=== PATIENT | male | born 1935 | race American Indian/Alaskan Native ===

== ENCOUNTER 2017-05-06 18:39 | Inpatient (IN) | payer MEDICARE, MEDICAID ==
[2017-05-06] MEDS ORDERED: Piperacill/Tazo 4.5gm in NS 4.5 GM/100 ML BAG IVPB STA (19:20)
[2017-05-06] MEDS ORDERED: Vancomycin 1gm in NS 250ml 1 GM/250 ML BAG IVPB STA (19:20)
--- NOTE | 2017-05-06 19:28 | ED PDOC ---
Arrival/HPI - General Chief Complaint: Fever Time Seen by Provider: 05/06/17 18:52 Historian: [facility] - History of Present Illness Narrative History of Present Illness (Text): The patient is a 81yo male, sent to the emergency department by his [facility] for evaluation of a fever present for the past 2 weeks. Patient has a hx of CVA and cerebral palsy. Patient is non-verbal so a complete HPI and ROS is unavailable. Time/Duration: > week (2) Past Medical History - Provider Review Nursing Documentation Reviewed: Yes - Cardiac Hx Cardiac Disorders: Yes Hx Hypertension: Yes - Pulmonary Hx Respiratory Disorders: No - Neurological Hx Neurological Disorder: Yes Hx Seizures: Yes Other/Comment: cerebral palsy - HEENT Hx HEENT Disorder: No - Renal Hx Renal Disorder: No - Endocrine/Metabolic Hx Endocrine Disorders: Yes Hx Diabetes Mellitus Type 2: Yes - Hematological/Oncological Hx Blood Disorders: Yes (GI BLEED) - Integumentary Hx Dermatological Disorder: No - Musculoskeletal/Rheumatological Hx Musculoskeletal Disorders: Yes (LEFT SIDED WEAKNESS/CVA) Hx Falls: (UNKNOWN) - Gastrointestinal Hx Gastrointestinal Disorders: Yes (GI BLEED,CONSTIPATION,DIARRHEA) - Genitourinary/Gynecological Hx Genitourinary Disorders: Yes (OVERACTIVE BLADDER) Hx Incontinence: Yes - Psychiatric Hx Psychophysiologic Disorder: No Hx Substance Use: No Family/Social History - Physician Review Nursing Documentation Reviewed: Yes Family/Social History: Unknown Family HX Smoking Status: Never Smoked Hx Alcohol Use: No Hx Substance Use: No Allergies/Home Meds Allergies/Adverse Reactions: Allergies No Known Allergies Allergy (Verified 05/06/17 19:00) Home Medications: Home Meds Medication Instructions Recorded Confirmed Carvedilol [Coreg] 3.125 mg PO .8A, 5P 07/01/15 05/06/17 Solifenacin Succinate [Vesicare] 5 mg PO DAILY 07/01/15 05/06/17 Tamsulosin HCl [Flomax] 0.4 mg PO DAILY 07/01/15 05/06/17 Tolterodine [Detrol] 2 mg PO BID 07/01/15 05/06/17 Apixaban [Eliquis] 5 mg PO BID 05/06/17 05/06/17 Atorvastatin [Lipitor] 20 mg PO .DINNER 05/06/17 05/06/17 Cholecalciferol (Vitamin D3) 2,000 units PO DAILY 05/06/17 05/06/17 [Vitamin D3] Dextran 70/Hypromellose 1 drop BOTHEYES DAILY 05/06/17 05/06/17 [Artificial Tears] Divalproex [Depakote DR] 500 mg PO BID 05/06/17 05/06/17 Melatonin [Melatonin] 0 mg PO HS 05/06/17 05/06/17 Review of Systems - Review of Systems Systems not reviewed;Unavailable: Other (patient non-verbal) Physical Exam - Physical Exam Narrative Physical Exam (Text): - Physical exam - Systems Exam Head: Present: Atraumatic, Normocephalic Pupils: Present: PERRL Extraocular Muscles: Present: EOMI Conjunctiva: Present: Normal Mouth: Present: Moist Mucous Membranes Neck: Present: Normal Range of Motion. No: MIDLINE TENDERNESS, Paraspinal Tenderness Respiratory/Chest: Present: Clear to Auscultation, Good Air Exchange. No: Respiratory Distress, Accessory Muscle Use, Tachypnic Cardiovascular: Present: Regular Rate and Rhythm, Normal S1, S2, Peripheral Pulses Present. No: Murmurs Abdomen: Present: Normal Bowel Sounds, No: Tenderness, Peritoneal Signs, Rebound, Guarding, Distention Back: Present: Normal Inspection. No: Midline Tenderness, Paraspinal Tenderness Upper Extremity: Present: Contracted. No: Cyanosis, Edema Lower Extremity: Present: Contracted. No: Edema, cyanosis Skin: Present: Warm, Dry, Normal Color. No: Rashes Physical Exam Limitations: Altered Mental Status Vital Signs Reviewed: Yes Vital Signs Temp Pulse Resp BP Pulse Ox 05/06/17 21:10 99.2 F 05/06/17 20:40 99.2 F 89 14 119/73 97 05/06/17 20:10 100.6 F H 05/06/17 18:50 100.6 F H 101 H 18 132/79 95 Temperature: Febrile Blood Pressure: Normal Pulse: Tachycardic Respiratory Rate: Normal Pain Distress: None Mental Status: No: Agitated, Lethargic Medical Decision Making ED Course and Treatment: Impression: Fever Differential Diagnosis included but are not limited to: Sepsis, UTI Plan: -- Labs -- IV Fluids -- Vancomycin -- Zosyn -- Tylenol 975 mg PO -- Reassess and disposition Progress Notes: 05/06/17 19:[address] Posadas, states to admit to Dr. De Leon' service 05/06/17 20:07 EKG: Ordered, reviewed, and independently interpreted the EKG. Rate : 95 BPM Rhythm : NSR Interpretation : No ST-segment elevations, normal axis, normal intervals. Interpreted by me. - Lab Interpretations Microbiology Results: Microbiology Results 05/06/17 19:30 Blood Blood Culture - Preliminary NO GROWTH AFTER 48 HOURS Lab Results: 05/06/17 19:25 05/06/17 19:25 Lab Results 05/06/17 19:25: Troponin I < 0.01 05/06/17 19:25: Sodium 142, Chloride 105, Potassium 4.0, Carbon Dioxide 31, Anion Gap 10, BUN 24 H, Creatinine 0.7, Est GFR ( Amer) > 60, Est GFR ( Non-Af Amer) > 60, Random Glucose 129 H, Calcium 8.2 L, Phosphorus 3.1, Magnesium 2.2, Total Bilirubin 0.5, AST 44, ALT 23, Alkaline Phosphatase 64, Total Protein 5.6 L, Albumin 2.2 L, Globulin 3.4, Albumin/Globulin Ratio 0.6 L 05/06/17 19:25: pO2 50, VBG pH 7.44 H, VBG pCO2 48.0, VBG HCO3 32.6 H, VBG Total CO2 34.1 H, VBG O2 Sat (Calc) 88.8 H, VBG Base Excess 7.2 H, VBG Potassium 5.4 H, Sodium 142.0, Chloride 109.0 H, Glucose 132 H, Lactate 1.5, FiO2 21.0, Venous Blood Potassium 5.4 H 05/06/17 19:25: PT 14.6 H, INR 1.35 H, APTT 34.5 H 05/06/17 19:25: WBC 12.6 H D, RBC 3.14 L, Hgb 9.7 L, Hct 30.4 L, MCV 96.8, MCH 30.9, MCHC 31.9, RDW 18.3 H, Plt Count 225, MPV 10.4, Gran % 66.9, Lymph % (Auto ) 22.8, [place] % (Auto) 9.9 H, Eos % (Auto) 0.3 L, Baso % (Auto) 0.1, Gran # 8.42 H, Lymph # 2.9, [place] # 1.3 H, Eos # 0.0, Baso # 0.01 - RAD Interpretation Radiology Orders: 05/06/17 19:20 CHEST PORTABLE [RAD] Stat - Medication Orders Current Medication Orders: Acetaminophen (Tylenol 325 Mg Supp) 975 mg [place] ONCE PRN PRN Reason: Fever >100.4 F Last Admin: 05/06/17 20:10 Dose: 975 mg Re-Assess: MAR Pain/Vitals Document 05/06/17 21:10 JOL (Rec: 05/06/17 21:50 JOL [id number]) Pain Reassessment Is This A Pain ReAssessment? No Sleep Is patient sleeping during reassessment? No Presence of Pain Presence of Pain No Vitals Temperature (97.6 F-99.6 F) 99.2 F Temperature Source Rectal Amlodipine Besylate (Norvasc) 2.5 mg PO DAILY PRN PRN Reason: BP sys>160, lawrence>100 Atorvastatin Calcium (Lipitor) 20 mg PO DIN [facility] Last Admin: 05/08/17 18:45 Dose: Not Given Non-Admin Reason: NPO Carvedilol (Coreg) 3.125 mg PO 0800,1700 [facility] Last Admin: 05/08/17 18:44 Dose: Not Given Non-Admin Reason: NPO Collagenase (Santyl) 1 gm TOP BID [facility] Last Admin: 05/08/17 19:13 Dose: 1 appful Divalproex Sodium (Depakote Dr(*Bid*)) 500 mg PO BID [facility] Last Admin: 05/08/17 18:44 Dose: Not Given Non-Admin Reason: NPO Famotidine (Pepcid) 20 mg IVP DAILY [facility] Last Admin: 05/08/17 10:55 Dose: 20 mg Hydralazine HCl (Apresoline) 10 mg IVP Q6 PRN PRN Reason: Systolic Blood Pressure Last Admin: 05/08/17 06:26 Dose: 10 mg Sodium Chloride (Sodium Chloride 0.9%) 1,000 mls @ 100 mls/hr IV .Q10H [facility] Last Admin: 05/08/17 22:26 Dose: 100 mls/hr Piperacillin Sod/Tazobactam Sod (Zosyn 3.375 In Ns 100ml) 100 mls @ 200 mls/hr IVPB Q6 [facility] PRN Reason: Protocol Stop: 05/17/17 12:01 Last Admin: 05/09/17 05:28 Dose: 200 mls/hr Linezolid (Zyvox 600mg/300ml D5w) 600 mg in 300 mls @ 200 mls/hr IVPB Q12 [facility] PRN Reason: Protocol Stop: 08/14/17 22:01 Last Admin: 05/08/17 22:25 Dose: 200 mls/hr Tamsulosin HCl (Flomax) 0.4 mg PO DAILY [facility] Last Admin: 05/08/17 13:08 Dose: Not Given Non-Admin Reason: NPO Discontinued Medications Sodium Chloride 2,200 ml/ IV (SUPPLIES) 2,200 mls @ 4,354.5 mls/hr IV ONCE ONE PRN Reason: 60 ML/KG/HR Stop: 05/06/17 19:21 Last Admin: 05/06/17 19:30 Dose: 4,354.5 mls/hr Vancomycin HCl (Vancomycin 1gm) 1 gm in 250 mls @ 167 mls/hr IVPB STAT STA PRN Reason: Protocol Stop: 05/06/17 20:49 Last Admin: 05/06/17 20:11 Dose: 167 mls/hr Piperacillin Sod/Tazobactam Sod (Zosyn 4.5 Gm In Ns 100ml) 4.5 gm in 100 mls @ 200 mls/hr IVPB STAT STA PRN Reason: Protocol Stop: 05/06/17 19:49 Last Admin: 05/06/17 19:30 Dose: 200 mls/hr Valproate Sodium 500 mg/ (Sodium Chloride) 105 mls @ 100 mls/hr IVPB ONCE ONE Stop: 05/08/17 22:21 Last Admin: 05/08/17 21:37 Dose: 100 mls/hr - Scribe Statement The provider has reviewed the documentation as recorded by the Cheo Guevara Provider Pandaibe Attestation: All medical record entries made by the Pandaibrandee were at my direction and personally dictated by me. I have reviewed the chart and agree that the record accurately reflects my personal performance of the history, physical exam, medical decision making, and the department course for this patient. I have also personally directed, reviewed, and agree with the discharge instructions and disposition. Disposition/Present on Arrival - Present on Arrival Any Indicators Present on Arrival: No History of DVT/PE: No History of Uncontrolled Diabetes: No Urinary Catheter: No History of Decub. Ulcer: No History Surgical Site Infection Following: None - Disposition Have Diagnosis and Disposition been Completed?: Yes Diagnosis: Sepsis Disposition: HOSPITALIZED Disposition Time: 19:53 Patient Plan: Admission Patient Problems: Current Active Problems Problem Status Onset Sepsis Acute Condition: FAIR
[2017-05-06 19:32] LABS: ADD MANUAL DIFF? NO
[2017-05-06 19:36] LABS: BASO # 0.01 K/mm3 (0.0-2.0); BASO % 0.1 % (0.0-3.0); EOS % 0.3 % (1.5-5.0); GRAN # 8.42 (1.4-6.5); GRAN % 66.9 % (50.0-68.0); HEMATOCRIT 30.4 % (42.0-52.0); LYMPH # 2.9 (1.2-3.4); LYMPH % 22.8 % (22.0-35.0); MEAN CELL VOLUME 96.8 fL (80.0-105.0); MEAN CORPUSCULAR HEMOGLOBIN 30.9 pg (25.0-35.0); MEAN CORPUSCULAR HGB CONC 31.9 g/dl (31.0-37.0); MEAN PLATELET VOLUME 10.4 fl (7.0-11.0); MONO # 1.3 (0.1-0.6); MONO % 9.9 % (1.0-6.0); PLATELET COUNT 225 10^3/uL (120.0-450.0); RED CELL DISTRIBUTION WIDTH 18.3 % (11.5-14.5); VENOUS BLOOD GAS BASE EXCESS 7.2 mmol/L (0.0-2.0); VENOUS BLOOD PH 7.44 (7.32-7.43); WHITE BLOOD COUNT 12.6 10^3/ul (4.5-11.0)
[2017-05-06 19:47] LABS: ALB/GLOB RATIO 0.6 (1.1-1.8); ALKALINE PHOSPHATASE 64 U/L (38-133); ALT/SGPT 23 U/L (7-56); AST/SGOT 44 U/L (15-59); BILIRUBIN,TOTAL 0.5 mg/dL (0.2-1.3); BLOOD UREA NITROGEN 24 mg/dL (7-21); CALCIUM 8.2 mg/dL (8.4-10.5); CARBON DIOXIDE 31 mmol/L (21-33); CHLORIDE 105 mmol/L (98-107); GFR AFRICAN-AMERICAN > 60; GLUCOSE,RANDOM 129 mg/dL (70-110); MAGNESIUM 2.2 mg/dL (1.7-2.2); PHOSPHOROUS 3.1 mg/dL (2.5-4.5); SODIUM 142 mmol/L (132-148); TOTAL PROTEIN 5.6 g/dL (5.8-8.3)
[2017-05-06 19:50] LABS: INR 1.35 (0.93-1.08); PARTIAL THROMBOPLASTIN TIME 34.5 Seconds (23.7-30.8)
--- NOTE | 2017-05-06 20:47 | CP.PCM.HP ---
<EMI RAMSEY - Last Filed: 05/07/17 08:46> History of Present Illness - History of Present Illness History of Present Illness: Patient is a 81 year old male PMH cerebral palsy, DM, BPH, GI bleeds, anemia, and urine retention who presented to the [facility] ED on 05/06/17 from the long-term , As per long-term staff, patient has had a poor appetite and difficulty swallowing without vomiting for the past 3 weeks and fever as well as +3 edema on feet bilaterally which started today. According to nurse at [facility], patient's appetite has steadily decreased in the past few weeks. With his inability to eat solid foods, his diet was converted to full liquids, with ensure being the primary supplement. However despite liquid diet, patient was still losing weight. Presence of a two week old sacral decubitus ulcer was also discussed for which patient was prescribed Bactroband daily qD. Sacral ulcer was initially red, and within one week became open and purulent. According to long-term staff, He normally communicates with yes or no but in the past few days has been unable to communicate. Both Fever and edema started today. No vomiting. Patient is AMS, however is able to repeat his name, country and state in which he is located. Patient unable to communicate current year, month, date. PMD: Dr. Amaya PMH: Cerebral Palsy, HTN, DM II Seizure Allergies: NKDA Social History: Resident at [facility], does not consume tobacco, alcohol, illicit drugs Present on Admission - Present on Admission Any Indicators Present on Admission: No Review of Systems - Review of Systems Systems not reviewed;Unavailable: Altered Mental Status - Constitutional Constitutional: Lethargy, Malaise - Gastrointestinal Gastrointestinal: Abdominal Pain (Review of Systems limited due to patient's altered mental status.) Past Patient History - Past Social History Smoking Status: Never Smoked - CARDIAC Hx Cardiac Disorders: Yes Hx Hypertension: Yes - PULMONARY Hx Respiratory Disorders: No - NEUROLOGICAL Hx Neurological Disorder: Yes Hx Seizures: Yes Other/Comment: cerebral palsy - HEENT Hx HEENT Problems: No - RENAL Hx Chronic Kidney Disease: No - ENDOCRINE/METABOLIC Hx Endocrine Disorders: Yes Hx Diabetes Mellitus Type 2: Yes - HEMATOLOGICAL/ONCOLOGICAL Hx Blood Disorders: Yes (GI BLEED) - INTEGUMENTARY Hx Dermatological Problems: No - MUSCULOSKELETAL/RHEUMATOLOGICAL Hx Musculoskeletal Disorders: Yes (LEFT SIDED WEAKNESS/CVA) Hx Falls: (UNKNOWN) - GASTROINTESTINAL Hx Gastrointestinal Disorders: Yes (GI BLEED,CONSTIPATION,DIARRHEA) - GENITOURINARY/GYNECOLOGICAL Hx Genitourinary Disorders: Yes (OVERACTIVE BLADDER) Hx Incontinence: Yes - PSYCHIATRIC Hx Psychophysiologic Disorder: No Hx Substance Use: No - SURGICAL HISTORY Hx Surgeries: (unable to obtain) Meds Allergies/Adverse Reactions: Allergies Allergy/AdvReac Type Severity Reaction Status Date / Time No Known Allergies Allergy Verified 05/06/17 19:00 Physical Exam - Constitutional Appears: Confused - Head Exam Head Exam: ATRAUMATIC, NORMAL INSPECTION, NORMOCEPHALIC - Eye Exam Eye Exam: Normal appearance - ENT Exam ENT Exam: Mucous Membranes Dry - Neck Exam Neck exam: Positive for: Normal Inspection - Respiratory Exam Respiratory Exam: Clear to Auscultation Bilateral, NORMAL BREATHING PATTERN. absent: Rales, Rhonchi, Wheezes - Cardiovascular Exam Cardiovascular Exam: RRR, +S1, +S2. absent: Clicks, Gallop, JVD - GI/Abdominal Exam GI & Abdominal Exam: absent: Distended, Soft - Neurological Exam Neurological exam: Altered - Skin Skin Exam: Dry, Normal Color Results - Vital Signs Recent Vital Signs: Last Vital Signs Temp 100.6 F H 05/06/17 20:10 Pulse 101 H 05/06/17 18:50 Resp 18 05/06/17 18:50 BP 132/79 05/06/17 18:50 Pulse Ox 95 05/06/17 18:50 - Labs Result Diagrams: 05/07/17 07:25 05/07/17 07:27 Assessment & Plan - Assessment and Plan (Free Text) Assessment: Patient is a 81 year old male PMH cerebral palsy, DM, BPH, GI bleeds, anemia, and urine retention who presented to the [facility] ED on 05/06/17 from the long-term with altered mental status. Plan: 1. Altered mental status - WBC 12.1 - Blood and Urine cultures; results pending - ID consulted, awaiting their recommendations - Sacral decubitus ulcer stage 3; results pending - Gen Surgery consulted, awaiting their recommendations - Vanc 1 gm IV and Zosyn 4.5 gm IV - Abdomen and Pelvic CT w/o contrast; results pending - CT Head w/o contrast; results pending - Aspiration precuations placed - Neuro check q1hx8 - Saleem catheter placement 2. HTN - Coreg 3.125 PO BID 3. HLD - Lipitor 20 mg PO DIN DVT/GI prophylaxis- knee SCD daily and Pepcid 20 mg IVP daily <Gabriel Amaya - Last Filed: 05/26/17 08:58> Results - Vital Signs Recent Vital Signs: Last Vital Signs Temp 97.6 F 05/11/17 12:00 Pulse 84 05/11/17 15:42 Resp 18 05/11/17 12:00 BP 144/83 05/11/17 15:42 Pulse Ox 97 05/11/17 06:00 - Labs Result Diagrams: 05/11/17 06:15 05/11/17 06:15 Attending/Attestation - Attestation I have personally seen and examined this patient.: Yes I have fully participated in the care of the patient.: Yes I have reviewed all pertinent clinical information: Yes Notes (Text): 05/26/17 08:58 Medical record note made by the resident done after discussion with my direction and input after the patient was personally seen by me. I have reviewed the chart and agree that the record accurately reflects my personal history, physical, data review, decision making and course for the patient.
[2017-05-06] MEDS: Sodium Chloride 0.9% 1,000 ML IV SCH (21:56)
[2017-05-07 02:00] VITALS: BMI 24.3
[2017-05-07 06:42] LABS: PH,URINE 6.5 (4.7-8.0); URINE BILIRUBIN NEGATIVE (NEGATIVE); URINE BLOOD NEGATIVE (NEGATIVE); URINE GLUCOSE (UA) NEGATIVE (NEGATIVE); URINE KETONE NEGATIVE (NEGATIVE); URINE LEUKOCYTE ESTERASE NEGATIVE Leu/uL (NEGATIVE); URINE PROTEIN NEGATIVE mg/dL (<30 mg/dL)
[2017-05-07 06:44] LABS: URINE APPEARANCE CLEAR (CLEAR); URINE COLOR DARK YELLOW (YELLOW)
[2017-05-07 07:25] LABS: ADD MANUAL DIFF? NO
[2017-05-07 07:35] LABS: MAGNESIUM 2.1 mg/dL (1.7-2.2)
[2017-05-07 07:57] LABS: ALB/GLOB RATIO 0.7 (1.1-1.8); ALKALINE PHOSPHATASE 77 U/L (38-133); ALT/SGPT 17 U/L (7-56); AST/SGOT 44 U/L (15-59); BILIRUBIN,TOTAL 0.6 mg/dL (0.2-1.3); BLOOD UREA NITROGEN 21 mg/dL (7-21); CALCIUM 8.1 mg/dL (8.4-10.5); CARBON DIOXIDE 29 mmol/L (21-33); CHLORIDE 109 mmol/L (98-107); GFR AFRICAN-AMERICAN > 60; GLUCOSE,RANDOM 94 mg/dL (70-110); POTASSIUM 3.7 mmol/L (3.6-5.0); SODIUM 145 mmol/L (132-148); TOTAL PROTEIN 5.5 g/dL (5.8-8.3)
[2017-05-07 08:03] LABS: BASO # 0.01 K/mm3 (0.0-2.0); BASO % 0.1 % (0.0-3.0); EOS # 0.1 (0.0-0.7); EOS % 1.2 % (1.5-5.0); GRAN % 64.5 % (50.0-68.0); HEMATOCRIT 29.8 % (42.0-52.0); LYMPH # 2.6 (1.2-3.4); LYMPH % 23.2 % (22.0-35.0); MEAN CELL VOLUME 96.4 fL (80.0-105.0); MEAN CORPUSCULAR HEMOGLOBIN 30.4 pg (25.0-35.0); MEAN CORPUSCULAR HGB CONC 31.5 g/dl (31.0-37.0); MEAN PLATELET VOLUME 10.2 fl (7.0-11.0); MONO # 1.2 (0.1-0.6); PLATELET COUNT 209 10^3/uL (120.0-450.0)
--- NOTE | 2017-05-07 09:28 | CT ---
PROCEDURE: CT Abdomen and Pelvis without intravenous contrast HISTORY: abdominal pain COMPARISON: 07/01/2015 TECHNIQUE: Without contrast.. Contrast Dose: 0 Radiation dose: Total exam DLP = 924.16 mGy-cm. This CT exam was performed using one or more of the following dose reduction techniques: Automated exposure control, adjustment of the mA and/or kV according to patient size, and/or use of iterative reconstruction technique. FINDINGS: LOWER THORAX: Small bilateral pleural effusion. LIVER: Unremarkable. No gross lesion or ductal dilatation. GALLBLADDER AND BILE DUCTS: Gallbladder contracted. No calcified gallstones identified. PANCREAS: Unremarkable. No gross lesion or ductal dilatation. SPLEEN: Unremarkable. ADRENALS: Unremarkable. No mass. KIDNEYS AND URETERS: Unremarkable. No hydronephrosis. No solid mass. VASCULATURE: Unremarkable. No aortic aneurysm. BOWEL: Retained feces in the rectum. No bowel obstruction. There is mural thickening of a segment of small bowel at least in length, nonspecific. This is best demonstrated on series 2, image 88 through 105. Nonspecific. Possible infectious or inflammatory enteritis. No other abnormal bowel loops are appreciated. APPENDIX: Unremarkable. Normal appendix. PERITONEUM: Unremarkable. No free fluid. No free air. LYMPH NODES: Unremarkable. No enlarged lymph nodes. BLADDER: Unremarkable. REPRODUCTIVE: Unremarkable prostate BONES: Thoracolumbar dextroscoliosis. No acute fracture. OTHER FINDINGS: None. IMPRESSION: New circumferential mural thickening of a segment of small bowel common nonspecific. Possible infectious or inflammatory enteritis. No bowel obstruction. Small bilateral pleural effusion. No other acute abnormality. Preliminary interpretation of this examination was reported by ALENTY at 9:57 p.m. on 05/06/2017. There is concurrence of this report with the preliminary interpretation.
[2017-05-07 09:45] LABS: FREE T4 1.52 ng/dL (0.78-2.19); T4 6.6 ug/dL (5.5-11.0)
[2017-05-07 09:59] LABS: T3 0.76 ng/mL (0.97-1.69)
[2017-05-07] MEDS ORDERED: Vancomycin 1gm in NS 250ml 1 GM/250 ML BAG IVPB SCH (10:00)
--- NOTE | 2017-05-07 10:51 | CT ---
PROCEDURE: CT HEAD WITHOUT CONTRAST. HISTORY: AMS COMPARISON: None available. TECHNIQUE: Axial computed tomography images were obtained through the head/brain without intravenous contrast. Radiation dose: Total exam DLP = 774.23 mGy-cm. This CT exam was performed using one or more of the following dose reduction techniques: Automated exposure control, adjustment of the mA and/or kV according to patient size, and/or use of iterative reconstruction technique. FINDINGS: HEMORRHAGE: No intracranial hemorrhage. BRAIN: No mass effect or edema. Right frontal cystic encephalomalacia widely communicating with right lateral ventricle. No evidence of acute infarct. Moderate periventricular white matter lucency consistent with microvascular white matter ischemic change. Mild to moderate diffuse cerebral atrophy consistent with age. VENTRICLES: As above, marked dilatation right lateral ventricle due to communicating cystic encephalomalacia. CALVARIUM: Unremarkable. PARANASAL SINUSES: Unremarkable as visualized. No significant inflammatory changes. MASTOID AIR CELLS: Unremarkable as visualized. No inflammatory changes. OTHER FINDINGS: None. IMPRESSION: No intracranial hemorrhage. No intracranial mass or evidence of acute infarct. Right frontal cystic encephalomalacia communicating the right lateral ventricle. Age related involutional changes.
--- NOTE | 2017-05-07 11:34 | RAD ---
HISTORY: Sepsis Patient COMPARISON: No prior. FINDINGS: LUNGS: No active pulmonary disease. PLEURA: No significant pleural effusion identified, no pneumothorax apparent. CARDIOVASCULAR: Normal. 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 Remodeling of the undersurface of the right acromion. VISUALIZED UPPER ABDOMEN: Normal. OTHER FINDINGS: None. IMPRESSION: No active disease.
--- NOTE | 2017-05-07 11:57 | CP.PCM.PN ---
<Cortez Panda - Last Filed: 05/07/17 18:48> Subjective - Date & Time of Evaluation Date of Evaluation: 05/07/17 Time of Evaluation: 11:53 - Subjective Subjective: Medicine progress note for Dr. Amaya/Dr. Juarez service - Cortez Amarilys PGY2 Patient seen and examined this morning. Patient is nonverbal and limited history available. 12 point ROS limited due to patient status. Chart reviewed. Objective - Vital Signs/Intake and Output Vital Signs (last 24 hours): Temp Pulse Resp BP Pulse Ox 98.7 F 92 H 19 167/92 H 96 05/07/17 06:00 05/07/17 10:23 05/07/17 06:00 05/07/17 10:23 05/07/17 06:00 Intake and Output: 05/07/17 05/07/17 06:59 18:59 Intake Total 1000 Output Total 400 Balance 600 - Medications Medications: Current Medications Acetaminophen (Tylenol 325 Mg Supp) 975 mg [place] ONCE PRN PRN Reason: Fever >100.4 F Last Admin: 05/06/17 20:10 Dose: 975 mg Atorvastatin Calcium (Lipitor) 20 mg PO DIN [facility] Carvedilol (Coreg) 3.125 mg PO 0800,1700 [facility] Last Admin: 05/07/17 08:50 Dose: 3.125 mg Divalproex Sodium (Depakote Dr(*Bid*)) 500 mg PO BID JOHANNA Famotidine (Pepcid) 20 mg IVP DAILY [facility] Last Admin: 05/07/17 10:24 Dose: 20 mg Hydralazine HCl (Apresoline) 10 mg IVP Q6 PRN PRN Reason: Systolic Blood Pressure Last Admin: 05/07/17 10:23 Dose: 10 mg Sodium Chloride (Sodium Chloride 0.9%) 1,000 mls @ 100 mls/hr IV .Q10H JOHANNA Last Admin: 05/06/17 21:56 Dose: 100 mls/hr Piperacillin Sod/Tazobactam Sod (Zosyn 3.375 In Ns 100ml) 100 mls @ 200 mls/hr IVPB Q6 JOHANNA PRN Reason: Protocol Stop: 05/17/17 12:01 Linezolid (Zyvox 600mg/300ml D5w) 600 mg in 300 mls @ 200 mls/hr IVPB Q12 JOHANNA PRN Reason: Protocol Stop: 08/14/17 22:01 Tamsulosin HCl (Flomax) 0.4 mg PO DAILY JOHANNA - Labs Labs: 05/07/17 07:25 05/07/17 07:27 PT 14.6 Seconds (9.9-11.8) H 05/06/17 19:25 INR 1.35 (0.93-1.08) H 05/06/17 19:25 APTT 34.5 Seconds (23.7-30.8) H 05/06/17 19:25 - Constitutional Appears: No Acute Distress - Head Exam Head Exam: ATRAUMATIC, NORMAL INSPECTION, NORMOCEPHALIC - Eye Exam Eye Exam: EOMI, PERRL - ENT Exam ENT Exam: Mucous Membranes Moist - Respiratory Exam Respiratory Exam: Decreased Breath Sounds. absent: Rales, Rhonchi, Wheezes - Cardiovascular Exam Cardiovascular Exam: +S1, +S2. absent: Gallop, Murmur - GI/Abdominal Exam GI & Abdominal Exam: Soft. absent: Firm, Guarding, Rigid, Tenderness, Rebound - Neurological Exam Neurological Exam: Alert, Awake - Psychiatric Exam Psychiatric exam: Normal Affect, Normal Mood - Skin Skin Exam: Dry, Intact, Normal Color, Warm Assessment and Plan - Assessment and Plan (Free Text) Plan: Patient is a 81 year old male PMH cerebral palsy, BPH, GI bleeds, anemia, and urinary retention who presented from half-way with altered mental status 1. Altered mental status -AMS likely secondary to infectious etiology from sacral decubitus ulcer and/or enteritis; pending sepsis workup -Leukocytosis of 11 from 12.1 on admission; currently afebrile however temp of 100.6F on admission -Urinalysis negative -CXR revealed no active disease -CT Head revealed no acute findings; age related involutional changes, encephalomalacia; see full report -CT abd/pelvis revealed new circumferential mural thickening of the small bowel which is nonspecific however may represent infectious/inflammatory entiritis -Blood cultures pending -Procalcitonin pending -Continue with Zosyn and Zyvox per ID recommendations -Patient with stage 2/stage 3 sacral decubitus ulcers; surgery consulted; continue with santyl and air mattress as per surgery recs -ID consulted - Dr. Boghossian -Surgery consulted - Dr. Bowling 2. HTN -Continue home Coreg 3.125 PO BID -Hydralazine 10mg IVP PRN 3. HLD - Lipitor 20 mg PO DIN 4. BPH -Continue home flomax 5. GI/DVT Prophylaxis -Pepcid/SCD's Patient seen and case discussed with attending, Dr. Juarez <Humphrey Juarez - Last Filed: 05/09/17 17:22> Objective - Vital Signs/Intake and Output Vital Signs (last 24 hours): Temp Pulse Resp BP Pulse Ox 97.0 F L 89 18 159/87 H 95 05/09/17 12:00 05/09/17 14:00 05/09/17 12:00 05/09/17 12:00 05/09/17 06:00 Intake and Output: 05/09/17 05/09/17 06:59 18:59 Intake Total 1200 360 Output Total 650 Balance 1200 -290 - Medications Medications: Current Medications Acetaminophen (Tylenol 325 Mg Supp) 975 mg [place] ONCE PRN PRN Reason: Fever >100.4 F Last Admin: 05/06/17 20:10 Dose: 975 mg Amlodipine Besylate (Norvasc) 2.5 mg PO DAILY PRN PRN Reason: BP sys>160, lawrence>100 Atorvastatin Calcium (Lipitor) 20 mg PO DIN [facility] Last Admin: 05/08/17 18:45 Dose: Not Given Carvedilol (Coreg) 3.125 mg PO 0800,1700 [facility] Last Admin: 05/09/17 08:00 Dose: Not Given Collagenase (Santyl) 1 gm TOP BID [facility] Last Admin: 05/09/17 07:30 Dose: 1 appful Divalproex Sodium (Manuel Car(*Bid*)) 500 mg PO BID [facility] PRN Reason: Protocol Famotidine (Pepcid) 20 mg IVP DAILY [facility] Last Admin: 05/09/17 09:22 Dose: 20 mg Hydralazine HCl (Apresoline) 10 mg IVP Q6 PRN PRN Reason: Systolic Blood Pressure Last Admin: 05/09/17 09:22 Dose: 10 mg Sodium Chloride (Sodium Chloride 0.9%) 1,000 mls @ 100 mls/hr IV .Q10H [facility] Last Admin: 05/09/17 09:00 Dose: Not Given Piperacillin Sod/Tazobactam Sod (Zosyn 3.375 In Ns 100ml) 100 mls @ 200 mls/hr IVPB Q6 JOHANNA PRN Reason: Protocol Stop: 05/17/17 12:01 Last Admin: 05/09/17 12:30 Dose: 200 mls/hr Linezolid (Zyvox 600mg/300ml D5w) 600 mg in 300 mls @ 200 mls/hr IVPB Q12 JOHANNA PRN Reason: Protocol Stop: 08/14/17 22:01 Last Admin: 05/09/17 09:23 Dose: 200 mls/hr Tamsulosin HCl (Flomax) 0.4 mg PO DAILY [facility] Last Admin: 05/09/17 10:05 Dose: Not Given - Labs Labs: 05/09/17 09:00 05/09/17 09:00 PT 14.6 Seconds (9.9-11.8) H 05/06/17 19:25 INR 1.35 (0.93-1.08) H 05/06/17 19:25 APTT 34.5 Seconds (23.7-30.8) H 05/06/17 19:25 Attending/Attestation - Attestation I have personally seen and examined this patient.: Yes I have fully participated in the care of the patient.: Yes I have reviewed all pertinent clinical information, including history, physical exam and plan: Yes Notes (Text): 05/09/17 17:22 Medical record note made by the resident after discussion with my direction and input after the patient was personally seen and examined by me. I have reviewed the chart and agree that the record accurately reflects by personal performance of the history, physical exam, data review, and medical decision-making, in the course for the patient. I have also personally directed the plan of care.
[2017-05-07] MEDS ORDERED: Piperacillin/Tazobact 3.375 gm 100 ML IVPB SCH (12:00)
[2017-05-07] MEDS: Divalproex 500 mg DR(BID formulation) PO SCH ×2 (12:31→17:02)
[2017-05-07] MEDS: Sodium Chloride 0.9% 1,000 ML IV SCH ×2 (12:32→21:16)
[2017-05-07] MEDS: Piperacillin/Tazobact 3.375 gm 100 ML IVPB SCH ×2 (12:50→17:06)
--- NOTE | 2017-05-07 13:11 | CP.PCM.CON ---
History of Present Illness - History of Present Illness History of Present Illness: SURGERY CONSULT NOTE FOR DR. LAUREN 81M presents to [facility] for poor appetite and altered mental status. Surgery consulted for sacral decubitus. Patient has a history of cerebral palsy with contractures of the extremities. Wound in the sacral region. Two 2by2cm stage 3 ulcers, with necrosis region. PMD: Dr. Amaya PMH: Cerebral Palsy, HTN, DM II Seizure, GI bleed, anemia Allergies: NKDA Social History: Resident at [facility], does not consume tobacco, alcohol, illicit drugs Past Patient History - Past Social History Smoking Status: Never Smoked - CARDIAC Hx Cardiac Disorders: Yes Hx Hypertension: Yes - PULMONARY Hx Respiratory Disorders: No - NEUROLOGICAL Hx Neurological Disorder: Yes Hx Seizures: Yes Other/Comment: cerebral palsy - HEENT Hx HEENT Problems: No - RENAL Hx Chronic Kidney Disease: No - ENDOCRINE/METABOLIC Hx Endocrine Disorders: Yes Hx Diabetes Mellitus Type 2: Yes - HEMATOLOGICAL/ONCOLOGICAL Hx Blood Disorders: Yes (GI BLEED) - INTEGUMENTARY Hx Dermatological Problems: No - MUSCULOSKELETAL/RHEUMATOLOGICAL Hx Musculoskeletal Disorders: Yes (LEFT SIDED WEAKNESS/CVA) Hx Falls: (UNKNOWN) - GASTROINTESTINAL Hx Gastrointestinal Disorders: Yes (GI BLEED,CONSTIPATION,DIARRHEA) - GENITOURINARY/GYNECOLOGICAL Hx Genitourinary Disorders: Yes (OVERACTIVE BLADDER) Hx Incontinence: Yes - PSYCHIATRIC Hx Psychophysiologic Disorder: No Hx Substance Use: No - SURGICAL HISTORY Hx Surgeries: (unable to obtain) Meds Allergies/Adverse Reactions: Allergies Allergy/AdvReac Type Severity Reaction Status Date / Time No Known Allergies Allergy Verified 05/06/17 19:00 - Medications Medications: Current Medications Acetaminophen (Tylenol 325 Mg Supp) 975 mg [place] ONCE PRN PRN Reason: Fever >100.4 F Last Admin: 05/06/17 20:10 Dose: 975 mg Atorvastatin Calcium (Lipitor) 20 mg PO DIN [facility] Carvedilol (Coreg) 3.125 mg PO 0800,1700 [facility] Last Admin: 05/07/17 08:50 Dose: 3.125 mg Divalproex Sodium (Depakote Dr(*Bid*)) 500 mg PO BID [facility] Last Admin: 05/07/17 12:31 Dose: Not Given Famotidine (Pepcid) 20 mg IVP DAILY [facility] Last Admin: 05/07/17 10:24 Dose: 20 mg Hydralazine HCl (Apresoline) 10 mg IVP Q6 PRN PRN Reason: Systolic Blood Pressure Last Admin: 05/07/17 10:23 Dose: 10 mg Sodium Chloride (Sodium Chloride 0.9%) 1,000 mls @ 100 mls/hr IV .Q10H [facility] Last Admin: 05/07/17 12:32 Dose: 100 mls/hr Piperacillin Sod/Tazobactam Sod (Zosyn 3.375 In Ns 100ml) 100 mls @ 200 mls/hr IVPB Q6 JOHANNA PRN Reason: Protocol Stop: 05/17/17 12:01 Last Admin: 05/07/17 12:50 Dose: 200 mls/hr Linezolid (Zyvox 600mg/300ml D5w) 600 mg in 300 mls @ 200 mls/hr IVPB Q12 JOHANNA PRN Reason: Protocol Stop: 08/14/17 22:01 Tamsulosin HCl (Flomax) 0.4 mg PO DAILY [facility] Last Admin: 05/07/17 12:31 Dose: Not Given Physical Exam - Constitutional Appears: Non-toxic, No Acute Distress - Head Exam Head Exam: ATRAUMATIC - ENT Exam ENT Exam: Mucous Membranes Moist - Respiratory Exam Respiratory Exam: Clear to Auscultation Bilateral, NORMAL BREATHING PATTERN - Cardiovascular Exam Cardiovascular Exam: REGULAR RHYTHM, +S1, +S2 - GI/Abdominal Exam GI & Abdominal Exam: Soft. absent: Distended, Firm, Guarding, Rebound, Rigid, Tenderness - Back Exam Additional comments: two 2by2cm sacral ulcers stage3, with necrosis - Neurological Exam Neurological exam: Alert - Psychiatric Exam Psychiatric exam: Normal Affect, Normal Mood - Skin Skin Exam: Dry, Normal Color Results - Vital Signs Recent Vital Signs: Last Vital Signs Temp 98.7 F 05/07/17 06:00 Pulse 92 H 05/07/17 10:23 Resp 19 05/07/17 06:00 BP 167/92 H 05/07/17 10:23 Pulse Ox 96 05/07/17 06:00 - Labs Result Diagrams: 05/07/17 07:25 05/07/17 07:27 Labs: Laboratory Results - last 24 hr 05/07/17 05/07/17 05/07/17 06:00 07:12 07:12 WBC RBC Hgb Hct MCV MCH MCHC RDW Plt Count MPV Gran % Lymph % (Auto) Orange % (Auto) Eos % (Auto) Baso % (Auto) Gran # Lymph # Orange # Eos # Baso # Sodium Potassium Chloride Carbon Dioxide Anion Gap BUN Creatinine Est GFR ( Amer) Est GFR (Non-Af Amer) Random Glucose Calcium Magnesium 2.1 Total Bilirubin AST ALT Alkaline Phosphatase Total Protein Albumin Globulin Albumin/Globulin Ratio Free T4 Thyroxine (T4) Total T3 TSH 3rd Generation 5.48 H Urine Color Dark yellow Urine Appearance Clear Urine pH 6.5 Ur Specific [place] 1.015 Urine Protein Negative Urine Glucose (UA) Negative Urine Ketones Negative Urine Blood Negative Urine Nitrate Negative Urine Bilirubin Negative Urine Urobilinogen 4.0 H Ur Leukocyte Esterase Negative 05/07/17 05/07/17 05/07/17 07:25 07:27 09:17 WBC 11.0 RBC 3.09 L Hgb 9.4 L Hct 29.8 L MCV 96.4 MCH 30.4 MCHC 31.5 RDW 18.0 H Plt Count 209 MPV 10.2 Gran % 64.5 Lymph % (Auto) 23.2 Orange % (Auto) 11.0 H Eos % (Auto) 1.2 L Baso % (Auto) 0.1 Gran # 7.10 H Lymph # 2.6 Orange # 1.2 H Eos # 0.1 Baso # 0.01 Sodium 145 Potassium 3.7 Chloride 109 H Carbon Dioxide 29 Anion Gap 11 BUN 21 Creatinine 0.7 Est GFR ( Amer) > 60 Est GFR (Non-Af Amer) > 60 Random Glucose 94 Calcium 8.1 L Magnesium Total Bilirubin 0.6 AST 44 ALT 17 Alkaline Phosphatase 77 Total Protein 5.5 L Albumin 2.3 L Globulin 3.2 Albumin/Globulin Ratio 0.7 L Free T4 1.52 Thyroxine (T4) 6.6 Total T3 0.76 L TSH 3rd Generation Urine Color Urine Appearance Urine pH Ur Specific [place] Urine Protein Urine Glucose (UA) Urine Ketones Urine Blood Urine Nitrate Urine Bilirubin Urine Urobilinogen Ur Leukocyte Esterase Assessment & Plan - Assessment and Plan (Free Text) Assessment: 81M with two stage 3 sacral ulcers Plan: - Santyl BID - Air Mattress - Keep area clean Discussed with Dr. Dash Bautista, PGY2
[2017-05-07 13:38] LABS: FOLATE 16.3 ng/mL
--- NOTE | 2017-05-07 15:18 | CON ---
DATE: 05/07/2017 The patient was seen early today in 267, bed #1. CHIEF COMPLAINT: Fever x 1 day. HISTORY OF PRESENT ILLNESS: This is a 81-year-old male from the group home, he is bedridden with dementia with cerebral palsy, nonverbal, hypertension, seizures, diabetes mellitus, history of kidney failure with a creatinine of 1.9 in the past. He was admitted from the group home with a fever of 100.6 and infectious disease's consultation requested. REVIEW OF SYSTEMS: The patient did a have a fever. There has been no shortness of breath, no diarrhea reported; however, the patient is unable to give any history and information gathered from the nurse who cared for the patient last night. There has been no chest pain reported. There is fever, but no chills. PAST MEDICAL HISTORY: Significant for dementia, hypertension, seizures, diabetes mellitus, cerebral palsy. The patient did have acute kidney injury with a creatinine of 1.9 in July 01, 2015, which he recovered from and the patient had no surgical history and no known allergy. MEDICATIONS: At the group home include Depakote, Detrol, Flomax, Vesicare, melatonin, Eliquis, and vitamin D3, and Lipitor. PHYSICAL EXAMINATION GENERAL: The patient is in bed, in no acute distress, bedridden with poor quality of life, nonverbal. VITAL SIGNS: Temperature of 98, T-max was 100.6, heart rate of 92, respiratory rate of 20, blood pressure 150/80. HEENT: Unremarkable. NECK: Supple. LUNGS: Decreased breath sounds. HEART: Normal S1 and S2. ABDOMEN: Soft, nontender, no rebound, no guarding. Examination of the decubiti reveal a stage 3 decubitus with erythema and evidence of infection. LABORATORY DATA: Reveals a white count of 12,600, hemoglobin of 9, platelets of 225. Chemistries are noted with a BUN of 24, creatinine of 0.7, and random glucose is 120. Urinalysis is noted. Microbiology is pending. The patient's chest x-ray is also pending. The patient had a CAT scan of the abdomen and pelvis, which revealed lower thorax bilateral pleural effusions, and there is new circumferential mural thickening of the segment of the small bowel, nonspecific, and urinalysis is also noted to be unremarkable. ASSESSMENT AND PLAN: A 81-year-old male from the nursing with hypertension, dementia, seizures, diabetes, cerebral palsy, history of kidney failure in 2015 with creatinine of 1.9, which is resolved, now presenting with a temperature of 98.6, tachycardia, and stage 3 infected decubitus ulcer. Sepsis secondary to stage 3 infected decubitus ulcer. We will have surgery evaluate the patient and debridement, also GI as a source of the sepsis with colitis, and we will treat the patient with Vivox and Zosyn. Pending blood culture, urine culture, wound culture. We will order a procalcitonin and we will make further recommendation and check on chest x-ray result. The patient also had a CAT scan of the head, those results are also pending and we will make further recommendations. Jori Lynch MD
--- NOTE | 2017-05-07 20:50 | CARD ---
APPROVED REPORT EKG Measurement Heart [id number] ID [id number] <Conclusion> Sinus rhythm with short ID Otherwise normal ECG
[2017-05-07] MEDS: Linezolid 600 mg in D5W 300 ml 600 MG/300 ML BAG IVPB SCH (21:16)
[2017-05-08] MEDS: Piperacillin/Tazobact 3.375 gm 100 ML IVPB SCH ×4 (00:43→19:12)
--- NOTE | 2017-05-08 06:17 | CP.PCM.PN ---
Subjective - Date & Time of Evaluation Date of Evaluation: 05/08/17 Time of Evaluation: 05:45 - Subjective Subjective: SURGERY NOTE FOR DR. LAUREN 81M seen and examined at bedside. Patient resting comfortably. NAEON. Objective - Vital Signs/Intake and Output Vital Signs (last 24 hours): Temp Pulse Resp BP Pulse Ox 97.1 F L 88 20 132/58 L 98 05/08/17 00:01 05/08/17 06:00 05/08/17 00:01 05/08/17 00:01 05/08/17 00:01 Intake and Output: 05/07/17 05/08/17 18:59 06:59 Intake Total 1600 Balance 1600 - Medications Medications: Current Medications Acetaminophen (Tylenol 325 Mg Supp) 975 mg [place] ONCE PRN PRN Reason: Fever >100.4 F Last Admin: 05/06/17 20:10 Dose: 975 mg Atorvastatin Calcium (Lipitor) 20 mg PO DIN [facility] Last Admin: 05/07/17 17:03 Dose: Not Given Carvedilol (Coreg) 3.125 mg PO 0800,1700 [facility] Last Admin: 05/07/17 17:02 Dose: Not Given Collagenase (Santyl) 1 gm TOP BID [facility] Divalproex Sodium (Depakote Dr(*Bid*)) 500 mg PO BID [facility] Last Admin: 05/07/17 17:02 Dose: Not Given Famotidine (Pepcid) 20 mg IVP DAILY [facility] Last Admin: 05/07/17 10:24 Dose: 20 mg Hydralazine HCl (Apresoline) 10 mg IVP Q6 PRN PRN Reason: Systolic Blood Pressure Last Admin: 05/07/17 17:05 Dose: 10 mg Sodium Chloride (Sodium Chloride 0.9%) 1,000 mls @ 100 mls/hr IV .Q10H [facility] Last Admin: 05/07/17 21:16 Dose: 100 mls/hr Piperacillin Sod/Tazobactam Sod (Zosyn 3.375 In Ns 100ml) 100 mls @ 200 mls/hr IVPB Q6 [facility] PRN Reason: Protocol Stop: 05/17/17 12:01 Last Admin: 05/08/17 05:37 Dose: 200 mls/hr Linezolid (Zyvox 600mg/300ml D5w) 600 mg in 300 mls @ 200 mls/hr IVPB Q12 JOHANNA PRN Reason: Protocol Stop: 08/14/17 22:01 Last Admin: 05/07/17 21:16 Dose: 200 mls/hr Tamsulosin HCl (Flomax) 0.4 mg PO DAILY [facility] Last Admin: 05/07/17 12:31 Dose: Not Given - Labs Labs: 05/07/17 07:25 05/07/17 07:27 PT 14.6 Seconds (9.9-11.8) H 05/06/17 19:25 INR 1.35 (0.93-1.08) H 05/06/17 19:25 APTT 34.5 Seconds (23.7-30.8) H 05/06/17 19:25 - Constitutional Appears: Other (contractures of UE/LE) - Cardiovascular Exam Cardiovascular Exam: REGULAR RHYTHM, +S1, +S2 - Rectal Exam Additional comments: incontinent, 2 stage 3 sacral ulcers, approx 2by2cm in size with necrotic tissue Assessment and Plan - Assessment and Plan (Free Text) Assessment: 81M with two stage 3 sacral ulcers Plan: - continue Santyl BID - Air Mattress - Keep area clean Further recs discuss with Dr. Dash Bautista, PGY2
[2017-05-08 07:41] LABS: ADD MANUAL DIFF? NO
[2017-05-08 07:48] LABS: BASO # 0.01 K/mm3 (0.0-2.0); BASO % 0.1 % (0.0-3.0); EOS # 0.1 (0.0-0.7); EOS % 1.2 % (1.5-5.0); GRAN # 7.06 (1.4-6.5); GRAN % 62.9 % (50.0-68.0); HEMATOCRIT 29.1 % (42.0-52.0); LYMPH # 2.9 (1.2-3.4); LYMPH % 26.2 % (22.0-35.0); MEAN CELL VOLUME 95.7 fL (80.0-105.0); MEAN CORPUSCULAR HEMOGLOBIN 30.6 pg (25.0-35.0); MEAN PLATELET VOLUME 10.3 fl (7.0-11.0); MONO # 1.1 (0.1-0.6); MONO % 9.6 % (1.0-6.0); PLATELET COUNT 211 10^3/uL (120.0-450.0); RED CELL DISTRIBUTION WIDTH 17.8 % (11.5-14.5); WHITE BLOOD COUNT 11.2 10^3/ul (4.5-11.0)
[2017-05-08 08:06] LABS: ALB/GLOB RATIO 0.7 (1.1-1.8); ALKALINE PHOSPHATASE 58 U/L (38-133); ALT/SGPT 19 U/L (7-56); AST/SGOT 27 U/L (15-59); BILIRUBIN,TOTAL 0.8 mg/dL (0.2-1.3); BLOOD UREA NITROGEN 20 mg/dL (7-21); CALCIUM 8.1 mg/dL (8.4-10.5); CARBON DIOXIDE 26 mmol/L (21-33); CHLORIDE 110 mmol/L (98-107); GFR AFRICAN-AMERICAN > 60; GLUCOSE,RANDOM 76 mg/dL (70-110); POTASSIUM 3.6 mmol/L (3.6-5.0); SODIUM 144 mmol/L (132-148); TOTAL PROTEIN 5.3 g/dL (5.8-8.3)
[2017-05-08] MEDS: Sodium Chloride 0.9% 1,000 ML IV SCH ×3 (10:15→22:26)
--- NOTE | 2017-05-08 10:55 | PN ---
DATE: 05/08/2017 SUBJECTIVE: The patient is in bed,in no acute distress, nontoxic. No fevers. He is doing better. PHYSICAL EXAMINATION VITAL SIGNS: Temperature is 98, blood pressure is 180/90, and respiratory rate of 20. HEENT: Unremarkable. NECK: Supple. LUNGS: Decreased breath sounds. HEART: Normal S1 and S2. ABDOMEN: Soft and nontender. LABORATORY DATA: Reveals a white count of 11,000, hemoglobin of 9, and platelets of 211. Chemistry reveals a BUN of 20, creatinine of 0.7. Urinalysis is noted. Microbiology reveals blood cultures are negative. ASSESSMENT AND PLAN: This is a 81-year-old male prison patient with cerebral palsy and dementia nonverbal hypertension, and seizures diabetes mellitus, history of kidney failure, at one time his creatinine had gone up to 1.9. Admitted now with sepsis with stage 3 infected decubitus ulcer and colitis, on Zyvox and Zosyn. As far the blood cultures are negative. I am waiting for urine cultures and wound cultures. Local wound care for decubitus ulcer and Zyvox and Zosyn day #2. Of note, the patient's procalcitonin is 0.22. Jori Lynch MD
[2017-05-08] MEDS: Collagenase 250 Units/gm Ointment(30 gm) TOP SCH ×2 (10:56→19:13)
[2017-05-08] MEDS: Linezolid 600 mg in D5W 300 ml 600 MG/300 ML BAG IVPB SCH ×2 (10:59→22:25)
[2017-05-08] MEDS: Divalproex 500 mg DR(BID formulation) PO SCH ×2 (13:06→18:44)
--- NOTE | 2017-05-08 14:26 | CP.PCM.PN ---
<Suleman Carrera - Last Filed: 05/08/17 20:08> Subjective - Date & Time of Evaluation Date of Evaluation: 05/08/17 Time of Evaluation: 09:30 - Subjective Subjective: Internal Medicine Progress Note for Dr. Amaya/Dr. Juarez service Patient seen and examined at bedside. Today is hospital day 3. No acute events reported overnight. Remains primarily non-verbal (mumbles words, nonsensical), no indication of acute distress. Objective - Vital Signs/Intake and Output Vital Signs (last 24 hours): Temp Pulse Resp BP Pulse Ox 98.5 F 90 20 144/84 100 05/08/17 12:00 05/08/17 12:00 05/08/17 12:00 05/08/17 12:00 05/08/17 06:00 Intake and Output: 05/08/17 05/08/17 06:59 18:59 Intake Total 1600 0 Output Total 300 Balance 1600 -300 - Medications Medications: Current Medications Acetaminophen (Tylenol 325 Mg Supp) 975 mg ID ONCE PRN PRN Reason: Fever >100.4 F Last Admin: 05/06/17 20:10 Dose: 975 mg Amlodipine Besylate (Norvasc) 2.5 mg PO DAILY PRN PRN Reason: BP sys>160, lawrence>100 Atorvastatin Calcium (Lipitor) 20 mg PO DIN [facility] Last Admin: 05/07/17 17:03 Dose: Not Given Carvedilol (Coreg) 3.125 mg PO 0800,1700 [facility] Last Admin: 05/08/17 13:08 Dose: Not Given Collagenase (Santyl) 1 gm TOP BID [facility] Last Admin: 05/08/17 10:56 Dose: 1 appful Divalproex Sodium (Depakolesvia Dr(*Bid*)) 500 mg PO BID [facility] Last Admin: 05/08/17 13:06 Dose: Not Given Famotidine (Pepcid) 20 mg IVP DAILY [facility] Last Admin: 05/08/17 10:55 Dose: 20 mg Hydralazine HCl (Apresoline) 10 mg IVP Q6 PRN PRN Reason: Systolic Blood Pressure Last Admin: 05/08/17 06:26 Dose: 10 mg Sodium Chloride (Sodium Chloride 0.9%) 1,000 mls @ 100 mls/hr IV .Q10H [facility] Last Admin: 05/08/17 10:15 Dose: 100 mls/hr Piperacillin Sod/Tazobactam Sod (Zosyn 3.375 In Ns 100ml) 100 mls @ 200 mls/hr IVPB Q6 [facility] PRN Reason: Protocol Stop: 05/17/17 12:01 Last Admin: 05/08/17 13:07 Dose: 200 mls/hr Linezolid (Zyvox 600mg/300ml D5w) 600 mg in 300 mls @ 200 mls/hr IVPB Q12 [facility] PRN Reason: Protocol Stop: 08/14/17 22:01 Last Admin: 05/08/17 10:59 Dose: 200 mls/hr Tamsulosin HCl (Flomax) 0.4 mg PO DAILY [facility] Last Admin: 05/08/17 13:08 Dose: Not Given - Labs Labs: 05/08/17 07:00 05/08/17 07:00 PT 14.6 Seconds (9.9-11.8) H 05/06/17 19:25 INR 1.35 (0.93-1.08) H 05/06/17 19:25 APTT 34.5 Seconds (23.7-30.8) H 05/06/17 19:25 - Constitutional Appears: Non-toxic, No Acute Distress, Chronically Ill - Head Exam Head Exam: ATRAUMATIC, NORMAL INSPECTION, NORMOCEPHALIC - Eye Exam Eye Exam: EOMI, Normal appearance. absent: Conjunctival injection, Scleral icterus Pupil Exam: absent: Irregular, Unequal - ENT Exam ENT Exam: Mucous Membranes Moist Additional comments: Crusting around mouth - Neck Exam Neck Exam: absent: Lymphadenopathy, Thyromegaly - Respiratory Exam Respiratory Exam: Decreased Breath Sounds (mild diffuse decreased breath sounds) , Clear to Ausculation Bilateral, NORMAL BREATHING PATTERN. absent: Accessory Muscle Use, Chest Wall Tenderness, Rales, Rhonchi, Wheezes, Respiratory Distress , Stridor - Cardiovascular Exam Cardiovascular Exam: REGULAR RHYTHM, RRR, +S1, +S2. absent: Bradycardia, Tachycardia, Irregular Rhythm, +S4 - GI/Abdominal Exam GI & Abdominal Exam: Soft, Normal Bowel Sounds. absent: Distended, Firm, Diminished Bowel Sounds, Hyperactive Bowel Sounds, Hypoactive Bowel Sounds - Extremities Exam Extremities Exam: Normal Capillary Refill. absent: Pedal Edema - Neurological Exam Additional comments: Awake, intermittently alert, mumbling incoherently so unable to assess mental status or how oriented patient is - Psychiatric Exam Additional comments: unable to assess, mumbling incoherently - Skin Skin Exam: Dry, Intact, Normal Color, Warm Assessment and Plan - Assessment and Plan (Free Text) Assessment: This is a 81 yo AA M with PMH of cerebral palsy, BPH, GI bleeds, anemia, and urinary retention who [facility] with altered mental status, suspected to be 2/2 sepsis from possible enteritis vs Stage III sacral ulcer. Plan: 1) Altered mental status -AMS likely secondary to infectious etiology from sacral decubitus ulcer and/or enteritis; pending sepsis workup -Leukocytosis increased from 11 to 11.2, was 12.1 on admission, no new reported febrile episodes (Tmax for admission 100.6F) -Urinalysis negative -CXR revealed no active disease -CT Head revealed no acute findings; age related involutional changes, encephalomalacia; see full report -CT abd/pelvis revealed new circumferential mural thickening of the small bowel which is nonspecific however may represent infectious/inflammatory entiritis -Blood cultures and urine culture negative at 24 hours -Procalcitonin 0.22 -Continue with Zosyn and Zyvox per ID recommendations (day 2 for each) -Patient with stage 2/stage 3 sacral decubitus ulcers; surgery consulted; continue with santyl and air mattress as per surgery recs, possible bedside debridement if necrotic tissue present, will f/u -ID consulted - Dr. Lynch, appreciate all recs -Surgery consulted - Dr. Bowling, appreciate all recs 2) HTN -Continue home Coreg 3.125 PO BID -Hydralazine 10mg IVP PRN 3) HLD - Lipitor 20 mg PO DIN 4) BPH -Continue home flomax 5) Hx GI bleeds -Hgb stable x3 days, but anemic compared to baseline (9.3-9.7 this admission, 11 -12 during prior admissions in 2014) -continue to monitor daily Hgbs, can tranfuse if Hgb < 7 or actively bleeding with persistent hypotension or signs of end-organ damage Dispo: Tele, pending possible bedside debridement, pending culture results FEN: NPO, NS IVF 100cc/hr Access: Peripheral IV Consults: Surgery, ID Ppx: Pepcid for GI, SCDs for DVT Patient seen, reviewed, and discussed with attending, Dr. Juarez <Humphrey Juraez - Last Filed: 05/09/17 17:25> Objective - Vital Signs/Intake and Output Vital Signs (last 24 hours): Temp Pulse Resp BP Pulse Ox 97.0 F L 89 18 159/87 H 95 05/09/17 12:00 05/09/17 14:00 05/09/17 12:00 05/09/17 12:00 05/09/17 06:00 Intake and Output: 05/09/17 05/09/17 06:59 18:59 Intake Total 1200 360 Output Total 650 Balance 1200 -290 - Medications Medications: Current Medications Acetaminophen (Tylenol 325 Mg Supp) 975 mg ID ONCE PRN PRN Reason: Fever >100.4 F Last Admin: 05/06/17 20:10 Dose: 975 mg Amlodipine Besylate (Norvasc) 2.5 mg PO DAILY PRN PRN Reason: BP sys>160, lawrence>100 Atorvastatin Calcium (Lipitor) 20 mg PO DIN [facility] Last Admin: 05/08/17 18:45 Dose: Not Given Carvedilol (Coreg) 3.125 mg PO 0800,1700 [facility] Last Admin: 05/09/17 08:00 Dose: Not Given Collagenase (Santyl) 1 gm TOP BID [facility] Last Admin: 05/09/17 07:30 Dose: 1 appful Divalproex Sodium (Depakote Dr(*Bid*)) 500 mg PO BID [facility] PRN Reason: Protocol Famotidine (Pepcid) 20 mg IVP DAILY [facility] Last Admin: 05/09/17 09:22 Dose: 20 mg Hydralazine HCl (Apresoline) 10 mg IVP Q6 PRN PRN Reason: Systolic Blood Pressure Last Admin: 05/09/17 09:22 Dose: 10 mg Sodium Chloride (Sodium Chloride 0.9%) 1,000 mls @ 100 mls/hr IV .Q10H [facility] Last Admin: 05/09/17 09:00 Dose: Not Given Piperacillin Sod/Tazobactam Sod (Zosyn 3.375 In Ns 100ml) 100 mls @ 200 mls/hr IVPB Q6 [facility] PRN Reason: Protocol Stop: 05/17/17 12:01 Last Admin: 05/09/17 12:30 Dose: 200 mls/hr Linezolid (Zyvox 600mg/300ml D5w) 600 mg in 300 mls @ 200 mls/hr IVPB Q12 [facility] PRN Reason: Protocol Stop: 08/14/17 22:01 Last Admin: 05/09/17 09:23 Dose: 200 mls/hr Tamsulosin HCl (Flomax) 0.4 mg PO DAILY [facility] Last Admin: 05/09/17 10:05 Dose: Not Given - Labs Labs: 05/09/17 09:00 05/09/17 09:00 PT 14.6 Seconds (9.9-11.8) H 05/06/17 19:25 INR 1.35 (0.93-1.08) H 05/06/17 19:25 APTT 34.5 Seconds (23.7-30.8) H 05/06/17 19:25 Attending/Attestation - Attestation I have personally seen and examined this patient.: Yes I have fully participated in the care of the patient.: Yes I have reviewed all pertinent clinical information, including history, physical exam and plan: Yes Notes (Text): 05/09/17 17:25 Medical record note made by the resident after discussion with my direction and input after the patient was personally seen and examined by me. I have reviewed the chart and agree that the record accurately reflects by personal performance of the history, physical exam, data review, and medical decision-making, in the course for the patient. I have also personally directed the plan of care.
[2017-05-08] MEDS ORDERED: Valproate 500 MG in Sodium Chloride 0.9% 100 ML IVPB ONE (21:19)
[2017-05-09] MEDS: Piperacillin/Tazobact 3.375 gm 100 ML IVPB SCH ×4 (00:08→18:20)
[2017-05-09] MEDS: Collagenase 250 Units/gm Ointment(30 gm) TOP SCH ×2 (07:30→18:18)
--- NOTE | 2017-05-09 08:31 | CP.PCM.PN ---
Subjective - Date & Time of Evaluation Date of Evaluation: 05/09/17 Time of Evaluation: 07:30 - Subjective Subjective: General Surgery Dr. Bowling Pt S&E @bedside. NAEO. no complaints. NPO. Objective - Vital Signs/Intake and Output Vital Signs (last 24 hours): Temp Pulse Resp BP Pulse Ox 98 F 82 20 150/80 95 05/09/17 06:00 05/09/17 06:00 05/09/17 06:00 05/09/17 06:00 05/09/17 06:00 Intake and Output: 05/09/17 05/09/17 06:59 18:59 Intake Total 1200 Balance 1200 - Medications Medications: Current Medications Acetaminophen (Tylenol 325 Mg Supp) 975 mg [place] ONCE PRN PRN Reason: Fever >100.4 F Last Admin: 05/06/17 20:10 Dose: 975 mg Amlodipine Besylate (Norvasc) 2.5 mg PO DAILY PRN PRN Reason: BP sys>160, lawrence>100 Atorvastatin Calcium (Lipitor) 20 mg PO DIN [facility] Last Admin: 05/08/17 18:45 Dose: Not Given Carvedilol (Coreg) 3.125 mg PO 0800,1700 [facility] Last Admin: 05/08/17 18:44 Dose: Not Given Collagenase (Santyl) 1 gm TOP BID [facility] Last Admin: 05/08/17 19:13 Dose: 1 appful Divalproex Sodium (Depakote Dr(*Bid*)) 500 mg PO BID [facility] Last Admin: 05/08/17 18:44 Dose: Not Given Famotidine (Pepcid) 20 mg IVP DAILY [facility] Last Admin: 05/08/17 10:55 Dose: 20 mg Hydralazine HCl (Apresoline) 10 mg IVP Q6 PRN PRN Reason: Systolic Blood Pressure Last Admin: 05/08/17 06:26 Dose: 10 mg Sodium Chloride (Sodium Chloride 0.9%) 1,000 mls @ 100 mls/hr IV .Q10H [facility] Last Admin: 05/08/17 22:26 Dose: 100 mls/hr Piperacillin Sod/Tazobactam Sod (Zosyn 3.375 In Ns 100ml) 100 mls @ 200 mls/hr IVPB Q6 [facility] PRN Reason: Protocol Stop: 05/17/17 12:01 Last Admin: 05/09/17 05:28 Dose: 200 mls/hr Linezolid (Zyvox 600mg/300ml D5w) 600 mg in 300 mls @ 200 mls/hr IVPB Q12 [facility] PRN Reason: Protocol Stop: 08/14/17 22:01 Last Admin: 05/08/17 22:25 Dose: 200 mls/hr Tamsulosin HCl (Flomax) 0.4 mg PO DAILY [facility] Last Admin: 05/08/17 13:08 Dose: Not Given - Labs Labs: 05/08/17 07:00 05/08/17 07:00 PT 14.6 Seconds (9.9-11.8) H 05/06/17 19:25 INR 1.35 (0.93-1.08) H 05/06/17 19:25 APTT 34.5 Seconds (23.7-30.8) H 05/06/17 19:25 - Constitutional Appears: Non-toxic, No Acute Distress - Head Exam Head Exam: NORMAL INSPECTION - Eye Exam Eye Exam: Normal appearance - ENT Exam ENT Exam: Mucous Membranes Moist - Respiratory Exam Respiratory Exam: NORMAL BREATHING PATTERN. absent: Accessory Muscle Use, Respiratory Distress - Cardiovascular Exam Cardiovascular Exam: absent: Bradycardia, Tachycardia - GI/Abdominal Exam GI & Abdominal Exam: Soft. absent: Distended - Extremities Exam Extremities Exam: Normal Inspection - Back Exam Additional comments: indeterminate sacral decubitus ulcer stage 2 ischial ulcer. - Neurological Exam Neurological Exam: Alert, Awake - Psychiatric Exam Psychiatric exam: Normal Affect, Normal Mood - Skin Skin Exam: Dry, Normal Color, Warm Assessment and Plan - Assessment and Plan (Free Text) Assessment: 81 y/o M w/ pressure ulcers - apply santyl to sacral decubitus ulcer - apply medihoney or xeroform to ischial wound - wound care consult - cont medical management - no further surgical intervention at this time Pt discussed w/ Dr. Dash Nazario DO PGY2
[2017-05-09] MEDS: Sodium Chloride 0.9% 1,000 ML IV SCH ×2 (09:00→19:00)
[2017-05-09] MEDS: Linezolid 600 mg in D5W 300 ml 600 MG/300 ML BAG IVPB SCH ×2 (09:23→21:15)
[2017-05-09 09:34] LABS: ADD MANUAL DIFF? NO
[2017-05-09 09:39] LABS: BASO # 0.01 K/mm3 (0.0-2.0); BASO % 0.1 % (0.0-3.0); EOS # 0.2 (0.0-0.7); EOS % 2.4 % (1.5-5.0); GRAN # 4.18 (1.4-6.5); GRAN % 56.6 % (50.0-68.0); HEMATOCRIT 28.3 % (42.0-52.0); LYMPH # 2.2 (1.2-3.4); LYMPH % 29.5 % (22.0-35.0); MEAN CELL VOLUME 95.6 fL (80.0-105.0); MEAN CORPUSCULAR HEMOGLOBIN 30.4 pg (25.0-35.0); MEAN CORPUSCULAR HGB CONC 31.8 g/dl (31.0-37.0); MONO # 0.8 (0.1-0.6); MONO % 11.4 % (1.0-6.0); PLATELET COUNT 201 10^3/uL (120.0-450.0); RED CELL DISTRIBUTION WIDTH 17.6 % (11.5-14.5); WHITE BLOOD COUNT 7.4 10^3/ul (4.5-11.0)
[2017-05-09 09:49] LABS: BLOOD UREA NITROGEN 14 mg/dL (7-21); CARBON DIOXIDE 24 mmol/L (21-33); CHLORIDE 112 mmol/L (98-107); GFR AFRICAN-AMERICAN > 60; GLUCOSE,RANDOM 75 mg/dL (70-110); POTASSIUM 3.5 mmol/L (3.6-5.0); SODIUM 143 mmol/L (132-148)
[2017-05-09 09:50] LABS: ALB/GLOB RATIO 0.7 (1.1-1.8); ALKALINE PHOSPHATASE 47 U/L (38-133); ALT/SGPT 21 U/L (7-56); AST/SGOT 23 U/L (15-59); BILIRUBIN,TOTAL 0.9 mg/dL (0.2-1.3); TOTAL PROTEIN 5.4 g/dL (5.8-8.3)
--- NOTE | 2017-05-09 09:56 | CP.PCM.CON ---
<Suleman Florian - Last Filed: 05/09/17 10:53> History of Present Illness - History of Present Illness History of Present Illness: PGY5 GI Fellow Consult Note Patient is a 81yo male with PMHx significant for cerebral palsy, HTN, seizure disorder, DM who [place] the [place] for altered mentation, fever and poor appetite. The patient is unable to provide any history and is only oriented to name at this time. Per the EMR, patient has had difficulty swallowing and poor intake for the past several weeks. Weight loss is reported though not well documented. On admission he was noted to have a low grade fever and was treated with broad spectrum antibiotics for sepsis with his sacral decubitus ulcer as the most likely source of infection. In the weeks leading up to admission, PO intake was poor and patient was transitioned to a liquid diet with Ensure dietary supplementation but continued to have poor intake. He has had swallow evaluation with [employer] but was found to pocket any food in his mouth and was deemed unsafe for PO at this time. Our service is consulted for PEG tube placement evaluation. PMHx: See HPI PSHx: Unable to obtain information; NH unaware of history and family unaware of history FHx: Unable to obtain given mentation Social: Lives in [place]; no tobacco, EtOH or illicit drug use Endo: No documented history 12 system ROS limited given mentation but negative unless states otherwise Review of Systems - Review of Systems Systems not reviewed;Unavailable: Altered Mental Status Past Patient History - Past Social History Smoking Status: Never Smoked - CARDIAC Hx Cardiac Disorders: Yes Hx Hypertension: Yes - PULMONARY Hx Respiratory Disorders: No - NEUROLOGICAL Hx Neurological Disorder: Yes Hx Seizures: Yes Other/Comment: cerebral palsy - HEENT Hx HEENT Problems: No - RENAL Hx Chronic Kidney Disease: No - ENDOCRINE/METABOLIC Hx Endocrine Disorders: Yes Hx Diabetes Mellitus Type 2: Yes - HEMATOLOGICAL/ONCOLOGICAL Hx Blood Disorders: Yes (GI BLEED) - INTEGUMENTARY Hx Dermatological Problems: No - MUSCULOSKELETAL/RHEUMATOLOGICAL Hx Musculoskeletal Disorders: Yes (LEFT SIDED WEAKNESS/CVA) Hx Falls: (UNKNOWN) - GASTROINTESTINAL Hx Gastrointestinal Disorders: Yes (GI BLEED,CONSTIPATION,DIARRHEA) - GENITOURINARY/GYNECOLOGICAL Hx Genitourinary Disorders: Yes (OVERACTIVE BLADDER) Hx Incontinence: Yes - PSYCHIATRIC Hx Psychophysiologic Disorder: No Hx Substance Use: No - SURGICAL HISTORY Hx Surgeries: (unable to obtain) Meds Allergies/Adverse Reactions: Allergies Allergy/AdvReac Type Severity Reaction Status Date / Time No Known Allergies Allergy Verified 05/06/17 19:00 - Medications Medications: Current Medications Acetaminophen (Tylenol 325 Mg Supp) 975 mg [place] ONCE PRN PRN Reason: Fever >100.4 F Last Admin: 05/06/17 20:10 Dose: 975 mg Amlodipine Besylate (Norvasc) 2.5 mg PO DAILY PRN PRN Reason: BP sys>160, lawrence>100 Atorvastatin Calcium (Lipitor) 20 mg PO DIN [facility] Last Admin: 05/08/17 18:45 Dose: Not Given Carvedilol (Coreg) 3.125 mg PO 0800,1700 [facility] Last Admin: 05/08/17 18:44 Dose: Not Given Collagenase (Santyl) 1 gm TOP BID [facility] Last Admin: 05/08/17 19:13 Dose: 1 appful Divalproex Sodium (Depakote Dr(*Bid*)) 500 mg PO BID [facility] Last Admin: 05/08/17 18:44 Dose: Not Given Famotidine (Pepcid) 20 mg IVP DAILY [facility] Last Admin: 05/09/17 09:22 Dose: 20 mg Hydralazine HCl (Apresoline) 10 mg IVP Q6 PRN PRN Reason: Systolic Blood Pressure Last Admin: 05/09/17 09:22 Dose: 10 mg Sodium Chloride (Sodium Chloride 0.9%) 1,000 mls @ 100 mls/hr IV .Q10H [facility] Last Admin: 05/08/17 22:26 Dose: 100 mls/hr Piperacillin Sod/Tazobactam Sod (Zosyn 3.375 In Ns 100ml) 100 mls @ 200 mls/hr IVPB Q6 [facility] PRN Reason: Protocol Stop: 05/17/17 12:01 Last Admin: 05/09/17 05:28 Dose: 200 mls/hr Linezolid (Zyvox 600mg/300ml D5w) 600 mg in 300 mls @ 200 mls/hr IVPB Q12 [facility] PRN Reason: Protocol Stop: 08/14/17 22:01 Last Admin: 05/09/17 09:23 Dose: 200 mls/hr Tamsulosin HCl (Flomax) 0.4 mg PO DAILY [facility] Last Admin: 05/08/17 13:08 Dose: Not Given Physical Exam - Constitutional Appears: No Acute Distress, Chronically Ill - Eye Exam Eye Exam: EOMI, PERRL - ENT Exam ENT Exam: Mucous Membranes Dry - Respiratory Exam Respiratory Exam: Clear to Auscultation Bilateral. absent: Rales, Rhonchi, Wheezes - Cardiovascular Exam Cardiovascular Exam: Tachycardia, +S1, +S2 - GI/Abdominal Exam GI & Abdominal Exam: Normal Bowel Sounds, Soft. absent: Distended, Firm, Guarding, Organomegaly, Rigid, Tenderness Additional comments: old surgical scar inferior to umbilicus - Extremities Exam Additional comments: 3+ B/L edema - Neurological Exam Neurological exam: Altered - Psychiatric Exam Psychiatric exam: Anxious - Skin Skin Exam: Dry, Warm Results - Vital Signs Recent Vital Signs: Last Vital Signs Temp 98 F 05/09/17 06:00 Pulse 82 05/09/17 09:22 Resp 20 05/09/17 06:00 BP 175/102 H 05/09/17 09:22 Pulse Ox 95 05/09/17 06:00 - Labs Result Diagrams: 05/09/17 09:00 05/09/17 09:00 Labs: Laboratory Results - last 24 hr 05/09/17 05/09/17 09:00 09:00 WBC 7.4 D RBC 2.96 L Hgb 9.0 L Hct 28.3 L MCV 95.6 MCH 30.4 MCHC 31.8 RDW 17.6 H Plt Count 201 MPV 10.0 Gran % 56.6 Lymph % (Auto) 29.5 [place] % (Auto) 11.4 H Eos % (Auto) 2.4 Baso % (Auto) 0.1 Gran # 4.18 Lymph # 2.2 [place] # 0.8 H Eos # 0.2 Baso # 0.01 Sodium 143 Potassium 3.5 L Chloride 112 H Carbon Dioxide 24 Anion Gap 11 BUN 14 Creatinine 0.7 Est GFR ( Amer) > 60 Est GFR (Non-Af Amer) > 60 Random Glucose 75 Calcium 8.0 L Total Bilirubin 0.9 AST 23 ALT 21 Alkaline Phosphatase 47 Total Protein 5.4 L Albumin 2.2 L Globulin 3.2 Albumin/Globulin Ratio 0.7 L Assessment & Plan - Assessment and Plan (Free Text) Assessment: sharon is a 81yo male with PMHx significant for cerebral palsy, HTN, seizure disorder, DM who presented [place] the [place] for altered mentation, fever and poor appetite -Failure to thrive -Sacral decubitus ulcer -Hypertensive urgency -Cerebral palsy -HTN -Seizure d/o -DM Plan: -Patient would benefit from PEG tube placement given inadequate nutrition, hydration and inability to take PO medications at present -Patient is unable to consent for procedure given medical issues, altered mentation -Discussed case with the patient's cousin, Belen Marie (number on chart) -Family unwilling to commit to performing PEG procedure at this time despite discussion of risk/benefits; requesting call back this afternoon after they have family discussion as to whether or not to move forward -Maintain NPO for now; convert medications to IV where possible -Plan per family decision - Date & Time Date: 05/09/17 Time: 09:30 <Vinay Loco - Last Filed: 05/09/17 12:55> Meds - Medications Medications: Current Medications Acetaminophen (Tylenol 325 Mg Supp) 975 mg [place] ONCE PRN PRN Reason: Fever >100.4 F Last Admin: 05/06/17 20:10 Dose: 975 mg Amlodipine Besylate (Norvasc) 2.5 mg PO DAILY PRN PRN Reason: BP sys>160, lawrence>100 Atorvastatin Calcium (Lipitor) 20 mg PO DIN [facility] Last Admin: 05/08/17 18:45 Dose: Not Given Carvedilol (Coreg) 3.125 mg PO 0800,1700 [facility] Last Admin: 05/09/17 08:00 Dose: Not Given Collagenase (Santyl) 1 gm TOP BID [facility] Last Admin: 05/09/17 07:30 Dose: 1 appful Divalproex Sodium (Depakote Dr(*Bid*)) 500 mg PO BID [facility] Last Admin: 05/09/17 10:00 Dose: Not Given Famotidine (Pepcid) 20 mg IVP DAILY [facility] Last Admin: 05/09/17 09:22 Dose: 20 mg Hydralazine HCl (Apresoline) 10 mg IVP Q6 PRN PRN Reason: Systolic Blood Pressure Last Admin: 05/09/17 09:22 Dose: 10 mg Sodium Chloride (Sodium Chloride 0.9%) 1,000 mls @ 100 mls/hr IV .Q10H [facility] Last Admin: 05/09/17 09:00 Dose: Not Given Piperacillin Sod/Tazobactam Sod (Zosyn 3.375 In Ns 100ml) 100 mls @ 200 mls/hr IVPB Q6 [facility] PRN Reason: Protocol Stop: 05/17/17 12:01 Last Admin: 05/09/17 12:30 Dose: 200 mls/hr Linezolid (Zyvox 600mg/300ml D5w) 600 mg in 300 mls @ 200 mls/hr IVPB Q12 [facility] PRN Reason: Protocol Stop: 08/14/17 22:01 Last Admin: 05/09/17 09:23 Dose: 200 mls/hr Tamsulosin HCl (Flomax) 0.4 mg PO DAILY [facility] Last Admin: 05/09/17 10:05 Dose: Not Given Results - Vital Signs Recent Vital Signs: Last Vital Signs Temp 98 F 05/09/17 06:00 Pulse 96 H 05/09/17 10:00 Resp 20 05/09/17 06:00 BP 175/102 H 05/09/17 09:22 Pulse Ox 95 05/09/17 06:00 - Labs Result Diagrams: 05/09/17 09:00 05/09/17 09:00 Labs: Laboratory Results - last 24 hr 05/07/17 05/09/17 05/09/17 07:12 09:00 09:00 WBC 7.4 D RBC 2.96 L Hgb 9.0 L Hct 28.3 L MCV 95.6 MCH 30.4 MCHC 31.8 RDW 17.6 H Plt Count 201 MPV 10.0 Gran % 56.6 Lymph % (Auto) 29.5 [place] % (Auto) 11.4 H Eos % (Auto) 2.4 Baso % (Auto) 0.1 Gran # 4.18 Lymph # 2.2 [place] # 0.8 H Eos # 0.2 Baso # 0.01 Sodium 143 Potassium 3.5 L Chloride 112 H Carbon Dioxide 24 Anion Gap 11 BUN 14 Creatinine 0.7 Est GFR ( Amer) > 60 Est GFR (Non-Af Amer) > 60 Random Glucose 75 Calcium 8.0 L Total Bilirubin 0.9 AST 23 ALT 21 Alkaline Phosphatase 47 Total Protein 5.4 L Albumin 2.2 L Globulin 3.2 Albumin/Globulin Ratio 0.7 L PTH Intact Whole Molec 46 Attending/Attestation - Attestation I have personally seen and examined this patient.: Yes I have fully participated in the care of the patient.: Yes I have reviewed all pertinent clinical information: Yes Notes (Text): 05/09/17 12:43 I have seen and examined patient with GI fellow. Agree with above documentation with the following additions. In brief, this is a 81 year old male with history of HTN, seizure disorder, cerebral palsy, DM who was sent to hospital from nursing facility for fever, altered mental status and failure to thrive. GI called for evaluation of potential gastrostomy tube placement for ongoing nutritional support. Patient himself is not able to communicate effectively and provide additional information. Therefore, additional history obtained via chart review and discussion with nursing staff, and patient family members. The patient has been apparently clinically deteriorating over the past several weeks with decreased appetite and minimal PO intake. He has lost weight, though not able to quantify a specific amount. He denies abdominal pain and there is no reported vomiting, diarrhea, fever/chills. He is currently being treated for sepsis related to infected sacral decubitus ulcer. Unclear regarding prior endoscopic history. HTN Seizure disorder Cerebral palsy DM Sepsis, sacral decubitus ulcer Weight loss, failure to thrive - Continue with antibiotic therapy as per ID - Anti seizure and anti hypertensive medications being converted to IV format given inability of patient to tolerate PO - Patient was evaluated by speech/swallow service and was found to be at high risk of aspiration and recommended against PO diet - Given clinical scenario with ongoing weight loss, patient will require alternate forms of feeding to maintain nutritional support. Risks/benefits of procedure discussed in detail with patient's POA. Family members are still unclear regarding decision to proceed with procedure. Will continue to monitor patient clinical course and await family decision.
[2017-05-09] MEDS: Divalproex 500 mg DR(BID formulation) PO SCH ×2 (10:00→18:17)
--- NOTE | 2017-05-09 10:52 | CP.PCM.PN ---
Subjective - Date & Time of Evaluation Date of Evaluation: 05/09/17 Time of Evaluation: 10:15 - Subjective Subjective: Comfortable, not in distress, afebrile, no fevers overnight, feels tired since he was not able to sleep well last night. Objective - Vital Signs/Intake and Output Vital Signs (last 24 hours): Temp Pulse Resp BP Pulse Ox 98 F 96 H 20 175/102 H 95 05/09/17 06:00 05/09/17 10:00 05/09/17 06:00 05/09/17 09:22 05/09/17 06:00 Intake and Output: 05/09/17 05/09/17 06:59 18:59 Intake Total 1200 Balance 1200 - Medications Medications: Current Medications Acetaminophen (Tylenol 325 Mg Supp) 975 mg KS ONCE PRN PRN Reason: Fever >100.4 F Last Admin: 05/06/17 20:10 Dose: 975 mg Amlodipine Besylate (Norvasc) 2.5 mg PO DAILY PRN PRN Reason: BP sys>160, lawrence>100 Atorvastatin Calcium (Lipitor) 20 mg PO DIN [facility] Last Admin: 05/08/17 18:45 Dose: Not Given Carvedilol (Coreg) 3.125 mg PO 0800,1700 [facility] Last Admin: 05/09/17 08:00 Dose: Not Given Collagenase (Santyl) 1 gm TOP BID [facility] Last Admin: 05/09/17 07:30 Dose: 1 appful Divalproex Sodium (Depakote Dr(*Bid*)) 500 mg PO BID [facility] Last Admin: 05/09/17 10:00 Dose: Not Given Famotidine (Pepcid) 20 mg IVP DAILY [facility] Last Admin: 05/09/17 09:22 Dose: 20 mg Hydralazine HCl (Apresoline) 10 mg IVP Q6 PRN PRN Reason: Systolic Blood Pressure Last Admin: 05/09/17 09:22 Dose: 10 mg Sodium Chloride (Sodium Chloride 0.9%) 1,000 mls @ 100 mls/hr IV .Q10H [facility] Last Admin: 05/08/17 22:26 Dose: 100 mls/hr Piperacillin Sod/Tazobactam Sod (Zosyn 3.375 In Ns 100ml) 100 mls @ 200 mls/hr IVPB Q6 [facility] PRN Reason: Protocol Stop: 05/17/17 12:01 Last Admin: 05/09/17 05:28 Dose: 200 mls/hr Linezolid (Zyvox 600mg/300ml D5w) 600 mg in 300 mls @ 200 mls/hr IVPB Q12 [facility] PRN Reason: Protocol Stop: 08/14/17 22:01 Last Admin: 05/09/17 09:23 Dose: 200 mls/hr Tamsulosin HCl (Flomax) 0.4 mg PO DAILY [facility] Last Admin: 05/09/17 10:05 Dose: Not Given - Labs Labs: 05/09/17 09:00 05/09/17 09:00 PT 14.6 Seconds (9.9-11.8) H 05/06/17 19:25 INR 1.35 (0.93-1.08) H 05/06/17 19:25 APTT 34.5 Seconds (23.7-30.8) H 05/06/17 19:25 - Constitutional Appears: Non-toxic, No Acute Distress - Head Exam Head Exam: NORMAL INSPECTION - Neck Exam Neck Exam: absent: Meningismus - Respiratory Exam Respiratory Exam: Decreased Breath Sounds - Cardiovascular Exam Cardiovascular Exam: +S1, +S2 - GI/Abdominal Exam GI & Abdominal Exam: Soft. absent: Tenderness Assessment and Plan - Assessment and Plan (Free Text) Plan: Assessment Infected stage 3 sacral decubitus ulcer dementia cerebral palsy HTN seizure disorder Plan Continue Zyvox and Zosyn (Day 3) pending final cultures from the sacral ulcer surgery is doing conservative management of the ulcer
--- NOTE | 2017-05-09 11:44 | CP.PCM.CON ---
History of Present Illness - History of Present Illness History of Present Illness: Palliative consult requested by Dr Jojo Juarez Reason: Goals of care 81 year old male sent from [facility]( [place])with decreased appetite,weight loss and difficultly swallowing for the past few weeks. Found to have a [id number], edema of both lower extremities, altered mental status, sacral decubiti with purulent drainage. CT of head showed right frontal cystic encephalomalacia to right ventricle, otherwise no acute findings. CT of abdomen /pelvis showed new circumferential mural thickening of a segment of small bowel, nonspecific, possible infectious or inflammatory enteritis,small bilateral pleural effusions PMHx: Cerebral Palsy,DM, GI bleed, anemia,BPH,urinary retention,seizure disorder. Family History: Unknown. Social History: Non smoker, no alcohol or drug use.Single, resident of [facility]. Cousin, Belen Marie is next of kin. Advance Care Planning: The patient does not have an Advanced Directive Review of Systems: As per HPI, patient is altered mental status and unable to communicate. Past Patient History - Past Social History Smoking Status: Never Smoked - CARDIAC Hx Cardiac Disorders: Yes Hx Hypertension: Yes - PULMONARY Hx Respiratory Disorders: No - NEUROLOGICAL Hx Neurological Disorder: Yes Hx Seizures: Yes Other/Comment: cerebral palsy - HEENT Hx HEENT Problems: No - RENAL Hx Chronic Kidney Disease: No - ENDOCRINE/METABOLIC Hx Endocrine Disorders: Yes Hx Diabetes Mellitus Type 2: Yes - HEMATOLOGICAL/ONCOLOGICAL Hx Blood Disorders: Yes (GI BLEED) - INTEGUMENTARY Hx Dermatological Problems: No - MUSCULOSKELETAL/RHEUMATOLOGICAL Hx Musculoskeletal Disorders: Yes (LEFT SIDED WEAKNESS/CVA) Hx Falls: (UNKNOWN) - GASTROINTESTINAL Hx Gastrointestinal Disorders: Yes (GI BLEED,CONSTIPATION,DIARRHEA) - GENITOURINARY/GYNECOLOGICAL Hx Genitourinary Disorders: Yes (OVERACTIVE BLADDER) Hx Incontinence: Yes - PSYCHIATRIC Hx Psychophysiologic Disorder: No Hx Substance Use: No - SURGICAL HISTORY Hx Surgeries: (unable to obtain) Meds Allergies/Adverse Reactions: Allergies Allergy/AdvReac Type Severity Reaction Status Date / Time No Known Allergies Allergy Verified 05/06/17 19:00 - Medications Medications: Current Medications Acetaminophen (Tylenol 325 Mg Supp) 975 mg [place] ONCE PRN PRN Reason: Fever >100.4 F Last Admin: 05/06/17 20:10 Dose: 975 mg Amlodipine Besylate (Norvasc) 2.5 mg PO DAILY PRN PRN Reason: BP sys>160, lawrence>100 Atorvastatin Calcium (Lipitor) 20 mg PO DIN [facility] Last Admin: 05/08/17 18:45 Dose: Not Given Carvedilol (Coreg) 3.125 mg PO 0800,1700 [facility] Last Admin: 05/09/17 08:00 Dose: Not Given Collagenase (Santyl) 1 gm TOP BID [facility] Last Admin: 05/09/17 07:30 Dose: 1 appful Divalproex Sodium (Depakote Dr(*Bid*)) 500 mg PO BID [facility] Last Admin: 05/09/17 10:00 Dose: Not Given Famotidine (Pepcid) 20 mg IVP DAILY [facility] Last Admin: 05/09/17 09:22 Dose: 20 mg Hydralazine HCl (Apresoline) 10 mg IVP Q6 PRN PRN Reason: Systolic Blood Pressure Last Admin: 05/09/17 09:22 Dose: 10 mg Sodium Chloride (Sodium Chloride 0.9%) 1,000 mls @ 100 mls/hr IV .Q10H [facility] Last Admin: 05/09/17 09:00 Dose: Not Given Piperacillin Sod/Tazobactam Sod (Zosyn 3.375 In Ns 100ml) 100 mls @ 200 mls/hr IVPB Q6 [facility] PRN Reason: Protocol Stop: 05/17/17 12:01 Last Admin: 05/09/17 05:28 Dose: 200 mls/hr Linezolid (Zyvox 600mg/300ml D5w) 600 mg in 300 mls @ 200 mls/hr IVPB Q12 [facility] PRN Reason: Protocol Stop: 08/14/17 22:01 Last Admin: 05/09/17 09:23 Dose: 200 mls/hr Tamsulosin HCl (Flomax) 0.4 mg PO DAILY [facility] Last Admin: 05/09/17 10:05 Dose: Not Given Physical Exam - Constitutional Appears: No Acute Distress, Chronically Ill - Head Exam Head Exam: NORMAL INSPECTION - Eye Exam Eye Exam: Normal appearance, PERRL - ENT Exam ENT Exam: Mucous Membranes Moist, Normal Oropharynx - Neck Exam Neck exam: Positive for: Normal Inspection - Respiratory Exam Respiratory Exam: Decreased Breath Sounds, NORMAL BREATHING PATTERN - Cardiovascular Exam Cardiovascular Exam: REGULAR RHYTHM, +S1, +S2 - GI/Abdominal Exam GI & Abdominal Exam: Normal Bowel Sounds, Soft - Exam Additional comments: incontinent - Extremities Exam Additional comments: tremors right upper extremity, bilateral lower extremity edema - Back Exam Additional comments: no tenderness - Skin Skin Exam: Dry, Pallor Additional comments: stage 3 sacral decubti - Additional Findings Additional findings: Palliative performance rating 30 % Results - Vital Signs Recent Vital Signs: Last Vital Signs Temp 98 F 05/09/17 06:00 Pulse 96 H 05/09/17 10:00 Resp 20 05/09/17 06:00 BP 175/102 H 05/09/17 09:22 Pulse Ox 95 05/09/17 06:00 - Labs Result Diagrams: 05/09/17 09:00 05/09/17 09:00 Labs: Laboratory Results - last 24 hr 05/09/17 05/09/17 09:00 09:00 WBC 7.4 D RBC 2.96 L Hgb 9.0 L Hct 28.3 L MCV 95.6 MCH 30.4 MCHC 31.8 RDW 17.6 H Plt Count 201 MPV 10.0 Gran % 56.6 Lymph % (Auto) 29.5 Burke % (Auto) 11.4 H Eos % (Auto) 2.4 Baso % (Auto) 0.1 Gran # 4.18 Lymph # 2.2 Burke # 0.8 H Eos # 0.2 Baso # 0.01 Sodium 143 Potassium 3.5 L Chloride 112 H Carbon Dioxide 24 Anion Gap 11 BUN 14 Creatinine 0.7 Est GFR ( Amer) > 60 Est GFR (Non-Af Amer) > 60 Random Glucose 75 Calcium 8.0 L Total Bilirubin 0.9 AST 23 ALT 21 Alkaline Phosphatase 47 Total Protein 5.4 L Albumin 2.2 L Globulin 3.2 Albumin/Globulin Ratio 0.7 L Assessment & Plan - Assessment and Plan (Free Text) Assessment: 81 year old male admitted with sepsis, infected stage 3 sacral decubiti, lower extremity edema, dysphagia, weight loss. 11:00 am: I was asked to speak with this patient's family in order to establish future goals of care. Next of kin, cousin Belen Marie [phone]. They are contemplating PEG placement.The patient does not have an advance directive. We discussed benefits and burdens of PEG placement. Also discussed options for care if PEG not placed. Resuscitation status reviewed. Ramifications of aggressive resuscitation explained, questions answered. Belen will speak with the rest of family before making decisions regarding PEG placement and other advance care planning. 12:29 PM. Patient is much more alert. Swallow evaluation in progress. He is able to swallow puree food with out difficulty. Spoke with cousin again to update her of patients progress. Plan: Palliative support. Advance care planning
[2017-05-09] MEDS ORDERED: Potassium Chloride 40 mEq/30 ml LIQ UD PO ONE (13:10)
--- NOTE | 2017-05-09 16:44 | CP.PCM.PN ---
<YANNA BUENROSTRO - Last Filed: 05/09/17 16:41> Subjective - Date & Time of Evaluation Date of Evaluation: 05/09/17 Time of Evaluation: 06:45 - Subjective Subjective: Yanna Buenrostro DO PGY1 - Internal Medicine Progress note Patient seen and examined at bedside. No acute events reported overnight. Awake , and responsive, but remains primarily non-verbal (mumbles words, nonsensical) , appears very confused, no indication of acute distress. Objective - Vital Signs/Intake and Output Vital Signs (last 24 hours): Temp Pulse Resp BP Pulse Ox 97.0 F L 89 18 159/87 H 95 05/09/17 12:00 05/09/17 14:00 05/09/17 12:00 05/09/17 12:00 05/09/17 06:00 Intake and Output: 05/09/17 05/09/17 06:59 18:59 Intake Total 1200 360 Output Total 650 Balance 1200 -290 - Medications Medications: Current Medications Acetaminophen (Tylenol 325 Mg Supp) 975 mg [place] ONCE PRN PRN Reason: Fever >100.4 F Last Admin: 05/06/17 20:10 Dose: 975 mg Amlodipine Besylate (Norvasc) 2.5 mg PO DAILY PRN PRN Reason: BP sys>160, lawrence>100 Atorvastatin Calcium (Lipitor) 20 mg PO DIN [facility] Last Admin: 05/08/17 18:45 Dose: Not Given Carvedilol (Coreg) 3.125 mg PO 0800,1700 [facility] Last Admin: 05/09/17 08:00 Dose: Not Given Collagenase (Santyl) 1 gm TOP BID [facility] Last Admin: 05/09/17 07:30 Dose: 1 appful Divalproex Sodium (Depakote Dr(*Bid*)) 500 mg PO BID [facility] PRN Reason: Protocol Famotidine (Pepcid) 20 mg IVP DAILY [facility] Last Admin: 05/09/17 09:22 Dose: 20 mg Hydralazine HCl (Apresoline) 10 mg IVP Q6 PRN PRN Reason: Systolic Blood Pressure Last Admin: 05/09/17 09:22 Dose: 10 mg Sodium Chloride (Sodium Chloride 0.9%) 1,000 mls @ 100 mls/hr IV .Q10H [facility] Last Admin: 05/09/17 09:00 Dose: Not Given Piperacillin Sod/Tazobactam Sod (Zosyn 3.375 In Ns 100ml) 100 mls @ 200 mls/hr IVPB Q6 [facility] PRN Reason: Protocol Stop: 05/17/17 12:01 Last Admin: 05/09/17 12:30 Dose: 200 mls/hr Linezolid (Zyvox 600mg/300ml D5w) 600 mg in 300 mls @ 200 mls/hr IVPB Q12 [facility] PRN Reason: Protocol Stop: 08/14/17 22:01 Last Admin: 05/09/17 09:23 Dose: 200 mls/hr Tamsulosin HCl (Flomax) 0.4 mg PO DAILY [facility] Last Admin: 05/09/17 10:05 Dose: Not Given - Labs Labs: 05/09/17 09:00 05/09/17 09:00 PT 14.6 Seconds (9.9-11.8) H 05/06/17 19:25 INR 1.35 (0.93-1.08) H 05/06/17 19:25 APTT 34.5 Seconds (23.7-30.8) H 05/06/17 19:25 - Constitutional Appears: Non-toxic, Confused, Chronically Ill - Head Exam Head Exam: ATRAUMATIC, NORMOCEPHALIC - Eye Exam Eye Exam: EOMI, Normal appearance - ENT Exam ENT Exam: Mucous Membranes Moist - Neck Exam Neck Exam: Normal Inspection - Respiratory Exam Respiratory Exam: Decreased Breath Sounds, NORMAL BREATHING PATTERN. absent: Rales, Rhonchi, Wheezes - Cardiovascular Exam Cardiovascular Exam: RRR, +S1, +S2 - GI/Abdominal Exam GI & Abdominal Exam: Soft, Normal Bowel Sounds. absent: Tenderness - Back Exam Additional comments: Stage 3 sacral decubiti, dressing in place. - Neurological Exam Neurological Exam: Awake Additional comments: Oriented x1. Confused. Mumbling incoherently - Psychiatric Exam Additional comments: Unable to assess Assessment and Plan - Assessment and Plan (Free Text) Assessment: 81 yo AA M with PMH of cerebral palsy, BPH, GI bleeds, anemia, and urinary retention [facility] with altered [facility] status, suspected to be 2/2 sepsis from possible enteritis vs Stage III sacral ulcer. Plan: 1. Altered mental status - AMS likely secondary to infectious etiology from sacral decubitus ulcer and/ or enteritis; pending sepsis workup - Afebrile, leukocytosis improved increased from 11.2 now 7.4, was 12.1 on admission - Urinalysis negative, CXR revealed no active disease - CT Head revealed no acute findings; age related involutional changes, encephalomalacia; see full report - CT abd/pelvis revealed new circumferential mural thickening of the small bowel which is nonspecific however may represent infectious/inflammatory entiritis - Blood cultures and urine culture negative at 48 hours, wound culture significant for gram negative rods and gram positive cocci - Procalcitonin 0.22 - Continue with Zosyn and Zyvox per ID recommendations (day 3 for each) - Patient with stage 2/stage 3 sacral decubitus ulcers; surgery consulted; continue with santyl and air mattress as per surgery recs - ID consulted - Dr. Lynch, appreciate all recs - Surgery consulted - Dr. Bowling, appreciate all recs - Palliative care (Earlene Pepper, [place]) consulted for advanced directive and to discuss code status 2. Dysphagia - Patient initially failed swallow screen done by speech pathology, subsequently made NPO. GI was consulted for PEG tube placement due to patient's NPO status, inability to take PO meds. Later in the day, patient's mental status improved and he was able to tolerate PO. Speech pathology saw him again and changed recommendation to start pureed food diet with aspiration precautions. GI was notified, but this was after they had already spoken to family about PEG tube. - Will continue to monitor patient's ability to swallow 3. HTN - Continue home Coreg 3.125 PO BID - Hydralazine 10mg IVP PRN 4. HLD - Lipitor 20 mg PO DIN 5. BPH - Continue home flomax 6. Hx GI bleeds - Hgb stable x3 days, but anemic compared to baseline (9.3-9.7 this admission, 11-12 during prior admissions in 2014) - continue to monitor daily Hgbs, can tranfuse if Hgb < 7 or actively bleeding with persistent hypotension or signs of end-organ damage Ppx: Pepcid for GI, SCDs for DVT Patient seen, reviewed, and discussed with senior resident and attending, Dr. Juarez <Humphrey Juarez - Last Filed: 05/09/17 17:35> Objective - Vital Signs/Intake and Output Vital Signs (last 24 hours): Temp Pulse Resp BP Pulse Ox 97.0 F L 89 18 159/87 H 95 05/09/17 12:00 05/09/17 14:00 05/09/17 12:00 05/09/17 12:00 05/09/17 06:00 Intake and Output: 05/09/17 05/09/17 06:59 18:59 Intake Total 1200 360 Output Total 650 Balance 1200 -290 - Medications Medications: Current Medications Acetaminophen (Tylenol 325 Mg Supp) 975 mg HI ONCE PRN PRN Reason: Fever >100.4 F Last Admin: 05/06/17 20:10 Dose: 975 mg Amlodipine Besylate (Norvasc) 2.5 mg PO DAILY PRN PRN Reason: BP sys>160, lawrence>100 Atorvastatin Calcium (Lipitor) 20 mg PO DIN [facility] Last Admin: 05/08/17 18:45 Dose: Not Given Carvedilol (Coreg) 3.125 mg PO 0800,1700 [facility] Last Admin: 05/09/17 08:00 Dose: Not Given Collagenase (Santyl) 1 gm TOP BID [facility] Last Admin: 05/09/17 07:30 Dose: 1 appful Divalproex Sodium (Depakote Dr(*Bid*)) 500 mg PO BID [facility] PRN Reason: Protocol Famotidine (Pepcid) 20 mg IVP DAILY [facility] Last Admin: 05/09/17 09:22 Dose: 20 mg Hydralazine HCl (Apresoline) 10 mg IVP Q6 PRN PRN Reason: Systolic Blood Pressure Last Admin: 05/09/17 09:22 Dose: 10 mg Sodium Chloride (Sodium Chloride 0.9%) 1,000 mls @ 100 mls/hr IV .Q10H [facility] Last Admin: 05/09/17 09:00 Dose: Not Given Piperacillin Sod/Tazobactam Sod (Zosyn 3.375 In Ns 100ml) 100 mls @ 200 mls/hr IVPB Q6 [facility] PRN Reason: Protocol Stop: 05/17/17 12:01 Last Admin: 05/09/17 12:30 Dose: 200 mls/hr Linezolid (Zyvox 600mg/300ml D5w) 600 mg in 300 mls @ 200 mls/hr IVPB Q12 [facility] PRN Reason: Protocol Stop: 08/14/17 22:01 Last Admin: 05/09/17 09:23 Dose: 200 mls/hr Tamsulosin HCl (Flomax) 0.4 mg PO DAILY [facility] Last Admin: 05/09/17 10:05 Dose: Not Given - Labs Labs: 05/09/17 09:00 05/09/17 09:00 PT 14.6 Seconds (9.9-11.8) H 05/06/17 19:25 INR 1.35 (0.93-1.08) H 05/06/17 19:25 APTT 34.5 Seconds (23.7-30.8) H 05/06/17 19:25 Attending/Attestation - Attestation I have personally seen and examined this patient.: Yes I have fully participated in the care of the patient.: Yes I have reviewed all pertinent clinical information, including history, physical exam and plan: Yes Notes (Text): 05/09/17 17:35 Medical record note made by the resident after discussion with my direction and input after the patient was personally seen and examined by me. I have reviewed the chart and agree that the record accurately reflects by personal performance of the history, physical exam, data review, and medical decision-making, in the course for the patient. I have also personally directed the plan of care.
[2017-05-10] MEDS: Piperacillin/Tazobact 3.375 gm 100 ML IVPB SCH ×2 (00:32→05:38)
[2017-05-10 06:45] LABS: ADD MANUAL DIFF? NO
[2017-05-10 07:05] LABS: ALB/GLOB RATIO 0.7 (1.1-1.8); ALKALINE PHOSPHATASE 47 U/L (38-133); ALT/SGPT 17 U/L (7-56); AST/SGOT 19 U/L (15-59); BILIRUBIN,TOTAL 0.7 mg/dL (0.2-1.3); BLOOD UREA NITROGEN 11 mg/dL (7-21); CALCIUM 7.8 mg/dL (8.4-10.5); CARBON DIOXIDE 22 mmol/L (21-33); CHLORIDE 113 mmol/L (98-107); GFR AFRICAN-AMERICAN > 60; GLUCOSE,RANDOM 84 mg/dL (70-110); POTASSIUM 3.3 mmol/L (3.6-5.0); SODIUM 142 mmol/L (132-148); TOTAL PROTEIN 5.1 g/dL (5.8-8.3)
[2017-05-10 07:11] LABS: BASO # 0.01 K/mm3 (0.0-2.0); BASO % 0.1 % (0.0-3.0); EOS # 0.3 (0.0-0.7); EOS % 3.9 % (1.5-5.0); GRAN # 3.19 (1.4-6.5); GRAN % 46.3 % (50.0-68.0); HEMATOCRIT 27.4 % (42.0-52.0); LYMPH # 2.7 (1.2-3.4); LYMPH % 39.3 % (22.0-35.0); MEAN CELL VOLUME 96.1 fL (80.0-105.0); MEAN CORPUSCULAR HEMOGLOBIN 29.8 pg (25.0-35.0); MEAN PLATELET VOLUME 10.2 fl (7.0-11.0); MONO # 0.7 (0.1-0.6); MONO % 10.4 % (1.0-6.0); PLATELET COUNT 193 10^3/uL (120.0-450.0); RED CELL DISTRIBUTION WIDTH 17.8 % (11.5-14.5); WHITE BLOOD COUNT 6.9 10^3/ul (4.5-11.0)
--- NOTE | 2017-05-10 08:10 | CP.PCM.PN ---
<Suleman Florian - Last Filed: 05/10/17 14:38> Subjective - Date & Time of Evaluation Date of Evaluation: 05/10/17 Time of Evaluation: 07:50 - Subjective Subjective: PGY5 GI Fellow Progress Note Patient seen and examined bedside this morning. Patient is more conversant today and states he is doing well. Cannot tell me if he ate or had BM yesterday. Does admits to some left sided abdominal cramping pain. After meeting with patient yesterday he was evaluated by [employer] and placed on puree diet which he tolerated; patient does not recall. No episodes overnight. 12 system ROS performed and negative except where stated. Objective - Vital Signs/Intake and Output Vital Signs (last 24 hours): Temp Pulse Resp BP Pulse Ox 98.6 F 83 18 150/87 99 05/10/17 06:00 05/10/17 06:00 05/10/17 06:00 05/10/17 06:00 05/10/17 06:00 Intake and Output: 05/10/17 05/10/17 06:59 18:59 Intake Total 1300 Output Total 400 Balance 900 - Medications Medications: Current Medications Acetaminophen (Tylenol 325 Mg Supp) 975 mg LA ONCE PRN PRN Reason: Fever >100.4 F Last Admin: 05/06/17 20:10 Dose: 975 mg Amlodipine Besylate (Norvasc) 2.5 mg PO DAILY PRN PRN Reason: BP sys>160, lawrence>100 Atorvastatin Calcium (Lipitor) 20 mg PO DIN [facility] Last Admin: 05/09/17 18:17 Dose: 20 mg Carvedilol (Coreg) 3.125 mg PO 0800,1700 [facility] Last Admin: 05/09/17 18:17 Dose: 3.125 mg Collagenase (Santyl) 1 gm TOP BID [facility] Last Admin: 05/09/17 18:18 Dose: 1 appful Divalproex Sodium (Depakote Dr(*Bid*)) 500 mg PO BID [facility] PRN Reason: Protocol Last Admin: 05/09/17 18:17 Dose: 500 mg Famotidine (Pepcid) 20 mg IVP DAILY [facility] Last Admin: 05/09/17 09:22 Dose: 20 mg Hydralazine HCl (Apresoline) 10 mg IVP Q6 PRN PRN Reason: Systolic Blood Pressure Last Admin: 05/09/17 09:22 Dose: 10 mg Sodium Chloride (Sodium Chloride 0.9%) 1,000 mls @ 100 mls/hr IV .Q10H [facility] Last Admin: 05/09/17 19:00 Dose: 100 mls/hr Piperacillin Sod/Tazobactam Sod (Zosyn 3.375 In Ns 100ml) 100 mls @ 200 mls/hr IVPB Q6 [facility] PRN Reason: Protocol Stop: 05/17/17 12:01 Last Admin: 05/10/17 05:38 Dose: 200 mls/hr Linezolid (Zyvox 600mg/300ml D5w) 600 mg in 300 mls @ 200 mls/hr IVPB Q12 [facility] PRN Reason: Protocol Stop: 08/14/17 22:01 Last Admin: 05/09/17 21:15 Dose: 200 mls/hr Potassium Chloride (Potassium Chloride Oral Soln) 40 meq PO Q4H [facility] Stop: 05/10/17 11:16 Tamsulosin HCl (Flomax) 0.4 mg PO DAILY [facility] Last Admin: 05/09/17 10:05 Dose: Not Given - Labs Labs: 05/10/17 06:40 05/10/17 06:40 PT 14.6 Seconds (9.9-11.8) H 05/06/17 19:25 INR 1.35 (0.93-1.08) H 05/06/17 19:25 APTT 34.5 Seconds (23.7-30.8) H 05/06/17 19:25 - Constitutional Appears: No Acute Distress, Chronically Ill - Eye Exam Eye Exam: EOMI, PERRL - ENT Exam ENT Exam: Mucous Membranes Dry - Respiratory Exam Respiratory Exam: Clear to Ausculation Bilateral. absent: Rales, Rhonchi, Wheezes - Cardiovascular Exam Cardiovascular Exam: RRR, +S1, +S2 - GI/Abdominal Exam GI & Abdominal Exam: Soft, Tenderness (LUQ), Normal Bowel Sounds. absent: Distended, Firm, Guarding, Rigid, Organomegaly - Extremities Exam Additional comments: 3+ LE edema B/L - Neurological Exam Neurological Exam: Alert, Awake, Oriented x3 - Psychiatric Exam Psychiatric exam: Normal Affect, Normal Mood - Skin Skin Exam: Dry, Warm Assessment and Plan - Assessment and Plan (Free Text) Assessment: Patient is a 81yo male with PMHx significant for cerebral palsy, HTN, seizure disorder, DM who presented to the ED from [place] for altered mentation, fever and poor appetite -Failure to thrive -Constipation -Sacral decubitus ulcer -Hypertensive urgency, resolved -Cerebral palsy -HTN -Seizure d/o -DM Plan: -Patient re-evaluated by [employer] and placed on puree diet -Would consider calorie count if not tolerating diet in future prior to re-eval for PEG -Will avoid PEG placement at this time given he is tolerating PO -Recommend bowel regimen as ordered; Miralax 17g PO BID -Will sign off. Thank you for allowing us to participate in the care of your patient. <Maynor Haywood - Last Filed: 05/10/17 14:42> Objective - Vital Signs/Intake and Output Vital Signs (last 24 hours): Temp Pulse Resp BP Pulse Ox 98.6 F 83 18 150/87 99 05/10/17 08:30 05/10/17 08:48 05/10/17 08:30 05/10/17 08:48 05/10/17 08:30 Intake and Output: 05/10/17 05/10/17 06:59 18:59 Intake Total 1600 Output Total 600 Balance 1000 - Medications Medications: Current Medications Acetaminophen (Tylenol 325 Mg Supp) 975 mg LA ONCE PRN PRN Reason: Fever >100.4 F Last Admin: 05/06/17 20:10 Dose: 975 mg Amlodipine Besylate (Norvasc) 2.5 mg PO DAILY PRN PRN Reason: BP sys>160, lawrence>100 Ascorbic Acid (Vitamin C 500 Mg Tab) 500 mg PO DAILY [facility] Atorvastatin Calcium (Lipitor) 20 mg PO DIN [facility] Last Admin: 05/09/17 18:17 Dose: 20 mg Carvedilol (Coreg) 3.125 mg PO 0800,1700 [facility] Last Admin: 05/10/17 08:48 Dose: 3.125 mg Collagenase (Santyl) 1 gm TOP BID [facility] Last Admin: 05/09/17 18:18 Dose: 1 appful Divalproex Sodium (Depakote Dr(*Bid*)) 500 mg PO BID [facility] PRN Reason: Protocol Last Admin: 05/10/17 10:48 Dose: 500 mg Famotidine (Pepcid) 20 mg IVP DAILY [facility] Last Admin: 05/10/17 11:23 Dose: 20 mg Hydralazine HCl (Apresoline) 10 mg IVP Q6 PRN PRN Reason: Systolic Blood Pressure Last Admin: 05/09/17 09:22 Dose: 10 mg Sodium Chloride (Sodium Chloride 0.9%) 1,000 mls @ 100 mls/hr IV .Q10H [facility] Last Admin: 05/10/17 08:44 Dose: 100 mls/hr Linezolid (Zyvox 600mg/300ml D5w) 600 mg in 300 mls @ 200 mls/hr IVPB Q12 [facility] PRN Reason: Protocol Stop: 08/14/17 22:01 Last Admin: 05/10/17 10:46 Dose: 200 mls/hr Meropenem 1g/NS 100mL IVPB (Meropenem 1g/Ns 100ml Ivpb) 1 gm in 100 mls @ 100 mls/hr IVPB Q8 [facility] PRN Reason: Protocol Stop: 05/18/17 14:01 Multivitamins/Vitamin C (Multi-Delyn Liquid) 15 ml PO 0800 [facility] Polyethylene Glycol (Miralax) 17 gm PO BID [facility] Last Admin: 05/10/17 10:47 Dose: 17 gm Tamsulosin HCl (Flomax) 0.4 mg PO DAILY [facility] Last Admin: 05/10/17 10:48 Dose: 0.4 mg Thiamine HCl (Vitamin B1 Tab) 100 mg PO DAILY [facility] Zinc Sulfate (Zinc Sulfate 220 Mg Cap) 220 mg PO DAILY [facility] - Labs Labs: 05/10/17 06:40 05/10/17 06:40 PT 14.6 Seconds (9.9-11.8) H 05/06/17 19:25 INR 1.35 (0.93-1.08) H 05/06/17 19:25 APTT 34.5 Seconds (23.7-30.8) H 05/06/17 19:25 Attending/Attestation - Attestation I have personally seen and examined this patient.: Yes I have fully participated in the care of the patient.: Yes I have reviewed all pertinent clinical information, including history, physical exam and plan: Yes Notes (Text): 05/10/17 14:41 81 year old male with h/o cerebral palsy, HTN, seizure disorder, DM admitted with altered mental status, improved now, also with constipation and dysphagia, also improved. 1. Dysphagia 2. Constipation Plan: -patient tolerating a pureed diet -no indication for PEG at this time -continue miralax for constipation -improved constipation / soft bm -will sign off at this time
[2017-05-10] MEDS: Sodium Chloride 0.9% 1,000 ML IV SCH (08:44)
[2017-05-10] MEDS: Potassium Chloride 40 mEq/30 ml LIQ UD PO SCH ×2 (08:48→18:06)
--- NOTE | 2017-05-10 09:07 | PQF MALNUT ---
This form is a permanent part of the medical record Clarification of your documentation is requested to better reflect the severity of illness and intensity of treatment of your patient. Indicators present 05/10 Admitted w/ dysphagia, failure to thrive, Stage 3 sacral decubiti. Dietary eval shows pt at Level 3- high risk , decreasing T- protein,& Albumin- now 5.1 & 2.0. PEG being considered. Calorie ct recommended by GI. Please document if you agree malnutrition was POA, indicate type & degree. [] Cachexia (due to severe malnutrition) [x] Albumin < 2.8 [x] Decreased Pre-albumin [x] Dietary Consult [] Provider documentation reflects BMI of: []_ [x] Low serum proteins [] Documented weight loss [x] Inability to consume adequate caloric intake [] Anorexic [] Other: [] Location in the medical record that reflects the above clinical findings: [x] Dietary & GI eval Treatment Provided: [x] Swallow eval, pureed diet PHYSICIAN'S RESPONSE Based on your medical judgment of the clinical indicators outlined above, are you treating this patient for a known or suspected: Type of Malnutrition Severity [] Mild [] Moderate [] Severe [] Protein calorie [] Mild [] Moderate [] severe [] Other, please indicate: []_ [] If Unable to Determine, please check the box, sign and date. Present On Admission (POA) Indicator: [] Present at the time of admission [] Not present at the time of admission [] Clinically Undetermined In responding to this query, please exercise your independent professional judgment. The fact that a question is asked does not imply that any particular answer is desired or expected. Thank you for your clarification on this documentation. If you have any questions please call:[ ][phone] * Thank you, [ ]Tiffanie Tiwari RN CDS [employer] Malnutrition Malnutrition results from an imbalance between the body's intake of nutrients and the body's use of nutrients to fuel energy expenditure. Malnutrition may be described as mild, moderate or severe. There are variations in clinical indicators, lab values and risk factors with each type and degree. When reviewing the nutritional status of the client, the entire clinical picture should be assessed and taken into consideration rather than a focus on a single laboratory value. Mild Malnutrition: patient's weight is noted at 85-95% of normal body weight; BMI 18-18.9; serum albumin 3.0-3.4; total lymphocyte count 2989-9206. Moderate Malnutrition: patient's weight is noted at 75-85% of normal body weight ; BMI 16-17.9; serum albumin 2.4-3.0; total lymphocyte count 800-1500. Severe Malnutrition: patient's weight is noted at <75% of normal body weight, BMI <16, serum albumin <2.4, total lymphocyte count <800, abnormally low VLDL/ LDL levels, creatinine <0.6, BUN <8, cholesterol <160. Other clinical indicators include: loss of subq fat, muscle wasting of the extremities, skin lesions, decubitus ulcers, hair loss, lethargy, constipation, decreased pulse/ respiratory rates, relative hypotension, hepatomegaly d/t fat infiltration, poor wound healing.~~~~~~ Risk: poor intake d/t food avoidance or NPO status for >7 days, protracted nutritional losses from malabsorption states, hypermetabolic state such as sepsis, prolonged fever, extensive trauma or bird, alcohol/drug abuse, advanced age, CKD, trouble chewing or swallowing, some medications, depression/ social isolation, special diets such as low protein Treatment: dietary consultation, protein-calorie dietary supplementation, daily weights, PEG tube, psychiatric consultation, appetite stimulants (Megace). [employer] Principles of Internal Medicine, 17th edition, chapters 9, 72 and 234. The [employer] Nutritional Support Core Curriculum, 2007 MTDD
[2017-05-10] MEDS: Linezolid 600 mg in D5W 300 ml 600 MG/300 ML BAG IVPB SCH ×2 (10:46→22:23)
[2017-05-10] MEDS: POLYETHYLENE GLYCOL 3350 17 GM/Dose PACKET PO SCH ×2 (10:47→18:09)
[2017-05-10] MEDS: Divalproex 500 mg DR(BID formulation) PO SCH ×2 (10:48→18:09)
--- NOTE | 2017-05-10 10:48 | CP.PCM.CON ---
<Fatuma Cochran - Last Filed: 05/10/17 10:49> History of Present Illness - History of Present Illness History of Present Illness: PGY-2 Neurology consult note for Dr Monk. Reason for consult: expert opinion on CT finding. Patient is a 81 y/o M with PMH of cerebral palsy since childhood, seizure disorders, DM, BPH, GI bleeds, anemia, and urine retention sent from residential on 05/06 to failure to thrive, AMS and fever admitted with sepsis with ESBL sacral decubitus wound and enteritits as the possible source. Neurology is being consulted to review Ct head. Patient is poor historian thus history was obtained from medical record. Patient is currently lying on the bed in no distress, patient with baseline contractions. Patient states at baseline, he doesn't ambulate. No complaints. Detailed 12 point ROS was not obtained due to mental status. Review of Systems - Review of Systems Systems not reviewed;Unavailable: Altered Mental Status Past Patient History - Tetanus Immunizations Tetanus Immunization: Unknown - Past Medical History & Family History Past Medical History?: Yes - Past Social History Smoking Status: Never Smoked Alcohol: Other (unknown) Drugs: Other (unknown) Home Situation {Lives}: Fdc - CARDIAC Hx Cardiac Disorders: Yes Hx Hypertension: Yes - PULMONARY Hx Respiratory Disorders: No - NEUROLOGICAL Hx Neurological Disorder: Yes Hx Seizures: Yes Other/Comment: cerebral palsy - HEENT Hx HEENT Problems: No - RENAL Hx Chronic Kidney Disease: No - ENDOCRINE/METABOLIC Hx Endocrine Disorders: Yes Hx Diabetes Mellitus Type 2: Yes - HEMATOLOGICAL/ONCOLOGICAL Hx Blood Disorders: Yes (GI BLEED) - INTEGUMENTARY Hx Dermatological Problems: No - MUSCULOSKELETAL/RHEUMATOLOGICAL Hx Musculoskeletal Disorders: Yes (LEFT SIDED WEAKNESS/CVA) Hx Falls: (UNKNOWN) - GASTROINTESTINAL Hx Gastrointestinal Disorders: Yes (GI BLEED,CONSTIPATION,DIARRHEA) - GENITOURINARY/GYNECOLOGICAL Hx Genitourinary Disorders: Yes (OVERACTIVE BLADDER) Hx Incontinence: Yes - PSYCHIATRIC Hx Psychophysiologic Disorder: No Hx Substance Use: No - SURGICAL HISTORY Hx Surgeries: (unable to obtain) Meds Allergies/Adverse Reactions: Allergies Allergy/AdvReac Type Severity Reaction Status Date / Time No Known Allergies Allergy Verified 05/06/17 19:00 - Medications Medications: Current Medications Acetaminophen (Tylenol 325 Mg Supp) 975 mg AK ONCE PRN PRN Reason: Fever >100.4 F Last Admin: 05/06/17 20:10 Dose: 975 mg Amlodipine Besylate (Norvasc) 2.5 mg PO DAILY PRN PRN Reason: BP sys>160, lawrence>100 Atorvastatin Calcium (Lipitor) 20 mg PO DIN [facility] Last Admin: 05/09/17 18:17 Dose: 20 mg Carvedilol (Coreg) 3.125 mg PO 0800,1700 [facility] Last Admin: 05/10/17 08:48 Dose: 3.125 mg Collagenase (Santyl) 1 gm TOP BID [facility] Last Admin: 05/09/17 18:18 Dose: 1 appful Divalproex Sodium (Depakote Dr(*Bid*)) 500 mg PO BID [facility] PRN Reason: Protocol Last Admin: 05/09/17 18:17 Dose: 500 mg Famotidine (Pepcid) 20 mg IVP DAILY [facility] Last Admin: 05/09/17 09:22 Dose: 20 mg Hydralazine HCl (Apresoline) 10 mg IVP Q6 PRN PRN Reason: Systolic Blood Pressure Last Admin: 05/09/17 09:22 Dose: 10 mg Sodium Chloride (Sodium Chloride 0.9%) 1,000 mls @ 100 mls/hr IV .Q10H [facility] Last Admin: 05/10/17 08:44 Dose: 100 mls/hr Piperacillin Sod/Tazobactam Sod (Zosyn 3.375 In Ns 100ml) 100 mls @ 200 mls/hr IVPB Q6 [facility] PRN Reason: Protocol Stop: 05/17/17 12:01 Last Admin: 05/10/17 05:38 Dose: 200 mls/hr Linezolid (Zyvox 600mg/300ml D5w) 600 mg in 300 mls @ 200 mls/hr IVPB Q12 [facility] PRN Reason: Protocol Stop: 08/14/17 22:01 Last Admin: 05/09/17 21:15 Dose: 200 mls/hr Polyethylene Glycol (Miralax) 17 gm PO BID [facility] Potassium Chloride (Potassium Chloride Oral Soln) 40 meq PO Q4H [facility] Stop: 05/10/17 11:16 Last Admin: 05/10/17 08:48 Dose: 40 meq Tamsulosin HCl (Flomax) 0.4 mg PO DAILY [facility] Last Admin: 05/09/17 10:05 Dose: Not Given Physical Exam - Constitutional Appears: No Acute Distress, Confused, Cachectic, Chronically Ill - Head Exam Head Exam: ATRAUMATIC, NORMAL INSPECTION, NORMOCEPHALIC - Eye Exam Eye Exam: EOMI, Normal appearance, PERRL. absent: Scleral icterus Pupil Exam: PERRL - ENT Exam ENT Exam: Mucous Membranes Moist - Neck Exam Neck exam: Positive for: Normal Inspection - Respiratory Exam Respiratory Exam: NORMAL BREATHING PATTERN. absent: Rales, Rhonchi, Wheezes, Respiratory Distress, Stridor - Cardiovascular Exam Cardiovascular Exam: REGULAR RHYTHM, +S1, +S2 - GI/Abdominal Exam GI & Abdominal Exam: Normal Bowel Sounds, Soft. absent: Tenderness - Extremities Exam Extremities exam: Positive for: pedal edema - Neurological Exam Neurological exam: Alert Additional comments: Patient is wake and alert to person and place, not alert to time. Patient follows simple commands Patient opens his eyes spontaneously, reactive to light Patient with dysphonic speech. Patient is contracted, unable to move his extremities. Gait deferred. Results - Vital Signs Recent Vital Signs: Last Vital Signs Temp 98.6 F 05/10/17 08:30 Pulse 83 05/10/17 08:48 Resp 18 05/10/17 08:30 BP 150/87 05/10/17 08:48 Pulse Ox 99 05/10/17 08:30 - Labs Result Diagrams: 05/10/17 06:40 05/10/17 06:40 Labs: Laboratory Results - last 24 hr 05/07/17 05/10/17 05/10/17 07:12 06:40 06:40 WBC 6.9 RBC 2.85 L Hgb 8.5 L Hct 27.4 L MCV 96.1 MCH 29.8 MCHC 31.0 RDW 17.8 H Plt Count 193 MPV 10.2 Gran % 46.3 L Lymph % (Auto) 39.3 H [place] % (Auto) 10.4 H Eos % (Auto) 3.9 Baso % (Auto) 0.1 Gran # 3.19 Lymph # 2.7 [place] # 0.7 H Eos # 0.3 Baso # 0.01 Sodium 142 Potassium 3.3 L Chloride 113 H Carbon Dioxide 22 Anion Gap 10 BUN 11 Creatinine 0.7 Est GFR ( Amer) > 60 Est GFR (Non-Af Amer) > 60 Random Glucose 84 Calcium 7.8 L Total Bilirubin 0.7 AST 19 ALT 17 Alkaline Phosphatase 47 Total Protein 5.1 L Albumin 2.0 L Globulin 3.0 Albumin/Globulin Ratio 0.7 L PTH Intact Whole Molec 46 Assessment & Plan - Assessment and Plan (Free Text) Assessment: Patient is a 81 y/o M with PMH of cerebral palsy since childhood, seizure disorders, DM, BPH, GI bleeds, anemia, and urine retention sent from residential on 05/06 2nd to failure to thrive, and fever admitted with sepsis with ESBL sacral decubitus wound and enteritis as the possible source, episodes of hypertensive urgency which has resolved. Neuro is consulted to review the CT scan. CT head w/o contrast read by radiologist: No mass effect or edema. Right frontal cystic encephalomalacia widely communicating with right lateral ventricle. No evidence of acute infarct. Moderate periventricular white matter lucency consistent with microvascular white matter ischemic change. Mild to moderate diffuse cerebral atrophy consistent with age. Marked dilatation right lateral ventricle due to communicating cystic encephalomalacia. Reviewed CT head with Dr Monk, agreed with the above, large ventricles, with right frontal encephalomalacia, no evidence of obstruction, no hydrocephalus. EEG with bilateral cerebral dysfunction, significant artifacts ( please see EMR for full dictation by Dr Monk). 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 - Continue to treat underlying infection - delirium precaution - Avoid sedatives and opioid. - Will add thiamine 100 mg daily - Monitor and correct electrolytes. - Thank you for consulting Dr Monk - Re-consult if there are any further changes. Patient seen, examined, and discussed with Dr Monk. - Date & Time Date: 05/10/17 Time: 10:40 <Steven Monk - Last Filed: 05/11/17 09:49> Meds - Medications Medications: Current Medications Acetaminophen (Tylenol 325 Mg Supp) 975 mg AK ONCE PRN PRN Reason: Fever >100.4 F Last Admin: 05/06/17 20:10 Dose: 975 mg Acetaminophen (Tylenol 325mg Tab) 650 mg PO Q6H PRN PRN Reason: Pain, Mild (1-3) Last Admin: 05/10/17 19:26 Dose: 650 mg Amlodipine Besylate (Norvasc) 2.5 mg PO DAILY PRN PRN Reason: BP sys>160, alwrence>100 Last Admin: 05/11/17 08:57 Dose: 2.5 mg Ascorbic Acid (Vitamin C 500 Mg Tab) 500 mg PO DAILY [facility] Last Admin: 05/10/17 15:18 Dose: 500 mg Atorvastatin Calcium (Lipitor) 20 mg PO DIN [facility] Last Admin: 05/10/17 18:09 Dose: 20 mg Carvedilol (Coreg) 3.125 mg PO 0800,1700 [facility] Last Admin: 05/11/17 08:56 Dose: 3.125 mg Collagenase (Santyl) 1 gm TOP BID [facility] Last Admin: 05/10/17 18:04 Dose: 1 appful Divalproex Sodium (Depakote Dr(*Bid*)) 500 mg PO BID [facility] PRN Reason: Protocol Last Admin: 05/10/17 18:09 Dose: 500 mg Famotidine (Pepcid) 20 mg IVP DAILY [facility] Last Admin: 05/11/17 09:33 Dose: 20 mg Hydralazine HCl (Apresoline) 10 mg IVP Q6 PRN PRN Reason: Systolic Blood Pressure Last Admin: 05/11/17 06:18 Dose: 10 mg Sodium Chloride (Sodium Chloride 0.9%) 1,000 mls @ 100 mls/hr IV .Q10H [facility] Last Admin: 05/11/17 00:00 Dose: 100 mls/hr Linezolid (Zyvox 600mg/300ml D5w) 600 mg in 300 mls @ 200 mls/hr IVPB Q12 [facility] PRN Reason: Protocol Stop: 08/14/17 22:01 Last Admin: 05/11/17 08:59 Dose: 200 mls/hr Meropenem 1g/NS 100mL IVPB (Meropenem 1g/Ns 100ml Ivpb) 1 gm in 100 mls @ 100 mls/hr IVPB Q8 [facility] PRN Reason: Protocol Stop: 05/18/17 14:01 Last Admin: 05/11/17 06:25 Dose: 100 mls/hr Multivitamins/Vitamin C (Multi-Delyn Liquid) 15 ml PO 0800 [facility] Last Admin: 05/11/17 08:57 Dose: 15 ml Polyethylene Glycol (Miralax) 17 gm PO BID [facility] Last Admin: 05/10/17 18:09 Dose: Not Given Tamsulosin HCl (Flomax) 0.4 mg PO DAILY [facility] Last Admin: 05/10/17 10:48 Dose: 0.4 mg Thiamine HCl (Vitamin B1 Tab) 100 mg PO DAILY [facility] Last Admin: 05/10/17 15:18 Dose: 100 mg Zinc Sulfate (Zinc Sulfate 220 Mg Cap) 220 mg PO DAILY [facility] Results - Vital Signs Recent Vital Signs: Last Vital Signs Temp 99.7 F H 05/11/17 06:00 Pulse 91 H 05/11/17 08:56 Resp 20 05/11/17 06:00 BP 172/98 H 05/11/17 08:57 Pulse Ox 97 05/11/17 06:00 - Labs Result Diagrams: 05/11/17 06:15 05/11/17 06:15 Labs: Laboratory Results - last 24 hr 05/11/17 05/11/17 06:15 06:15 WBC 5.9 RBC 3.07 L Hgb 9.2 L Hct 29.7 L MCV 96.7 MCH 30.0 MCHC 31.0 RDW 17.7 H Plt Count 211 MPV 9.9 Gran % 44.8 L Lymph % (Auto) 37.6 H [place] % (Auto) 12.5 H Eos % (Auto) 4.9 Baso % (Auto) 0.2 Gran # 2.66 Lymph # 2.2 [place] # 0.7 H Eos # 0.3 Baso # 0.01 Sodium 143 Potassium 3.6 Chloride 113 H Carbon Dioxide 24 Anion Gap 10 BUN 7 Creatinine 0.6 Est GFR ( Amer) > 60 Est GFR (Non-Af Amer) > 60 Random Glucose 74 Calcium 8.0 L Total Bilirubin 0.5 AST 21 ALT 17 Alkaline Phosphatase 49 Total Protein 4.8 L Albumin 1.9 L Globulin 2.9 Albumin/Globulin Ratio 0.7 L Attending/Attestation - Attestation I have personally seen and examined this patient.: Yes I have fully participated in the care of the patient.: Yes I have reviewed all pertinent clinical information: Yes
--- NOTE | 2017-05-10 11:27 | CP.PCM.PN ---
Subjective - Date & Time of Evaluation Date of Evaluation: 05/10/17 Time of Evaluation: 11:00 - Subjective Subjective: Alert, answers simple questions. Requires assistance with meals, swallowing without difficulty Objective - Vital Signs/Intake and Output Vital Signs (last 24 hours): Temp Pulse Resp BP Pulse Ox 98.6 F 83 18 150/87 99 05/10/17 08:30 05/10/17 08:48 05/10/17 08:30 05/10/17 08:48 05/10/17 08:30 Intake and Output: 05/10/17 05/10/17 06:59 18:59 Intake Total 1300 Output Total 400 Balance 900 - Medications Medications: Current Medications Acetaminophen (Tylenol 325 Mg Supp) 975 mg [place] ONCE PRN PRN Reason: Fever >100.4 F Last Admin: 05/06/17 20:10 Dose: 975 mg Amlodipine Besylate (Norvasc) 2.5 mg PO DAILY PRN PRN Reason: BP sys>160, lawrence>100 Ascorbic Acid (Vitamin C 500 Mg Tab) 500 mg PO DAILY [facility] Atorvastatin Calcium (Lipitor) 20 mg PO DIN [facility] Last Admin: 05/09/17 18:17 Dose: 20 mg Carvedilol (Coreg) 3.125 mg PO 0800,1700 [facility] Last Admin: 05/10/17 08:48 Dose: 3.125 mg Collagenase (Santyl) 1 gm TOP BID [facility] Last Admin: 05/09/17 18:18 Dose: 1 appful Divalproex Sodium (Depakote Dr(*Bid*)) 500 mg PO BID [facility] PRN Reason: Protocol Last Admin: 05/10/17 10:48 Dose: 500 mg Famotidine (Pepcid) 20 mg IVP DAILY [facility] Last Admin: 05/09/17 09:22 Dose: 20 mg Hydralazine HCl (Apresoline) 10 mg IVP Q6 PRN PRN Reason: Systolic Blood Pressure Last Admin: 05/09/17 09:22 Dose: 10 mg Sodium Chloride (Sodium Chloride 0.9%) 1,000 mls @ 100 mls/hr IV .Q10H [facility] Last Admin: 05/10/17 08:44 Dose: 100 mls/hr Piperacillin Sod/Tazobactam Sod (Zosyn 3.375 In Ns 100ml) 100 mls @ 200 mls/hr IVPB Q6 [facility] PRN Reason: Protocol Stop: 05/17/17 12:01 Last Admin: 05/10/17 05:38 Dose: 200 mls/hr Linezolid (Zyvox 600mg/300ml D5w) 600 mg in 300 mls @ 200 mls/hr IVPB Q12 [facility] PRN Reason: Protocol Stop: 08/14/17 22:01 Last Admin: 05/10/17 10:46 Dose: 200 mls/hr Multivitamins/Vitamin C (Multi-Delyn Liquid) 15 ml PO 0800 [facility] Polyethylene Glycol (Miralax) 17 gm PO BID [facility] Last Admin: 05/10/17 10:47 Dose: 17 gm Tamsulosin HCl (Flomax) 0.4 mg PO DAILY [facility] Last Admin: 05/10/17 10:48 Dose: 0.4 mg Thiamine HCl (Vitamin B1 Tab) 100 mg PO DAILY [facility] Zinc Sulfate (Zinc Sulfate 220 Mg Cap) 220 mg PO DAILY [facility] - Labs Labs: 05/10/17 06:40 05/10/17 06:40 PT 14.6 Seconds (9.9-11.8) H 05/06/17 19:25 INR 1.35 (0.93-1.08) H 05/06/17 19:25 APTT 34.5 Seconds (23.7-30.8) H 05/06/17 19:25 - Constitutional Appears: No Acute Distress, Chronically Ill - Head Exam Head Exam: NORMAL INSPECTION - Eye Exam Eye Exam: Normal appearance, PERRL - ENT Exam ENT Exam: Mucous Membranes Moist - Neck Exam Neck Exam: Normal Inspection - Respiratory Exam Respiratory Exam: Clear to Ausculation Bilateral, NORMAL BREATHING PATTERN - Cardiovascular Exam Cardiovascular Exam: REGULAR RHYTHM, +S1, +S2 - GI/Abdominal Exam GI & Abdominal Exam: Soft, Normal Bowel Sounds - Skin Skin Exam: Dry, Pallor Additional comments: stage 3 sacral ulcer Assessment and Plan - Assessment and Plan (Free Text) Assessment: 81 year old male with history of Cerebral Palsy who was admitted with AMS, sepsis, dysphagia. AMS and dysphagia has resolved. The patient has a sacral decubiti, wound positive for E Coli and Staph Aureus, will require ongoing IV antibiotic therapy Requires assistance with meals, swallowing without difficulty.Offers no complaints Advance care planning discussed with patient's cousin, Belen yesterday. She is planning on visiting with the patient tomorrow. I will meet with her then and continue advance care planning. Plan: Advance care planning
--- NOTE | 2017-05-10 13:36 | CP.PCM.PN ---
<Juan Posadas - Last Filed: 05/10/17 13:31> Subjective - Date & Time of Evaluation Date of Evaluation: 05/10/17 Time of Evaluation: 07:00 - Subjective Subjective: Juan Posadas D.O. PGY-2, Internal Medicine, Progress Note 81 year old male with a PMH of cerebral palsy, BPH, chronic anemia and urinary retention who presented from long term with altered mental status and was found to be septic. Patient was seen and examined at bedside. Patient is doing somewhat better today, is more conversational and active but still not quite his usual self. No acute overnight events per nursing staff. At this time patient denies any complaints including any N/V/D/C/ fevers/chills or otherwise. Objective - Vital Signs/Intake and Output Vital Signs (last 24 hours): Temp Pulse Resp BP Pulse Ox 98.6 F 83 18 150/87 99 05/10/17 08:30 05/10/17 08:48 05/10/17 08:30 05/10/17 08:48 05/10/17 08:30 Intake and Output: 05/10/17 05/10/17 06:59 18:59 Intake Total 1300 Output Total 400 Balance 900 - Medications Medications: Current Medications Acetaminophen (Tylenol 325 Mg Supp) 975 mg [place] ONCE PRN PRN Reason: Fever >100.4 F Last Admin: 05/06/17 20:10 Dose: 975 mg Amlodipine Besylate (Norvasc) 2.5 mg PO DAILY PRN PRN Reason: BP sys>160, lawrence>100 Ascorbic Acid (Vitamin C 500 Mg Tab) 500 mg PO DAILY [facility] Atorvastatin Calcium (Lipitor) 20 mg PO DIN [facility] Last Admin: 05/09/17 18:17 Dose: 20 mg Carvedilol (Coreg) 3.125 mg PO 0800,1700 [facility] Last Admin: 05/10/17 08:48 Dose: 3.125 mg Collagenase (Santyl) 1 gm TOP BID [facility] Last Admin: 05/09/17 18:18 Dose: 1 appful Divalproex Sodium (Depakote Dr(*Bid*)) 500 mg PO BID [facility] PRN Reason: Protocol Last Admin: 05/10/17 10:48 Dose: 500 mg Famotidine (Pepcid) 20 mg IVP DAILY [facility] Last Admin: 05/10/17 11:23 Dose: 20 mg Hydralazine HCl (Apresoline) 10 mg IVP Q6 PRN PRN Reason: Systolic Blood Pressure Last Admin: 05/09/17 09:22 Dose: 10 mg Sodium Chloride (Sodium Chloride 0.9%) 1,000 mls @ 100 mls/hr IV .Q10H [facility] Last Admin: 05/10/17 08:44 Dose: 100 mls/hr Linezolid (Zyvox 600mg/300ml D5w) 600 mg in 300 mls @ 200 mls/hr IVPB Q12 [facility] PRN Reason: Protocol Stop: 08/14/17 22:01 Last Admin: 05/10/17 10:46 Dose: 200 mls/hr Meropenem 1g/NS 100mL IVPB (Meropenem 1g/Ns 100ml Ivpb) 1 gm in 100 mls @ 100 mls/hr IVPB Q8 [facility] PRN Reason: Protocol Stop: 05/18/17 14:01 Multivitamins/Vitamin C (Multi-Delyn Liquid) 15 ml PO 0800 [facility] Polyethylene Glycol (Miralax) 17 gm PO BID [facility] Last Admin: 05/10/17 10:47 Dose: 17 gm Tamsulosin HCl (Flomax) 0.4 mg PO DAILY [facility] Last Admin: 05/10/17 10:48 Dose: 0.4 mg Thiamine HCl (Vitamin B1 Tab) 100 mg PO DAILY [facility] Zinc Sulfate (Zinc Sulfate 220 Mg Cap) 220 mg PO DAILY [facility] - Labs Labs: 05/10/17 06:40 05/10/17 06:40 PT 14.6 Seconds (9.9-11.8) H 05/06/17 19:25 INR 1.35 (0.93-1.08) H 05/06/17 19:25 APTT 34.5 Seconds (23.7-30.8) H 05/06/17 19:25 - Constitutional Appears: well nourished, elderly CP patient in NAD, more coherent but still mumbling at times and confused - Head Exam Head Exam: ATRAUMATIC, NORMOCEPHALIC - Eye Exam Eye Exam: EOMI, Normal appearance - ENT Exam ENT Exam: Mucous Membranes Moist, oropharynx pink and moist - Neck Exam Neck Exam: soft, supple - Respiratory Exam Respiratory Exam: Decreased Breath Sounds, NORMAL BREATHING PATTERN. absent: Rales, Rhonchi, Wheezes - Cardiovascular Exam Cardiovascular Exam: RRR, +S1, +S2, no murmurs, rubs or gallops - GI/Abdominal Exam GI & Abdominal Exam: Soft, Normal Bowel Sounds. absent: Tenderness - Back Exam Additional comments: Two stage 3 sacral decubiti ulcers, dressings in place with santyl - Neurological Exam Neurological Exam: awake, alert, oriented to self only, speech somewhat more coherent today Assessment and Plan - Assessment and Plan (Free Text) Assessment: 81 year old male with a PMH of cerebral palsy, BPH, chronic anemia and urinary retention who presented from long term with altered mental status and was found to be septic. Plan: 1. Sepsis with altered mental status Multiple sources of infection including sacral decubiti, entiritis, and aspiration Now afebrile and resolved leukocytosis ID following, recs appreciated Chest CT today to evaluate for poss aspiration given his previous swallow failure BCxs negative x2 D3, UCx negative, sacrum cx pending Cont zosyn and zyvox day 4 Surgery consulted for sacral decubiti, only local wound care with santyl at this time Started nutritional supplementation for optimal skin healing Palliative care following 2. Dysphagia Originally failed swallow eval but once mental status improved now able to tolerate, on pureed with thin liquids per [employer] recs GI consulted for possible PEG but now not necessary 3. Hx seizure disorder Cont home divalproex, EEG pending Neuro consulted 4. Cystic encephalomalacia and ventriculomegaly Found on head CT, review of previous scans shows that this is a chronic finding 5. Hx HTN - well controlled Cont home regimen 6. Hx HLD Cont home Lipitor 7. Hx BPH Cont home flomax 6. Hx GI bleeds Hgb stable at patient's baseline levels, GI following, hemodynamically stable with no acute bleeding GI/DVT ppx: pepcid/SCDs Patient seen and examined and case was discussed at length with procurement intern and attending physician. <Gabriel Amaya - Last Filed: 05/26/17 08:58> Objective - Vital Signs/Intake and Output Vital Signs (last 24 hours): Temp Pulse Resp BP Pulse Ox 97.6 F 84 18 144/83 97 05/11/17 12:00 05/11/17 15:42 05/11/17 12:00 05/11/17 15:42 05/11/17 06:00 - Labs Labs: 05/11/17 06:15 05/11/17 06:15 PT 14.6 Seconds (9.9-11.8) H 05/06/17 19:25 INR 1.35 (0.93-1.08) H 05/06/17 19:25 APTT 34.5 Seconds (23.7-30.8) H 05/06/17 19:25 Attending/Attestation - Attestation I have personally seen and examined this patient.: Yes I have fully participated in the care of the patient.: Yes I have reviewed all pertinent clinical information, including history, physical exam and plan: Yes Notes (Text): 05/26/17 08:58 Medical record note made by the resident done after discussion with my direction and input after the patient was personally seen by me. I have reviewed the chart and agree that the record accurately reflects my personal history, physical, data review, decision making and course for the patient.
--- NOTE | 2017-05-10 13:47 | CT ---
PROCEDURE: CT Chest without contrast HISTORY: Possible aspiration COMPARISON: Plain radiographs from 05/06/2017. TECHNIQUE: Contiguous axial images were obtained through the chest without intravenous contrast enhancement. Sagittal and coronal reconstructions were performed. This CT exam was performed using one or more of the following dose reduction techniques: Automated exposure control, adjustment of the mA and/or KV according to patient size, and/or use of iterative reconstruction technique. FINDINGS: LUNGS: The lungs are clear. There are no endobronchial lesions. MEDIASTINUM: The heart is normal in size. There is no pericardial effusion. There atherosclerotic calcifications are descending coronary artery. There is no pathologic mediastinal lymphadenopathy. PLEURA: There are moderate bilateral pleural effusions with compressive atelectasis in the lower lobes. No pneumothorax. BONES: No fracture. No destructive lesion. There is diffuse bone demineralization and multilevel degenerative changes in the spine. UPPER ABDOMEN: Grossly unremarkable. OTHER FINDINGS: There is diffuse anasarca. IMPRESSION: Moderate bilateral pleural effusions and compressive atelectasis in the lower lobes. Superimposed pneumonia cannot be excluded follow-up after medical management is recommended.
[2017-05-10] MEDS: Collagenase 250 Units/gm Ointment(30 gm) TOP SCH ×2 (15:05→18:04)
[2017-05-10] MEDS: Meropenem 1g/NS 100mL IVPB 1 GM/100 ML PIGGYBACK IVPB SCH ×2 (15:17→21:00)
--- NOTE | 2017-05-10 17:37 | PN ---
DATE: 05/10/2017 SUBJECTIVE: The patient is in bed in no acute distress, nontoxic, no fevers, and no chills. The patient was seen earlier this morning in 267, bed 1. PHYSICAL EXAMINATION: VITAL SIGNS: Temperature is 98, blood pressure is 150/80, respiratory rate of 18, heart rate is 83. HEENT: Unremarkable. NECK: Supple. LUNGS: Decreased breath sounds. HEART: Normal S1 and S2. ABDOMEN: Soft, nontender. LABORATORY DATA: Reveals a white count of 6.9, hemoglobin of 8, platelets of 183. Coagulation is noted. Chemistry reveals a BUN of 11, creatinine of 0.7, and procalcitonin is 0.22. Urinalysis is unremarkable. Microbiology reveals urine culture no growth. Blood culture have no growth at 3 days and fecal culture has moderate growth of E. coli and Staphylococcus aureus. ESBL E. coli and Staphylococcus aureus appears to be sensitive to tetracycline, gentamicin, Bactrim, and I am unable to find oxacillin for the sensitivity of the Staphylococcus aureus. Review of orders reveals the patient to be on Zyvox and Zosyn. ASSESSMENT AND PLAN: At this time, a 81-year-old male admitted with fevers, and initially the patient had a temperature of a 100.6 on the with tachycardia, the patient with sepsis with ESBL Escherichia coli and Staphylococcus aureus and infected sacral ulcer. Local wound care: We will treat the patient with Zyvox and meropenem. With sepsis secondary to stage 3 infected ulcer with ESBL, E. coli, and we will closely with you. Overall prognosis is quite poor. Should be placed on ESBL precautions. Case discussed with staff and team taking care of the patient. Jori Lynch MD
[2017-05-11] MEDS: Sodium Chloride 0.9% 1,000 ML IV SCH
[2017-05-11 06:13] VITALS: O2SAT 97
[2017-05-11] MEDS: Meropenem 1g/NS 100mL IVPB 1 GM/100 ML PIGGYBACK IVPB SCH ×2 (06:25→13:37)
[2017-05-11 06:44] LABS: ADD MANUAL DIFF? NO
[2017-05-11 07:07] LABS: BASO # 0.01 K/mm3 (0.0-2.0); BASO % 0.2 % (0.0-3.0); EOS # 0.3 (0.0-0.7); EOS % 4.9 % (1.5-5.0); GRAN # 2.66 (1.4-6.5); GRAN % 44.8 % (50.0-68.0); HEMATOCRIT 29.7 % (42.0-52.0); LYMPH # 2.2 (1.2-3.4); LYMPH % 37.6 % (22.0-35.0); MEAN CELL VOLUME 96.7 fL (80.0-105.0); MEAN PLATELET VOLUME 9.9 fl (7.0-11.0); MONO # 0.7 (0.1-0.6); MONO % 12.5 % (1.0-6.0); PLATELET COUNT 211 10^3/uL (120.0-450.0); RED CELL DISTRIBUTION WIDTH 17.7 % (11.5-14.5); WHITE BLOOD COUNT 5.9 10^3/ul (4.5-11.0)
[2017-05-11 07:52] LABS: ALB/GLOB RATIO 0.7 (1.1-1.8); ALKALINE PHOSPHATASE 49 U/L (38-133); ALT/SGPT 17 U/L (7-56); AST/SGOT 21 U/L (15-59); BILIRUBIN,TOTAL 0.5 mg/dL (0.2-1.3); BLOOD UREA NITROGEN 7 mg/dL (7-21); CARBON DIOXIDE 24 mmol/L (21-33); CHLORIDE 113 mmol/L (98-107); GFR AFRICAN-AMERICAN > 60; GLUCOSE,RANDOM 74 mg/dL (70-110); POTASSIUM 3.6 mmol/L (3.6-5.0); SODIUM 143 mmol/L (132-148); TOTAL PROTEIN 4.8 g/dL (5.8-8.3)
[2017-05-11] MEDS ORDERED: Multi Vitamins 15 mL UD Oral Solution PO SCH (08:00)
--- NOTE | 2017-05-11 08:27 | PN ---
I have seen the patient on the request of Dr. Amaya. The chart is reviewed and the report written by the resident is also reviewed on 05/09, and I agree with her for having seeing the patient and discussed it with her and agreed on the plan. The patient is noted to have a mild sacral decubitus from lying in bed. The patient is to be treated with Xeroform, Santyl and *------*. No surgical intervention is necessary at this time. We will periodically follow, but nothing dramatic. A CAT scan is reviewed from 05/06, read by the doctor. There is some circumferential mural thickening of the small bowel, very nonspecific, there are no symptoms to go with it. We will follow expectantly without surgical intervention. PLAN. The patient will be seen by Tiffanie Pepper, consult from Dr. Florian, the fellow at GI was seen. She is placed on a pureed diet. Noted to have cerebral palsy, diabetes mellitus, *------* constipation, sacral ulcer, hypertension. We will follow peripherally. Jose Maria Bowling MD
[2017-05-11] MEDS: Linezolid 600 mg in D5W 300 ml 600 MG/300 ML BAG IVPB SCH (08:59)
[2017-05-11] MEDS ORDERED: Albumin Human 25% (12.5 gm/50 ml) IV ONE (09:46)
[2017-05-11] MEDS: Collagenase 250 Units/gm Ointment(30 gm) TOP SCH (11:03)
[2017-05-11] MEDS: POLYETHYLENE GLYCOL 3350 17 GM/Dose PACKET PO SCH (11:08)
[2017-05-11] MEDS: Divalproex 500 mg DR(BID formulation) PO SCH (11:09)
[2017-05-11 12:26] VITALS: RESP 18; TEMP 97.6
--- NOTE | 2017-05-11 14:36 | CP.PCM.DIS ---
<PORTERCINTIABAILEYLAMONTE - Last Filed: 05/11/17 14:26> Provider - Provider Date of Admission: 05/06/17 19:53 Attending physician: Gabriel Amaya MD Primary care physician: Gabriel Amaya MD Consults: Surgery: Dash ID: Syed Palliatve: Earlene GI: Yobany Neuro: Lacho Time Spent in preparation of Discharge (in minutes): 55 Diagnosis - Discharge Diagnosis (1) Cerebral palsy Status: Chronic Priority: Medium (2) Sepsis Status: Acute Priority: High Hospital Course - Lab Results Lab Results: Micro Results 05/08/17 14:00 Sacral Gram Stain - Final 05/08/17 14:00 Sacral Wound Culture - Final Escherichia Coli Methicillin Resistant S Aureus 05/06/17 20:00 Blood Blood Culture - Preliminary NO GROWTH AFTER 4 DAYS 05/07/17 06:00 Urine,Catheterized Urine Culture - Final No Growth (<1,000 CFU/ML) Most Recent Lab Values WBC 5.9 10^3/ul (4.5-11.0) 05/11/17 06:15 RBC 3.07 10^6/uL (3.5-6.1) L 05/11/17 06:15 Hgb 9.2 gm/dL (14.0-18.0) L 05/11/17 06:15 Hct 29.7 % (42.0-52.0) L 05/11/17 06:15 MCV 96.7 fL (80.0-105.0) 05/11/17 06:15 MCH 30.0 pg (25.0-35.0) 05/11/17 06:15 MCHC 31.0 g/dl (31.0-37.0) 05/11/17 06:15 RDW 17.7 % (11.5-14.5) H 05/11/17 06:15 Plt Count 211 10^3/uL (120.0-450.0) 05/11/17 06:15 MPV 9.9 fl (7.0-11.0) 05/11/17 06:15 Gran % 44.8 % (50.0-68.0) L 05/11/17 06:15 Lymph % (Auto) 37.6 % (22.0-35.0) H 05/11/17 06:15 [place] % (Auto) 12.5 % (1.0-6.0) H 05/11/17 06:15 Eos % (Auto) 4.9 % (1.5-5.0) 05/11/17 06:15 Baso % (Auto) 0.2 % (0.0-3.0) 05/11/17 06:15 Gran # 2.66 (1.4-6.5) 05/11/17 06:15 Lymph # 2.2 (1.2-3.4) 05/11/17 06:15 [place] # 0.7 (0.1-0.6) H 05/11/17 06:15 Eos # 0.3 (0.0-0.7) 05/11/17 06:15 Baso # 0.01 K/mm3 (0.0-2.0) 05/11/17 06:15 PT 14.6 Seconds (9.9-11.8) H 05/06/17 19:25 INR 1.35 (0.93-1.08) H 05/06/17 19:25 APTT 34.5 Seconds (23.7-30.8) H 05/06/17 19:25 pO2 50 mm/Hg (30-55) 05/06/17 19:25 VBG pH 7.44 (7.32-7.43) H 05/06/17 19:25 VBG pCO2 48.0 (40-60) 05/06/17 19:25 VBG HCO3 32.6 mmol/l (21-28) H 05/06/17 19:25 VBG Total CO2 34.1 mmol.L (22-28) H 05/06/17 19:25 VBG O2 Sat (Calc) 88.8 % (40-65) H 05/06/17 19:25 VBG Base Excess 7.2 mmol/L (0.0-2.0) H 05/06/17 19:25 VBG Potassium 5.4 mmol/L (3.6-5.2) H 05/06/17 19:25 Sodium 142.0 mmol/L (132-148) 05/06/17 19:25 Chloride 109.0 mmol/L (98-107) H 05/06/17 19:25 Glucose 132 mg/dl (75-110) H 05/06/17 19:25 Lactate 1.5 mmol/L (0.7-2.1) 05/06/17 19:25 FiO2 21.0 % 05/06/17 19:25 Sodium 143 mmol/L (132-148) 05/11/17 06:15 Potassium 3.6 mmol/L (3.6-5.0) 05/11/17 06:15 Chloride 113 mmol/L (98-107) H 05/11/17 06:15 Carbon Dioxide 24 mmol/L (21-33) 05/11/17 06:15 Anion Gap 10 (10-20) 05/11/17 06:15 BUN 7 mg/dL (7-21) 05/11/17 06:15 Creatinine 0.6 mg/dL (0.5-1.4) 05/11/17 06:15 Est GFR ( Amer) > 60 05/11/17 06:15 Est GFR (Non-Af Amer) > 60 05/11/17 06:15 Random Glucose 74 mg/dL (70-110) 05/11/17 06:15 Calcium 8.0 mg/dL (8.4-10.5) L 05/11/17 06:15 Phosphorus 3.1 mg/dL (2.5-4.5) 05/06/17 19:25 Magnesium 2.1 mg/dL (1.7-2.2) 05/07/17 07:12 Total Bilirubin 0.5 mg/dL (0.2-1.3) 05/11/17 06:15 AST 21 U/L (15-59) 05/11/17 06:15 ALT 17 U/L (7-56) 05/11/17 06:15 Alkaline Phosphatase 49 U/L (38-133) 05/11/17 06:15 Troponin I < 0.01 ng/mL 05/06/17 19:25 Total Protein 4.8 g/dL (5.8-8.3) L 05/11/17 06:15 Albumin 1.9 g/dL (3.0-4.8) L 05/11/17 06:15 Globulin 2.9 gm/dL 05/11/17 06:15 Albumin/Globulin Ratio 0.7 (1.1-1.8) L 05/11/17 06:15 Vitamin B12 733 pg/mL (239-931) 05/07/17 07:12 Folate 16.3 ng/mL 05/07/17 07:12 Procalcitonin 0.22 NG/ML (0.19-0.49) 05/07/17 07:12 Free T4 1.52 ng/dL (0.78-2.19) 05/07/17 09:17 Thyroxine (T4) 6.6 ug/dL (5.5-11.0) 05/07/17 09:17 Total T3 0.76 ng/mL (0.97-1.69) L 05/07/17 09:17 TSH 3rd Generation 5.48 mIU/mL (0.46-4.68) H 05/07/17 07:12 PTH Intact Whole Molec 46 pg/mL (14-64) 05/07/17 07:12 Venous Blood Potassium 5.4 mmol/L (3.6-5.2) H 05/06/17 19:25 Urine Color Dark yellow (YELLOW) 05/07/17 06:00 Urine Appearance Clear (CLEAR) 05/07/17 06:00 Urine pH 6.5 (4.7-8.0) 05/07/17 06:00 Ur Specific [place] 1.015 (1.005-1.035) 05/07/17 06:00 Urine Protein Negative mg/dL (<30 mg/dL) 05/07/17 06:00 Urine Glucose (UA) Negative mg/dL (NEGATIVE) 05/07/17 06:00 Urine Ketones Negative mg/dL (NEGATIVE) 05/07/17 06:00 Urine Blood Negative (NEGATIVE) 05/07/17 06:00 Urine Nitrate Negative (NEGATIVE) 05/07/17 06:00 Urine Bilirubin Negative (NEGATIVE) 05/07/17 06:00 Urine Urobilinogen 4.0 E.U./dL (<1 E.U./dL) H 05/07/17 06:00 Ur Leukocyte Esterase Negative Erendira/uL (NEGATIVE) 05/07/17 06:00 - Hospital Course Hospital Course: 81 yo M with a PMH of cerebral palsy, DM, BPH, GI bleeds, anemia, and urinary retention who itially presented to the [facility] 05[facility]17 from [facility] for decreased appetite, dysphagia, b/l LE edema, and open purulent sacral decubitus ulcers. On admission, CT abdomen and pelvis was significant for a fecaloma and possible enteritis. He was determined to be septic, likely due to the decubiti or the enteritis, and was started on broad spectrum antibiotics after obtaining blood, urine, and wound cultures. Surgery was also consulted for the ulcers, but did not recommend any debridement, and instead started wound care with Santyl. He was made NPO on admission, and the primary team, GI, and the family were considering placing a PEG tube. On day 3, his functional status improved and he passed a swallow study, and was able to eat and take PO medications. On day 3, he also became more responsive and oriented. On day 4, wound cultures came back positive for ESBL+ E. coli and S. aureus, and ID switched his antibiotics to Zyvox and Merrem. Today, his decubiti continue to improve with BID wound care with santyl and IV antibiotics. No acute events reported overnight. He is afebrile with no leukocytosis. He remains confused, but is more awake and alert and responsive. Family present at bedside, all questions were answered to their satisfaction. After discussion with ID and surgery, he will be discharged back to the [facility] with a prescription for santyl as well as 5 days of IV Merrem. Discharge Exam - Head Exam Head Exam: NORMAL INSPECTION - Eye Exam Eye Exam: EOMI, Normal appearance, PERRL - ENT Exam ENT Exam: Mucous Membranes Moist - Neck Exam Neck exam: Normal Inspection - Respiratory Exam Respiratory Exam: Clear to PA & Lateral. absent: Rales, Rhonchi, Wheezes - Cardiovascular Exam Cardiovascular Exam: RRR, +S1, +S2 - GI/Abdominal Exam GI & Abdominal Exam: Normal Bowel Sounds, Soft. absent: Tenderness - Neurological Exam Additional comments: Awake, oriented to self only, speech somewhat coherent - Skin Additional comments: Two stage 3 sacral decubiti ulcers, dressings in place with santyl Discharge Plan - Discharge Medications Prescriptions: Collagenase [Santyl] 1 gm TOP BID #1 tub Meropenem 1g/NS 100mL IVPB 1 gm IV Q8H 5 Days - Follow Up Plan Condition: FAIR Disposition: TRANSF TO SNF Instructions: Sepsis (GEN), Cerebral Palsy (DC), Cerebral Palsy (GEN) Additional Instructions: 1. Prescription given for wound care with santyl, twice daily for 16 weeks 2. Follow up with PCP within 2 weeks 3. For any new or worsening symptoms or concerns, contact PCP immediately or return to ER Referrals: Gabriel Amaya MD [Primary Care Provider] - <Humphrey Juarez - Last Filed: 05/13/17 19:27> Provider - Provider Date of Admission: 05/06/17 19:53 Attending physician: Gabriel Amyaa MD Primary care physician: Gabriel Amaya MD Hospital Course - Lab Results Lab Results: Micro Results 05/06/17 20:00 Blood Blood Culture - Final NO GROWTH AFTER 5 DAYS 05/06/17 20:00 Blood Gram Stain - Final TEST NOT PERFORMED 05/08/17 14:00 Sacral Gram Stain - Final 05/08/17 14:00 Sacral Wound Culture - Final Escherichia Coli Methicillin Resistant S Aureus 05/07/17 06:00 Urine,Catheterized Urine Culture - Final No Growth (<1,000 CFU/ML) Most Recent Lab Values WBC 5.9 10^3/ul (4.5-11.0) 05/11/17 06:15 RBC 3.07 10^6/uL (3.5-6.1) L 05/11/17 06:15 Hgb 9.2 gm/dL (14.0-18.0) L 05/11/17 06:15 Hct 29.7 % (42.0-52.0) L 05/11/17 06:15 MCV 96.7 fL (80.0-105.0) 05/11/17 06:15 MCH 30.0 pg (25.0-35.0) 05/11/17 06:15 MCHC 31.0 g/dl (31.0-37.0) 05/11/17 06:15 RDW 17.7 % (11.5-14.5) H 05/11/17 06:15 Plt Count 211 10^3/uL (120.0-450.0) 05/11/17 06:15 MPV 9.9 fl (7.0-11.0) 05/11/17 06:15 Gran % 44.8 % (50.0-68.0) L 05/11/17 06:15 Lymph % (Auto) 37.6 % (22.0-35.0) H 05/11/17 06:15 [place] % (Auto) 12.5 % (1.0-6.0) H 05/11/17 06:15 Eos % (Auto) 4.9 % (1.5-5.0) 05/11/17 06:15 Baso % (Auto) 0.2 % (0.0-3.0) 05/11/17 06:15 Gran # 2.66 (1.4-6.5) 05/11/17 06:15 Lymph # 2.2 (1.2-3.4) 05/11/17 06:15 [place] # 0.7 (0.1-0.6) H 05/11/17 06:15 Eos # 0.3 (0.0-0.7) 05/11/17 06:15 Baso # 0.01 K/mm3 (0.0-2.0) 05/11/17 06:15 PT 14.6 Seconds (9.9-11.8) H 05/06/17 19:25 INR 1.35 (0.93-1.08) H 05/06/17 19:25 APTT 34.5 Seconds (23.7-30.8) H 05/06/17 19:25 pO2 50 mm/Hg (30-55) 05/06/17 19:25 VBG pH 7.44 (7.32-7.43) H 05/06/17 19:25 VBG pCO2 48.0 (40-60) 05/06/17 19:25 VBG HCO3 32.6 mmol/l (21-28) H 05/06/17 19:25 VBG Total CO2 34.1 mmol.L (22-28) H 05/06/17 19:25 VBG O2 Sat (Calc) 88.8 % (40-65) H 05/06/17 19:25 VBG Base Excess 7.2 mmol/L (0.0-2.0) H 05/06/17 19:25 VBG Potassium 5.4 mmol/L (3.6-5.2) H 05/06/17 19:25 Sodium 142.0 mmol/L (132-148) 05/06/17 19:25 Chloride 109.0 mmol/L (98-107) H 05/06/17 19:25 Glucose 132 mg/dl (75-110) H 05/06/17 19:25 Lactate 1.5 mmol/L (0.7-2.1) 05/06/17 19:25 FiO2 21.0 % 05/06/17 19:25 Sodium 143 mmol/L (132-148) 05/11/17 06:15 Potassium 3.6 mmol/L (3.6-5.0) 05/11/17 06:15 Chloride 113 mmol/L (98-107) H 05/11/17 06:15 Carbon Dioxide 24 mmol/L (21-33) 05/11/17 06:15 Anion Gap 10 (10-20) 05/11/17 06:15 BUN 7 mg/dL (7-21) 05/11/17 06:15 Creatinine 0.6 mg/dL (0.5-1.4) 05/11/17 06:15 Est GFR ( Amer) > 60 05/11/17 06:15 Est GFR (Non-Af Amer) > 60 05/11/17 06:15 Random Glucose 74 mg/dL (70-110) 05/11/17 06:15 Calcium 8.0 mg/dL (8.4-10.5) L 05/11/17 06:15 Phosphorus 3.1 mg/dL (2.5-4.5) 05/06/17 19:25 Magnesium 2.1 mg/dL (1.7-2.2) 05/07/17 07:12 Total Bilirubin 0.5 mg/dL (0.2-1.3) 05/11/17 06:15 AST 21 U/L (15-59) 05/11/17 06:15 ALT 17 U/L (7-56) 05/11/17 06:15 Alkaline Phosphatase 49 U/L (38-133) 05/11/17 06:15 Troponin I < 0.01 ng/mL 05/06/17 19:25 Total Protein 4.8 g/dL (5.8-8.3) L 05/11/17 06:15 Albumin 1.9 g/dL (3.0-4.8) L 05/11/17 06:15 Globulin 2.9 gm/dL 05/11/17 06:15 Albumin/Globulin Ratio 0.7 (1.1-1.8) L 05/11/17 06:15 Vitamin B1 164 nmol/L (78-185) 05/07/17 07:25 Vitamin B12 733 pg/mL (239-931) 05/07/17 07:12 Folate 16.3 ng/mL 05/07/17 07:12 Procalcitonin 0.22 NG/ML (0.19-0.49) 05/07/17 07:12 Free T4 1.52 ng/dL (0.78-2.19) 05/07/17 09:17 Thyroxine (T4) 6.6 ug/dL (5.5-11.0) 05/07/17 09:17 Total T3 0.76 ng/mL (0.97-1.69) L 05/07/17 09:17 TSH 3rd Generation 5.48 mIU/mL (0.46-4.68) H 05/07/17 07:12 PTH Intact Whole Molec 46 pg/mL (14-64) 05/07/17 07:12 Venous Blood Potassium 5.4 mmol/L (3.6-5.2) H 05/06/17 19:25 Urine Color Dark yellow (YELLOW) 05/07/17 06:00 Urine Appearance Clear (CLEAR) 05/07/17 06:00 Urine pH 6.5 (4.7-8.0) 05/07/17 06:00 Ur Specific [place] 1.015 (1.005-1.035) 05/07/17 06:00 Urine Protein Negative mg/dL (<30 mg/dL) 05/07/17 06:00 Urine Glucose (UA) Negative mg/dL (NEGATIVE) 05/07/17 06:00 Urine Ketones Negative mg/dL (NEGATIVE) 05/07/17 06:00 Urine Blood Negative (NEGATIVE) 05/07/17 06:00 Urine Nitrate Negative (NEGATIVE) 05/07/17 06:00 Urine Bilirubin Negative (NEGATIVE) 05/07/17 06:00 Urine Urobilinogen 4.0 E.U./dL (<1 E.U./dL) H 05/07/17 06:00 Ur Leukocyte Esterase Negative Erendira/uL (NEGATIVE) 05/07/17 06:00 Attending/Attestation - Attestation I have personally seen and examined this patient.: Yes I have fully participated in the care of the patient.: Yes I have reviewed all pertinent clinical information, including history, physical exam and plan: Yes Notes (Text): 05/13/17 19:27 Medical record note made by the resident after discussion with my direction and input after the patient was personally seen and examined by me. I have reviewed the chart and agree that the record accurately reflects by personal performance of the history, physical exam, data review, and medical decision-making, in the course for the patient. I have also personally directed the plan of care.
--- NOTE | 2017-05-11 15:21 | CP.PCM.PN ---
Subjective - Date & Time of Evaluation Date of Evaluation: 05/11/17 Time of Evaluation: 14:00 - Subjective Subjective: Alert, speech garbled. Appetite good, no difficulty swallowing Objective - Vital Signs/Intake and Output Vital Signs (last 24 hours): Temp Pulse Resp BP Pulse Ox 97.6 F 82 18 122/69 97 05/11/17 12:00 05/11/17 12:00 05/11/17 12:00 05/11/17 12:00 05/11/17 06:00 Intake and Output: 05/11/17 05/11/17 06:59 18:59 Intake Total 1300 Balance 1300 - Medications Medications: Current Medications Acetaminophen (Tylenol 325 Mg Supp) 975 mg [place] ONCE PRN PRN Reason: Fever >100.4 F Last Admin: 05/06/17 20:10 Dose: 975 mg Acetaminophen (Tylenol 325mg Tab) 650 mg PO Q6H PRN PRN Reason: Pain, Mild (1-3) Last Admin: 05/10/17 19:26 Dose: 650 mg Amlodipine Besylate (Norvasc) 2.5 mg PO DAILY PRN PRN Reason: BP sys>160, lawrence>100 Last Admin: 05/11/17 08:57 Dose: 2.5 mg Ascorbic Acid (Vitamin C 500 Mg Tab) 500 mg PO DAILY [facility] Last Admin: 05/11/17 11:09 Dose: 500 mg Atorvastatin Calcium (Lipitor) 20 mg PO DIN [facility] Last Admin: 05/10/17 18:09 Dose: 20 mg Carvedilol (Coreg) 3.125 mg PO 0800,1700 [facility] Last Admin: 05/11/17 08:56 Dose: 3.125 mg Collagenase (Santyl) 1 gm TOP BID [facility] Last Admin: 05/11/17 11:03 Dose: 1 appful Divalproex Sodium (Depakote Dr(*Bid*)) 500 mg PO BID [facility] PRN Reason: Protocol Last Admin: 05/11/17 11:09 Dose: 500 mg Famotidine (Pepcid) 20 mg IVP DAILY [facility] Last Admin: 05/11/17 09:33 Dose: 20 mg Hydralazine HCl (Apresoline) 10 mg IVP Q6 PRN PRN Reason: Systolic Blood Pressure Last Admin: 05/11/17 06:18 Dose: 10 mg Sodium Chloride (Sodium Chloride 0.9%) 1,000 mls @ 100 mls/hr IV .Q10H [facility] Last Admin: 05/11/17 00:00 Dose: 100 mls/hr Meropenem 1g/NS 100mL IVPB (Meropenem 1g/Ns 100ml Ivpb) 1 gm in 100 mls @ 100 mls/hr IVPB Q8 [facility] PRN Reason: Protocol Stop: 05/18/17 14:01 Last Admin: 05/11/17 13:37 Dose: 100 mls/hr Multivitamins/Vitamin C (Multi-Delyn Liquid) 15 ml PO 0800 [facility] Last Admin: 05/11/17 08:57 Dose: 15 ml Polyethylene Glycol (Miralax) 17 gm PO BID [facility] Last Admin: 05/11/17 11:08 Dose: 17 gm Tamsulosin HCl (Flomax) 0.4 mg PO DAILY [facility] Last Admin: 05/11/17 11:09 Dose: 0.4 mg Thiamine HCl (Vitamin B1 Tab) 100 mg PO DAILY [facility] Last Admin: 05/11/17 11:09 Dose: 100 mg Zinc Sulfate (Zinc Sulfate 220 Mg Cap) 220 mg PO DAILY [facility] Last Admin: 05/11/17 11:09 Dose: 220 mg - Labs Labs: 05/11/17 06:15 05/11/17 06:15 PT 14.6 Seconds (9.9-11.8) H 05/06/17 19:25 INR 1.35 (0.93-1.08) H 05/06/17 19:25 APTT 34.5 Seconds (23.7-30.8) H 05/06/17 19:25 - Constitutional Appears: No Acute Distress, Chronically Ill - Eye Exam Eye Exam: Normal appearance, PERRL - ENT Exam ENT Exam: Mucous Membranes Moist - Respiratory Exam Respiratory Exam: Decreased Breath Sounds, NORMAL BREATHING PATTERN - Cardiovascular Exam Cardiovascular Exam: REGULAR RHYTHM, +S1, +S2 - GI/Abdominal Exam GI & Abdominal Exam: Soft, Normal Bowel Sounds - Extremities Exam Additional comments: tremors of both upper extremities - Neurological Exam Neurological Exam: Alert - Skin Skin Exam: Dry, Pallor Assessment and Plan - Assessment and Plan (Free Text) Assessment: 81 year old male with history of cerebral palsy admitted with sepsis, AMS, dysphagia and stage 3 sacral ulcer. I met with patients Belen ALVAREZ. Advance care planning/resuscitation status discussed. MS. Marie states that the patient expressed that he wants DNR/DNI . POLST form completed, a copy is on the chart Advance care planning discussion, time spent 30 minutes Plan: POLST: DNR/DNI
[2017-05-11 15:44] VITALS: BP 144/83; PULSE 84
--- NOTE | 2017-05-12 03:59 | PN ---
DATE: 05/11/2017 SUBJECTIVE: The patient is in bed in no acute distress, nontoxic, was seen earlier this morning. PHYSICAL EXAMINATION: VITAL SIGNS: Temperature is 97, blood pressure is 120/60, respiratory rate of 18. HEENT: Unremarkable. NECK: Supple. HEART: Normal S1 and S2. LUNGS: Decreased breath sounds. ABDOMEN: Soft. LABORATORY EXAMINATION: Reveals the patient's white count of 5.9, and hemoglobin of 9. Chemistries are noted. Microbiology is noted. ASSESSMENT AND PLAN: This is a 81-year-old male admitted with fevers and tachycardia, extended spectrum beta-lactamase and methicillin-resistant Staphylococcus aureus with infected sacral ulcer treated with short course therapy in this patient, who has known mental status and should be on comfort care measures only. Jori Lynch MD
--- NOTE | 2017-05-12 17:32 | EEG ---
DATE: 05/12/2017 CONDITION OF THE RECORDING: Drowsy EEG. DIAGNOSIS: Seizure. MEDICATIONS: Reviewed by the nurse per reconciliation sheet. INTERPRETATION: This is a 16-channel that nurse recorded. The background activity was composed of 6 cycles per second. There was small amount of beta activity 16 to 20 cycles per seconds that is seen in this recording. There was increased amount of theta activity of 5-7 cycles per seconds seen throughout the tracing. Drowsiness was characterized by mixed beta and theta activities. The sleep was characterized by vertex transiently slowing. Photic stimulation showed no change in the tracing. No paroxysmal activity noted in this recording. CONCLUSION: This is an abnormal EEG due to the presence of mild diffuse slowing throughout consistent with mild bilateral cerebral dysfunction. No evidence of any epileptiform activity. There was increased amount of EMG artifact throughout the EEG. Steven Monk MD
--- NOTE | 2017-05-13 14:31 | EEG ---
DATE: 05/09/2017 EEG CONDITION OF THE RECORDING: Drowsy. DIAGNOSIS: Altered mental status. MEDICATIONS: Reviewed via nurses reconciliation sheet. INTERPRETATION: This is a 16-channel that nurse recorded. The background activity of this patient was composed of 6-7 cycles per second. There was a small amount of beta activity with 16-20 cycles per second that is seen in this recording. There was increased amount of theta activity of 5-7 cycles per second seen in this tracing. Drowsiness was characterized by mixed beta and theta activities. The sleep was characterized by vertex transiently bursts of slowing. Photic stimulation showed no change in the tracing. No paroxysmal activity noted in this recording. CONCLUSION: This is an abnormal EEG due to the presence of mild diffuse slowing throughout the recording consistent with mild bilateral cerebral dysfunction. No evidence of any epileptiform activity. Steven Monk MD
== END 2017-05-11 17:40 | DRG 871 ==
LOC: ED 18:39 → ERH 19:53 → 2RNO 22:35
PROVIDERS: ADMIT Internal Medicine; ATTEND Internal Medicine
DX: A41.9 Sepsis, unspecified organism (principal); L89.153 Pressure ulcer of sacral region, stage 3; E44.0 Moderate protein-calorie malnutrition; F03.90 Unspecified dementia, unspecified severity, without behavioral disturbance, psychotic disturbance, mood disturbance, and anxiety; G93.89 Other specified disorders of brain; E11.9 Type 2 diabetes mellitus without complications; D64.9 Anemia, unspecified; I10 Essential (primary) hypertension; R13.10 Dysphagia, unspecified; K52.9 Noninfective gastroenteritis and colitis, unspecified; R62.7 Adult failure to thrive; G80.9 Cerebral palsy, unspecified; N40.1 Benign prostatic hyperplasia with lower urinary tract symptoms; R33.8 Other retention of urine; G40.909 Epilepsy, unspecified, not intractable, without status epilepticus; K59.00 Constipation, unspecified; I16.0 Hypertensive urgency; N32.81 Overactive bladder; E78.5 Hyperlipidemia, unspecified; Z16.12 Extended spectrum beta lactamase (ESBL) resistance; Z66 Do not resuscitate; Z79.01 Long term (current) use of anticoagulants; Z86.73 Personal history of transient ischemic attack (TIA), and cerebral infarction without residual deficits; Z74.01 Bed confinement status

== ENCOUNTER 2017-05-31 20:20 | Inpatient (IN) | payer MEDICARE, MEDICAID ==
[2017-05-31 20:21] VITALS: BMI 24.3
--- NOTE | 2017-05-31 21:16 | ED PDOC ---
Arrival/HPI - General Chief Complaint: Abnormal Labs Time Seen by Provider: 05/31/17 20:22 Historian: Patient - History of Present Illness Narrative History of Present Illness (Text): 05/31/17 21:14 81 year old male, whose past medical history includes CVA and cerebral palsy, presents to the emergency department by his alf for low hemoglobin. Patient struggles in speech, but states to have no complaints. Patient denies any fever, chills, chest pain, shortness of breath, nausea, vomiting, diarrhea, urinary symptoms, back pain, neck pain, headache, dizziness, or any other complaints. PMD: Dr. Amaya Time/Duration: Other Symptom Onset: Gradual Activities at Onset: Light Context: Home (Halfway) Past Medical History - Provider Review Nursing Documentation Reviewed: Yes - Tetanus Immunization Tetanus Immunization: Unknown - Cardiac Hx Cardiac Disorders: Yes Hx Hypertension: Yes - Pulmonary Hx Respiratory Disorders: No Other/Comment: insomnia - Neurological Hx Neurological Disorder: Yes Hx Seizures: Yes Other/Comment: cerebral palsy - HEENT Hx HEENT Disorder: No - Renal Hx Renal Disorder: No - Endocrine/Metabolic Hx Endocrine Disorders: Yes Hx Diabetes Mellitus Type 2: Yes - Hematological/Oncological Hx Blood Disorders: Yes (GI BLEED) - Integumentary Hx Dermatological Disorder: No - Musculoskeletal/Rheumatological Hx Musculoskeletal Disorders: Yes (LEFT SIDED WEAKNESS/CVA) Hx Falls: (UNKNOWN) - Gastrointestinal Hx Gastrointestinal Disorders: Yes (GI BLEED,CONSTIPATION,DIARRHEA) - Genitourinary/Gynecological Hx Genitourinary Disorders: Yes (OVERACTIVE BLADDER) Hx Incontinence: Yes - Psychiatric Hx Psychophysiologic Disorder: No Hx Substance Use: No Family/Social History - Physician Review Nursing Documentation Reviewed: Yes Family/Social History: No Known Family HX Smoking Status: Never Smoked Hx Alcohol Use: No Hx Substance Use: No Allergies/Home Meds Allergies/Adverse Reactions: Allergies No Known Allergies Allergy (Verified 05/06/17 19:00) Home Medications: Home Meds Medication Instructions Recorded Confirmed Carvedilol [Coreg] 3.125 mg PO .8A, 5P 07/01/15 05/06/17 Solifenacin Succinate [Vesicare] 5 mg PO DAILY 07/01/15 05/06/17 Tamsulosin HCl [Flomax] 0.4 mg PO DAILY 07/01/15 05/06/17 Tolterodine [Detrol] 2 mg PO BID 07/01/15 05/06/17 Apixaban [Eliquis] 5 mg PO BID 05/06/17 05/06/17 Atorvastatin [Lipitor] 20 mg PO .DINNER 05/06/17 05/06/17 Cholecalciferol (Vitamin D3) 2,000 units PO DAILY 05/06/17 05/06/17 [Vitamin D3] Dextran 70/Hypromellose 1 drop BOTHEYES DAILY 05/06/17 05/06/17 [Artificial Tears] Divalproex [Depakote DR] 500 mg PO BID 05/06/17 05/06/17 Melatonin 0 mg PO HS 05/06/17 05/06/17 Review of Systems - Review of Systems Constitutional: absent: Fevers, Other (Chills) Respiratory: absent: SOB Cardiovascular: absent: Chest Pain Gastrointestinal: absent: Abdominal Pain, Diarrhea, Nausea, Vomiting Genitourinary Male: Normal. absent: Dysuria, Frequency, Hematuria Musculoskeletal: absent: Back Pain, Neck Pain Neurological: absent: Headache, Dizziness Physical Exam Vital Signs Reviewed: Yes Vital Signs Temp Pulse Resp BP Pulse Ox 06/01/17 04:06 142/89 06/01/17 00:30 95 H 16 142/82 98 05/31/17 21:35 93 H 16 139/89 98 05/31/17 20:24 99.6 F 94 H 17 141/68 98 Temperature: Afebrile Blood Pressure: Normal Pulse: Regular Respiratory Rate: Normal Appearance: Positive for: Well-Appearing, Non-Toxic, Comfortable Pain Distress: None Mental Status: Positive for: Confused - Systems Exam Head: Present: Atraumatic, Normocephalic Pupils: Present: PERRL Extroacular Muscles: Present: EOMI Conjunctiva: Present: Normal Mouth: Present: Moist Mucous Membranes Neck: Present: Normal Range of Motion Respiratory/Chest: Present: Clear to Auscultation, Good Air Exchange. No: Respiratory Distress, Accessory Muscle Use Cardiovascular: Present: Regular Rate and Rhythm, Normal S1, S2. No: Murmurs Abdomen: Present: Normal Bowel Sounds. No: Tenderness, Distention, Peritoneal Signs Genitourinary Male: Present: Lesions, Penile Swelling Back: Present: Normal Inspection Upper Extremity: Present: Normal Inspection. No: Cyanosis, Edema Lower Extremity: Present: Normal Inspection. No: Edema Neurological: Present: GCS=15, CN II-XII Intact, Speech Normal Skin: Present: Warm, Dry, Normal Color, Other (decubitius open sores sacrum). No: Rashes Psychiatric: Present: Alert Medical Decision Making ED Course and Treatment: 05/31/17 21:14 Impression: 81 year old patient present for low hemoglobin. Plan: -- EKG -- Labs -- Chest X-ray -- Reassess and disposition Prior Visits: Notes and results from previous visits were reviewed. On 05/06/17 patient came in complaining of fever. Progress Notes: EKG shows NSR at 95 BPM with short MT. Interpreted by me. 05/31/17 22:12 CXR Impression: As read by me, showed no acute processes. 06/01/17 01:[address] farnsworth who is aware and agrees with the plan. Accepts patient into service. Patient will be admitted to [facility] for Urinary Tract Infection. 06/01/17 06:32 - Lab Interpretations Lab Results: 05/31/17 21:22 05/31/17 21:22 Lab Results 06/01/17 00:55: Urine Color Yellow, Urine Appearance Sl cloudy, Urine pH 6.0, Ur Specific Patriot >= 1.030, Urine Protein >=300 H, Urine Glucose (UA) Negative , Urine Ketones Trace H, Urine Blood Large H, Urine Nitrate Negative, Urine Bilirubin Negative, Urine Urobilinogen 4.0 H, Ur Leukocyte Esterase Moderate H, Urine RBC 1 - 3, Urine WBC Tntc, Ur Epithelial Cells 0 - 2, Urine Bacteria Mod 05/31/17 23:23: Blood Type Confirm A NEGATIVE 05/31/17 22:43: Blood Type A NEGATIVE, Antibody Screen Negative, BBK History Checked No verified bt 05/31/17 21:30: pO2 38, VBG pH 7.42, VBG pCO2 55.0, VBG HCO3 35.7 H, VBG Total CO2 37.4 H, VBG O2 Sat (Calc) 71.8 H, VBG Base Excess 9.3 H, VBG Potassium 4.1, Glucose 174 H, Lactate 2.4 H, FiO2 21.0, Sodium 143.0, Chloride 106.0, Venous Blood Potassium 4.1 05/31/17 21:23: Blood Type Cancelled, Antibody Screen Cancelled, BBK History Checked Cancelled 05/31/17 21:22: Sodium 141, Potassium 3.8, Chloride 102, Carbon Dioxide 33, Anion Gap 10, BUN 14, Creatinine 0.7, Est GFR ( Amer) > 60, Est GFR (Non- Af Amer) > 60, Random Glucose 171 H, Calcium 8.1 L, Total Bilirubin 0.4, AST 34 , ALT 19, Alkaline Phosphatase 63, Lactate Dehydrogenase 392, Total Creatine Kinase 29 L, Troponin I < 0.01, Total Protein 5.7 L, Albumin 2.4 L, Globulin 3.3 , Albumin/Globulin Ratio 0.7 L, Amylase 76, Lipase 31 05/31/17 21:22: PT 13.7 H, INR 1.27 H, APTT 32.3 H 05/31/17 21:22: WBC 5.9, RBC 2.93 L, Hgb 8.8 L, Hct 27.9 L, MCV 95.2, MCH 30.0, MCHC 31.5, RDW 18.2 H, Plt Count 373, MPV 9.8, Gran % 41.1 L, Lymph % (Auto) 43.2 H, [place] % (Auto) 11.8 H, Eos % (Auto) 3.9, Baso % (Auto) 0.0, Gran # 2.41, Lymph # 2.5, [place] # 0.7 H, Eos # 0.2, Baso # 0.00 I have reviewed the lab results: Yes - RAD Interpretation Radiology Orders: 05/31/17 20:34 CHEST PORTABLE [RAD] Stat - EKG Interpretation Interpreted by ED Physician: Yes Type: 12 lead EKG - Medication Orders Current Medication Orders: Artificial Tears (Refresh Opth Soln) 0 ml OP DAILY JOHANNA Atorvastatin Calcium (Lipitor) 20 mg PO DIN JOHANNA Carvedilol (Coreg) 3.125 mg PO 0800,1700 JOHANNA Cholecalciferol (Vitamin D) 2,000 iu PO DAILY JOHANNA Collagenase (Santyl) 0 gm TOP BID JOHANNA Divalproex Sodium (Depakote Dr(*Bid*)) 500 mg PO BID JOHANNA Cefepime HCl (Maxipime 1gm) 1 gm in 100 mls @ 100 mls/hr IVPB Q12 JOHANNA PRN Reason: Protocol Last Admin: 06/01/17 01:45 Dose: 100 mls/hr Non-Formulary Medication (Solifenacin Succinate [Vesicare]) 5 mg PO DAILY JOHANNA Tamsulosin HCl (Flomax) 0.4 mg PO DAILY JOHANNA Tolterodine Tartrate (Detrol) 2 mg PO BID JOHANNA - Scribe Statement The provider has reviewed the documentation as recorded by the Cheo Paul All medical record entries made by the Cheo were at my direction and personally dictated by me. I have reviewed the chart and agree that the record accurately reflects my personal performance of the history, physical exam, medical decision making, and the department course for this patient. I have also personally directed, reviewed, and agree with the discharge instructions and disposition. Disposition/Present on Arrival - Present on Arrival Any Indicators Present on Arrival: No History of DVT/PE: No History of Uncontrolled Diabetes: No Urinary Catheter: No History of Decub. Ulcer: Yes History Surgical Site Infection Following: None - Disposition Have Diagnosis and Disposition been Completed?: Yes Diagnosis: Urinary tract infection Disposition: HOSPITALIZED Disposition Time: 01:00 Condition: FAIR
[2017-05-31 21:29] LABS: ADD MANUAL DIFF? NO
[2017-05-31 21:43] LABS: EOS # 0.2 (0.0-0.7); EOS % 3.9 % (1.5-5.0); GRAN # 2.41 (1.4-6.5); GRAN % 41.1 % (50.0-68.0); HEMATOCRIT 27.9 % (42.0-52.0); LYMPH # 2.5 (1.2-3.4); LYMPH % 43.2 % (22.0-35.0); MEAN CELL VOLUME 95.2 fl (80.0-105.0); MEAN CORPUSCULAR HGB CONC 31.5 g/dl (31.0-37.0); MEAN PLATELET VOLUME 9.8 fl (7.0-11.0); MONO # 0.7 (0.1-0.6); MONO % 11.8 % (1.0-6.0); PLATELET COUNT 373 10^3/uL (120.0-450.0); RED CELL DISTRIBUTION WIDTH 18.2 % (11.5-14.5); WHITE BLOOD COUNT 5.9 10^3/ul (4.5-11.0)
[2017-05-31 21:47] LABS: INR 1.27 (0.93-1.08); PARTIAL THROMBOPLASTIN TIME 32.3 Seconds (23.7-30.8)
[2017-05-31 21:47] LABS: VENOUS BLOOD GAS BASE EXCESS 9.3 mmol/L (0.0-2.0); VENOUS BLOOD PH 7.42 (7.32-7.43)
[2017-05-31 21:53] LABS: ALB/GLOB RATIO 0.7 (1.1-1.8); ALKALINE PHOSPHATASE 63 U/L (38-133); ALT/SGPT 19 U/L (7-56); AMYLASE 76 U/L (35-125); AST/SGOT 34 U/L (15-59); BILIRUBIN,TOTAL 0.4 mg/dL (0.2-1.3); BLOOD UREA NITROGEN 14 mg/dL (7-21); CALCIUM 8.1 mg/dL (8.4-10.5); CARBON DIOXIDE 33 mmol/L (21-33); CHLORIDE 102 mmol/L (98-107); GFR AFRICAN-AMERICAN > 60; GLUCOSE,RANDOM 171 mg/dL (70-110); LIPASE 31 U/L (23-300); POTASSIUM 3.8 mmol/L (3.6-5.0); SODIUM 141 mmol/L (132-148); TOTAL PROTEIN 5.7 g/dL (5.8-8.3)
[2017-05-31 22:05] LABS: TROPONIN I < 0.01 ng/mL
[2017-06-01 01:13] LABS: URINE BILIRUBIN NEGATIVE (NEGATIVE); URINE BLOOD LARGE (NEGATIVE); URINE GLUCOSE (UA) NEGATIVE (NEGATIVE); URINE KETONE TRACE mg/dL (NEGATIVE); URINE LEUKOCYTE ESTERASE MODERATE Leu/uL (NEGATIVE); URINE PROTEIN >=300 mg/dL (<30 mg/dL)
[2017-06-01 01:26] LABS: URINE APPEARANCE SL CLOUDY (CLEAR); URINE COLOR YELLOW (YELLOW)
[2017-06-01 01:31] LABS: URINE EPITHELIAL CELLS 0 - 2 /hpf (0-5); URINE WBC TNTC /hpf (0-6)
[2017-06-01 01:32] LABS: URINE BACTERIA MOD (NEG)
[2017-06-01] MEDS: Cefepime 1gm in NS 100ml 1 GM/100 ML BAG IVPB SCH ×3 (01:45→21:48)
[2017-06-01 01:55] LABS: VENOUS BLOOD GAS BASE EXCESS 11.4 mmol/L (0.0-2.0); VENOUS BLOOD PH 7.51 (7.32-7.43)
--- NOTE | 2017-06-01 05:21 | CP.PCM.HP ---
Addendum entered and electronically signed by Naina Vieira DO 06/01/17 07:16 : PE Mental status: Able to follow commands, knows the year of his , speaks tremulously, with much effort. comprehension intact Head: NC/AT Eyes: Pupils constrict to light directly and indirectly Oropharynx: Uvula and tongue midline, without fasciculation. Posterior pharynx without erythema and exudate. Lungs: breath sounds bilaterally Heart: Normal S1 and S2, no clicks, gallops, or murmurs. Back: 3 sacral decubitus ulcer, grade 1, grade 2, grade 3 on right buttock area. : Penis appears dry, excoriated. Neurologic: CN 2-12 grossly intact, flexion posture of UE, legs and hip in flexion Original Note: <Naina Vieira - Last Filed: 06/01/17 05:11> History of Present Illness - History of Present Illness History of Present Illness: Patient is a 81 year old male with cerebral palsy, frequent UTI with chronic in dwelling Saleem catheter, GI bleeds, and anemia who presented to the [facility] ED on from the detention due to a decrease in the patient's hemoglobin and hematocrit. The patient has a history of recurrent GI bleeds, chronic in- dwelling catheter, and a sacral decubitus ulcers. During his evaluation in the ED, he was found to have a UTI. PMD: Dr. Amaya PMH: Cerebral Palsy, HTN, DM II Seizure Allergies: NKDA Social History: Resident at [facility], does not consume tobacco, alcohol, illicit drugs Present on Admission - Present on Admission Any Indicators Present on Admission: Yes Urinary Catheter: Yes (present ) Past Patient History - Tetanus Immunizations Tetanus Immunization: Unknown - Past Medical History & Family History Past Medical History?: Yes - Past Social History Smoking Status: Never Smoked - CARDIAC Hx Cardiac Disorders: Yes Hx Hypertension: Yes - PULMONARY Hx Respiratory Disorders: No Other/Comment: insomnia - NEUROLOGICAL Hx Neurological Disorder: Yes Hx Seizures: Yes Other/Comment: cerebral palsy - HEENT Hx HEENT Problems: No - RENAL Hx Chronic Kidney Disease: No - ENDOCRINE/METABOLIC Hx Endocrine Disorders: Yes Hx Diabetes Mellitus Type 2: Yes - HEMATOLOGICAL/ONCOLOGICAL Hx Blood Disorders: Yes (GI BLEED) - INTEGUMENTARY Hx Dermatological Problems: No - MUSCULOSKELETAL/RHEUMATOLOGICAL Hx Musculoskeletal Disorders: Yes (LEFT SIDED WEAKNESS/CVA) Hx Falls: (UNKNOWN) - GASTROINTESTINAL Hx Gastrointestinal Disorders: Yes (GI BLEED,CONSTIPATION,DIARRHEA) - GENITOURINARY/GYNECOLOGICAL Hx Genitourinary Disorders: Yes (OVERACTIVE BLADDER) Hx Incontinence: Yes - PSYCHIATRIC Hx Psychophysiologic Disorder: No Hx Substance Use: No - SURGICAL HISTORY Hx Surgeries: (unable to obtain) Meds Allergies/Adverse Reactions: Allergies Allergy/AdvReac Type Severity Reaction Status Date / Time No Known Allergies Allergy Verified 05/06/17 19:00 Results - Vital Signs Recent Vital Signs: Last Vital Signs Temp 99.6 F 05/31/17 20:24 Pulse 95 H 06/01/17 00:30 Resp 16 06/01/17 00:30 BP 142/89 06/01/17 04:06 Pulse Ox 98 06/01/17 00:30 - Labs Result Diagrams: 05/31/17 21:22 05/31/17 21:22 Labs: Laboratory Results - last 24 hr 06/01/17 01:45 pO2 201 H VBG pH 7.51 H VBG pCO2 45.0 VBG HCO3 35.9 H VBG Total CO2 37.3 H VBG O2 Sat (Calc) 100.0 H VBG Base Excess 11.4 H VBG Potassium 3.6 Sodium 144.0 Chloride 110.0 H Glucose 106 Lactate 1.2 FiO2 21.0 Venous Blood Potassium 3.6 Assessment & Plan - Assessment and Plan (Free Text) Assessment: 81 year old male with recent failure to thrive, drop in H/H per detention, history of GI bleeds who was also found to have a UTI in the ED. Further evaluation and management necessary. 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 - Date & Time Date: 06/01/17 Time: 02:15 <Gabriel Amaya - Last Filed: 06/23/17 11:48> Results - Vital Signs Recent Vital Signs: Last Vital Signs Temp 98.7 F 06/04/17 15:54 Pulse 86 06/04/17 15:54 Resp 18 06/04/17 15:54 BP 133/75 06/04/17 15:54 Pulse Ox 100 06/04/17 15:54 - Labs Result Diagrams: 06/04/17 09:09 06/03/17 08:00 Attending/Attestation - Attestation I have personally seen and examined this patient.: Yes I have fully participated in the care of the patient.: Yes I have reviewed all pertinent clinical information: Yes Notes (Text): 06/23/17 11:48 Medical record note made by the resident after discussion with my direction and input after the patient was personally seen by me. I have reviewed the chart and agree that the record accurately reflects my personal performance of the history, physical, decision making, and plan for the patient.
--- NOTE | 2017-06-01 07:30 | RAD ---
HISTORY: gi bleed COMPARISON: CT chest 05/10/2017 portable semi-erect chest x-ray 07/01/2015 s FINDINGS: LUNGS: The right hemidiaphragm manic mammilation is an interval change in appearance compared to the prior most similar technique portable semi-erect 2014. Asymmetry is not appreciated on the available CT recent exams. . No it typical appearing consolidation suggested PLEURA: No pneumothorax apparent.A minimal residual right pleural effusion is possible. No interval worsening or similar CT size pleural effusions suggested. CARDIOVASCULAR: Normal heart size OSSEOUS STRUCTURES: Dextroscoliosis and thoracic spondylosis. 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 OTHER FINDINGS: None. IMPRESSION: Interval mammillated appearance - right hemidiaphragm - possibly in part technical. No similar CT sized pleural effusions suggested No consolidative infiltrate suggested Dextroscoliosis, thoracic spondylosis and bilateral shoulder arthrosis
[2017-06-01] MEDS ORDERED: Albumin Human 25% (12.5 gm/50 ml) IV ONE (07:49)
[2017-06-01] MEDS: Collagenase 250 Units/gm Ointment(30 gm) TOP SCH ×2 (09:03→18:39)
[2017-06-01] MEDS: Lubricant Eye Drops UD OP SCH (09:05)
[2017-06-01] MEDS: Divalproex 500 mg DR(BID formulation) PO SCH ×3 (09:05→18:37)
--- NOTE | 2017-06-01 09:56 | CARD ---
APPROVED REPORT EKG Measurement Heart [id number] <Conclusion> Sinus rhythm with short MN Otherwise normal ECG
[2017-06-01] MEDS ORDERED: Vancomycin 1gm in NS 250ml 1 GM/250 ML BAG IVPB SCH (10:45)
[2017-06-01 10:57] LABS: HEMATOCRIT 26.6 % (42.0-52.0); MEAN CELL VOLUME 93.7 fl (80.0-105.0); MEAN CORPUSCULAR HEMOGLOBIN 29.6 pg (25.0-35.0); MEAN CORPUSCULAR HGB CONC 31.6 g/dl (31.0-37.0); MEAN PLATELET VOLUME 9.5 fl (7.0-11.0); RED CELL DISTRIBUTION WIDTH 18.1 % (11.5-14.5)
[2017-06-01 11:30] LABS: IRON 18 ug/dL (45-180)
[2017-06-01 11:40] LABS: VALPROIC ACID 45 ug/mL (50.0-100.0)
[2017-06-01] MEDS: Sodium Chloride 0.9% 1,000 ML IV SCH (12:32)
--- NOTE | 2017-06-01 13:46 | CP.PCM.CON ---
<Indy Verma - Last Filed: 06/01/17 16:53> History of Present Illness - History of Present Illness History of Present Illness: Gastroenterology Fellow/PGY5 Consult Note 81 year old male with history of Hypertension, Diabetes, cerebral palsy, CVA, seizures, chronic indwelling Saleem complicated by recurrent UTIs, constipation, rectal bleeding likely 2/2 hemorrhoids, and anemia presenting with drop in H/H from nursing facility. Patient is oriented to person only. Denies abdominal pain. Nursing staff notes good oral intake of breakfast and lunch. [facility] staff note no signs of melena or hematochezia and endorse daily bowel habits. Patient is noted to have a large, soft light brown bowel movement on physical exam. On record review from [facility], 05/27 H/H- and on 05/31 H/H- . NOK is unsure of prior EGD or colonoscopy history. Family- unable to confirm given mental impairment Social- unable to confirm given mental impairment Surgery-unable to confirm given mental impairment Review of Systems - Review of Systems Review of Systems: Unable to complete a 12-point review of systems due to mental impairment Past Patient History - Tetanus Immunizations Tetanus Immunization: Unknown - Past Medical History & Family History Past Medical History?: Yes - Past Social History Smoking Status: Never Smoked - CARDIAC Hx Cardiac Disorders: Yes Hx Hypertension: Yes - PULMONARY Hx Respiratory Disorders: No Other/Comment: insomnia - NEUROLOGICAL Hx Neurological Disorder: Yes Hx Seizures: Yes Other/Comment: cerebral palsy - HEENT Hx HEENT Problems: No - RENAL Hx Chronic Kidney Disease: No - ENDOCRINE/METABOLIC Hx Endocrine Disorders: Yes Hx Diabetes Mellitus Type 2: Yes - HEMATOLOGICAL/ONCOLOGICAL Hx Blood Disorders: Yes (GI BLEED) - INTEGUMENTARY Hx Dermatological Problems: No - MUSCULOSKELETAL/RHEUMATOLOGICAL Hx Musculoskeletal Disorders: Yes (LEFT SIDED WEAKNESS/CVA) Hx Falls: (UNKNOWN) - GASTROINTESTINAL Hx Gastrointestinal Disorders: Yes (GI BLEED,CONSTIPATION,DIARRHEA) - GENITOURINARY/GYNECOLOGICAL Hx Genitourinary Disorders: Yes (OVERACTIVE BLADDER) Hx Incontinence: Yes - PSYCHIATRIC Hx Psychophysiologic Disorder: No Hx Substance Use: No - SURGICAL HISTORY Hx Surgeries: (unable to obtain) Meds Allergies/Adverse Reactions: Allergies Allergy/AdvReac Type Severity Reaction Status Date / Time No Known Allergies Allergy Verified 05/06/17 19:00 - Medications Medications: Current Medications Artificial Tears (Refresh Opth Soln) 0 ml OP DAILY [facility] Last Admin: 06/01/17 09:05 Dose: 0.3 ml Atorvastatin Calcium (Lipitor) 20 mg PO DIN [facility] Carvedilol (Coreg) 3.125 mg PO 0800,1700 [facility] Last Admin: 06/01/17 10:33 Dose: Not Given Cholecalciferol (Vitamin D) 2,000 iu PO DAILY [facility] Last Admin: 06/01/17 12:32 Dose: Not Given Collagenase (Santyl) 0 gm TOP BID [facility] Last Admin: 06/01/17 09:03 Dose: 1 u Divalproex Sodium (Depakote Dr(*Bid*)) 500 mg PO BID [facility] Last Admin: 06/01/17 10:35 Dose: Not Given Cefepime HCl (Maxipime 1gm) 1 gm in 100 mls @ 100 mls/hr IVPB Q12 [facility] PRN Reason: Protocol Last Admin: 06/01/17 09:03 Dose: 100 mls/hr Sodium Chloride (Sodium Chloride 0.9%) 1,000 mls @ 100 mls/hr IV .Q10H [facility] Last Admin: 06/01/17 12:32 Dose: 100 mls/hr Vancomycin HCl (Vancomycin 1gm) 1 gm in 250 mls @ 167 mls/hr IVPB Q12H [facility] PRN Reason: Protocol Non-Formulary Medication (Solifenacin Succinate [Vesicare]) 5 mg PO DAILY [facility] Last Admin: 06/01/17 10:34 Dose: Not Given Tamsulosin HCl (Flomax) 0.4 mg PO DAILY [facility] Last Admin: 06/01/17 12:31 Dose: Not Given Tolterodine Tartrate (Detrol) 2 mg PO BID [facility] Last Admin: 06/01/17 10:34 Dose: Not Given Physical Exam - Constitutional Appears: Non-toxic, No Acute Distress, Chronically Ill - Head Exam Head Exam: ATRAUMATIC, NORMOCEPHALIC - Eye Exam Eye Exam: EOMI, PERRL Pupil Exam: PERRL. absent: Miosis, Mydriatic - ENT Exam ENT Exam: Mucous Membranes Moist, Normal Oropharynx - Neck Exam Neck exam: Positive for: Full Rom, Normal Inspection - Respiratory Exam Respiratory Exam: Clear to Auscultation Bilateral. absent: Rales, Rhonchi, Wheezes - Cardiovascular Exam Cardiovascular Exam: RRR, +S1, +S2. absent: Gallop, Rubs - GI/Abdominal Exam GI & Abdominal Exam: Normal Bowel Sounds, Soft. absent: Distended, Firm, Guarding, Organomegaly, Rebound, Rigid, Tenderness - Rectal Exam Rectal Exam: absent: Black Stool, Bloody Stool, Fecal Impaction Additional comments: large amount of soft, light brown stool at rectal vault - Extremities Exam Extremities exam: Positive for: normal inspection, pedal edema - Neurological Exam Neurological exam: Alert Additional comments: oriented to person only - Psychiatric Exam Psychiatric exam: Normal Affect, Normal Mood - Skin Skin Exam: Dry, Intact, Normal Color, Warm Results - Vital Signs Recent Vital Signs: Last Vital Signs Temp 98 F 06/01/17 08:00 Pulse 99 H 06/01/17 08:00 Resp 20 06/01/17 08:00 BP 161/101 H 06/01/17 08:00 Pulse Ox 98 06/01/17 08:00 - Labs Result Diagrams: 06/01/17 15:32 05/31/17 21:22 Labs: Laboratory Results - last 24 hr 06/01/17 06/01/17 06/01/17 01:45 10:40 10:40 WBC 7.0 RBC 2.84 L Hgb 8.4 L Hct 26.6 L MCV 93.7 MCH 29.6 MCHC 31.6 RDW 18.1 H Plt Count 320 MPV 9.5 pO2 201 H VBG pH 7.51 H VBG pCO2 45.0 VBG HCO3 35.9 H VBG Total CO2 37.3 H VBG O2 Sat (Calc) 100.0 H VBG Base Excess 11.4 H VBG Potassium 3.6 Sodium 144.0 Chloride 110.0 H Glucose 106 Lactate 1.2 FiO2 21.0 Iron 18 L TIBC 172 L % Saturation 11 L Venous Blood Potassium 3.6 Valproic Acid 45 L Assessment & Plan - Assessment and Plan (Free Text) Assessment: 81 year old male with history of Hypertension, Diabetes, cerebral palsy, CVA, seizures, chronic indwelling Saleem complicated by recurrent UTIs, constipation, rectal bleeding likely 2/2 hemorrhoids, and anemia presenting with drop in H/H from nursing facility. Outpatient labs: 05/27 H/H- 9.01/12 and on 05/31 H/H- 7.6/ . NOK is unsure of prior EGD or colonoscopy history. Plan: >no overt GI blood loss >H/H at baseline, continue to monitor >low iron levels >follow up ferritin, folate, B12 levels >no indication for urgent endoscopic evaluation >NOK is unsure of prior EGD/colonoscopy history >NOK confirms patient wishes would be to not undergo EGD/colonoscopy without signs of bleeding and stable blood count >Further discussion would have to be held if active GI blood loss was to occur >will follow clinical course <Jenny Sharp MD - Last Filed: 06/02/17 09:46> Meds - Medications Medications: Current Medications Artificial Tears (Refresh Opth Soln) 0 ml OP DAILY [facility] Last Admin: 06/01/17 09:05 Dose: 0.3 ml Ascorbic Acid (Vitamin C 500 Mg Tab) 500 mg PO DAILY [facility] Last Admin: 06/01/17 18:40 Dose: 500 mg Atorvastatin Calcium (Lipitor) 20 mg PO DIN [facility] Last Admin: 06/01/17 18:38 Dose: 20 mg Carvedilol (Coreg) 3.125 mg PO 0800,1700 [facility] Last Admin: 06/02/17 08:46 Dose: 3.125 mg Cholecalciferol (Vitamin D) 2,000 iu PO DAILY [facility] Last Admin: 06/01/17 12:32 Dose: Not Given Collagenase (Santyl) 0 gm TOP BID [facility] Last Admin: 06/01/17 18:39 Dose: 1 u Divalproex Sodium (Depakote Dr(*Bid*)) 500 mg PO BID [facility] Last Admin: 06/01/17 18:37 Dose: 500 mg Cefepime HCl (Maxipime 1gm) 1 gm in 100 mls @ 100 mls/hr IVPB Q12 [facility] PRN Reason: Protocol Last Admin: 06/01/17 21:48 Dose: 100 mls/hr Sodium Chloride (Sodium Chloride 0.9%) 1,000 mls @ 100 mls/hr IV .Q10H [facility] Last Admin: 06/02/17 03:20 Dose: 100 mls/hr Vancomycin HCl (Vancomycin 1gm) 1 gm in 250 mls @ 167 mls/hr IVPB Q12H [facility] PRN Reason: Protocol Last Admin: 06/01/17 23:34 Dose: 167 mls/hr Nystatin (Nystop Topical Powder) 0 gm TOP TID [facility] Last Admin: 06/01/17 18:38 Dose: 1 u Tamsulosin HCl (Flomax) 0.4 mg PO DAILY [facility] Last Admin: 06/01/17 12:31 Dose: Not Given Thiamine HCl (Vitamin B1 Tab) 100 mg PO DAILY [facility] Last Admin: 06/01/17 18:40 Dose: 100 mg Tolterodine Tartrate (Detrol) 2 mg PO BID [facility] Last Admin: 06/01/17 18:37 Dose: 2 mg Results - Vital Signs Recent Vital Signs: Last Vital Signs Temp 98.1 F 06/01/17 16:30 Pulse 81 06/02/17 08:46 Resp 18 06/01/17 16:30 BP 130/75 06/02/17 08:46 Pulse Ox 98 06/01/17 16:30 - Labs Result Diagrams: 06/01/17 15:32 05/31/17 21:22 Labs: Laboratory Results - last 24 hr 06/01/17 06/01/17 06/01/17 10:40 10:40 10:40 WBC 7.0 RBC 2.84 L Hgb 8.4 L Hct 26.6 L MCV 93.7 MCH 29.6 MCHC 31.6 RDW 18.1 H Plt Count 320 MPV 9.5 POC Glucose (mg/dL) Iron 18 L TIBC 172 L % Saturation 11 L Ferritin 355.0 Vitamin B12 795 Folate 17.6 Valproic Acid 45 L 06/01/17 06/01/17 06/01/17 11:33 15:32 19:24 WBC RBC Hgb 9.2 L Hct 29.5 L MCV MCH MCHC RDW Plt Count MPV POC Glucose (mg/dL) 124 H 153 H Iron TIBC % Saturation Ferritin Vitamin B12 Folate Valproic Acid 06/01/17 06/02/17 21:27 07:24 WBC RBC Hgb Hct MCV MCH MCHC RDW Plt Count MPV POC Glucose (mg/dL) 131 H 98 Iron TIBC % Saturation Ferritin Vitamin B12 Folate Valproic Acid Attending/Attestation - Attestation I have personally seen and examined this patient.: Yes I have fully participated in the care of the patient.: Yes I have reviewed all pertinent clinical information: Yes Notes (Text): 06/02/17 09:42 Late entry. the HPI and A and P reflect patients findings on 06/01/17 afternoon. Patient seen and examined with GI fellwo at bedside yesterday. In a nutshell this is a 81 year old male with history of Hypertension, Diabetes, cerebral palsy, CVA, seizures, chronic indwelling Saleem complicated by recurrent UTIs, constipation, rectal bleeding in the past now none and anemia presenting with drop in H/H from nursing facility. H/H- 9.3 -> 7.6 -> 8.6. No s/s of overt Gi bleeding with baseline Hb. No urgent indication for endoscopic evaluation. Will benefit from bidirectional luminal exam but currently NOK would hold off in absence of active bleeding. Will discuss with family member if active bleeding occurs. Start diet as tolerated. Anemia work up with hematology.
[2017-06-01] MEDS: Nystatin 100,000 Units/gm Topical Pow(15 gm) TOP SCH ×2 (14:08→18:38)
[2017-06-01] MEDS: Vancomycin 1gm in NS 250ml 1 GM/250 ML BAG IVPB SCH ×2 (14:08→23:34)
[2017-06-01] MEDS ORDERED: Iron Sucrose 100 mg/5 ml Inj IVP SCH (14:45)
[2017-06-01 15:36] LABS: HEMATOCRIT 29.5 % (42.0-52.0)
[2017-06-01 18:28] LABS: FOLATE 17.6 ng/mL
[2017-06-02] MEDS: Sodium Chloride 0.9% 1,000 ML IV SCH ×2 (03:20→11:10)
--- NOTE | 2017-06-02 07:40 | CP.PCM.PN ---
<Indy Verma - Last Filed: 06/02/17 09:00> Subjective - Date & Time of Evaluation Date of Evaluation: 06/02/17 Time of Evaluation: 07:34 - Subjective Subjective: Gastroenterology Fellow/PGY5 Progress Note Patient resting comfortably, easily arousable. Denies abdominal pain. Tolerating puree diet with thin liquids. One soft bowel movement yesterday. Nursing notes no acute events overnight. 12-point review of systems limited given mental impairment. Objective - Vital Signs/Intake and Output Vital Signs (last 24 hours): Temp Pulse Resp BP Pulse Ox 98.1 F 101 H 18 150/90 98 06/01/17 16:30 06/01/17 18:37 06/01/17 16:30 06/01/17 18:37 06/01/17 16:30 Intake and Output: 06/02/17 06/02/17 06:59 18:59 Intake Total 360 Output Total 375 Balance -15 - Medications Medications: Current Medications Artificial Tears (Refresh Opth Soln) 0 ml OP DAILY [facility] Last Admin: 06/01/17 09:05 Dose: 0.3 ml Ascorbic Acid (Vitamin C 500 Mg Tab) 500 mg PO DAILY [facility] Last Admin: 06/01/17 18:40 Dose: 500 mg Atorvastatin Calcium (Lipitor) 20 mg PO DIN [facility] Last Admin: 06/01/17 18:38 Dose: 20 mg Carvedilol (Coreg) 3.125 mg PO 0800,1700 [facility] Last Admin: 06/01/17 18:37 Dose: 3.125 mg Cholecalciferol (Vitamin D) 2,000 iu PO DAILY [facility] Last Admin: 06/01/17 12:32 Dose: Not Given Collagenase (Santyl) 0 gm TOP BID [facility] Last Admin: 06/01/17 18:39 Dose: 1 u Divalproex Sodium (Depakote Dr(*Bid*)) 500 mg PO BID [facility] Last Admin: 06/01/17 18:37 Dose: 500 mg Cefepime HCl (Maxipime 1gm) 1 gm in 100 mls @ 100 mls/hr IVPB Q12 [facility] PRN Reason: Protocol Last Admin: 06/01/17 21:48 Dose: 100 mls/hr Sodium Chloride (Sodium Chloride 0.9%) 1,000 mls @ 100 mls/hr IV .Q10H [facility] Last Admin: 08/17/17 03:20 Dose: 100 mls/hr Vancomycin HCl (Vancomycin 1gm) 1 gm in 250 mls @ 167 mls/hr IVPB Q12H [facility] PRN Reason: Protocol Last Admin: 06/01/17 23:34 Dose: 167 mls/hr Nystatin (Nystop Topical Powder) 0 gm TOP TID [facility] Last Admin: 06/01/17 18:38 Dose: 1 u Tamsulosin HCl (Flomax) 0.4 mg PO DAILY [facility] Last Admin: 06/01/17 12:31 Dose: Not Given Thiamine HCl (Vitamin B1 Tab) 100 mg PO DAILY [facility] Last Admin: 06/01/17 18:40 Dose: 100 mg Tolterodine Tartrate (Detrol) 2 mg PO BID [facility] Last Admin: 06/01/17 18:37 Dose: 2 mg - Labs Labs: 06/01/17 15:32 PT 13.7 Seconds (9.9-11.8) H 05/31/17 21:22 INR 1.27 (0.93-1.08) H 05/31/17 21:22 APTT 32.3 Seconds (23.7-30.8) H 05/31/17 21:22 - Constitutional Appears: Non-toxic, No Acute Distress - Eye Exam Eye Exam: EOMI, PERRL Pupil Exam: PERRL. absent: Miosis, Mydriatic - ENT Exam ENT Exam: Mucous Membranes Moist, Normal Oropharynx - Respiratory Exam Respiratory Exam: Clear to Ausculation Bilateral. absent: Rales, Rhonchi, Wheezes - Cardiovascular Exam Cardiovascular Exam: RRR, +S1, +S2. absent: Gallop, Rubs - GI/Abdominal Exam GI & Abdominal Exam: Soft, Normal Bowel Sounds. 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 Unknown prior EGD or colonoscopy history. Plan: >H/H stable >no overt GI blood loss >anemia of chronic disease, possible source- sacral decubitus >tolerating diet >family discussion held-no elective EGD/colonoscopy given age, comorbidities, and patient wishes >thank you for opportunity to participate in the care of this patient. Please contact with any questions/concerns. <Maynor Haywood - Last Filed: 06/02/17 09:30> Objective - Vital Signs/Intake and Output Vital Signs (last 24 hours): Temp Pulse Resp BP Pulse Ox 98.1 F 81 18 130/75 98 06/01/17 16:30 06/02/17 08:46 06/01/17 16:30 06/02/17 08:46 06/01/17 16:30 Intake and Output: 06/02/17 06/02/17 06:59 18:59 Intake Total 2760 Output Total 375 Balance 2385 - Medications Medications: Current Medications Artificial Tears (Refresh Opth Soln) 0 ml OP DAILY [facility] Last Admin: 06/01/17 09:05 Dose: 0.3 ml Ascorbic Acid (Vitamin C 500 Mg Tab) 500 mg PO DAILY [facility] Last Admin: 06/01/17 18:40 Dose: 500 mg Atorvastatin Calcium (Lipitor) 20 mg PO DIN [facility] Last Admin: 06/01/17 18:38 Dose: 20 mg Carvedilol (Coreg) 3.125 mg PO 0800,1700 [facility] Last Admin: 06/02/17 08:46 Dose: 3.125 mg Cholecalciferol (Vitamin D) 2,000 iu PO DAILY [facility] Last Admin: 06/01/17 12:32 Dose: Not Given Collagenase (Santyl) 0 gm TOP BID [facility] Last Admin: 06/01/17 18:39 Dose: 1 u Divalproex Sodium (Depakote Dr(*Bid*)) 500 mg PO BID [facility] Last Admin: 06/01/17 18:37 Dose: 500 mg Cefepime HCl (Maxipime 1gm) 1 gm in 100 mls @ 100 mls/hr IVPB Q12 [facility] PRN Reason: Protocol Last Admin: 06/01/17 21:48 Dose: 100 mls/hr Sodium Chloride (Sodium Chloride 0.9%) 1,000 mls @ 100 mls/hr IV .Q10H [facility] Last Admin: 06/02/17 03:20 Dose: 100 mls/hr Vancomycin HCl (Vancomycin 1gm) 1 gm in 250 mls @ 167 mls/hr IVPB Q12H [facility] PRN Reason: Protocol Last Admin: 06/01/17 23:34 Dose: 167 mls/hr Nystatin (Nystop Topical Powder) 0 gm TOP TID [facility] Last Admin: 06/01/17 18:38 Dose: 1 u Tamsulosin HCl (Flomax) 0.4 mg PO DAILY [facility] Last Admin: 06/01/17 12:31 Dose: Not Given Thiamine HCl (Vitamin B1 Tab) 100 mg PO DAILY [facility] Last Admin: 06/01/17 18:40 Dose: 100 mg Tolterodine Tartrate (Detrol) 2 mg PO BID [facility] Last Admin: 06/01/17 18:37 Dose: 2 mg - Labs Labs: 06/01/17 15:32 PT 13.7 Seconds (9.9-11.8) H 05/31/17 21:22 INR 1.27 (0.93-1.08) H 05/31/17 21:22 APTT 32.3 Seconds (23.7-30.8) H 05/31/17 21:22 Attending/Attestation - Attestation I have personally seen and examined this patient.: Yes I have fully participated in the care of the patient.: Yes I have reviewed all pertinent clinical information, including history, physical exam and plan: Yes Notes (Text): 06/02/17 09:28 81 year old male with history of HTN, DM, CP, CVA, Seizure d/o, Sacral decub admitted with anemia. 1. Anemia of chronic disease Plan: -no overt signs of GI bleeding; hemoglobin stable without need for transfusion, hemodynamically stable -patient likely has anemia of chronic disease related to multiple comorbidities including sacral decub -patient declines endoscopic evaluation -diet as tolerated -ok to discharge from GI standpoint
[2017-06-02] MEDS: Cefepime 1gm in NS 100ml 1 GM/100 ML BAG IVPB SCH ×2 (11:09→22:51)
[2017-06-02] MEDS: Lubricant Eye Drops UD OP SCH (11:09)
[2017-06-02] MEDS: Nystatin 100,000 Units/gm Topical Pow(15 gm) TOP SCH ×3 (11:09→17:46)
[2017-06-02] MEDS: Divalproex 500 mg DR(BID formulation) PO SCH ×2 (11:09→11:12)
[2017-06-02] MEDS: Collagenase 250 Units/gm Ointment(30 gm) TOP SCH ×2 (11:10→17:46)
[2017-06-02 11:42] LABS: BASO # 0.01 K/mm3 (0.0-2.0); BASO % 0.1 % (0.0-3.0); EOS # 0.3 (0.0-0.7); EOS % 3.4 % (1.5-5.0); GRAN # 3.15 (1.4-6.5); GRAN % 39.9 % (50.0-68.0); HEMATOCRIT 27.4 % (42.0-52.0); LYMPH % 38.4 % (22.0-35.0); MEAN CELL VOLUME 95.8 fl (80.0-105.0); MEAN CORPUSCULAR HEMOGLOBIN 29.4 pg (25.0-35.0); MEAN CORPUSCULAR HGB CONC 30.7 g/dl (31.0-37.0); MEAN PLATELET VOLUME 9.3 fl (7.0-11.0); MONO # 1.4 (0.1-0.6); MONO % 18.2 % (1.0-6.0); PLATELET COUNT 328 10^3/uL (120.0-450.0); RED CELL DISTRIBUTION WIDTH 18.6 % (11.5-14.5); WHITE BLOOD COUNT 7.9 10^3/ul (4.5-11.0)
[2017-06-02 11:46] LABS: ADD MANUAL DIFF? NO
[2017-06-02 12:02] LABS: ALB/GLOB RATIO 0.8 (1.1-1.8); ALKALINE PHOSPHATASE 55 U/L (38-133); ALT/SGPT 19 U/L (7-56); AST/SGOT 18 U/L (15-59); BILIRUBIN,TOTAL 0.4 mg/dL (0.2-1.3); BLOOD UREA NITROGEN 10 mg/dL (7-21); CARBON DIOXIDE 26 mmol/L (21-33); CHLORIDE 106 mmol/L (95-110); GFR AFRICAN-AMERICAN > 60; GLUCOSE,RANDOM 78 mg/dL (70-110); PHOSPHOROUS 2.8 mg/dL (2.5-4.5); POTASSIUM 3.8 mmol/L (3.6-5.0); SODIUM 141 mmol/L (132-148); TOTAL PROTEIN 5.3 g/dL (5.8-8.3)
--- NOTE | 2017-06-02 13:40 | CP.PCM.CON ---
<Thomas Butler - Last Filed: 06/02/17 13:41> History of Present Illness - History of Present Illness History of Present Illness: Neurology Consult Note for Dr. Monk Reason for Consult: AMS 81 y/o M with cerebral palsy, seizure disorder, DM, frequent UTI with chronic in dwelling Saleem catheter, GI bleeds, and anemia who presented initially presented to the hospital for anemia on labs from senior living. Much of patient history from prior medical records due to patient's mental status. Once admitted , patient was found to be in sepsis. Of note, patient was recently admitted with fever and AMS, then found to have ESBL sacral decubitus wound. Patient was treated and worked up with EEG's which showed diffuse b/l cerebral dysfunction with no seizure activity. Today, patient was examined at bedside. Pt responds to commands and appears to be oriented. No acute events overnight as per nursing. Currently denying CP, SOB, N/V/D, fever, chills, headache. PMH: Cerebral Palsy, HTN, DM, Seizure disorder, anemia, UTI Allergies: NKDA Social History: Resident at [facility], does not consume tobacco, alcohol, illicit drugs Medications: Reviewed, as per MAR Review of Systems - Review of Systems Review of Systems: 13 point review of systems as per HPI, otherwise negative Past Patient History - Tetanus Immunizations Tetanus Immunization: Unknown - Past Medical History & Family History Past Medical History?: Yes - Past Social History Smoking Status: Never Smoked - CARDIAC Hx Cardiac Disorders: Yes Hx Hypertension: Yes - PULMONARY Hx Respiratory Disorders: No Other/Comment: insomnia - NEUROLOGICAL Hx Neurological Disorder: Yes Hx Seizures: Yes Other/Comment: cerebral palsy - HEENT Hx HEENT Problems: No - RENAL Hx Chronic Kidney Disease: No - ENDOCRINE/METABOLIC Hx Endocrine Disorders: Yes Hx Diabetes Mellitus Type 2: Yes - HEMATOLOGICAL/ONCOLOGICAL Hx Blood Disorders: Yes (GI BLEED) - INTEGUMENTARY Hx Dermatological Problems: No - MUSCULOSKELETAL/RHEUMATOLOGICAL Hx Musculoskeletal Disorders: Yes (LEFT SIDED WEAKNESS/CVA) Hx Falls: (UNKNOWN) - GASTROINTESTINAL Hx Gastrointestinal Disorders: Yes (GI BLEED,CONSTIPATION,DIARRHEA) - GENITOURINARY/GYNECOLOGICAL Hx Genitourinary Disorders: Yes (OVERACTIVE BLADDER) Hx Incontinence: Yes - PSYCHIATRIC Hx Psychophysiologic Disorder: No Hx Substance Use: No - SURGICAL HISTORY Hx Surgeries: (unable to obtain) Meds Allergies/Adverse Reactions: Allergies Allergy/AdvReac Type Severity Reaction Status Date / Time No Known Allergies Allergy Verified 05/06/17 19:00 - Medications Medications: Current Medications Artificial Tears (Refresh Opth Soln) 0 ml OP DAILY [facility] Last Admin: 06/02/17 11:09 Dose: 0.3 ml Ascorbic Acid (Vitamin C 500 Mg Tab) 500 mg PO DAILY [facility] Last Admin: 06/02/17 11:06 Dose: 500 mg Atorvastatin Calcium (Lipitor) 20 mg PO DIN [facility] Last Admin: 06/01/17 18:38 Dose: 20 mg Carvedilol (Coreg) 3.125 mg PO 0800,1700 [facility] Last Admin: 06/02/17 08:46 Dose: 3.125 mg Cholecalciferol (Vitamin D) 2,000 iu PO DAILY [facility] Last Admin: 06/02/17 11:07 Dose: 2,000 iu Collagenase (Santyl) 0 gm TOP BID [facility] Last Admin: 06/02/17 11:10 Dose: 1 u Divalproex Sodium (Depakote Dr(*Bid*)) 500 mg PO BID [facility] Last Admin: 06/02/17 11:12 Dose: Not Given Cefepime HCl (Maxipime 1gm) 1 gm in 100 mls @ 100 mls/hr IVPB Q12 [facility] PRN Reason: Protocol Last Admin: 06/02/17 11:09 Dose: 100 mls/hr Sodium Chloride (Sodium Chloride 0.9%) 1,000 mls @ 100 mls/hr IV .Q10H [facility] Last Admin: 06/02/17 11:10 Dose: 100 mls/hr Vancomycin HCl (Vancomycin 1gm) 1 gm in 250 mls @ 167 mls/hr IVPB Q12H [facility] PRN Reason: Protocol Last Admin: 06/01/17 23:34 Dose: 167 mls/hr Multivitamins/Vitamin C 10 ml/Amino Acids/Electrolytes/Dextrose 2,010 mls @ 83 mls/hr IV .Q24H [facility] Stop: 06/05/17 17:59 Fat Emulsion Intravenous (Intralipid 20%) 250 mls @ 21 mls/hr IV DAILY@1800 [facility] Stop: 06/05/17 17:59 Nystatin (Nystop Topical Powder) 0 gm TOP TID [facility] Last Admin: 06/02/17 11:09 Dose: 1 u Tamsulosin HCl (Flomax) 0.4 mg PO DAILY [facility] Last Admin: 06/02/17 11:06 Dose: 0.4 mg Thiamine HCl (Vitamin B1 Tab) 100 mg PO DAILY [facility] Last Admin: 06/02/17 11:08 Dose: 100 mg Tolterodine Tartrate (Detrol) 2 mg PO BID [facility] Last Admin: 06/02/17 11:06 Dose: 2 mg Physical Exam - Constitutional Appears: Non-toxic, No Acute Distress - Head Exam Head Exam: ATRAUMATIC, NORMAL INSPECTION, NORMOCEPHALIC - ENT Exam ENT Exam: Mucous Membranes Moist - Respiratory Exam Respiratory Exam: Clear to Auscultation Bilateral, NORMAL BREATHING PATTERN. absent: Rales, Rhonchi, Wheezes - Cardiovascular Exam Cardiovascular Exam: RRR, +S1, +S2 - GI/Abdominal Exam GI & Abdominal Exam: Normal Bowel Sounds, Soft. absent: Tenderness - Extremities Exam Extremities exam: Positive for: pedal edema (+2 b/l) - Neurological Exam Neurological exam: Alert Additional comments: Oriented to person and place Unable to move lower extremities secondary muscle contractures Minimal movement in upper extremities due to contractures Responds to commands Sensation intact - Psychiatric Exam Psychiatric exam: Normal Mood - Skin Skin Exam: Intact, Normal Color, Warm Results - Vital Signs Recent Vital Signs: Last Vital Signs Temp 98.3 F 06/02/17 08:00 Pulse 81 06/02/17 08:46 Resp 20 06/02/17 08:00 BP 130/75 06/02/17 08:46 Pulse Ox 96 06/02/17 08:00 - Labs Result Diagrams: 06/02/17 11:20 06/02/17 11:20 Labs: Laboratory Results - last 24 hr 06/01/17 06/01/17 06/01/17 10:40 11:33 15:32 WBC RBC Hgb 9.2 L Hct 29.5 L MCV MCH MCHC RDW Plt Count MPV Gran % Lymph % (Auto) [place] % (Auto) Eos % (Auto) Baso % (Auto) Gran # Lymph # [place] # Eos # Baso # Sodium Potassium Chloride Carbon Dioxide Anion Gap BUN Creatinine Est GFR ( Amer) Est GFR (Non-Af Amer) POC Glucose (mg/dL) 124 H Random Glucose Calcium Phosphorus Magnesium Ferritin 355.0 Total Bilirubin AST ALT Alkaline Phosphatase Total Protein Albumin Globulin Albumin/Globulin Ratio Prostate Specific Ag Vitamin B12 795 Folate 17.6 06/01/17 06/01/17 06/02/17 19:24 21:27 07:24 WBC RBC Hgb Hct MCV MCH MCHC RDW Plt Count MPV Gran % Lymph % (Auto) [place] % (Auto) Eos % (Auto) Baso % (Auto) Gran # Lymph # [place] # Eos # Baso # Sodium Potassium Chloride Carbon Dioxide Anion Gap BUN Creatinine Est GFR ( Amer) Est GFR (Non-Af Amer) POC Glucose (mg/dL) 153 H 131 H 98 Random Glucose Calcium Phosphorus Magnesium Ferritin Total Bilirubin AST ALT Alkaline Phosphatase Total Protein Albumin Globulin Albumin/Globulin Ratio Prostate Specific Ag Vitamin B12 Folate 06/02/17 06/02/17 06/02/17 11:20 11:20 11:20 WBC 7.9 RBC 2.86 L Hgb 8.4 L Hct 27.4 L MCV 95.8 MCH 29.4 MCHC 30.7 L RDW 18.6 H Plt Count 328 MPV 9.3 Gran % 39.9 L Lymph % (Auto) 38.4 H [place] % (Auto) 18.2 H Eos % (Auto) 3.4 Baso % (Auto) 0.1 Gran # 3.15 Lymph # 3.0 [place] # 1.4 H Eos # 0.3 Baso # 0.01 Sodium 141 Potassium 3.8 Chloride 106 Carbon Dioxide 26 Anion Gap 13 BUN 10 Creatinine 0.5 Est GFR ( Amer) > 60 Est GFR (Non-Af Amer) > 60 POC Glucose (mg/dL) Random Glucose 78 Calcium 8.0 L Phosphorus 2.8 Magnesium 2.0 Ferritin Total Bilirubin 0.4 AST 18 ALT 19 Alkaline Phosphatase 55 Total Protein 5.3 L Albumin 2.3 L Globulin 3.0 Albumin/Globulin Ratio 0.8 L Prostate Specific Ag 0.407 Vitamin B12 Folate 06/02/17 11:32 WBC RBC Hgb Hct MCV MCH MCHC RDW Plt Count MPV Gran % Lymph % (Auto) [place] % (Auto) Eos % (Auto) Baso % (Auto) Gran # Lymph # [place] # Eos # Baso # Sodium Potassium Chloride Carbon Dioxide Anion Gap BUN Creatinine Est GFR ( Amer) Est GFR (Non-Af Amer) POC Glucose (mg/dL) 80 Random Glucose Calcium Phosphorus Magnesium Ferritin Total Bilirubin AST ALT Alkaline Phosphatase Total Protein Albumin Globulin Albumin/Globulin Ratio Prostate Specific Ag Vitamin B12 Folate Assessment & Plan - Assessment and Plan (Free Text) Plan: 81 y/o M with cerebral palsy, seizure disorder, DM, frequent UTI with chronic in dwelling Saleem catheter, GI bleeds, and anemia presents with AMS in the setting of sepsis. Pt is cognitively slow, but does appear to worse than baseline. Patient should be treated for sepsis and this will likely improve AMS as metabolic derangements may contribute to cognitive dysfunction at this time. Patient is otherwise neurologically stable and we will sign off. Please reconsult as needed. Plan: Continue current medical mangement for sepsis Continue Depakote Adequate hydration Maintain SBP 130-140 Carrie, PGY-2 <Steven Monk - Last Filed: 06/02/17 16:52> Meds - Medications Medications: Current Medications Artificial Tears (Refresh Opth Soln) 0 ml OP DAILY [facility] Last Admin: 06/02/17 11:09 Dose: 0.3 ml Ascorbic Acid (Vitamin C 500 Mg Tab) 500 mg PO DAILY [facility] Last Admin: 06/02/17 11:06 Dose: 500 mg Atorvastatin Calcium (Lipitor) 20 mg PO DIN [facility] Last Admin: 06/01/17 18:38 Dose: 20 mg Carvedilol (Coreg) 3.125 mg PO 0800,1700 [facility] Last Admin: 06/02/17 08:46 Dose: 3.125 mg Cholecalciferol (Vitamin D) 2,000 iu PO DAILY [facility] Last Admin: 06/02/17 11:07 Dose: 2,000 iu Collagenase (Santyl) 0 gm TOP BID [facility] Last Admin: 06/02/17 11:10 Dose: 1 u Divalproex Sodium (Depakote Sprinkles) 500 mg PO BID [facility] Cefepime HCl (Maxipime 1gm) 1 gm in 100 mls @ 100 mls/hr IVPB Q12 [facility] PRN Reason: Protocol Last Admin: 06/02/17 11:09 Dose: 100 mls/hr Sodium Chloride (Sodium Chloride 0.9%) 1,000 mls @ 100 mls/hr IV .Q10H [facility] Last Admin: 06/02/17 11:10 Dose: 100 mls/hr Vancomycin HCl (Vancomycin 1gm) 1 gm in 250 mls @ 167 mls/hr IVPB Q12H [facility] PRN Reason: Protocol Last Admin: 06/02/17 15:28 Dose: 167 mls/hr Multivitamins/Vitamin C 10 ml/Amino Acids/Electrolytes/Dextrose 2,010 mls @ 83 mls/hr IV .Q24H [facility] Stop: 06/05/17 17:59 Fat Emulsion Intravenous (Intralipid 20%) 250 mls @ 21 mls/hr IV DAILY@1800 [facility] Stop: 06/05/17 17:59 Nystatin (Nystop Topical Powder) 0 gm TOP TID [facility] Last Admin: 06/02/17 15:29 Dose: 1 u Tamsulosin HCl (Flomax) 0.4 mg PO DAILY [facility] Last Admin: 06/02/17 11:06 Dose: 0.4 mg Thiamine HCl (Vitamin B1 Tab) 100 mg PO DAILY [facility] Last Admin: 06/02/17 11:08 Dose: 100 mg Tolterodine Tartrate (Detrol) 2 mg PO BID [facility] Last Admin: 06/02/17 11:06 Dose: 2 mg Results - Vital Signs Recent Vital Signs: Last Vital Signs Temp 97.7 F 06/02/17 16:30 Pulse 92 H 06/02/17 16:30 Resp 20 06/02/17 16:30 BP 151/80 H 06/02/17 16:30 Pulse Ox 98 06/02/17 16:30 - Labs Result Diagrams: 06/02/17 11:20 06/02/17 11:20 Labs: Laboratory Results - last 24 hr 06/01/17 06/01/17 06/01/17 10:40 11:33 19:24 WBC RBC Hgb Hct MCV MCH MCHC RDW Plt Count MPV Gran % Lymph % (Auto) [place] % (Auto) Eos % (Auto) Baso % (Auto) Gran # Lymph # [place] # Eos # Baso # Sodium Potassium Chloride Carbon Dioxide Anion Gap BUN Creatinine Est GFR ( Amer) Est GFR (Non-Af Amer) POC Glucose (mg/dL) 124 H 153 H Random Glucose Calcium Phosphorus Magnesium Ferritin 355.0 Total Bilirubin AST ALT Alkaline Phosphatase Total Protein Albumin Globulin Albumin/Globulin Ratio Prostate Specific Ag Vitamin B12 795 Folate 17.6 06/01/17 06/02/17 06/02/17 21:27 07:24 11:20 WBC 7.9 RBC 2.86 L Hgb 8.4 L Hct 27.4 L MCV 95.8 MCH 29.4 MCHC 30.7 L RDW 18.6 H Plt Count 328 MPV 9.3 Gran % 39.9 L Lymph % (Auto) 38.4 H [place] % (Auto) 18.2 H Eos % (Auto) 3.4 Baso % (Auto) 0.1 Gran # 3.15 Lymph # 3.0 [place] # 1.4 H Eos # 0.3 Baso # 0.01 Sodium Potassium Chloride Carbon Dioxide Anion Gap BUN Creatinine Est GFR ( Amer) Est GFR (Non-Af Amer) POC Glucose (mg/dL) 131 H 98 Random Glucose Calcium Phosphorus Magnesium Ferritin Total Bilirubin AST ALT Alkaline Phosphatase Total Protein Albumin Globulin Albumin/Globulin Ratio Prostate Specific Ag Vitamin B12 Folate 06/02/17 06/02/17 06/02/17 11:20 11:20 11:32 WBC RBC Hgb Hct MCV MCH MCHC RDW Plt Count MPV Gran % Lymph % (Auto) [place] % (Auto) Eos % (Auto) Baso % (Auto) Gran # Lymph # [place] # Eos # Baso # Sodium 141 Potassium 3.8 Chloride 106 Carbon Dioxide 26 Anion Gap 13 BUN 10 Creatinine 0.5 Est GFR ( Amer) > 60 Est GFR (Non-Af Amer) > 60 POC Glucose (mg/dL) 80 Random Glucose 78 Calcium 8.0 L Phosphorus 2.8 Magnesium 2.0 Ferritin Total Bilirubin 0.4 AST 18 ALT 19 Alkaline Phosphatase 55 Total Protein 5.3 L Albumin 2.3 L Globulin 3.0 Albumin/Globulin Ratio 0.8 L Prostate Specific Ag 0.407 Vitamin B12 Folate 06/02/17 16:09 WBC RBC Hgb Hct MCV MCH MCHC RDW Plt Count MPV Gran % Lymph % (Auto) [place] % (Auto) Eos % (Auto) Baso % (Auto) Gran # Lymph # [place] # Eos # Baso # Sodium Potassium Chloride Carbon Dioxide Anion Gap BUN Creatinine Est GFR ( Amer) Est GFR (Non-Af Amer) POC Glucose (mg/dL) 99 Random Glucose Calcium Phosphorus Magnesium Ferritin Total Bilirubin AST ALT Alkaline Phosphatase Total Protein Albumin Globulin Albumin/Globulin Ratio Prostate Specific Ag Vitamin B12 Folate Attending/Attestation - Attestation I have personally seen and examined this patient.: Yes I have fully participated in the care of the patient.: Yes I have reviewed all pertinent clinical information: Yes
--- NOTE | 2017-06-02 14:21 | CP.PCM.CON ---
History of Present Illness - History of Present Illness History of Present Illness: Consult note for Surgery Patient is a 81 year old male PMH cerebral palsy, diabetes, CVA, seizures admitted to [facility] 05/[facility]/17 from [facility] due to anemia. Patient was found to have sacral decubitus ulcers. History difficult to obtain due to patient's baseline inability to speak. Patient examined and seen at bedside in no acute distress. Two stage 3 sacral decubitus noted, left wound measures at 3x2cm and right wound measures at 5x2 cm and 1x2cm wound on right buttock PMD: Dr. Amaya PMH: Cerebral Palsy, HTN, DM II Seizure, GI bleed, anemia Allergies: NKDA Social History: Resident at [facility], does not consume tobacco, alcohol, illicit drugs Past Patient History - Tetanus Immunizations Tetanus Immunization: Unknown - Past Medical History & Family History Past Medical History?: Yes - Past Social History Smoking Status: Never Smoked - CARDIAC Hx Cardiac Disorders: Yes Hx Hypertension: Yes - PULMONARY Hx Respiratory Disorders: No Other/Comment: insomnia - NEUROLOGICAL Hx Neurological Disorder: Yes Hx Seizures: Yes Other/Comment: cerebral palsy - HEENT Hx HEENT Problems: No - RENAL Hx Chronic Kidney Disease: No - ENDOCRINE/METABOLIC Hx Endocrine Disorders: Yes Hx Diabetes Mellitus Type 2: Yes - HEMATOLOGICAL/ONCOLOGICAL Hx Blood Disorders: Yes (GI BLEED) - INTEGUMENTARY Hx Dermatological Problems: No - MUSCULOSKELETAL/RHEUMATOLOGICAL Hx Musculoskeletal Disorders: Yes (LEFT SIDED WEAKNESS/CVA) Hx Falls: (UNKNOWN) - GASTROINTESTINAL Hx Gastrointestinal Disorders: Yes (GI BLEED,CONSTIPATION,DIARRHEA) - GENITOURINARY/GYNECOLOGICAL Hx Genitourinary Disorders: Yes (OVERACTIVE BLADDER) Hx Incontinence: Yes - PSYCHIATRIC Hx Psychophysiologic Disorder: No Hx Substance Use: No - SURGICAL HISTORY Hx Surgeries: (unable to obtain) Meds Allergies/Adverse Reactions: Allergies Allergy/AdvReac Type Severity Reaction Status Date / Time No Known Allergies Allergy Verified 05/06/17 19:00 - Medications Medications: Current Medications Artificial Tears (Refresh Opth Soln) 0 ml OP DAILY [facility] Last Admin: 06/02/17 11:09 Dose: 0.3 ml Ascorbic Acid (Vitamin C 500 Mg Tab) 500 mg PO DAILY [facility] Last Admin: 06/02/17 11:06 Dose: 500 mg Atorvastatin Calcium (Lipitor) 20 mg PO DIN [facility] Last Admin: 06/01/17 18:38 Dose: 20 mg Carvedilol (Coreg) 3.125 mg PO 0800,1700 [facility] Last Admin: 06/02/17 08:46 Dose: 3.125 mg Cholecalciferol (Vitamin D) 2,000 iu PO DAILY [facility] Last Admin: 06/02/17 11:07 Dose: 2,000 iu Collagenase (Santyl) 0 gm TOP BID [facility] Last Admin: 06/02/17 11:10 Dose: 1 u Divalproex Sodium (Depakote Dr(*Bid*)) 500 mg PO BID [facility] Last Admin: 06/02/17 11:12 Dose: Not Given Cefepime HCl (Maxipime 1gm) 1 gm in 100 mls @ 100 mls/hr IVPB Q12 [facility] PRN Reason: Protocol Last Admin: 06/02/17 11:09 Dose: 100 mls/hr Sodium Chloride (Sodium Chloride 0.9%) 1,000 mls @ 100 mls/hr IV .Q10H [facility] Last Admin: 06/02/17 11:10 Dose: 100 mls/hr Vancomycin HCl (Vancomycin 1gm) 1 gm in 250 mls @ 167 mls/hr IVPB Q12H [facility] PRN Reason: Protocol Last Admin: 06/01/17 23:34 Dose: 167 mls/hr Multivitamins/Vitamin C 10 ml/Amino Acids/Electrolytes/Dextrose 2,010 mls @ 83 mls/hr IV .Q24H [facility] Stop: 06/05/17 17:59 Fat Emulsion Intravenous (Intralipid 20%) 250 mls @ 21 mls/hr IV DAILY@1800 [facility] Stop: 06/05/17 17:59 Nystatin (Nystop Topical Powder) 0 gm TOP TID [facility] Last Admin: 06/02/17 11:09 Dose: 1 u Tamsulosin HCl (Flomax) 0.4 mg PO DAILY [facility] Last Admin: 06/02/17 11:06 Dose: 0.4 mg Thiamine HCl (Vitamin B1 Tab) 100 mg PO DAILY [facility] Last Admin: 06/02/17 11:08 Dose: 100 mg Tolterodine Tartrate (Detrol) 2 mg PO BID [facility] Last Admin: 06/02/17 11:06 Dose: 2 mg Physical Exam - Head Exam Head Exam: ATRAUMATIC, NORMAL INSPECTION, NORMOCEPHALIC - ENT Exam ENT Exam: Mucous Membranes Moist, Normal Exam - Respiratory Exam Respiratory Exam: Clear to Auscultation Bilateral, NORMAL BREATHING PATTERN - Extremities Exam Additional comments: bilateral pedal edema Contraction of digits bilaterally - Skin Additional comments: 3 sacral decubitus ulcers , stage 3. Left wound measures 3x2 cm, Right wound measures 5x2 cm and 1x2 cm ulcer on right buttock Results - Vital Signs Recent Vital Signs: Last Vital Signs Temp 98.3 F 06/02/17 08:00 Pulse 81 06/02/17 08:46 Resp 20 06/02/17 08:00 BP 130/75 06/02/17 08:46 Pulse Ox 96 06/02/17 08:00 - Labs Result Diagrams: 06/02/17 11:20 06/02/17 11:20 Labs: Laboratory Results - last 24 hr 06/01/17 06/01/17 06/01/17 10:40 11:33 15:32 WBC RBC Hgb 9.2 L Hct 29.5 L MCV MCH MCHC RDW Plt Count MPV Gran % Lymph % (Auto) [place] % (Auto) Eos % (Auto) Baso % (Auto) Gran # Lymph # [place] # Eos # Baso # Sodium Potassium Chloride Carbon Dioxide Anion Gap BUN Creatinine Est GFR ( Amer) Est GFR (Non-Af Amer) POC Glucose (mg/dL) 124 H Random Glucose Calcium Phosphorus Magnesium Ferritin 355.0 Total Bilirubin AST ALT Alkaline Phosphatase Total Protein Albumin Globulin Albumin/Globulin Ratio Prostate Specific Ag Vitamin B12 795 Folate 17.6 06/01/17 06/01/17 06/02/17 19:24 21:27 07:24 WBC RBC Hgb Hct MCV MCH MCHC RDW Plt Count MPV Gran % Lymph % (Auto) [place] % (Auto) Eos % (Auto) Baso % (Auto) Gran # Lymph # [place] # Eos # Baso # Sodium Potassium Chloride Carbon Dioxide Anion Gap BUN Creatinine Est GFR ( Amer) Est GFR (Non-Af Amer) POC Glucose (mg/dL) 153 H 131 H 98 Random Glucose Calcium Phosphorus Magnesium Ferritin Total Bilirubin AST ALT Alkaline Phosphatase Total Protein Albumin Globulin Albumin/Globulin Ratio Prostate Specific Ag Vitamin B12 Folate 06/02/17 06/02/17 06/02/17 11:20 11:20 11:20 WBC 7.9 RBC 2.86 L Hgb 8.4 L Hct 27.4 L MCV 95.8 MCH 29.4 MCHC 30.7 L RDW 18.6 H Plt Count 328 MPV 9.3 Gran % 39.9 L Lymph % (Auto) 38.4 H [place] % (Auto) 18.2 H Eos % (Auto) 3.4 Baso % (Auto) 0.1 Gran # 3.15 Lymph # 3.0 [place] # 1.4 H Eos # 0.3 Baso # 0.01 Sodium 141 Potassium 3.8 Chloride 106 Carbon Dioxide 26 Anion Gap 13 BUN 10 Creatinine 0.5 Est GFR ( Amer) > 60 Est GFR (Non-Af Amer) > 60 POC Glucose (mg/dL) Random Glucose 78 Calcium 8.0 L Phosphorus 2.8 Magnesium 2.0 Ferritin Total Bilirubin 0.4 AST 18 ALT 19 Alkaline Phosphatase 55 Total Protein 5.3 L Albumin 2.3 L Globulin 3.0 Albumin/Globulin Ratio 0.8 L Prostate Specific Ag 0.407 Vitamin B12 Folate 06/02/17 11:32 WBC RBC Hgb Hct MCV MCH MCHC RDW Plt Count MPV Gran % Lymph % (Auto) [place] % (Auto) Eos % (Auto) Baso % (Auto) Gran # Lymph # [place] # Eos # Baso # Sodium Potassium Chloride Carbon Dioxide Anion Gap BUN Creatinine Est GFR ( Amer) Est GFR (Non-Af Amer) POC Glucose (mg/dL) 80 Random Glucose Calcium Phosphorus Magnesium Ferritin Total Bilirubin AST ALT Alkaline Phosphatase Total Protein Albumin Globulin Albumin/Globulin Ratio Prostate Specific Ag Vitamin B12 Folate Assessment & Plan - Assessment and Plan (Free Text) Assessment: 1. Two stage 3 sacral decubitus ulcers - Air mattress - turn q2 - Optifoam and santyl - keep wound clean
[2017-06-02] MEDS: Vancomycin 1gm in NS 250ml 1 GM/250 ML BAG IVPB SCH (15:28)
--- NOTE | 2017-06-02 16:02 | CP.PCM.CON ---
History of Present Illness - History of Present Illness History of Present Illness: 81 year old female with PMH of cerebral palsy, history of UTI with chronic Saleem catheter, chronic anemia, history of Infected stage 3 sacral decubitus ulcer, dementia, HTN, seizure disorder was brought in to [facility] because of lethargy as well as worsening anemia. He was no noted to have loss of consciousness, no convulsions, no diarrhea, no vomiting, no SOB at rest. In the ED, urinalysis showed pyuria and Infectious Diseases consult is requested to further evaluate and manage. Review of Systems - Review of Systems Systems not reviewed;Unavailable: Dementia Past Patient History - Tetanus Immunizations Tetanus Immunization: Unknown - Past Medical History & Family History Past Medical History?: Yes - Past Social History Smoking Status: Never Smoked - CARDIAC Hx Cardiac Disorders: Yes Hx Hypertension: Yes - PULMONARY Hx Respiratory Disorders: No Other/Comment: insomnia - NEUROLOGICAL Hx Neurological Disorder: Yes Hx Seizures: Yes Other/Comment: cerebral palsy - HEENT Hx HEENT Problems: No - RENAL Hx Chronic Kidney Disease: No - ENDOCRINE/METABOLIC Hx Endocrine Disorders: Yes Hx Diabetes Mellitus Type 2: Yes - HEMATOLOGICAL/ONCOLOGICAL Hx Blood Disorders: Yes (GI BLEED) - INTEGUMENTARY Hx Dermatological Problems: No - MUSCULOSKELETAL/RHEUMATOLOGICAL Hx Musculoskeletal Disorders: Yes (LEFT SIDED WEAKNESS/CVA) Hx Falls: (UNKNOWN) - GASTROINTESTINAL Hx Gastrointestinal Disorders: Yes (GI BLEED,CONSTIPATION,DIARRHEA) - GENITOURINARY/GYNECOLOGICAL Hx Genitourinary Disorders: Yes (OVERACTIVE BLADDER) Hx Incontinence: Yes - PSYCHIATRIC Hx Psychophysiologic Disorder: No Hx Substance Use: No - SURGICAL HISTORY Hx Surgeries: (unable to obtain) Meds Allergies/Adverse Reactions: Allergies Allergy/AdvReac Type Severity Reaction Status Date / Time No Known Allergies Allergy Verified 05/06/17 19:00 - Medications Medications: Current Medications Artificial Tears (Refresh Opth Soln) 0 ml OP DAILY [facility] Last Admin: 06/01/17 09:05 Dose: 0.3 ml Ascorbic Acid (Vitamin C 500 Mg Tab) 500 mg PO DAILY [facility] Atorvastatin Calcium (Lipitor) 20 mg PO DIN [facility] Carvedilol (Coreg) 3.125 mg PO 0800,1700 [facility] Last Admin: 06/01/17 10:33 Dose: Not Given Cholecalciferol (Vitamin D) 2,000 iu PO DAILY [facility] Last Admin: 06/01/17 12:32 Dose: Not Given Collagenase (Santyl) 0 gm TOP BID [facility] Last Admin: 06/01/17 09:03 Dose: 1 u Divalproex Sodium (Depakote Dr(*Bid*)) 500 mg PO BID [facility] Last Admin: 06/01/17 10:35 Dose: Not Given Cefepime HCl (Maxipime 1gm) 1 gm in 100 mls @ 100 mls/hr IVPB Q12 [facility] PRN Reason: Protocol Last Admin: 06/01/17 09:03 Dose: 100 mls/hr Sodium Chloride (Sodium Chloride 0.9%) 1,000 mls @ 100 mls/hr IV .Q10H [facility] Last Admin: 06/01/17 12:32 Dose: 100 mls/hr Vancomycin HCl (Vancomycin 1gm) 1 gm in 250 mls @ 167 mls/hr IVPB Q12H [facility] PRN Reason: Protocol Last Admin: 06/01/17 14:08 Dose: 167 mls/hr Iron Sucrose 100 mg/ Sodium (Chloride) 105 mls @ 210 mls/hr IVPB ONCE ONE Stop: 06/01/17 15:29 Iron Sucrose (Venofer) 100 mg IVP DAILY [facility] Non-Formulary Medication (Solifenacin Succinate [Vesicare]) 5 mg PO DAILY [facility] Last Admin: 06/01/17 10:34 Dose: Not Given Nystatin (Nystop Topical Powder) 0 gm TOP TID [facility] Last Admin: 06/01/17 14:08 Dose: 1 u Tamsulosin HCl (Flomax) 0.4 mg PO DAILY [facility] Last Admin: 06/01/17 12:31 Dose: Not Given Thiamine HCl (Vitamin B1 Tab) 100 mg PO DAILY [facility] Tolterodine Tartrate (Detrol) 2 mg PO BID [facility] Last Admin: 06/01/17 10:34 Dose: Not Given Physical Exam - Constitutional Appears: Non-toxic, No Acute Distress - Head Exam Head Exam: NORMAL INSPECTION - ENT Exam ENT Exam: Mucous Membranes Moist - Neck Exam Neck exam: Negative for: Lymphadenopathy, Meningismus - Respiratory Exam Respiratory Exam: Decreased Breath Sounds - Cardiovascular Exam Cardiovascular Exam: +S1, +S2 - GI/Abdominal Exam GI & Abdominal Exam: Soft. absent: Tenderness Results - Vital Signs Recent Vital Signs: Last Vital Signs Temp 98 F 06/01/17 08:00 Pulse 99 H 06/01/17 08:00 Resp 20 06/01/17 08:00 BP 161/101 H 06/01/17 08:00 Pulse Ox 98 06/01/17 08:00 - Labs Result Diagrams: 06/02/17 11:20 06/02/17 11:20 Labs: Laboratory Results - last 24 hr 06/01/17 06/01/17 06/01/17 01:45 10:40 10:40 WBC 7.0 RBC 2.84 L Hgb 8.4 L Hct 26.6 L MCV 93.7 MCH 29.6 MCHC 31.6 RDW 18.1 H Plt Count 320 MPV 9.5 pO2 201 H VBG pH 7.51 H VBG pCO2 45.0 VBG HCO3 35.9 H VBG Total CO2 37.3 H VBG O2 Sat (Calc) 100.0 H VBG Base Excess 11.4 H VBG Potassium 3.6 Sodium 144.0 Chloride 110.0 H Glucose 106 Lactate 1.2 FiO2 21.0 Iron 18 L TIBC 172 L % Saturation 11 L Venous Blood Potassium 3.6 Valproic Acid 45 L Assessment & Plan - Assessment and Plan (Free Text) Plan: Assessment R/O complicated UTI in this patient with chronic indwelling Saleem catheter history of Infected stage 3 sacral decubitus ulcer dementia cerebral palsy HTN seizure disorder Plan started patient on Vancomycin and Cefepime pending blood and urine cx will monitor clinically
[2017-06-02] MEDS: Divalproex 125 mg EC Sprinkle Cap PO SCH (17:44)
[2017-06-02] MEDS ORDERED: Fat Emulsion 20% IV 250 ML IV SCH (18:00)
--- NOTE | 2017-06-02 20:32 | CP.PCM.PN ---
<AbigailBull - Last Filed: 06/02/17 20:28> Subjective - Date & Time of Evaluation Date of Evaluation: 06/02/17 Time of Evaluation: 07:35 - Subjective Subjective: Pt s/e bedside. Patient still altered, laying in bed. Patient denies any complaints, but history hard to obtain 2/2 mental status. D/w patient's NOK, Ms. Glover, about getting an endoscopy to try to find a source for his anemia. Patient's family was amenable and Patient will have an EGD in the morning. No acute complaints. Objective - Vital Signs/Intake and Output Vital Signs (last 24 hours): Temp Pulse Resp BP Pulse Ox 97.7 F 92 H 20 151/80 H 98 06/02/17 16:30 06/02/17 17:39 06/02/17 16:30 06/02/17 17:39 06/02/17 16:30 Intake and Output: 06/02/17 06/03/17 18:59 06:59 Intake Total 120 Output Total 500 Balance -380 - Medications Medications: Current Medications Artificial Tears (Refresh Opth Soln) 0 ml OP DAILY [facility] Last Admin: 06/02/17 11:09 Dose: 0.3 ml Ascorbic Acid (Vitamin C 500 Mg Tab) 500 mg PO DAILY [facility] Last Admin: 06/02/17 11:06 Dose: 500 mg Atorvastatin Calcium (Lipitor) 20 mg PO DIN [facility] Last Admin: 06/02/17 17:45 Dose: 20 mg Carvedilol (Coreg) 3.125 mg PO 0800,1700 [facility] Last Admin: 06/02/17 17:39 Dose: 3.125 mg Cholecalciferol (Vitamin D) 2,000 iu PO DAILY [facility] Last Admin: 06/02/17 11:07 Dose: 2,000 iu Collagenase (Santyl) 0 gm TOP BID [facility] Last Admin: 06/02/17 17:46 Dose: 1 u Divalproex Sodium (Depakote Sprinkles) 500 mg PO BID [facility] Last Admin: 06/02/17 17:44 Dose: 500 mg Cefepime HCl (Maxipime 1gm) 1 gm in 100 mls @ 100 mls/hr IVPB Q12 [facility] PRN Reason: Protocol Last Admin: 06/02/17 11:09 Dose: 100 mls/hr Sodium Chloride (Sodium Chloride 0.9%) 1,000 mls @ 100 mls/hr IV .Q10H [facility] Last Admin: 06/02/17 11:10 Dose: 100 mls/hr Vancomycin HCl (Vancomycin 1gm) 1 gm in 250 mls @ 167 mls/hr IVPB Q12H [facility] PRN Reason: Protocol Last Admin: 06/02/17 15:28 Dose: 167 mls/hr Multivitamins/Vitamin C 10 ml/Amino Acids/Electrolytes/Dextrose 2,010 mls @ 83 mls/hr IV .Q24H [facility] Stop: 06/05/17 17:59 Last Admin: 06/02/17 17:46 Dose: 83 mls/hr Fat Emulsion Intravenous (Intralipid 20%) 250 mls @ 21 mls/hr IV DAILY@1800 [facility] Stop: 06/05/17 17:59 Last Admin: 06/02/17 17:45 Dose: 21 mls/hr Nystatin (Nystop Topical Powder) 0 gm TOP TID [facility] Last Admin: 06/02/17 17:46 Dose: 1 u Tamsulosin HCl (Flomax) 0.4 mg PO DAILY [facility] Last Admin: 06/02/17 11:06 Dose: 0.4 mg Thiamine HCl (Vitamin B1 Tab) 100 mg PO DAILY [facility] Last Admin: 06/02/17 11:08 Dose: 100 mg Tolterodine Tartrate (Detrol) 2 mg PO BID [facility] Last Admin: 06/02/17 17:44 Dose: 2 mg - Labs Labs: 06/02/17 11:20 06/02/17 11:20 PT 13.7 Seconds (9.9-11.8) H 05/31/17 21:22 INR 1.27 (0.93-1.08) H 05/31/17 21:22 APTT 32.3 Seconds (23.7-30.8) H 05/31/17 21:22 - Additional Findings Additional findings: Phys Exam: VS as below Constitutional: a&o x 2 (person and place), nad Head and Neck: neck supple, no jvd, trachea midline, carotid midline, no cervical/head mass Eyes: jaydon, nonicteric sclera, eom intact ENT: auditory acuity grossly intact, throat not congested, no nasal deformity Cardio: rrr, no m/r/g, no carotid bruit, nml s1, s2 Pulm: no accessory muscle use, equal nml breath sounds bilaterally, ctab Abd: s/nt/nd, nbs x 4 q, no palpable masses Derm: no rashes, no ulcers, no lesions Extr: no edema, no cyanosis, no calf tenderness, no lesions, no varicosities : Penis appears dry, excoriated. Neurologic: CN 2-12 grossly intact, flexion posture of UE, legs and hip in flexion Assessment and Plan - Assessment and Plan (Free Text) Plan: 1) Sepsis 2/2 to UTI in a patient with a Chronic In-dwelling catheter Vancomycin IVF Urine culture pending ID C/s 2) Iron Deficiency N/N Anemia Possibly 2/2 GIB Drop in H&H in correction: hg 8.4-9.2 in hospital GI consulted: Will perform EGD tomorrow Holding [place] Fe, TIBC, % Sat all low 3) Sacral ulcers Wound care consult Contact precaution ordered given presence of MRSA in previous wound cultures Surgery C/s 4) Seizure disorder C/W prescribed correction medication May want to check a valproic acid level, though no reports of recent seizure activity, or evidence of this on exam 5) Metabolic Alkalosis Urine chloride ordered: pending 6) DVT/GI PPHXS Protonix/SCDs <Gabriel Amaya - Last Filed: 06/23/17 11:49> Objective - Vital Signs/Intake and Output Vital Signs (last 24 hours): Temp Pulse Resp BP Pulse Ox 98.7 F 86 18 133/75 100 06/04/17 15:54 06/04/17 15:54 06/04/17 15:54 06/04/17 15:54 06/04/17 15:54 - Labs Labs: 06/04/17 09:09 06/03/17 08:00 PT 14.1 Seconds (9.9-11.8) H 06/03/17 08:00 INR 1.31 (0.93-1.08) H 06/03/17 08:00 APTT 32.3 Seconds (23.7-30.8) H 05/31/17 21:22 Attending/Attestation - Attestation I have personally seen and examined this patient.: Yes I have fully participated in the care of the patient.: Yes I have reviewed all pertinent clinical information, including history, physical exam and plan: Yes Notes (Text): 06/23/17 11:49 Medical record note made by the resident after discussion with my direction and input after the patient was personally seen by me. I have reviewed the chart and agree that the record accurately reflects my personal performance of the history, physical, decision making, and plan for the patient.
[2017-06-03 04:30] LABS: CHLORIDE URINE 52 mmol/L (32-290)
--- NOTE | 2017-06-03 07:55 | CP.PCM.PN ---
Subjective - Date & Time of Evaluation Date of Evaluation: 06/03/17 Time of Evaluation: 07:49 - Subjective Subjective: Surgery Progress Note for Dr. Bowling Patient seen and examined at bedside. Improvement in mental status, now more verbal; asnwering yes/no questions and giving occasional few-word answers. No acute events overnight reported. No overt distress noted at time of exam. Objective - Vital Signs/Intake and Output Vital Signs (last 24 hours): Temp Pulse Resp BP Pulse Ox 97.7 F 92 H 20 151/80 H 98 06/02/17 16:30 06/02/17 17:39 06/02/17 16:30 06/02/17 17:39 06/02/17 16:30 Intake and Output: 06/03/17 06/03/17 06:59 18:59 Intake Total 1714 Output Total 350 Balance 1364 - Medications Medications: Current Medications Artificial Tears (Refresh Opth Soln) 0 ml OP DAILY [facility] Last Admin: 06/02/17 11:09 Dose: 0.3 ml Ascorbic Acid (Vitamin C 500 Mg Tab) 500 mg PO DAILY [facility] Last Admin: 06/02/17 11:06 Dose: 500 mg Atorvastatin Calcium (Lipitor) 20 mg PO DIN [facility] Last Admin: 06/02/17 17:45 Dose: 20 mg Carvedilol (Coreg) 3.125 mg PO 0800,1700 [facility] Last Admin: 06/02/17 17:39 Dose: 3.125 mg Cholecalciferol (Vitamin D) 2,000 iu PO DAILY [facility] Last Admin: 06/02/17 11:07 Dose: 2,000 iu Collagenase (Santyl) 0 gm TOP BID [facility] Last Admin: 06/02/17 17:46 Dose: 1 u Divalproex Sodium (Depakote Sprinkles) 500 mg PO BID [facility] Last Admin: 06/02/17 17:44 Dose: 500 mg Cefepime HCl (Maxipime 1gm) 1 gm in 100 mls @ 100 mls/hr IVPB Q12 [facility] PRN Reason: Protocol Last Admin: 06/02/17 22:51 Dose: 100 mls/hr Sodium Chloride (Sodium Chloride 0.9%) 1,000 mls @ 100 mls/hr IV .Q10H [facility] Last Admin: 06/02/17 11:10 Dose: 100 mls/hr Vancomycin HCl (Vancomycin 1gm) 1 gm in 250 mls @ 167 mls/hr IVPB Q12H [facility] PRN Reason: Protocol Last Admin: 06/03/17 00:00 Dose: 167 mls/hr Multivitamins/Vitamin C 10 ml/Amino Acids/Electrolytes/Dextrose 2,010 mls @ 83 mls/hr IV .Q24H [facility] Stop: 06/05/17 17:59 Last Admin: 06/02/17 17:46 Dose: 83 mls/hr Fat Emulsion Intravenous (Intralipid 20%) 250 mls @ 21 mls/hr IV DAILY@1800 [facility] Stop: 06/05/17 17:59 Last Admin: 06/02/17 17:45 Dose: 21 mls/hr Nystatin (Nystop Topical Powder) 0 gm TOP TID [facility] Last Admin: 06/02/17 17:46 Dose: 1 u Tamsulosin HCl (Flomax) 0.4 mg PO DAILY [facility] Last Admin: 06/02/17 11:06 Dose: 0.4 mg Thiamine HCl (Vitamin B1 Tab) 100 mg PO DAILY [facility] Last Admin: 06/02/17 11:08 Dose: 100 mg Tolterodine Tartrate (Detrol) 2 mg PO BID [facility] Last Admin: 06/02/17 17:44 Dose: 2 mg - Labs Labs: 06/02/17 11:20 06/02/17 11:20 PT 13.7 Seconds (9.9-11.8) H 05/31/17 21:22 INR 1.27 (0.93-1.08) H 05/31/17 21:22 APTT 32.3 Seconds (23.7-30.8) H 05/31/17 21:22 - Constitutional Appears: Non-toxic, No Acute Distress - Head Exam Head Exam: ATRAUMATIC, NORMAL INSPECTION, NORMOCEPHALIC - Eye Exam Eye Exam: EOMI, Normal appearance. absent: Conjunctival injection, Scleral icterus Pupil Exam: absent: Irregular, Unequal - ENT Exam ENT Exam: Mucous Membranes Moist Additional comments: Mouth tremulous - Respiratory Exam Respiratory Exam: Clear to Ausculation Bilateral, NORMAL BREATHING PATTERN. absent: Accessory Muscle Use, Chest Wall Tenderness, Decreased Breath Sounds, Rales, Rhonchi, Wheezes - Cardiovascular Exam Cardiovascular Exam: REGULAR RHYTHM, RRR, +S1, +S2. absent: Bradycardia, Tachycardia, Irregular Rhythm, +S4 - GI/Abdominal Exam GI & Abdominal Exam: Soft, Normal Bowel Sounds. absent: Distended, Firm, Rigid , Tenderness, Diminished Bowel Sounds, Hyperactive Bowel Sounds, Hypoactive Bowel Sounds - Extremities Exam Extremities Exam: Pedal Edema (+2 pitting edema from feet to mid shins, +1 from mid-shins to knees, bilaterally). absent: Calf Tenderness, Tenderness - Back Exam Back Exam: absent: rash noted - Neurological Exam Additional comments: awake and alert, moving extremities spontaneously, tremulous RUE, LUE contractured, able to answer yes/no questions appropriately, following some commands appropriately - Psychiatric Exam Psychiatric exam: absent: Agitated, Anxious, Normal Affect, Normal Mood Additional comments: able to answer yes/no questions appropriately, not overtly anxious/agitated - Skin Additional comments: 2x Stage III sacral decub ulcers along perianal folds: -Left wound measures 3x2 cm -Right wound measures 5x2 cm -both show extension into subcutaneous fat layer, no active bleeding or oozing , no grossly necrotic tissue noted, no eschars 1x Stage I-II sacral decub ulcer: -1x2 cm ulcer on right buttock All sites remained bandaged Assessment and Plan - Assessment and Plan (Free Text) Assessment: This is a 81 yo AA M with PMH of cerebral palsy, seizures, prior CVA, HTN, DM, chronic indwelling Saleem with recurring UTIs, constipation, rectal bleeding likely 2/2 hemorrhoids, and anemia who presented to [facility] [place] with acute drop in H&H concerning for possible new GI bleed. We were consulted for multiple sacral ulcers. Plan: -Air mattress -turn q2 -Optifoam and santyl -keep wounds clean -No acute surgical intervention at this time -Further recs as per Dr. Bowling Will discuss with Dr. Bowling
[2017-06-03 08:21] LABS: BASO # 0.01 K/mm3 (0.0-2.0); BASO % 0.1 % (0.0-3.0); EOS # 0.3 (0.0-0.7); EOS % 3.5 % (1.5-5.0); GRAN % 46.1 % (50.0-68.0); LYMPH # 2.2 (1.2-3.4); LYMPH % 30.8 % (22.0-35.0); MEAN CELL VOLUME 95.2 fl (80.0-105.0); MEAN CORPUSCULAR HEMOGLOBIN 30.1 pg (25.0-35.0); MEAN CORPUSCULAR HGB CONC 31.6 g/dl (31.0-37.0); MEAN PLATELET VOLUME 9.2 fl (7.0-11.0); MONO # 1.4 (0.1-0.6); MONO % 19.5 % (1.0-6.0); PLATELET COUNT 319 10^3/uL (120.0-450.0); RED CELL DISTRIBUTION WIDTH 18.1 % (11.5-14.5); WHITE BLOOD COUNT 7.2 10^3/ul (4.5-11.0)
[2017-06-03 08:26] LABS: INR 1.31 (0.93-1.08)
[2017-06-03 08:27] LABS: ALB/GLOB RATIO 0.7 (1.1-1.8); ALKALINE PHOSPHATASE 46 U/L (38-133); ALT/SGPT 22 U/L (7-56); AST/SGOT 29 U/L (15-59); BILIRUBIN,TOTAL 0.3 mg/dL (0.2-1.3); BLOOD UREA NITROGEN 10 mg/dL (7-21); CARBON DIOXIDE 29 mmol/L (21-33); CHLORIDE 107 mmol/L (98-107); GFR AFRICAN-AMERICAN > 60; GLUCOSE,RANDOM 107 mg/dL (70-110); POTASSIUM 3.4 mmol/L (3.6-5.0); SODIUM 140 mmol/L (132-148); TOTAL PROTEIN 4.9 g/dL (5.8-8.3)
[2017-06-03 08:46] LABS: HEMATOCRIT 23.7 % (42.0-52.0)
[2017-06-03 08:47] LABS: ADD MANUAL DIFF? NO
--- NOTE | 2017-06-03 09:59 | CP.PCM.PN ---
Subjective - Date & Time of Evaluation Date of Evaluation: 06/03/17 Time of Evaluation: 09:48 - Subjective Subjective: Patient has very poor veins,needs iv access. Objective - Vital Signs/Intake and Output Vital Signs (last 24 hours): Temp Pulse Resp BP Pulse Ox 98.3 F 92 H 20 141/96 H 96 06/03/17 07:51 06/03/17 07:51 06/03/17 07:51 06/03/17 07:51 06/03/17 07:51 Intake and Output: 06/03/17 06/03/17 06:59 18:59 Intake Total 1714 Output Total 350 Balance 1364 - Medications Medications: Current Medications Artificial Tears (Refresh Opth Soln) 0 ml OP DAILY [facility] Last Admin: 06/02/17 11:09 Dose: 0.3 ml Ascorbic Acid (Vitamin C 500 Mg Tab) 500 mg PO DAILY [facility] Last Admin: 06/02/17 11:06 Dose: 500 mg Atorvastatin Calcium (Lipitor) 20 mg PO DIN [facility] Last Admin: 06/02/17 17:45 Dose: 20 mg Carvedilol (Coreg) 3.125 mg PO 0800,1700 [facility] Last Admin: 06/02/17 17:39 Dose: 3.125 mg Cholecalciferol (Vitamin D) 2,000 iu PO DAILY [facility] Last Admin: 06/02/17 11:07 Dose: 2,000 iu Collagenase (Santyl) 0 gm TOP BID [facility] Last Admin: 06/02/17 17:46 Dose: 1 u Divalproex Sodium (Depakote Sprinkles) 500 mg PO BID [facility] Last Admin: 06/02/17 17:44 Dose: 500 mg Cefepime HCl (Maxipime 1gm) 1 gm in 100 mls @ 100 mls/hr IVPB Q12 [facility] PRN Reason: Protocol Last Admin: 06/02/17 22:51 Dose: 100 mls/hr Sodium Chloride (Sodium Chloride 0.9%) 1,000 mls @ 100 mls/hr IV .Q10H [facility] Last Admin: 06/02/17 11:10 Dose: 100 mls/hr Vancomycin HCl (Vancomycin 1gm) 1 gm in 250 mls @ 167 mls/hr IVPB Q12H [facility] PRN Reason: Protocol Last Admin: 06/03/17 00:00 Dose: 167 mls/hr Multivitamins/Vitamin C 10 ml/Amino Acids/Electrolytes/Dextrose 2,010 mls @ 83 mls/hr IV .Q24H [facility] Stop: 06/05/17 17:59 Last Admin: 06/02/17 17:46 Dose: 83 mls/hr Fat Emulsion Intravenous (Intralipid 20%) 250 mls @ 21 mls/hr IV DAILY@1800 [facility] Stop: 06/05/17 17:59 Last Admin: 06/02/17 17:45 Dose: 21 mls/hr Potassium Chloride (Potassium Chloride 20 Meq/100 Ml) 20 meq in 100 mls @ 50 mls/hr IVPB Q2H [facility] Stop: 06/03/17 12:59 Nystatin (Nystop Topical Powder) 0 gm TOP TID [facility] Last Admin: 06/02/17 17:46 Dose: 1 u Tamsulosin HCl (Flomax) 0.4 mg PO DAILY [facility] Last Admin: 06/02/17 11:06 Dose: 0.4 mg Thiamine HCl (Vitamin B1 Tab) 100 mg PO DAILY [facility] Last Admin: 06/02/17 11:08 Dose: 100 mg Tolterodine Tartrate (Detrol) 2 mg PO BID [facility] Last Admin: 06/02/17 17:44 Dose: 2 mg - Labs Labs: 06/03/17 08:00 06/03/17 08:00 PT 14.1 Seconds (9.9-11.8) H 06/03/17 08:00 INR 1.31 (0.93-1.08) H 06/03/17 08:00 APTT 32.3 Seconds (23.7-30.8) H 05/31/17 21:22 - Constitutional Appears: No Acute Distress Assessment and Plan - Assessment and Plan (Free Text) Assessment: Poor venous access Plan: Hep lock inserted in the R wrist region. #24 angiocath used.
[2017-06-03] MEDS ORDERED: Propofol 10 mg/ml Inj (20 ML) ONE (10:24)
[2017-06-03] MEDS ORDERED: Sodium Chloride 0.9% 1,000 ML IV SCH (10:30)
[2017-06-03] MEDS ORDERED: Lidocaine 1% Inj (20ml) ONE (10:41)
--- NOTE | 2017-06-03 11:56 | CP.PCM.PN ---
Subjective - Date & Time of Evaluation Date of Evaluation: 06/03/17 Time of Evaluation: 11:52 - Subjective Subjective: Patient seen and examined, no acute events overnight. s/p EGD this morning without any significant findings. Objective - Vital Signs/Intake and Output Vital Signs (last 24 hours): Temp Pulse Resp BP Pulse Ox 98.3 F 91 H 18 167/92 H 99 06/03/17 11:13 06/03/17 11:13 06/03/17 11:13 06/03/17 11:13 06/03/17 11:13 Intake and Output: 06/03/17 06/03/17 06:59 18:59 Intake Total 1714 Output Total 350 Balance 1364 - Medications Medications: Current Medications Artificial Tears (Refresh Opth Soln) 0 ml OP DAILY [facility] Last Admin: 06/02/17 11:09 Dose: 0.3 ml Ascorbic Acid (Vitamin C 500 Mg Tab) 500 mg PO DAILY [facility] Last Admin: 06/02/17 11:06 Dose: 500 mg Atorvastatin Calcium (Lipitor) 20 mg PO DIN [facility] Last Admin: 06/02/17 17:45 Dose: 20 mg Carvedilol (Coreg) 3.125 mg PO 0800,1700 [facility] Last Admin: 06/02/17 17:39 Dose: 3.125 mg Cholecalciferol (Vitamin D) 2,000 iu PO DAILY [facility] Last Admin: 06/02/17 11:07 Dose: 2,000 iu Collagenase (Santyl) 0 gm TOP BID [facility] Last Admin: 06/02/17 17:46 Dose: 1 u Divalproex Sodium (Depakote Sprinkles) 500 mg PO BID [facility] Last Admin: 06/02/17 17:44 Dose: 500 mg Cefepime HCl (Maxipime 1gm) 1 gm in 100 mls @ 100 mls/hr IVPB Q12 [facility] PRN Reason: Protocol Last Admin: 06/02/17 22:51 Dose: 100 mls/hr Sodium Chloride (Sodium Chloride 0.9%) 1,000 mls @ 100 mls/hr IV .Q10H [facility] Last Admin: 06/02/17 11:10 Dose: 100 mls/hr Vancomycin HCl (Vancomycin 1gm) 1 gm in 250 mls @ 167 mls/hr IVPB Q12H [facility] PRN Reason: Protocol Last Admin: 06/03/17 00:00 Dose: 167 mls/hr Potassium Chloride (Potassium Chloride 20 Meq/100 Ml) 20 meq in 100 mls @ 50 mls/hr IVPB Q2H [facility] Stop: 06/03/17 12:59 Sodium Chloride (Sodium Chloride 0.9%) 1,000 mls @ 100 mls/hr IV .Q10H [facility] Nystatin (Nystop Topical Powder) 0 gm TOP TID [facility] Last Admin: 06/02/17 17:46 Dose: 1 u Tamsulosin HCl (Flomax) 0.4 mg PO DAILY [facility] Last Admin: 06/02/17 11:06 Dose: 0.4 mg Thiamine HCl (Vitamin B1 Tab) 100 mg PO DAILY [facility] Last Admin: 06/02/17 11:08 Dose: 100 mg Tolterodine Tartrate (Detrol) 2 mg PO BID [facility] Last Admin: 06/02/17 17:44 Dose: 2 mg - Labs Labs: 06/03/17 08:00 06/03/17 08:00 PT 14.1 Seconds (9.9-11.8) H 06/03/17 08:00 INR 1.31 (0.93-1.08) H 06/03/17 08:00 APTT 32.3 Seconds (23.7-30.8) H 05/31/17 21:22 Assessment and Plan - Assessment and Plan (Free Text) Assessment: HTN / DM Cerebral palsy CVA Seizure disorder UTI Anemia, normocytic - s/p EGD this morning without evidence of recent or active bleeding Plan: - Advance diet as tolerated - Continue to monitor H/H, no overt bleeding noted - Continue with antibiotic therapy as per ID - Patient would likely benefit from elective colonoscopy to complete anemia workup, however would defer procedure for now given treatment of active sacral decubitus ulcer. Would reconsider outpatient procedure if patient's family agreeable for additional workup and following medical optimization. Will sign off case, please reconsult as necessary. Case discussed with Dr. Amaya.
[2017-06-03] MEDS: Divalproex 125 mg EC Sprinkle Cap PO SCH ×2 (11:59→18:59)
[2017-06-03] MEDS: Cefepime 1gm in NS 100ml 1 GM/100 ML BAG IVPB SCH (12:00)
[2017-06-03] MEDS: Nystatin 100,000 Units/gm Topical Pow(15 gm) TOP SCH (12:00)
[2017-06-03] MEDS: Collagenase 250 Units/gm Ointment(30 gm) TOP SCH (12:01)
[2017-06-03] MEDS: Lubricant Eye Drops UD OP SCH (12:01)
[2017-06-03] MEDS: Vancomycin 1gm in NS 250ml 1 GM/250 ML BAG IVPB SCH ×3 (12:14→13:41)
[2017-06-03] MEDS ORDERED: Lidocaine 2% Inj (20ml) ONE (12:27)
--- NOTE | 2017-06-03 13:17 | VASCULAR ---
PROCEDURE: Ultrasound and fluoroscopically placed right upper extremity PICC line. HISTORY: Sepsis. Limited IV access. Needs blood transfusion and bionics. PHYSICIAN(S): Zion Ca MD. TECHNIQUE: The relative risks and indications of the procedure were explained to the patient and consent obtained. The patient was placed supine on the arteriogram table and the right arm prepped and draped in the usual sterile fashion. A tourniquet was applied to the right axilla. 1% Xylocaine was used to anesthetize the skin and soft tissues at the puncture site above the elbow. The right brachial vein was punctured under direct ultrasound guidance with a micropuncture set. A 0.018 guidewire was advanced centrally and used to measure the length to the SVC/RA junction. A 5 [place] dual lumen PICC line 38 cm long was advanced to the SVC/RA junction. The catheter was flushed and secured. The patient tolerated the procedure well. IMPRESSION: 1. Ultrasound and fluoroscopically placed right upper extremity PICC line. A 5 [place] dual lumen PICC line 38 cm long was advanced to the SVC/RA junction.
[2017-06-03] MEDS: Sodium Chloride 0.9% 1,000 ML IV SCH (13:39)
--- NOTE | 2017-06-03 15:24 | CP.PCM.PN ---
Subjective - Date & Time of Evaluation Date of Evaluation: 06/03/17 Time of Evaluation: 07:00 - Subjective Subjective: Pt s/e bedside. Patient's mental status is greatly improved today, asked for ice cream. Is responsive to commands and is verbalizing. A&O X 4. Patient went for EGD today. PICC line was placed today due to poor access. No new complaints. Objective - Vital Signs/Intake and Output Vital Signs (last 24 hours): Temp Pulse Resp BP Pulse Ox 97.8 F 82 16 134/92 H 97 06/03/17 11:45 06/03/17 11:45 06/03/17 11:45 06/03/17 11:45 06/03/17 11:45 Intake and Output: 06/03/17 06/03/17 06:59 18:59 Intake Total 1714 Output Total 350 800 Balance 1364 -800 - Medications Medications: Current Medications Artificial Tears (Refresh Opth Soln) 0 ml OP DAILY [facility] Last Admin: 06/03/17 12:01 Dose: Not Given Ascorbic Acid (Vitamin C 500 Mg Tab) 500 mg PO DAILY [facility] Last Admin: 06/03/17 12:02 Dose: Not Given Atorvastatin Calcium (Lipitor) 20 mg PO DIN [facility] Last Admin: 06/02/17 17:45 Dose: 20 mg Carvedilol (Coreg) 3.125 mg PO 0800,1700 [facility] Last Admin: 06/03/17 11:59 Dose: Not Given Cholecalciferol (Vitamin D) 2,000 iu PO DAILY [facility] Last Admin: 06/03/17 12:02 Dose: Not Given Collagenase (Santyl) 0 gm TOP BID [facility] Last Admin: 06/03/17 12:01 Dose: Not Given Divalproex Sodium (Depakote Sprinkles) 500 mg PO BID [facility] Last Admin: 06/03/17 11:59 Dose: Not Given Furosemide (Lasix) 20 mg IVP ONCE ONE Stop: 06/03/17 16:15 Cefepime HCl (Maxipime 1gm) 1 gm in 100 mls @ 100 mls/hr IVPB Q12 [facility] PRN Reason: Protocol Last Admin: 06/03/17 12:00 Dose: Not Given Sodium Chloride (Sodium Chloride 0.9%) 1,000 mls @ 100 mls/hr IV .Q10H [facility] Last Admin: 06/03/17 13:39 Dose: 100 mls/hr Vancomycin HCl (Vancomycin 1gm) 1 gm in 250 mls @ 167 mls/hr IVPB Q12H [facility] PRN Reason: Protocol Last Admin: 06/03/17 13:41 Dose: 167 mls/hr Sodium Chloride (Sodium Chloride 0.9%) 1,000 mls @ 100 mls/hr IV .Q10H [facility] Nystatin (Nystop Topical Powder) 0 gm TOP TID [facility] Last Admin: 06/03/17 12:00 Dose: Not Given Tamsulosin HCl (Flomax) 0.4 mg PO DAILY [facility] Last Admin: 06/03/17 11:59 Dose: Not Given Thiamine HCl (Vitamin B1 Tab) 100 mg PO DAILY [facility] Last Admin: 06/03/17 12:02 Dose: Not Given Tolterodine Tartrate (Detrol) 2 mg PO BID [facility] Last Admin: 06/03/17 11:59 Dose: Not Given - Labs Labs: 06/03/17 08:00 06/03/17 08:00 PT 14.1 Seconds (9.9-11.8) H 06/03/17 08:00 INR 1.31 (0.93-1.08) H 06/03/17 08:00 APTT 32.3 Seconds (23.7-30.8) H 05/31/17 21:22 - Additional Findings Additional findings: Phys Exam: VS as below Constitutional: a&o x 2 (person and place), nad Head and Neck: neck supple, no jvd, trachea midline, carotid midline, no cervical/head mass Eyes: jaydon, nonicteric sclera, eom intact ENT: auditory acuity grossly intact, throat not congested, no nasal deformity Cardio: rrr, no m/r/g, no carotid bruit, nml s1, s2 Pulm: no accessory muscle use, equal nml breath sounds bilaterally, ctab Abd: s/nt/nd, nbs x 4 q, no palpable masses Derm: no rashes, no ulcers, no lesions Extr: no edema, no cyanosis, no calf tenderness, no lesions, no varicosities : Penis appears dry, excoriated. Neurologic: CN 2-12 grossly intact, flexion posture of UE, legs and hip in flexion Assessment and Plan - Assessment and Plan (Free Text) Plan: 1) Sepsis 2/2 to UTI in a patient with a Chronic In-dwelling catheter Vancomycin IVF Urine culture pending ID C/s: continue ABx 2) Iron Deficiency N/N Anemia Possibly 2/2 GIB Drop in H&H in long term: hg 8.4-9.2 in hospital GI consulted: EGD was normal, patient tolerated well. Recommend o/p colonoscopy to complete anemia workup. Holding Eliquis Fe, TIBC, % Sat all low 3) Sacral ulcers Wound care consult Contact precaution ordered given presence of MRSA in previous wound cultures Surgery C/s: 2x Stage III sacral decub ulcers along perianal folds & 1x Stage I-II sacral decub ulcer -Air mattress -Turn q2 -Optifoam and santyl -Keep wounds clean -No acute surgical intervention at this time 4) Seizure disorder C/W prescribed long term medication May want to check a valproic acid level, though no reports of recent seizure activity, or evidence of this on exam 5) Metabolic Alkalosis Urine chloride ordered: pending 6) DVT/GI PPHXS Protonix/SCDs
--- NOTE | 2017-06-03 18:24 | CP.PCM.PN ---
Subjective - Date & Time of Evaluation Date of Evaluation: 06/03/17 Time of Evaluation: 11:15 - Subjective Subjective: Comfortable, not in distress, afebrile. Objective - Vital Signs/Intake and Output Vital Signs (last 24 hours): Temp Pulse Resp BP Pulse Ox 97.7 F 92 H 20 151/80 H 98 06/02/17 16:30 06/02/17 17:39 06/02/17 16:30 06/02/17 17:39 06/02/17 16:30 Intake and Output: 06/02/17 06/03/17 18:59 06:59 Intake Total 120 240 Output Total 500 350 Balance -380 -110 - Medications Medications: Current Medications Artificial Tears (Refresh Opth Soln) 0 ml OP DAILY [facility] Last Admin: 06/02/17 11:09 Dose: 0.3 ml Ascorbic Acid (Vitamin C 500 Mg Tab) 500 mg PO DAILY [facility] Last Admin: 06/02/17 11:06 Dose: 500 mg Atorvastatin Calcium (Lipitor) 20 mg PO DIN [facility] Last Admin: 06/02/17 17:45 Dose: 20 mg Carvedilol (Coreg) 3.125 mg PO 0800,1700 [facility] Last Admin: 06/02/17 17:39 Dose: 3.125 mg Cholecalciferol (Vitamin D) 2,000 iu PO DAILY [facility] Last Admin: 06/02/17 11:07 Dose: 2,000 iu Collagenase (Santyl) 0 gm TOP BID [facility] Last Admin: 06/02/17 17:46 Dose: 1 u Divalproex Sodium (Depakote Sprinkles) 500 mg PO BID [facility] Last Admin: 06/02/17 17:44 Dose: 500 mg Cefepime HCl (Maxipime 1gm) 1 gm in 100 mls @ 100 mls/hr IVPB Q12 [facility] PRN Reason: Protocol Last Admin: 06/02/17 22:51 Dose: 100 mls/hr Sodium Chloride (Sodium Chloride 0.9%) 1,000 mls @ 100 mls/hr IV .Q10H [facility] Last Admin: 06/02/17 11:10 Dose: 100 mls/hr Vancomycin HCl (Vancomycin 1gm) 1 gm in 250 mls @ 167 mls/hr IVPB Q12H [facility] PRN Reason: Protocol Last Admin: 06/03/17 00:00 Dose: 167 mls/hr Multivitamins/Vitamin C 10 ml/Amino Acids/Electrolytes/Dextrose 2,010 mls @ 83 mls/hr IV .Q24H [facility] Stop: 06/05/17 17:59 Last Admin: 06/02/17 17:46 Dose: 83 mls/hr Fat Emulsion Intravenous (Intralipid 20%) 250 mls @ 21 mls/hr IV DAILY@1800 [facility] Stop: 06/05/17 17:59 Last Admin: 06/02/17 17:45 Dose: 21 mls/hr Nystatin (Nystop Topical Powder) 0 gm TOP TID [facility] Last Admin: 06/02/17 17:46 Dose: 1 u Tamsulosin HCl (Flomax) 0.4 mg PO DAILY [facility] Last Admin: 06/02/17 11:06 Dose: 0.4 mg Thiamine HCl (Vitamin B1 Tab) 100 mg PO DAILY [facility] Last Admin: 06/02/17 11:08 Dose: 100 mg Tolterodine Tartrate (Detrol) 2 mg PO BID [facility] Last Admin: 06/02/17 17:44 Dose: 2 mg - Labs Labs: 06/02/17 11:20 06/02/17 11:20 PT 13.7 Seconds (9.9-11.8) H 05/31/17 21:22 INR 1.27 (0.93-1.08) H 05/31/17 21:22 APTT 32.3 Seconds (23.7-30.8) H 05/31/17 21:22 - Constitutional Appears: Non-toxic, No Acute Distress - Head Exam Head Exam: NORMAL INSPECTION - ENT Exam ENT Exam: Mucous Membranes Moist - Neck Exam Neck Exam: absent: Lymphadenopathy, Meningismus - Respiratory Exam Respiratory Exam: Decreased Breath Sounds - Cardiovascular Exam Cardiovascular Exam: +S1, +S2 - GI/Abdominal Exam GI & Abdominal Exam: Soft. absent: Tenderness Assessment and Plan - Assessment and Plan (Free Text) Plan: Assessment consider complicated UTI with E. coli in this patient with chronic indwelling Saleem catheter Infected stage 3 sacral decubitus ulcer with Staph. aureus dementia cerebral palsy HTN seizure disorder Plan continue Vancomycin and change Cefepime to Cefazolin (day 2); recommend change Saleem catheter follow up sensitivities of the Staph aureus in the decubitus ulcer will monitor clinically
[2017-06-04] MEDS: Vancomycin 1gm in NS 250ml 1 GM/250 ML BAG IVPB SCH ×2 (00:40→11:46)
[2017-06-04] MEDS: ceFAZolin 1 gm in NS 1 GM/100 ML BAG IVPB SCH ×3 (03:18→13:53)
[2017-06-04 08:24] VITALS: RESP 18
[2017-06-04 09:19] LABS: HEMATOCRIT 25.5 % (42.0-52.0); MEAN CELL VOLUME 94.4 fl (80.0-105.0); MEAN CORPUSCULAR HEMOGLOBIN 29.6 pg (25.0-35.0); MEAN CORPUSCULAR HGB CONC 31.4 g/dl (31.0-37.0); MEAN PLATELET VOLUME 9.4 fl (7.0-11.0); RED CELL DISTRIBUTION WIDTH 18.5 % (11.5-14.5); WHITE BLOOD COUNT 7.2 10^3/ul (4.5-11.0)
[2017-06-04] MEDS: Nystatin 100,000 Units/gm Topical Pow(15 gm) TOP SCH (10:00)
[2017-06-04] MEDS: Divalproex 125 mg EC Sprinkle Cap PO SCH (11:45)
[2017-06-04] MEDS: Lubricant Eye Drops UD OP SCH (11:49)
--- NOTE | 2017-06-04 15:36 | PN ---
DATE: 06/04/2017 SUBJECTIVE: The patient is in bed, no acute distress and was seen earlier this morning. PHYSICAL EXAMINATION: VITAL SIGNS: Temperature is 97, blood pressure is 140/70, respiratory rate of 16. HEENT: Unremarkable. NECK: Supple. LUNGS: Decreased breath sounds. HEART: Normal S1 and S2 ABDOMEN: Soft, nontender. LABORATORY DATA: Reveals a white count of 7.2, hemoglobin of 8, platelets of 335. Chemistries reveal a BUN with creatinine of 0.5 and microbiology reveals MRSA from the sacrum and beckwith sensitive E. coli. ASSESSMENT AND PLAN: A 81-year-old with Escherichia coli urinary tract infection, complicated male with urinary tract infection, has a chronic Saleem catheter, which was replaced, and a decubitus ulcer with methicillin-resistant staphylococcus aureus, dementia and cerebral palsy, hypertension, seizures. We will discontinue the vancomycin, may use cefazolin for short course therapy would be completed. Jori Lynch MD
[2017-06-04 15:54] VITALS: BP 133/75; PULSE 86; TEMP 98.7; O2SAT 100
--- NOTE | 2017-06-04 22:20 | CP.PCM.DIS ---
Provider - Provider Date of Admission: 06/01/17 01:44 Attending physician: Gabriel Amaya MD Primary care physician: Gabriel Amaya MD Consults: GI - Dr. Aron CENTENO - Dr. Lynch surgery - Dr. Bowling neurology - Dr. Monk Time Spent in preparation of Discharge (in minutes): 35 Hospital Course - Lab Results Lab Results: Micro Results 06/01/17 22:46 Sacral Gram Stain - Final 06/01/17 22:46 Sacral Wound Culture - Final Staphylococcus Aureus Most Recent Lab Values WBC 7.2 10^3/ul (4.5-11.0) 06/04/17 09:09 RBC 2.70 10^6/uL (3.5-6.1) L 06/04/17 09:09 Hgb 8.0 g/dL (14.0-18.0) L 06/04/17 09:09 Hct 25.5 % (42.0-52.0) L 06/04/17 09:09 MCV 94.4 fl (80.0-105.0) 06/04/17 09:09 MCH 29.6 pg (25.0-35.0) 06/04/17 09:09 MCHC 31.4 g/dl (31.0-37.0) 06/04/17 09:09 RDW 18.5 % (11.5-14.5) H 06/04/17 09:09 Plt Count 335 10^3/uL (120.0-450.0) 06/04/17 09:09 MPV 9.4 fl (7.0-11.0) 06/04/17 09:09 Gran % 46.1 % (50.0-68.0) L 06/03/17 08:00 Lymph % (Auto) 30.8 % (22.0-35.0) 06/03/17 08:00 [place] % (Auto) 19.5 % (1.0-6.0) H 06/03/17 08:00 Eos % (Auto) 3.5 % (1.5-5.0) 06/03/17 08:00 Baso % (Auto) 0.1 % (0.0-3.0) 06/03/17 08:00 Gran # 3.30 (1.4-6.5) 06/03/17 08:00 Lymph # 2.2 (1.2-3.4) 06/03/17 08:00 [place] # 1.4 (0.1-0.6) H 06/03/17 08:00 Eos # 0.3 (0.0-0.7) 06/03/17 08:00 Baso # 0.01 K/mm3 (0.0-2.0) 06/03/17 08:00 PT 14.1 Seconds (9.9-11.8) H 06/03/17 08:00 INR 1.31 (0.93-1.08) H 06/03/17 08:00 APTT 32.3 Seconds (23.7-30.8) H 05/31/17 21:22 pO2 201 mm/Hg (30-55) H 06/01/17 01:45 VBG pH 7.51 (7.32-7.43) H 06/01/17 01:45 VBG pCO2 45.0 (40-60) 06/01/17 01:45 VBG HCO3 35.9 mmol/l (21-28) H 06/01/17 01:45 VBG Total CO2 37.3 mmol.L (22-28) H 06/01/17 01:45 VBG O2 Sat (Calc) 100.0 % (40-65) H 06/01/17 01:45 VBG Base Excess 11.4 mmol/L (0.0-2.0) H 06/01/17 01:45 VBG Potassium 3.6 mmol/L (3.6-5.2) 06/01/17 01:45 Sodium 144.0 mmol/L (132-148) 06/01/17 01:45 Chloride 110.0 mmol/L (98-107) H 06/01/17 01:45 Glucose 106 mg/dl (75-110) 06/01/17 01:45 Lactate 1.2 mmol/L (0.7-2.1) 06/01/17 01:45 FiO2 21.0 % 06/01/17 01:45 Sodium 140 mmol/L (132-148) 06/03/17 08:00 Potassium 3.4 mmol/L (3.6-5.0) L 06/03/17 08:00 Chloride 107 mmol/L (98-107) 06/03/17 08:00 Carbon Dioxide 29 mmol/L (21-33) 06/03/17 08:00 Anion Gap 7 (10-20) L 06/03/17 08:00 BUN 10 mg/dL (7-21) 06/03/17 08:00 Creatinine 0.5 mg/dL (0.5-1.4) 06/03/17 08:00 Est GFR ( Amer) > 60 06/03/17 08:00 Est GFR (Non-Af Amer) > 60 06/03/17 08:00 POC Glucose (mg/dL) 127 mg/dL (65-110) H 06/04/17 16:00 Random Glucose 107 mg/dL (70-110) 06/03/17 08:00 Calcium 8.0 mg/dL (8.4-10.5) L 06/03/17 08:00 Phosphorus 2.8 mg/dL (2.5-4.5) 06/02/17 11:20 Magnesium 2.0 mg/dL (1.7-2.2) 06/03/17 10:14 Iron 18 ug/dL (45-180) L 06/01/17 10:40 TIBC 172 ug/dL (261-462) L 06/01/17 10:40 % Saturation 11 % (20-55) L 06/01/17 10:40 Ferritin 355.0 ng/mL 06/01/17 10:40 Total Bilirubin 0.3 mg/dL (0.2-1.3) 06/03/17 08:00 AST 29 U/L (15-59) 06/03/17 08:00 ALT 22 U/L (7-56) 06/03/17 08:00 Alkaline Phosphatase 46 U/L (38-133) 06/03/17 08:00 Lactate Dehydrogenase 392 U/L (333-699) 05/31/17 21:22 Total Creatine Kinase 29 U/L (35-230) L 05/31/17 21:22 Troponin I < 0.01 ng/mL 05/31/17 21:22 Total Protein 4.9 g/dL (5.8-8.3) L 06/03/17 08:00 Albumin 2.1 g/dL (3.0-4.8) L 06/03/17 08:00 Globulin 2.9 gm/dL 06/03/17 08:00 Albumin/Globulin Ratio 0.7 (1.1-1.8) L 06/03/17 08:00 Amylase 76 U/L (35-125) 05/31/17 21:22 Lipase 31 U/L (23-300) 05/31/17 21:22 Prostate Specific Ag 0.407 ng/ml (0.00-2.5) 06/02/17 11:20 Vitamin B12 795 pg/mL (239-931) 06/01/17 10:40 Folate 17.6 ng/mL 06/01/17 10:40 Venous Blood Potassium 3.6 mmol/L (3.6-5.2) 06/01/17 01:45 Urine Color Yellow (YELLOW) 06/01/17 00:55 Urine Appearance Sl cloudy (CLEAR) 06/01/17 00:55 Urine pH 6.0 (4.7-8.0) 06/01/17 00:55 Ur Specific [place] >= 1.030 (1.005-1.035) 06/01/17 00:55 Urine Protein >=300 mg/dL (<30 mg/dL) H 06/01/17 00:55 Urine Glucose (UA) Negative mg/dL (NEGATIVE) 06/01/17 00:55 Urine Ketones Trace mg/dL (NEGATIVE) H 06/01/17 00:55 Urine Blood Large (NEGATIVE) H 06/01/17 00:55 Urine Nitrate Negative (NEGATIVE) 06/01/17 00:55 Urine Bilirubin Negative (NEGATIVE) 06/01/17 00:55 Urine Urobilinogen 4.0 E.U./dL (<1 E.U./dL) H 06/01/17 00:55 Ur Leukocyte Esterase Moderate [place]/uL (NEGATIVE) H 06/01/17 00:55 Urine RBC 1 - 3 /hpf (0-2) 06/01/17 00:55 Urine WBC Tntc /hpf (0-6) 06/01/17 00:55 Ur Epithelial Cells 0 - 2 /hpf (0-5) 06/01/17 00:55 Urine Bacteria Mod (NEG) 06/01/17 00:55 Urine Chloride 52 mmol/L (32-290) 06/01/17 14:00 Valproic Acid 45 ug/mL (50.0-100.0) L 06/01/17 10:40 Blood Type A NEGATIVE 06/03/17 12:21 Blood Type Confirm A NEGATIVE 05/31/17 23:23 Antibody Screen Negative 06/03/17 12:21 Crossmatch See Detail 06/03/17 12:21 BBK History Checked Patient has bt 06/03/17 12:21 - Hospital Course Hospital Course: Patient is a 81yo male with history of hypertension, diabetes, cerebral palsy, CVA, seizures, chronic indwelling vale complicated by recurrent UTIs, constipation and anemia that presented from [facility] with reports of acute drop in hemoglobin/hematocrit. Per reports from nursing facility, the patient had no signs of overt GI bleed (melena/hematochezia) and had normal color and form bowel movements. They reported good oral intake and the patient denied abdominal pain, nausea, vomiting however reliability of ROS was questionable due to cognitive impairment. He was evaluated by gastroenterology and underwent an endoscopy which revealed normal esophagus and stomach with no acute abnormalities. He was also noted to have a UTI secondary to his chronic indwelling vale catheter as well as a stage 3 decubitus ulcer. Surgery and ID were consulted for his infections. He was started on vancomycin and cefazolin pending cultures. Urine culture grew ESBL negative Ecoli and his sacral wound grew MRSA. His vale catheter was changed and ID recommended discontinuation of his vancomycin and to continue cefazolin for 5 days. His hemoglobin improved and he was given IV venofer. He was subsequently cleared for discharge back to [facility] with instructions to continue cefazolin for 5 days, have his vale catheter changed as indicated and remove his PICC line immediately upon completion of his antibiotics. Discharge Exam - Head Exam Head Exam: NORMAL INSPECTION - Eye Exam Eye Exam: EOMI, PERRL - Respiratory Exam Respiratory Exam: NORMAL BREATHING PATTERN. absent: Rales, Rhonchi, Wheezes - Cardiovascular Exam Cardiovascular Exam: RRR, +S1, +S2. absent: Gallop, Rubs - GI/Abdominal Exam GI & Abdominal Exam: Normal Bowel Sounds, Soft. absent: Distended, Firm, Guarding, Rigid, Tenderness - Neurological Exam Neurological exam: Alert - Skin Skin Exam: Dry, Intact, Normal Color, Warm Additional comments: stage 3 decubitus ulcer Discharge Plan - Discharge Medications Prescriptions: ceFAZolin 1 gm in NS [Ancef 1GM in NS] 1 gm IV Q8H #15 bag - Follow Up Plan Condition: FAIR Disposition: TRANSF TO SNF Instructions: MRSA (Methicillin Resistant Staphylococcus Aureus) (DC), Pneumococcal Vaccine for Adults (DC), Urinary Tract Infection in Men (DC), Chronic Dysphagia (DC) Additional Instructions: 1. Continue Cefazolin 1g q8h for 5 days 2. REMOVE PICC LINE UPON COMPLETION OF CEFAZOLIN 3. Change chronic indwelling vale catheter as indicated 4. Continue home medications as directed. 5. Return to the emergency room should his condition worsen or change in severity. 6. Patient being discharged to [facility]. Referrals: Gabriel Amaya MD [Primary Care Provider] -
--- NOTE | 2017-06-05 09:09 | DS ---
SUBJECTIVE: I saw him resting comfortably in bed. He has got IVs running. He is asking for food, he is status post cardiac cath. He is being seen by GI and infectious disease. He has few issues going on. He had UTI, stage III ulcer, he got dementia, hypertension, seizure and cerebral palsy. MEDICATIONS: He is currently on Ancef, Coreg, Depakote, Detrol, Flomax, Lipitor, Nystatin powder, Refresh, Santyl, IV fluids, vancomycin IV, vitamin B1, vitamin C and vitamin D. PHYSICAL EXAMINATION: GENERAL: He is comfortable. No acute distress. He is asking for food. He is alert, talking to me. VITAL SIGNS: He has 97.9 temperature, 90 pulse, 147/74 blood pressure, 18 respiratory rate and 96% O2 sat on room air. HEENT: Head is atraumatic and normocephalic. Throat moist. NECK: Supple. HEART: Regular rate. LUNG: Decreased breath sounds. ABDOMEN: Soft. EXTREMITIES: No edema. Mildly contracted. Mildly palsied. No apparent edema. LABORATORY DATA: He has 7.2 white count, his hemoglobin is 7.5, hematocrit is 23.7 and platelets of 319. He is supposed to go to [facility] today. Chemistry is not back yet. He did have a low potassium level yesterday at 3.4. Last blood sugar was 102. He is going to need to have a transfusion before he goes there today. I will call the floor and let them know I am going to transfuse in the unit before he goes to get his hemoglobin above 9 at least before he goes over to [facility], but he should be able to be discharge later today. Narayan De La Garza DO
== END 2017-06-04 17:31 | DRG 871 ==
LOC: ED 20:20 → ERH 06-01 01:44 → 5RSO 06-01 04:25
PROVIDERS: ADMIT Internal Medicine; ATTEND Internal Medicine
PROC: 02HV33Z Insertion of Infusion Device into Superior Vena Cava, Percutaneous Approach (ICD-10-PCS; 2017-06-03)
PROC: B54MZZA Ultrasonography of Right Upper Extremity Veins, Guidance (ICD-10-PCS; 2017-06-03)
PROC: 0T2BX0Z Change Drainage Device in Bladder, External Approach (ICD-10-PCS; 2017-06-03)
PROC: 0DJ08ZZ Inspection of Upper Intestinal Tract, Via Natural or Artificial Opening Endoscopic (ICD-10-PCS; principal; 2017-06-03 10:15)
DX: A41.9 Sepsis, unspecified organism (principal); L89.153 Pressure ulcer of sacral region, stage 3; E87.3 Alkalosis; L89.323 Pressure ulcer of left buttock, stage 3; L89.313 Pressure ulcer of right buttock, stage 3; T83.511A Infection and inflammatory reaction due to indwelling urethral catheter, initial encounter; N39.0 Urinary tract infection, site not specified; I69.354 Hemiplegia and hemiparesis following cerebral infarction affecting left non-dominant side; F03.90 Unspecified dementia, unspecified severity, without behavioral disturbance, psychotic disturbance, mood disturbance, and anxiety; E11.9 Type 2 diabetes mellitus without complications; I10 Essential (primary) hypertension; B96.20 Unspecified Escherichia coli [E. coli] as the cause of diseases classified elsewhere; D63.8 Anemia in other chronic diseases classified elsewhere; R62.7 Adult failure to thrive; G80.9 Cerebral palsy, unspecified; G40.909 Epilepsy, unspecified, not intractable, without status epilepticus; K44.9 Diaphragmatic hernia without obstruction or gangrene; K59.00 Constipation, unspecified; B95.62 Methicillin resistant Staphylococcus aureus infection as the cause of diseases classified elsewhere; K64.9 Unspecified hemorrhoids; Y84.6 Urinary catheterization as the cause of abnormal reaction of the patient, or of later complication, without mention of misadventure at the time of the procedure; Z79.01 Long term (current) use of anticoagulants

== ENCOUNTER 2017-08-01 20:58 | Inpatient (IN) | payer MEDICARE, MEDICAID ==
[2017-08-01 20:59] VITALS: BMI 24.3
--- NOTE | 2017-08-01 21:31 | ED PDOC ---
Arrival/HPI - General Chief Complaint: Male Genitourinary Time Seen by Provider: 08/01/17 21:01 Historian: Fdc - History of Present Illness Narrative History of Present Illness (Text): 08/01/17 21:31 Fortino Loja is a 81 year old male, whose past medical history includes BPH, chronic indwelling Pollock catheter, recurrent UTIs, GI bleed, hypertension, diabetes, cerebral palsy, CVA, seizures, and anemia, who presents to the Emergency department sent from intermediate for decreased urine output today. As per intermediate documentation, patient has only put out 100 cc of urine from 7am-3pm and 30cc from 3pm-8pm. Limited HPI and ROS due to patient's acuity of condition. Symptom Onset: Gradual Symptom Course: Unchanged Activities at Onset: Light Context: Home ([facility]) Past Medical History - Provider Review Nursing Documentation Reviewed: Yes - Tetanus Immunization Tetanus Immunization: Unknown - Cardiac Hx Cardiac Disorders: Yes Hx Hypertension: Yes - Pulmonary Hx Respiratory Disorders: No Other/Comment: insomnia - Neurological Hx Neurological Disorder: Yes Hx Seizures: Yes Other/Comment: cerebral palsy - HEENT Hx HEENT Disorder: No - Renal Hx Renal Disorder: No - Endocrine/Metabolic Hx Endocrine Disorders: Yes Hx Diabetes Mellitus Type 2: Yes - Hematological/Oncological Hx Blood Disorders: Yes (GI BLEED) - Integumentary Hx Dermatological Disorder: No - Musculoskeletal/Rheumatological Hx Musculoskeletal Disorders: Yes (LEFT SIDED WEAKNESS/CVA) Hx Falls: (UNKNOWN) - Gastrointestinal Hx Gastrointestinal Disorders: Yes (GI BLEED,CONSTIPATION,DIARRHEA) - Genitourinary/Gynecological Hx Genitourinary Disorders: Yes (OVERACTIVE BLADDER) Hx Incontinence: Yes - Psychiatric Hx Psychophysiologic Disorder: No Hx Substance Use: No Family/Social History - Physician Review Nursing Documentation Reviewed: Yes Family/Social History: Unknown Family HX Smoking Status: Never Smoked Hx Alcohol Use: No Hx Substance Use: No Allergies/Home Meds Allergies/Adverse Reactions: Allergies No Known Allergies Allergy (Verified 05/06/17 19:00) Home Medications: Home Meds Medication Instructions Recorded Confirmed Unobtainable 08/02/17 08/02/17 Review of Systems - Review of Systems Systems not reviewed;Unavailable: Acuity of Condition Genitourinary Male: Urinary Output Changes (+decreased urine output) Physical Exam Vital Signs Reviewed: Yes Vital Signs Temp Pulse Resp BP Pulse Ox 08/02/17 02:09 107 H 18 137/82 99 08/01/17 23:15 101 H 18 140/86 99 08/01/17 21:04 99.4 F 111 H 39 H 138/84 99 Temperature: Afebrile Blood Pressure: Normal Pulse: Regular Respiratory Rate: Normal Appearance: Positive for: Well-Appearing, Non-Toxic, Comfortable Pain Distress: None Mental Status: Positive for: Confused - Systems Exam Head: Present: Atraumatic, Normocephalic Pupils: Present: PERRL Extroacular Muscles: Present: EOMI Conjunctiva: Present: Normal Mouth: Present: Moist Mucous Membranes Neck: Present: Normal Range of Motion Respiratory/Chest: Present: Clear to Auscultation, Good Air Exchange. No: Respiratory Distress, Accessory Muscle Use Cardiovascular: Present: Regular Rate and Rhythm, Normal S1, S2. No: Murmurs Abdomen: Present: Distention (Bladder fullness), Normal Bowel Sounds. No: Tenderness, Peritoneal Signs Back: Present: Normal Inspection Upper Extremity: Present: Normal Inspection. No: Cyanosis, Edema Lower Extremity: Present: Normal Inspection. No: Edema Neurological: Present: GCS=15, CN II-XII Intact, Speech Normal Skin: Present: Warm, Dry, Normal Color. No: Rashes Psychiatric: Present: Alert Medical Decision Making ED Course and Treatment: 08/01/17 21:31 Impression: 81 year old male sent from intermediate for decreased urine output throughout today. Differential Diagnosis included but are not limited to: UTI vs. urinary retention Plan: -- CXR -- Labs, blood cultures -- UA, urine cultures -- Bladder scan -- Reassess and disposition Prior Visits: Notes and results from previous visits were reviewed. On 05/31/2017, pt was seen in the Emergency department for anemia. Pt was admitted to the hospital for further evaluation. Progress Notes: 08/02/17 00:05 Bladder scan performed by RN, 716cc of urine noted. 08/02/17 00:28 PROCEDURE: POLLOCK CATHETER REPLACEMENT Performed by the emergency provider Consent: Informed consent, after discussion of the risks, benefits, and alternatives to the procedure was obtained. Timeout: A timeout to verify the correct patient, procedure, and site was performed immediately prior to the procedure. Indication: Urinary Retention Pollock Catheter Size: 18 [place] Post-procedure: Patient tolerated the procedure well. Purulent/malodorous urine/ discharge draining from catheter 08/02/17 00:36 Reviewed radiology, Chest X-ray shows no acute processes. Case discussed with Dr. Juarez, who is aware and agrees and plan. Accepts pt in to his service. Pt will be admitted to [facility] for dehydration and UTI. vice president network paged. 08/02/17 00:42 Case discussed with medical staff coordinator masonry installer, who is aware and agrees with plan. - Lab Interpretations Microbiology Results: Microbiology Results 08/01/17 22:00 Blood-Venous Blood Culture - Preliminary Gram Negative Jose 08/01/17 22:00 Blood-Venous Gram Stain - Final 08/01/17 22:30 Blood-Venous Blood Culture - Preliminary Gram Negative Jose 08/01/17 22:30 Blood-Venous Gram Stain - Final Lab Results: 08/01/17 22:30 08/01/17 22:30 Lab Results 08/01/17 22:30: Phosphorus 1.9 L, Magnesium 2.4 H 08/01/17 22:30: Sodium 144, Potassium 5.2 H, Chloride 108 H, Carbon Dioxide 25, Anion Gap 16, BUN 109 H, Creatinine 5.3 H, Est GFR ( Amer) 13, Est GFR ( Non-Af Amer) 11, Random Glucose 173 H, Calcium 9.0, Total Bilirubin 2.1 H, AST 51, ALT 48, Alkaline Phosphatase 144 H, Total Protein 5.8, Albumin 2.6 L, Globulin 3.1, Albumin/Globulin Ratio 0.8 L 08/01/17 22:30: WBC 12.4 H D, RBC 3.48 L, Hgb 10.6 L D, Hct 31.4 L, MCV 90.2 D , MCH 30.5, MCHC 33.8, RDW 15.7 H, Plt Count 47 L*, Manual Plt Count 53 L*, MPV 10.5, Gran % 86.5 H, Lymph % (Auto) 7.3 L, [place] % (Auto) 5.9, Eos % (Auto) 0.2 L , Baso % (Auto) 0.1, Gran # 10.74 H, Lymph # 0.9 L, [place] # 0.7 H, Eos # 0.0, Baso # 0.01, Neutrophils % (Manual) 77 H, Band Neutrophils % 10 H, Lymphocytes % (Manual) 8 L, Monocytes % (Manual) 5, Platelet Evaluation Low, Acanthocytes ( Spur) Slight - RAD Interpretation Radiology Orders: 08/01/17 21:42 CHEST ONE VIEW [RAD] Stat - Medication Orders Current Medication Orders: Apixaban (Eliquis) 5 mg PO BID JOHANNA PRN Reason: Protocol Last Admin: 08/03/17 17:02 Dose: Not Given Non-Admin Reason: Patient Lethargic Atorvastatin Calcium (Lipitor) 20 mg PO DIN [facility] Last Admin: 08/03/17 17:02 Dose: Not Given Non-Admin Reason: Patient Lethargic Baclofen (Lioresal) 5 mg PO TID [facility] Last Admin: 08/03/17 17:02 Dose: Not Given Non-Admin Reason: Patient Lethargic Carvedilol (Coreg) 3.125 mg PO 0800,1700 [facility] Last Admin: 08/03/17 17:01 Dose: Not Given Non-Admin Reason: Patient Lethargic Meropenem 500 mg/ Sodium (Chloride) 100 mls @ 100 mls/hr IVPB Q12 JOHANNA PRN Reason: Protocol Stop: 08/10/17 07:16 Last Admin: 08/03/17 22:06 Dose: 100 mls/hr eMAR Start Stop Document 08/03/17 22:06 SWE (Rec: 08/03/17 22:07 SWE [id number]) Intravenous Solution Start Date 08/03/17 Start Time 22:07 End Date 08/03/17 End time 23:10 Total Infusion Time 63 Levetiracetam (Keppra 500mg Ivpb) 500 mg in 100 mls @ 400 mls/hr IV Q12 JOHANNA Last Admin: 08/03/17 21:15 Dose: 400 mls/hr eMAR Start Stop Document 08/03/17 21:15 SWE (Rec: 08/03/17 21:16 SWE [id number]) Intravenous Solution Start Date 08/03/17 Start Time 21:15 End Date 08/03/17 End time 21:30 Total Infusion Time 15 Dextrose/Sodium Chloride (Dextrose 5%/0.9% Ns 1000 Ml) 1,000 mls @ 75 mls/hr IV .[id number] JOHANNA Last Admin: 08/03/17 16:22 Dose: 75 mls/hr eMAR Start Stop Document 08/03/17 16:22 SML (Rec: 08/03/17 16:22 [id number]) Intravenous Solution Start Date 08/03/17 Start Time 16:22 Insulin Human Lispro (Humalog Med) 0 units SC ACHS JOHANNA PRN Reason: Protocol Last Admin: 08/03/17 21:14 Dose: Not Given Non-Admin Reason: Blood Sugar Parameter Comments: 169 MAR Blood Glucose Document 08/03/17 21:14 SWE (Rec: 08/03/17 21:14 [place] [id number]) Blood Glucose Finger Stick Blood Glucose (70-120) 169 Pantoprazole Sodium (Protonix Inj) 40 mg IVP Q12 JOHANNA Last Admin: 08/03/17 21:14 Dose: 40 mg IVP Administration Document 08/03/17 21:14 SWE (Rec: 08/03/17 21:14 [place] [id number]) Charges for Administration # of IVP Administrations 1 Tamsulosin HCl (Flomax) 0.4 mg PO DAILY JOHANNA Last Admin: 08/03/17 11:20 Dose: Not Given Non-Admin Reason: Patient Lethargic Tolterodine Tartrate (Detrol) 2 mg PO BID [facility] Last Admin: 08/03/17 17:03 Dose: Not Given Non-Admin Reason: Patient Lethargic Discontinued Medications Albumin Human (Albumin Human 25% (25 Gm/100 Ml)) 25 gm IV DAILY JOHANNA Stop: 08/03/17 10:01 Last Admin: 08/03/17 13:31 Dose: 25 gm eMAR Start Stop Document 08/03/17 13:31 SML (Rec: 08/03/17 13:32 [place] [id number]) Intravenous Solution Start Date 08/03/17 Start Time 13:31 End Date 08/03/17 End time 15:21 Total Infusion Time 110 Dextrose (Dextrose 50% Inj) 50 ml IVP STAT STA Stop: 08/03/17 08:20 Last Admin: 08/03/17 08:32 Dose: 50 ml IVP Administration Document 08/03/17 08:32 SML (Rec: 08/03/17 08:32 L [place] [id number]) Charges for Administration # of IVP Administrations 1 Dextrose (Dextrose 50% Inj) 50 ml IVP STAT STA Stop: 08/03/17 16:11 Last Admin: 08/03/17 16:49 Dose: 50 ml IVP Administration Document 08/03/17 16:49 SML (Rec: 08/03/17 16:49 SML [id number]) Charges for Administration # of IVP Administrations 1 Divalproex Sodium (Depakote Dr(*Bid*)) 500 mg PO BID JOHANNA Last Admin: 08/03/17 11:20 Dose: Not Given Non-Admin Reason: Patient Lethargic Sodium Chloride (Sodium Chloride 0.9%) 1,000 mls @ 80 mls/hr IV .[id number] JOHANNA Last Admin: 08/02/17 02:15 Dose: 80 mls/hr eMAR Start Stop Document 08/02/17 02:15 SS (Rec: 08/02/17 02:15 SS [id number]) Intravenous Solution Start Date 08/02/17 Start Time 02:15 Cefepime HCl (Maxipime 2gm) 2 gm in 100 mls @ 100 mls/hr IVPB STAT STA PRN Reason: Protocol Stop: 08/02/17 01:42 Last Admin: 08/02/17 04:44 Dose: 100 mls/hr eMAR Start Stop Document 08/02/17 04:44 BK (Rec: 08/02/17 04:44 BK [id number]) Intravenous Solution Start Date 08/02/17 Start Time 04:44 End Date 08/02/17 End time 05:44 Total Infusion Time 60 Cefepime HCl (Maxipime 2gm) 2 gm in 100 mls @ 100 mls/hr IVPB 2200 JOHANNA PRN Reason: Protocol Stop: 08/07/17 22:01 Last Admin: 08/02/17 23:03 Dose: 100 mls/hr eMAR Start Stop Document 08/02/17 23:03 OLIVD (Rec: 08/02/17 23:03 OLIVD [id number]) Intravenous Solution Start Date 08/02/17 Start Time 23:03 End Date 08/03/17 End time 00:03 Total Infusion Time 60 Sodium Phosphate 15 mmole/ (Sodium Chloride) 255 mls @ 42.5 mls/hr IVPB ONCE ONE Stop: 08/02/17 13:57 Last Admin: 08/02/17 09:47 Dose: 42.5 mls/hr eMAR Start Stop Document 08/02/17 09:47 MMC (Rec: 08/02/17 09:48 [facility] [id number]) Intravenous Solution Start Date 08/02/17 Start Time 09:47 End Date 08/02/17 End time 15:47 Total Infusion Time 360 Vancomycin HCl (Vancomycin 1gm) 1 gm in 250 mls @ 167 mls/hr IVPB STAT STA PRN Reason: Protocol Stop: 08/02/17 10:58 Last Admin: 08/02/17 13:46 Dose: 167 mls/hr eMAR Start Stop Document 08/02/17 13:46 [facility] (Rec: 08/02/17 13:46 [facility] [id number]) Intravenous Solution Start Date 08/02/17 Start Time 13:46 End Date 08/02/17 Sodium Chloride (Sodium Chloride 0.9%) 1,000 mls @ 150 mls/hr IV .[id number] JOHANNA Last Admin: 08/03/17 20:35 Dose: Sodium Polystyrene Sulfonate (Kayexalate Susp) 30 gm PO STAT STA Stop: 08/02/17 08:03 Last Admin: 08/02/17 08:52 Dose: 30 gm - Scribe Statement The provider has reviewed the documentation as recorded by the Pandaibrandee Sultana All medical record entries made by the Cheo were at my direction and personally dictated by me. I have reviewed the chart and agree that the record accurately reflects my personal performance of the history, physical exam, medical decision making, and the department course for this patient. I have also personally directed, reviewed, and agree with the discharge instructions and disposition. Disposition/Present on Arrival - Present on Arrival Any Indicators Present on Arrival: No History of DVT/PE: No History of Uncontrolled Diabetes: No Urinary Catheter: Yes History of Decub. Ulcer: Yes History Surgical Site Infection Following: None - Disposition Have Diagnosis and Disposition been Completed?: Yes Diagnosis: Sepsis secondary to UTI Disposition: HOSPITALIZED Disposition Time: 00:20 Condition: FAIR
[2017-08-01 22:44] LABS: BASO # 0.01 K/mm3 (0.0-2.0); BASO % 0.1 % (0.0-3.0); EOS % 0.2 % (1.5-5.0); GRAN # 10.74 (1.4-6.5); GRAN % 86.5 % (50.0-68.0); HEMATOCRIT 31.4 % (42.0-52.0); LYMPH # 0.9 (1.2-3.4); LYMPH % 7.3 % (22.0-35.0); MEAN CELL VOLUME 90.2 fl (80.0-105.0); MEAN CORPUSCULAR HEMOGLOBIN 30.5 pg (25.0-35.0); MEAN CORPUSCULAR HGB CONC 33.8 g/dl (31.0-37.0); MEAN PLATELET VOLUME 10.5 fl (7.0-11.0); MONO # 0.7 (0.1-0.6); MONO % 5.9 % (1.0-6.0); RED CELL DISTRIBUTION WIDTH 15.7 % (11.5-14.5)
[2017-08-01 22:52] LABS: ALB/GLOB RATIO 0.8 (1.1-1.8); BILIRUBIN,TOTAL 2.1 mg/dL (0.2-1.3); POTASSIUM 5.2 mmol/L (3.6-5.0); TOTAL PROTEIN 5.8 g/dL (5.8-8.3)
[2017-08-01 22:53] LABS: WHITE BLOOD COUNT 12.4 10^3/ul (4.5-11.0)
[2017-08-02 00:14] LABS: NEUTROPHIL 77 % (50.0-70.0)
[2017-08-02 00:15] LABS: BAND 10 % (0-2)
[2017-08-02 00:16] LABS: PLATELET COUNT 47 10^3/uL (120.0-450.0)
[2017-08-02 00:18] LABS: PLATELET ESTIMATE LOW (NORMAL)
[2017-08-02] MEDS ORDERED: Cefepime IV 2 gm in NS 2 GM/100 ML BAG IVPB STA (00:43)
[2017-08-02] MEDS ORDERED: Sodium Chloride 0.9% 1,000 ML IV SCH (00:45)
--- NOTE | 2017-08-02 01:50 | CP.PCM.HP ---
History of Present Illness - History of Present Illness History of Present Illness: CC: Urinary Retention Pt is a 81 yo male with PMH of BPH, chronic indwelling Vale catheter, recurrent UTIs, GI bleed, hypertension, diabetes, cerebral palsy, CVA, seizures , and anemia who presents to [facility] due to urinary retention. HPI is limited due to patient's current altered mental status. According to detention documentation, pt urine output from 7am to 3pm was 100 cc and from 3pm to 8pm was 30cc per indwelling vale catheter. At time of examination, indwelling vale catheter had been removed and replaced. Sanju pus was noted per vale. PMD: Dr. Amaya PMH: BPH, chronic indwelling Vale catheter, recurrent UTIs, GI bleed, hypertension, diabetes, cerebral palsy, CVA, seizures, and anemia FHx: Non-contributory Allergies: NKDA Social History: Resident at [facility], does not consume tobacco, alcohol, illicit drugs Meds: Reviewed as per MAR Present on Admission - Present on Admission Any Indicators Present on Admission: No Review of Systems - Review of Systems Review of Systems: 12 point ROS limited due to patient's altered mental status. Past Patient History - Tetanus Immunizations Tetanus Immunization: Unknown - Past Medical History & Family History Past Medical History?: Yes - Past Social History Smoking Status: Never Smoked - CARDIAC Hx Cardiac Disorders: Yes Hx Hypertension: Yes - PULMONARY Hx Respiratory Disorders: No Other/Comment: insomnia - NEUROLOGICAL Hx Neurological Disorder: Yes Hx Seizures: Yes Other/Comment: cerebral palsy - HEENT Hx HEENT Problems: No - RENAL Hx Chronic Kidney Disease: No - ENDOCRINE/METABOLIC Hx Endocrine Disorders: Yes Hx Diabetes Mellitus Type 2: Yes - HEMATOLOGICAL/ONCOLOGICAL Hx Blood Disorders: Yes (GI BLEED) - INTEGUMENTARY Hx Dermatological Problems: No - MUSCULOSKELETAL/RHEUMATOLOGICAL Hx Musculoskeletal Disorders: Yes (LEFT SIDED WEAKNESS/CVA) Hx Falls: (UNKNOWN) - GASTROINTESTINAL Hx Gastrointestinal Disorders: Yes (GI BLEED,CONSTIPATION,DIARRHEA) - GENITOURINARY/GYNECOLOGICAL Hx Genitourinary Disorders: Yes (OVERACTIVE BLADDER) Hx Incontinence: Yes - PSYCHIATRIC Hx Psychophysiologic Disorder: No Hx Substance Use: No - SURGICAL HISTORY Hx Surgeries: (unable to obtain) Meds Allergies/Adverse Reactions: Allergies Allergy/AdvReac Type Severity Reaction Status Date / Time No Known Allergies Allergy Verified 05/06/17 19:00 Physical Exam - Constitutional Appears: Toxic - Head Exam Head Exam: ATRAUMATIC, NORMOCEPHALIC - Eye Exam Eye Exam: PERRL - ENT Exam ENT Exam: Mucous Membranes Moist - Neck Exam Neck exam: Positive for: Full Rom. Negative for: Lymphadenopathy, Thyromegaly - Respiratory Exam Respiratory Exam: Clear to Auscultation Bilateral. absent: Rales, Rhonchi, Wheezes - Cardiovascular Exam Cardiovascular Exam: Tachycardia, REGULAR RHYTHM, +S1, +S2. absent: Diastolic murmur, Gallop, Rubs, Systolic Murmur - GI/Abdominal Exam GI & Abdominal Exam: Soft. absent: Distended, Guarding, Rebound, Rigid, Tenderness - Exam Additional comments: Sanju pus draining per vale catheter - Extremities Exam Extremities exam: Positive for: normal inspection - Neurological Exam Additional comments: Pt not alert or oriented, does not responding to questioning appropriately. - Skin Skin Exam: Dry, Intact, Normal Color, Warm Additional comments: No petechiae or rash noted Results - Vital Signs Recent Vital Signs: Last Vital Signs Temp 99.4 F 08/01/17 21:04 Pulse 111 H 08/01/17 21:04 Resp 39 H 08/01/17 21:04 BP 138/84 08/01/17 21:04 Pulse Ox 99 08/01/17 21:04 - Labs Result Diagrams: 08/01/17 22:30 08/01/17 22:30 Labs: Laboratory Results - last 24 hr 08/01/17 08/01/17 22:30 22:30 WBC 12.4 H D RBC 3.48 L Hgb 10.6 L D Hct 31.4 L MCV 90.2 D MCH 30.5 MCHC 33.8 RDW 15.7 H Plt Count 47 L* Manual Plt Count 53 L* MPV 10.5 Gran % 86.5 H Lymph % (Auto) 7.3 L [place] % (Auto) 5.9 Eos % (Auto) 0.2 L Baso % (Auto) 0.1 Gran # 10.74 H Lymph # 0.9 L [place] # 0.7 H Eos # 0.0 Baso # 0.01 Neutrophils % (Manual) 77 H Band Neutrophils % 10 H Lymphocytes % (Manual) 8 L Monocytes % (Manual) 5 Platelet Evaluation Low Acanthocytes (Spur) Slight Sodium 144 Potassium 5.2 H Chloride 108 H Carbon Dioxide 25 Anion Gap 16 BUN 109 H Creatinine 5.3 H Est GFR ( Amer) 13 Est GFR (Non-Af Amer) 11 Random Glucose 173 H Calcium 9.0 Total Bilirubin 2.1 H AST 51 ALT 48 Alkaline Phosphatase 144 H Total Protein 5.8 Albumin 2.6 L Globulin 3.1 Albumin/Globulin Ratio 0.8 L Assessment & Plan - Assessment and Plan (Free Text) Assessment: 81 yo male with PMH of BPH, chronic indwelling Vale catheter, recurrent UTIs, GI bleed, hypertension, diabetes, cerebral palsy, CVA, seizures, and anemia presents from detention due to urinary retention will be admitted for evaluation and treatment for UTI 2/2 indwelling vale catheter, BEN, and thrombocytopenia. Plan: 1. UTI 2/2 Indwelling vale catheter - Bladder scan in ED showed 716 cc of urine - Indwelling vale catheter removed and replaced in ED Sanju pus draining per vale catheter Maintain and change vale catheter as needed - Cefepime 2 gm IVPB daily - IVF - F/u blood and urine cultures 2. Altered Mental Status 2/2 UTI - Treatment plan as above for UTI 3. Acute Kidney Injury - BUN 109, Cr 5.3 - Likely 2/2 indwelling vale catheter as pt renal function is generally WNL - Nephrology consulted 4. Thrombocytopenia - Platelets 47 - Thrombocytopenia could be 2/2 to obstructive process due to UTI/indwelling vale catheter - Heme/Onc Consulted 5. HTN - Cont home meds: Coreg 6. H/O Seizures - Cont home meds: Depakote 7. H/O CVA - Cont home meds: Lipitor, Eliquis 8. H/O BPH - Cont home meds: Flomax, Detrol GI/DVT PPx - Pepcid - DVT PPx covered by [facility] Pt discussed in detail with Dr. Juarez. [place], PGY1
[2017-08-02 02:18] LABS: MAGNESIUM 2.4 mg/dL (1.7-2.2); PHOSPHOROUS 1.9 mg/dL (2.5-4.5)
[2017-08-02 02:43] LABS: PH,URINE 7.5 (4.7-8.0); URINE BILIRUBIN NEGATIVE (NEGATIVE); URINE BLOOD LARGE (NEGATIVE); URINE GLUCOSE (UA) NEGATIVE (NEGATIVE); URINE KETONE NEGATIVE (NEGATIVE); URINE LEUKOCYTE ESTERASE LARGE Leu/uL (NEGATIVE); URINE PROTEIN >=300 mg/dL (<30 mg/dL); URINE UROBILINOGEN 0.2 E.U./dL (<1 E.U./dL)
[2017-08-02 02:44] LABS: URINE APPEARANCE CLOUDY (CLEAR); URINE COLOR YELLOW (YELLOW)
[2017-08-02 02:50] LABS: URINE BACTERIA MANY (NEG); URINE EPITHELIAL CELLS 0 - 2 /hpf (0-5); URINE WBC TNTC /hpf (0-6)
[2017-08-02 06:46] LABS: HEMATOCRIT 28.1 % (42.0-52.0); MEAN CELL VOLUME 89.8 fl (80.0-105.0); MEAN CORPUSCULAR HEMOGLOBIN 29.7 pg (25.0-35.0); MEAN CORPUSCULAR HGB CONC 33.1 g/dl (31.0-37.0); RED CELL DISTRIBUTION WIDTH 15.4 % (11.5-14.5); WHITE BLOOD COUNT 12.7 10^3/ul (4.5-11.0)
[2017-08-02 06:57] LABS: PLATELET COUNT 41 10^3/uL (120.0-450.0)
[2017-08-02 07:14] LABS: ALB/GLOB RATIO 0.8 (1.1-1.8); BILIRUBIN,TOTAL 2.2 mg/dL (0.2-1.3); CALCIUM 8.7 mg/dL (8.4-10.5); POTASSIUM 5.3 mmol/L (3.6-5.0)
[2017-08-02] MEDS ORDERED: Sodium Phosphate 15 MMOLE in Sodium Chloride 0.9% 250 ML IVPB ONE (07:58)
[2017-08-02] MEDS ORDERED: Sod Polystyrene Sulf 15 gm/60 ml Susp PO STA (08:02)
--- NOTE | 2017-08-02 08:44 | RAD ---
PROCEDURE: CHEST RADIOGRAPH, 1 VIEW HISTORY: fever COMPARISON: 05/31/2017 FINDINGS: LUNGS: Clear. PLEURA: No pneumothorax or pleural fluid seen. CARDIOVASCULAR: Right PICC catheter terminating in the region of the right atrium. OSSEOUS STRUCTURES: No significant abnormalities. VISUALIZED UPPER ABDOMEN: Normal. OTHER FINDINGS: None. IMPRESSION: No active disease.
[2017-08-02 09:14] LABS: IRON 16 ug/dL (45-180)
[2017-08-02] MEDS ORDERED: Vancomycin 1gm in NS 250ml 1 GM/250 ML BAG IVPB STA (09:29)
[2017-08-02] MEDS: Divalproex 500 mg DR(BID formulation) PO SCH ×2 (09:53→20:21)
--- NOTE | 2017-08-02 10:44 | CP.PCM.CON ---
History of Present Illness - History of Present Illness History of Present Illness: 81 yo male with PMH of chronic indwelling vale, GIB, UTI, HTN, DM that presented to hospital yesterday w/ urinary retention. History is taken from chart as pt unable to provide any. He apparently had + urine on bladder scan ~ 700 cc or so, vale was replaced and pus was present with replacement. He was admitted with sepsis, ben, and urosepsis. He otherwise is unable to give any further history ROS: a full detailed ROS is limited given his metnal status pmh: indwelling vale, bph, utis, GIB, htn, DM, CP, CVA famhx: unable to tobtain sochx: [place], otherwise unable to obtain meds: mar all: NKDA Past Patient History - Tetanus Immunizations Tetanus Immunization: Unknown - Past Medical History & Family History Past Medical History?: Yes - Past Social History Smoking Status: Unknown If Ever Smoked - CARDIAC Hx Cardiac Disorders: Yes Hx Hypercholesterolemia: Yes Hx Hypertension: Yes - PULMONARY Hx Respiratory Disorders: No - NEUROLOGICAL Hx Neurological Disorder: Yes HX Cerebrovascular Accident: Yes Hx Seizures: Yes Other/Comment: cerebral palsy - HEENT Hx HEENT Problems: No - RENAL Hx Chronic Kidney Disease: No - ENDOCRINE/METABOLIC Hx Endocrine Disorders: Yes Hx Diabetes Mellitus Type 2: Yes - HEMATOLOGICAL/ONCOLOGICAL Hx Blood Disorders: No - INTEGUMENTARY Hx Dermatological Problems: No - MUSCULOSKELETAL/RHEUMATOLOGICAL Hx Musculoskeletal Disorders: No Hx Falls: No - GASTROINTESTINAL Hx Gastrointestinal Disorders: Yes - GENITOURINARY/GYNECOLOGICAL Hx Genitourinary Disorders: Yes Hx Urinary Tract Infection: Yes - PSYCHIATRIC Hx Psychophysiologic Disorder: No - SURGICAL HISTORY Hx Surgeries: (unable to obtain) Meds Allergies/Adverse Reactions: Allergies Allergy/AdvReac Type Severity Reaction Status Date / Time No Known Allergies Allergy Verified 05/06/17 19:00 - Medications Medications: Current Medications Albumin Human (Albumin Human 25% (25 Gm/100 Ml)) 25 gm IV DAILY [facility] Stop: 08/03/17 10:01 Apixaban (Eliquis) 5 mg PO BID [facility] PRN Reason: Protocol Last Admin: 08/02/17 09:52 Dose: 5 mg Atorvastatin Calcium (Lipitor) 20 mg PO DIN [facility] Baclofen (Lioresal) 5 mg PO TID [facility] Carvedilol (Coreg) 3.125 mg PO 0800,1700 [facility] Last Admin: 08/02/17 09:26 Dose: Not Given Divalproex Sodium (Depakote Dr(*Bid*)) 500 mg PO BID [facility] Last Admin: 08/02/17 09:53 Dose: 500 mg Cefepime HCl (Maxipime 2gm) 2 gm in 100 mls @ 100 mls/hr IVPB 2200 [facility] PRN Reason: Protocol Stop: 08/07/17 22:01 Sodium Phosphate 15 mmole/ (Sodium Chloride) 255 mls @ 42.5 mls/hr IVPB ONCE ONE Stop: 08/02/17 13:57 Last Admin: 08/02/17 09:47 Dose: 42.5 mls/hr Vancomycin HCl (Vancomycin 1gm) 1 gm in 250 mls @ 167 mls/hr IVPB STAT ST[facility] PRN Reason: Protocol Stop: 08/02/17 10:58 Sodium Chloride (Sodium Chloride 0.9%) 1,000 mls @ 150 mls/hr IV .Q6H40M [facility] Insulin Human Lispro (Humalog Med) 0 units SC ACHS [facility] PRN Reason: Protocol Pantoprazole Sodium (Protonix Inj) 40 mg IVP Q12 [facility] Last Admin: 08/02/17 09:48 Dose: 40 mg Tamsulosin HCl (Flomax) 0.4 mg PO DAILY [facility] Last Admin: 08/02/17 09:52 Dose: 0.4 mg Tolterodine Tartrate (Detrol) 2 mg PO BID [facility] Physical Exam - Constitutional Appears: No Acute Distress - Head Exam Head Exam: ATRAUMATIC - Eye Exam Additional comments: non icteric - ENT Exam Additional comments: dry OP - Neck Exam Neck exam: Positive for: Normal Inspection - Respiratory Exam Respiratory Exam: NORMAL BREATHING PATTERN - Cardiovascular Exam Cardiovascular Exam: +S1, +S2 - GI/Abdominal Exam Additional comments: soft - Exam Additional comments: + Vale - Extremities Exam Additional comments: no edema - Neurological Exam Additional comments: alert, and oriented x 0 - Psychiatric Exam Psychiatric exam: Flat Affect - Skin Skin Exam: Normal Color Results - Vital Signs Recent Vital Signs: Last Vital Signs Temp 97.6 F 08/02/17 08:16 Pulse 93 H 08/02/17 09:26 Resp 20 08/02/17 08:16 BP 105/65 08/02/17 09:26 Pulse Ox 98 08/02/17 08:16 - Labs Result Diagrams: 08/02/17 06:41 08/02/17 06:41 Labs: Laboratory Results - last 24 hr 08/02/17 08/02/17 08/02/17 02:02 06:41 06:41 WBC 12.7 H RBC 3.13 L Hgb 9.3 L Hct 28.1 L MCV 89.8 MCH 29.7 MCHC 33.1 RDW 15.4 H Plt Count 41 L* Sodium 142 Potassium 5.3 H Chloride 110 H Carbon Dioxide 22 Anion Gap 15 BUN 118 H Creatinine 5.7 H Est GFR ( Amer) 12 Est GFR (Non-Af Amer) 10 Random Glucose 108 Lactic Acid Calcium 8.7 Iron TIBC % Saturation Total Bilirubin 2.2 H AST 38 ALT 46 Alkaline Phosphatase 124 Total Protein 5.0 L Albumin 2.2 L Globulin 2.8 Albumin/Globulin Ratio 0.8 L Urine Color Yellow Urine Appearance Cloudy Urine pH 7.5 Ur Specific [place] 1.025 Urine Protein >=300 H Urine Glucose (UA) Negative Urine Ketones Negative Urine Blood Large H Urine Nitrate Negative Urine Bilirubin Negative Urine Urobilinogen 0.2 Ur Leukocyte Esterase Large H Urine RBC 2 - 5 Urine WBC Tntc Ur Epithelial Cells 0 - 2 Urine Bacteria Many 08/02/17 08/02/17 08:04 09:20 WBC RBC Hgb Hct MCV MCH MCHC RDW Plt Count Sodium Potassium Chloride Carbon Dioxide Anion Gap BUN Creatinine Est GFR ( Amer) Est GFR (Non-Af Amer) Random Glucose Lactic Acid 2.6 H Calcium Iron 16 L TIBC 172 L % Saturation 9 L Total Bilirubin AST ALT Alkaline Phosphatase Total Protein Albumin Globulin Albumin/Globulin Ratio Urine Color Urine Appearance Urine pH Ur Specific [place] Urine Protein Urine Glucose (UA) Urine Ketones Urine Blood Urine Nitrate Urine Bilirubin Urine Urobilinogen Ur Leukocyte Esterase Urine RBC Urine WBC Ur Epithelial Cells Urine Bacteria Assessment & Plan - Assessment and Plan (Free Text) Assessment: ARF/ Hyperkalemia/ Sepsis/ UTI / Anemia/ Thrombocytopenia/ hypophosphatemia/ proteinuria plan: BEN most likely secondary to obstruction + sepsis. Agree w/ IVF (was not running on evaluation - discussed w/ nursing to start) and abx. F/u imaging studies already ordered. F/u cultures Hopefully K improves as BEN improves F/u heme evaluation proteinuria present on dipstick but also very concentrated specimen, upcr ordered. dose vanc by levels given his age & ben wound consider change eliquis to 2.5 mg po bid - can discuss w/ heme thank you for this interesting consult
--- NOTE | 2017-08-02 11:23 | CT ---
PROCEDURE: CT Abdomen and Pelvis without intravenous contrast HISTORY: Distended loops of bowel COMPARISON: None. TECHNIQUE: Without contrast.. Contrast Dose: Radiation dose: Total exam DLP = 1002 mGy-cm. This CT exam was performed using one or more of the following dose reduction techniques: Automated exposure control, adjustment of the mA and/or kV according to patient size, and/or use of iterative reconstruction technique. FINDINGS: LOWER THORAX: There is bibasilar atelectasis or consolidation of both lung bases. LIVER: Unremarkable. No gross lesion or ductal dilatation. GALLBLADDER AND BILE DUCTS: Unremarkable. PANCREAS: Unremarkable. No gross lesion or ductal dilatation. SPLEEN: Unremarkable. ADRENALS: Unremarkable. No mass. KIDNEYS AND URETERS: Unremarkable. No hydronephrosis. No solid mass. VASCULATURE: Unremarkable. No aortic aneurysm. BOWEL: There is a moderate amount of stool in the rectum. There are some minimal perirectal inflammatory changes. These findings are chronic. There is no evidence of small bowel obstruction. APPENDIX: Unremarkable. Normal appendix. PERITONEUM: Unremarkable. No free fluid. No free air. LYMPH NODES: Unremarkable. No enlarged lymph nodes. BLADDER: There is a Saleem catheter in the bladder REPRODUCTIVE: Unremarkable. BONES: No acute fracture. OTHER FINDINGS: None. IMPRESSION: No acute intra-abdominal findings
[2017-08-02 11:26] LABS: THYROID STIMULATING HORMONE 1.69 mIU/mL (0.46-4.68)
[2017-08-02] MEDS: Sodium Chloride 0.9% 1,000 ML IV SCH ×2 (11:30→18:00)
[2017-08-02] MEDS: Insulin Lispro (humaLOG) MEDIUM Coverage SC SCH ×3 (12:50→23:02)
--- NOTE | 2017-08-02 12:58 | CP.PCM.CON ---
History of Present Illness - History of Present Illness History of Present Illness: 81 year old female with PMH of cerebral palsy, history of UTI with chronic Saleem catheter, chronic anemia, history of Infected stage 3 sacral decubitus ulcer, dementia, HTN, seizure disorder was brought in to [facility] because of increased urinary retention. There was no note of fever, no vomiting, no loss of consciousness, no convulsions, no diarrhea. There was also note of felix pus from the indwelling Saleem catheter. Urinalysis shows pyuria and Infectious diseases consult is requested to further evaluate and manage. Review of Systems - Review of Systems Systems not reviewed;Unavailable: Dementia Past Patient History - Tetanus Immunizations Tetanus Immunization: Unknown - Past Medical History & Family History Past Medical History?: Yes - Past Social History Smoking Status: Unknown If Ever Smoked - CARDIAC Hx Cardiac Disorders: Yes Hx Hypercholesterolemia: Yes Hx Hypertension: Yes - PULMONARY Hx Respiratory Disorders: No - NEUROLOGICAL Hx Neurological Disorder: Yes HX Cerebrovascular Accident: Yes Hx Seizures: Yes Other/Comment: cerebral palsy - HEENT Hx HEENT Problems: No - RENAL Hx Chronic Kidney Disease: No - ENDOCRINE/METABOLIC Hx Endocrine Disorders: Yes Hx Diabetes Mellitus Type 2: Yes - HEMATOLOGICAL/ONCOLOGICAL Hx Blood Disorders: No - INTEGUMENTARY Hx Dermatological Problems: No - MUSCULOSKELETAL/RHEUMATOLOGICAL Hx Musculoskeletal Disorders: No Hx Falls: No - GASTROINTESTINAL Hx Gastrointestinal Disorders: Yes - GENITOURINARY/GYNECOLOGICAL Hx Genitourinary Disorders: Yes Hx Urinary Tract Infection: Yes - PSYCHIATRIC Hx Psychophysiologic Disorder: No - SURGICAL HISTORY Hx Surgeries: (unable to obtain) Meds Allergies/Adverse Reactions: Allergies Allergy/AdvReac Type Severity Reaction Status Date / Time No Known Allergies Allergy Verified 05/06/17 19:00 - Medications Medications: Current Medications Apixaban (Eliquis) 5 mg PO BID [facility] Reason: Protocol Atorvastatin Calcium (Lipitor) 20 mg PO DIN [facility] Carvedilol (Coreg) 3.125 mg PO 0800,1700 [facility] Divalproex Sodium (Depakote Dr(*Bid*)) 500 mg PO BID [facility] Sodium Chloride (Sodium Chloride 0.9%) 1,000 mls @ 80 mls/hr IV .[id number] [facility] Last Admin: 08/02/17 02:15 Dose: 80 mls/hr Cefepime HCl (Maxipime 2gm) 2 gm in 100 mls @ 100 mls/hr IVPB 2200 [facility] PRN Reason: Protocol Stop: 08/07/17 22:01 Sodium Phosphate 15 mmole/ (Sodium Chloride) 255 mls @ 42.5 mls/hr IVPB ONCE ONE Stop: 08/02/17 13:57 Vancomycin HCl (Vancomycin 1gm) 1 gm in 250 mls @ 167 mls/hr IVPB STAT STA PRN Reason: Protocol Stop: 08/02/17 10:58 Pantoprazole Sodium (Protonix Inj) 40 mg IVP Q12 [facility] Tamsulosin HCl (Flomax) 0.4 mg PO DAILY [facility] Tolterodine Tartrate (Detrol) 2 mg PO BID [facility] Physical Exam - Constitutional Appears: Non-toxic, Chronically Ill - Head Exam Head Exam: NORMAL INSPECTION - ENT Exam ENT Exam: Mucous Membranes Moist - Neck Exam Neck exam: Negative for: Meningismus - Respiratory Exam Respiratory Exam: Decreased Breath Sounds - Cardiovascular Exam Cardiovascular Exam: +S1, +S2 - GI/Abdominal Exam GI & Abdominal Exam: Soft. absent: Tenderness Additional comments: Saleem catheter in place - Extremities Exam Additional comments: right upper arm PICC line in place Results - Vital Signs Recent Vital Signs: Last Vital Signs Temp 97.6 F 08/02/17 08:16 Pulse 101 H 08/02/17 08:16 Resp 20 08/02/17 08:16 BP 105/65 08/02/17 08:16 Pulse Ox 98 08/02/17 08:16 - Labs Result Diagrams: 08/02/17 06:41 08/02/17 06:41 Labs: Laboratory Results - last 24 hr 08/02/17 08/02/17 08/02/17 02:02 06:41 06:41 WBC 12.7 H RBC 3.13 L Hgb 9.3 L Hct 28.1 L MCV 89.8 MCH 29.7 MCHC 33.1 RDW 15.4 H Plt Count 41 L* Sodium 142 Potassium 5.3 H Chloride 110 H Carbon Dioxide 22 Anion Gap 15 BUN 118 H Creatinine 5.7 H Est GFR ( Amer) 12 Est GFR (Non-Af Amer) 10 Random Glucose 108 Calcium 8.7 Iron TIBC % Saturation Total Bilirubin 2.2 H AST 38 ALT 46 Alkaline Phosphatase 124 Total Protein 5.0 L Albumin 2.2 L Globulin 2.8 Albumin/Globulin Ratio 0.8 L Urine Color Yellow Urine Appearance Cloudy Urine pH 7.5 Ur Specific [place] 1.025 Urine Protein >=300 H Urine Glucose (UA) Negative Urine Ketones Negative Urine Blood Large H Urine Nitrate Negative Urine Bilirubin Negative Urine Urobilinogen 0.2 Ur Leukocyte Esterase Large H Urine RBC 2 - 5 Urine WBC Tntc Ur Epithelial Cells 0 - 2 Urine Bacteria Many 08/02/17 08:04 WBC RBC Hgb Hct MCV MCH MCHC RDW Plt Count Sodium Potassium Chloride Carbon Dioxide Anion Gap BUN Creatinine Est GFR ( Amer) Est GFR (Non-Af Amer) Random Glucose Calcium Iron 16 L TIBC 172 L % Saturation 9 L Total Bilirubin AST ALT Alkaline Phosphatase Total Protein Albumin Globulin Albumin/Globulin Ratio Urine Color Urine Appearance Urine pH Ur Specific [place] Urine Protein Urine Glucose (UA) Urine Ketones Urine Blood Urine Nitrate Urine Bilirubin Urine Urobilinogen Ur Leukocyte Esterase Urine RBC Urine WBC Ur Epithelial Cells Urine Bacteria Assessment & Plan - Assessment and Plan (Free Text) Plan: Assessment R/O UTI in a patient with an indwelling Saleem catheter history of complicated UTI with E. coli in this patient with chronic indwelling Saleem catheter Infected stage 3 sacral decubitus ulcer with Staph. aureus dementia cerebral palsy HTN seizure disorder Plan started patient on Cefepime pending blood and urine cx; recommend change Saleem catheter recommend removal of PICC line if it is not needed will monitor clinically
[2017-08-02 13:15] LABS: FOLATE > 20.0 ng/mL
[2017-08-02 13:17] LABS: FIBRINOGEN 524.8 mg/dL (187-400); INR 1.26 (0.93-1.08); PARTIAL THROMBOPLASTIN TIME 33.5 Seconds (23.7-30.8)
[2017-08-02] MEDS: Albumin Human 25% (25 gm/100 ml) IV SCH ×2 (16:22→20:56)
[2017-08-02] MEDS ORDERED: Cefepime IV 2 gm in NS 2 GM/100 ML BAG IVPB SCH (22:00)
--- NOTE | 2017-08-03 01:25 | CON ---
DATE: 08/02/2017 REASON FOR CONSULT: Thrombocytopenia. HISTORY OF PRESENT ILLNESS: The patient is a 81-year-old male with multiple medical problems including chronic indwelling Saleem catheter, GI bleed, UTI, hypertension, diabetes, that was admitted to the hospital with urinary retention. His history has been obtained from the chart. The patient is unable to answer any questions at this point. His presumed diagnosis on admission is sepsis from his urine. He is noted to have a low platelet count on this admission. He also has some hematuria associated with his Saleem catheter. He is unable to answer any questions and unable to tell me if he has any prior history of thrombocytopenia. No history of bleeding in the past as well. Unable to tell if the patient has had any recent weight changes or night sweats. PAST MEDICAL HISTORY: His chart is reviewed and past medical history as above is noted. History of CVA, hypertension, diabetes, GI bleed, BPH, and indwelling Saleem catheter. FAMILY HISTORY/SOCIAL HISTORY: Unable to obtain family history or social history. The [facility] is a [facility] resident. MEDICATIONS: As per the MAR. ALLERGIES: THERE IS NO KNOWN DRUG ALLERGY. REVIEW OF SYSTEMS: Unobtainable. PHYSICAL EXAMINATION: VITAL SIGNS: Reveal a temperature of 97.6, pulse of 93, respiratory rate of 20, and a blood pressure 105/65. GENERAL: The patient is an elderly male lying in bed in no acute distress. He is arousable with verbal stimuli, but does not follow command or answer any questions with any pertinent answers. HEAD: Normocephalic, atraumatic. Eyes: Pupils equal, round, and reactive to light and accommodation. Extraocular muscles are intact. There is some pallor. No icterus is noted. NECK: Supple with no adenopathy. No JVD. No thyromegaly. LUNGS: Decreased breath sounds bilaterally at the bases secondary to poor effort. CARDIOVASCULAR: S1, S2 is heard. ABDOMEN: Positive bowel sounds. He does complain of diffuse tenderness, but there is no rebound or guarding. EXTREMITIES: Contracted. LABORATORY DATA: Reveal a white count of 12.7, hemoglobin 9.3, hematocrit of 28.1, MCV of 89.8, and a platelet count of 41,000. Chemistries reveal a BUN and creatinine of 118 and 5.7. Otherwise, electrolytes are within normal limits. ASSESSMENT AND PLAN: Elderly male admitted with urosepsis, now noted to have thrombocytopenia. Thrombocytopenia is likely secondary to sepsis, should resolve once sepsis is resolved. Continue antibiotics as per ID. He also has a new-onset renal insufficiency which is also contributing to his anemia at this point. He does not have any evidence of iron deficiency from prior iron studies as his iron stores are within normal limits. B12 levels are also within normal limits. We will repeat iron studies, await serum protein electrophoresis as well as flow cytometry, though doubt this is a primary hematological issue. One his urosepsis resolves, most of his hematological issues will also resolve. If there is persistent thrombocytopenia once sepsis has resolved, may need a bone marrow biopsy. Thank you for the consult. We will follow. Sameera Shelton MD
[2017-08-03 07:11] LABS: HEMATOCRIT 26.9 % (42.0-52.0); MEAN CELL VOLUME 88.8 fl (80.0-105.0); MEAN CORPUSCULAR HGB CONC 33.8 g/dl (31.0-37.0); RED CELL DISTRIBUTION WIDTH 15.5 % (11.5-14.5); WHITE BLOOD COUNT 13.1 10^3/ul (4.5-11.0)
[2017-08-03 07:26] LABS: PLATELET COUNT 29 10^3/uL (120.0-450.0)
[2017-08-03 07:52] LABS: ALB/GLOB RATIO 0.9 (1.1-1.8); BILIRUBIN,TOTAL 2.5 mg/dL (0.2-1.3); CALCIUM 8.6 mg/dL (8.4-10.5); POTASSIUM 4.7 mmol/L (3.6-5.0)
[2017-08-03] MEDS: Meropenem 500 MG in Sodium Chloride 0.9% 100 ML IVPB SCH ×2 (08:06→22:06)
[2017-08-03 08:16] LABS: TOTAL PROTEIN, SERUM 4.4 g/dL (6.1-8.1)
[2017-08-03] MEDS ORDERED: Dextrose 50% SYRINGE Inj (50 ml) IVP STA ×2 (08:19→16:10)
[2017-08-03] MEDS: Insulin Lispro (humaLOG) MEDIUM Coverage SC SCH ×4 (08:24→21:14)
[2017-08-03] MEDS: Sodium Chloride 0.9% 1,000 ML IV SCH ×2 (08:33→20:35)
--- NOTE | 2017-08-03 10:45 | CP.PCM.PN ---
Subjective - Date & Time of Evaluation Date of Evaluation: 08/03/17 Time of Evaluation: 10:43 - Subjective Subjective: renal follow up note UOP low but slightly improved, no sob however hx is limited by non verbal state of the patient PE: lying in bed heent normal op moist no icterus [id number] bilateal air entry equal on lung exam abd soft BS + no edema vale + skin grossly normal psy flat affect Objective - Vital Signs/Intake and Output Vital Signs (last 24 hours): Temp Pulse Resp BP Pulse Ox 99 F 60 20 124/78 98 08/03/17 08:07 08/03/17 08:07 08/03/17 08:07 08/03/17 08:07 08/03/17 08:07 Intake and Output: 08/03/17 08/03/17 06:59 18:59 Intake Total 0 Output Total 150 Balance -150 - Medications Medications: Current Medications Apixaban (Eliquis) 5 mg PO BID [facility] PRN Reason: Protocol Last Admin: 08/02/17 20:20 Dose: 5 mg Atorvastatin Calcium (Lipitor) 20 mg PO DIN [facility] Last Admin: 08/02/17 20:19 Dose: 20 mg Baclofen (Lioresal) 5 mg PO TID [facility] Last Admin: 08/02/17 20:22 Dose: 5 mg Carvedilol (Coreg) 3.125 mg PO 0800,1700 [facility] Last Admin: 08/03/17 08:32 Dose: Not Given Divalproex Sodium (Depakote Dr(*Bid*)) 500 mg PO BID [facility] Last Admin: 08/02/17 20:21 Dose: 500 mg Sodium Chloride (Sodium Chloride 0.9%) 1,000 mls @ 150 mls/hr IV .Q6H40M [facility] Last Admin: 08/03/17 08:33 Dose: 150 mls/hr Meropenem 500 mg/ Sodium (Chloride) 100 mls @ 100 mls/hr IVPB Q12 [facility] PRN Reason: Protocol Stop: 08/10/17 07:16 Last Admin: 08/03/17 08:06 Dose: 100 mls/hr Insulin Human Lispro (Humalog Med) 0 units SC ACHS [facility] PRN Reason: Protocol Last Admin: 08/03/17 08:24 Dose: Not Given Pantoprazole Sodium (Protonix Inj) 40 mg IVP Q12 [facility] Last Admin: 08/02/17 23:04 Dose: 40 mg Tamsulosin HCl (Flomax) 0.4 mg PO DAILY [facility] Last Admin: 08/02/17 09:52 Dose: 0.4 mg Tolterodine Tartrate (Detrol) 2 mg PO BID [facility] Last Admin: 08/02/17 20:30 Dose: 2 mg - Labs Labs: 08/03/17 06:30 08/03/17 06:30 PT 13.6 Seconds (9.9-11.8) H 08/02/17 12:10 INR 1.26 (0.93-1.08) H 08/02/17 12:10 APTT 33.5 Seconds (23.7-30.8) H 08/02/17 12:10 - Constitutional Appears: Non-toxic, No Acute Distress, Older Than Stated Age - Head Exam Head Exam: NORMAL INSPECTION - Eye Exam Eye Exam: Normal appearance - ENT Exam ENT Exam: Mucous Membranes Moist - Neck Exam Neck Exam: Normal Inspection - Respiratory Exam Respiratory Exam: NORMAL BREATHING PATTERN - Cardiovascular Exam Cardiovascular Exam: +S1, +S2 - GI/Abdominal Exam GI & Abdominal Exam: Soft - Extremities Exam Extremities Exam: Normal Inspection - Neurological Exam Additional comments: AO times 0, baseline vale + Assessment and Plan - Assessment and Plan (Free Text) Plan: ARF/ Hyperkalemia/ Sepsis/ UTI / Anemia/ Thrombocytopenia/ hypophosphatemia/ proteinuria plan: BEN DDX: sepsis induced atn/obstructive causes as he has chronic vale cr is worse today urology on board: vale + hyperkalemia is improved hematology consulted as patient has thrombocytopenia (acute): can check ldh and haptoglobin as platelets and cr were normal in may 2017 to rule out hemolysis. urine protein cr is pending d?w nurse bedside, please call if any qs @ office [phone]
[2017-08-03] MEDS: Divalproex 500 mg DR(BID formulation) PO SCH (11:20)
--- NOTE | 2017-08-03 12:35 | CP.PCM.PN ---
Subjective - Date & Time of Evaluation Date of Evaluation: 08/03/17 Time of Evaluation: 10:45 - Subjective Subjective: No fevers, not in distress. Objective - Vital Signs/Intake and Output Vital Signs (last 24 hours): Temp Pulse Resp BP Pulse Ox 97 F L 104 H 20 100/60 99 08/02/17 16:00 08/02/17 20:21 08/02/17 16:00 08/02/17 20:21 08/02/17 16:00 Intake and Output: 08/03/17 08/03/17 06:59 18:59 Intake Total 0 Output Total 150 Balance -150 - Medications Medications: Current Medications Albumin Human (Albumin Human 25% (25 Gm/100 Ml)) 25 gm IV DAILY [facility] Stop: 08/03/17 10:01 Last Admin: 08/02/17 20:56 Dose: Not Given Apixaban (Eliquis) 5 mg PO BID [facility] PRN Reason: Protocol Last Admin: 08/02/17 20:20 Dose: 5 mg Atorvastatin Calcium (Lipitor) 20 mg PO DIN [facility] Last Admin: 08/02/17 20:19 Dose: 20 mg Baclofen (Lioresal) 5 mg PO TID [facility] Last Admin: 08/02/17 20:22 Dose: 5 mg Carvedilol (Coreg) 3.125 mg PO 0800,1700 [facility] Last Admin: 08/02/17 20:21 Dose: Not Given Divalproex Sodium (Depakote Dr(*Bid*)) 500 mg PO BID [facility] Last Admin: 08/02/17 20:21 Dose: 500 mg Sodium Chloride (Sodium Chloride 0.9%) 1,000 mls @ 150 mls/hr IV .Q6H40M [facility] Last Admin: 08/02/17 18:00 Dose: 150 mls/hr Meropenem 500 mg/ Sodium (Chloride) 100 mls @ 100 mls/hr IVPB Q12 [facility] PRN Reason: Protocol Stop: 08/10/17 07:16 Insulin Human Lispro (Humalog Med) 0 units SC ACHS [facility] PRN Reason: Protocol Last Admin: 08/02/17 23:02 Dose: Not Given Pantoprazole Sodium (Protonix Inj) 40 mg IVP Q12 [facility] Last Admin: 08/02/17 23:04 Dose: 40 mg Tamsulosin HCl (Flomax) 0.4 mg PO DAILY [facility] Last Admin: 08/02/17 09:52 Dose: 0.4 mg Tolterodine Tartrate (Detrol) 2 mg PO BID [facility] Last Admin: 08/02/17 20:30 Dose: 2 mg - Labs Labs: 08/02/17 06:41 08/02/17 06:41 PT 13.6 Seconds (9.9-11.8) H 08/02/17 12:10 INR 1.26 (0.93-1.08) H 08/02/17 12:10 APTT 33.5 Seconds (23.7-30.8) H 08/02/17 12:10 - Constitutional Appears: Non-toxic, No Acute Distress - Head Exam Head Exam: NORMAL INSPECTION - ENT Exam ENT Exam: Mucous Membranes Moist - Neck Exam Neck Exam: absent: Meningismus - Respiratory Exam Respiratory Exam: Decreased Breath Sounds - Cardiovascular Exam Cardiovascular Exam: +S1, +S2 - GI/Abdominal Exam GI & Abdominal Exam: Soft. absent: Tenderness Assessment and Plan - Assessment and Plan (Free Text) Plan: Assessment sepsis due to gram negative bacilli bacteremia with UTI in a patient with an indwelling Saleem catheter history of complicated UTI with E. coli in this patient with chronic indwelling Saleem catheter Infected stage 3 sacral decubitus ulcer with Staph. aureus dementia cerebral palsy HTN seizure disorder Plan changed Cefepime to Merrem pending identification and sensitivities of the gram negative bacilli in the blood and urine cx; recommend change Saleem catheter - follow up Urology recommendations removal of PICC line has been done will continue to monitor clinically
[2017-08-03] MEDS: Albumin Human 25% (25 gm/100 ml) IV SCH (13:31)
--- NOTE | 2017-08-03 13:36 | CP.PCM.PN ---
Subjective - Date & Time of Evaluation Date of Evaluation: 08/03/17 Time of Evaluation: 06:32 - Subjective Subjective: Patient was seen and examined bedside. Patient is AMS, unable to obtain ROS. Objective - Vital Signs/Intake and Output Vital Signs (last 24 hours): Temp Pulse Resp BP Pulse Ox 99 F 60 20 124/78 98 08/03/17 08:07 08/03/17 08:07 08/03/17 08:07 08/03/17 08:07 08/03/17 08:07 Intake and Output: 08/03/17 08/03/17 06:59 18:59 Intake Total 0 Output Total 150 Balance -150 - Medications Medications: Current Medications Apixaban (Eliquis) 5 mg PO BID [facility] PRN Reason: Protocol Last Admin: 08/03/17 11:20 Dose: Not Given Atorvastatin Calcium (Lipitor) 20 mg PO DIN [facility] Last Admin: 08/02/17 20:19 Dose: 20 mg Baclofen (Lioresal) 5 mg PO TID [facility] Last Admin: 08/03/17 11:21 Dose: Not Given Carvedilol (Coreg) 3.125 mg PO 0800,1700 [facility] Last Admin: 08/03/17 08:32 Dose: Not Given Divalproex Sodium (Depakote Dr(*Bid*)) 500 mg PO BID [facility] Last Admin: 08/03/17 11:20 Dose: Not Given Sodium Chloride (Sodium Chloride 0.9%) 1,000 mls @ 150 mls/hr IV .[id number] [facility] Last Admin: 08/03/17 08:33 Dose: 150 mls/hr Meropenem 500 mg/ Sodium (Chloride) 100 mls @ 100 mls/hr IVPB Q12 [facility] PRN Reason: Protocol Stop: 08/10/17 07:16 Last Admin: 08/03/17 08:06 Dose: 100 mls/hr Insulin Human Lispro (Humalog Med) 0 units SC ACHS [facility] PRN Reason: Protocol Last Admin: 08/03/17 11:49 Dose: Not Given Pantoprazole Sodium (Protonix Inj) 40 mg IVP Q12 [facility] Last Admin: 08/03/17 11:06 Dose: 40 mg Tamsulosin HCl (Flomax) 0.4 mg PO DAILY [facility] Last Admin: 08/03/17 11:20 Dose: Not Given Tolterodine Tartrate (Detrol) 2 mg PO BID [facility] Last Admin: 08/03/17 11:20 Dose: Not Given - Labs Labs: 08/03/17 06:30 08/03/17 06:30 PT 13.6 Seconds (9.9-11.8) H 08/02/17 12:10 INR 1.26 (0.93-1.08) H 08/02/17 12:10 APTT 33.5 Seconds (23.7-30.8) H 08/02/17 12:10 - Constitutional Appears: Toxic, No Acute Distress - Head Exam Head Exam: ATRAUMATIC, NORMAL INSPECTION, NORMOCEPHALIC - Eye Exam Eye Exam: Normal appearance - Neck Exam Neck Exam: Normal Inspection - Respiratory Exam Respiratory Exam: Clear to Ausculation Bilateral, NORMAL BREATHING PATTERN - Cardiovascular Exam Cardiovascular Exam: REGULAR RHYTHM, +S1, +S2 - GI/Abdominal Exam GI & Abdominal Exam: absent: Tenderness - Extremities Exam Additional comments: Spasticity noted in upper and lower extremities B/L - Neurological Exam Neurological Exam: Alert, Awake. absent: Oriented x3 Assessment and Plan - Assessment and Plan (Free Text) Assessment: 81 yo male with PMH of BPH, chronic indwelling Vale catheter, recurrent UTIs, GI bleed, hypertension, diabetes, cerebral palsy, CVA, seizures, and anemia presents from snf due to urinary retention admitted for evaluation and treatment for Sepsis 2/2 UTI 2/2 indwelling vale catheter, BEN, and thrombocytopenia. Plan: Sepsis- secondary to possible UTI/ possible urinary obstruction -IV NS150 -treatment for UTI as below - lactic acid: 2.6 - BP currently 124/78 - Patient afebrile - Blood cultures = GN rods - Urine cultures = GN rods UTI 2/2 Indwelling vale catheter - Bladder scan in ED showed 716 cc of urine - Indwelling vale catheter removed and replaced in ED - Maintain and change vale catheter as needed - Bloody urine currently, output today 600ml - Urology consult- Dr. Osman - ID Consult, Dr. Lipscomb recs: Cefepime 2 gm IVPB discontinued, started Meropenem 500 mg IVPB q12 - IVF 150NS - Urine cultures = GN rods Altered Mental Status 2/2 UTI - Treatment plan as above for UTI - BUN 125 Acute Kidney Injury - BUN 125, Cr 6.1 - IV NS150 - Nephrology recs, Dr. Hurtado: BEN most likely 2/2 to obstruction+sepsis, cont. fluids and abx, f/u urine cultures, upcr ordered, consider change to eliquis 2.5 mg po bid (discuss with heme) Hypoalbuminemia - IV albumin 25 mg Thrombocytopenia r/o DIC - Platelets 29 today - Thrombocytopenia could be 2/2 to obstructive process due to UTI/indwelling vale catheter - PT 13.6, aPTT 33.5, fibrinogen 524.8, fibrinogen split >10 <40, INR 1.26 - Peripheral smear pending - hemeoccult pending, ROSA ELENA was negative for blood - Heme/Onc recs, Dr. Shelton: issues likely 2/2 urosepsis, expected to resolve when underlying issues are treated; no iron or B12 def. HTN chronic - Cont home meds: Coreg 3.125 mg PO H/O Seizures, Cerebral palsy - Depakote 500mg PO BID discontinued, started on Keppra IV - Continue Baclofen 5mg PO BID H/O CVA - Cont home meds: Lipitor 20mg PO DIN, Eliquis 5mg PO BID H/O DM -Continue on ISS H/O BPH - Cont home meds: Flomax, Detrol GI/DVT PPx - Pantoprozole - DVT PPx covered by eliquis
[2017-08-03] MEDS: levETIRAcetam 500mg IVPB 500 MG/100 ML BAG IV SCH ×2 (14:48→21:15)
[2017-08-03] MEDS ORDERED: Sodium Chloride 0.9% 1,000 ML IV SCH (16:14)
[2017-08-03] MEDS: Dextrose 5%/0.9% NS 1,000 ML IV SCH (16:22)
[2017-08-04 08:14] LABS: HEMATOCRIT 25.7 % (42.0-52.0); MEAN CELL VOLUME 87.1 fl (80.0-105.0); MEAN CORPUSCULAR HEMOGLOBIN 30.5 pg (25.0-35.0); RED CELL DISTRIBUTION WIDTH 15.3 % (11.5-14.5); WHITE BLOOD COUNT 18.2 10^3/ul (4.5-11.0)
[2017-08-04 08:24] LABS: PLATELET COUNT 29 10^3/uL (120.0-450.0)
[2017-08-04] MEDS: Insulin Lispro (humaLOG) MEDIUM Coverage SC SCH ×4 (08:25→23:00)
[2017-08-04 08:27] LABS: ALB/GLOB RATIO 0.9 (1.1-1.8); CALCIUM 8.5 mg/dL (8.4-10.5); POTASSIUM 4.2 mmol/L (3.6-5.0); TOTAL PROTEIN 5.1 g/dL (5.8-8.3)
--- NOTE | 2017-08-04 08:28 | CP.PCM.PN ---
Subjective - Date & Time of Evaluation Date of Evaluation: 08/04/17 Time of Evaluation: 08:19 - Subjective Subjective: RENAL PROGRESS NOTE pt seen and examined UOP very low PE: VSS gen: nad sclera anicteric op: clear neck: supple cv: [id number] lungs: dec bs no edema vale + skin no rash psy flat affect neuro: minimally response Objective - Vital Signs/Intake and Output Vital Signs (last 24 hours): Temp Pulse Resp BP Pulse Ox 98.8 F 72 18 136/82 98 08/03/17 16:44 08/03/17 16:44 08/03/17 16:44 08/03/17 16:44 08/03/17 16:44 Intake and Output: 08/04/17 08/04/17 06:59 18:59 Intake Total 500 Output Total 75 Balance 425 - Medications Medications: Current Medications Apixaban (Eliquis) 5 mg PO BID [facility] PRN Reason: Protocol Last Admin: 08/03/17 17:02 Dose: Not Given Atorvastatin Calcium (Lipitor) 20 mg PO DIN [facility] Last Admin: 08/03/17 17:02 Dose: Not Given Baclofen (Lioresal) 5 mg PO TID [facility] Last Admin: 08/03/17 17:02 Dose: Not Given Carvedilol (Coreg) 3.125 mg PO 0800,1700 [facility] Last Admin: 08/03/17 17:01 Dose: Not Given Meropenem 500 mg/ Sodium (Chloride) 100 mls @ 100 mls/hr IVPB Q12 [facility] PRN Reason: Protocol Stop: 08/10/17 07:16 Last Admin: 08/03/17 22:06 Dose: 100 mls/hr Levetiracetam (Keppra 500mg Ivpb) 500 mg in 100 mls @ 400 mls/hr IV Q12 [facility] Last Admin: 08/03/17 21:15 Dose: 400 mls/hr Dextrose/Sodium Chloride (Dextrose 5%/0.9% Ns 1000 Ml) 1,000 mls @ 75 mls/hr IV .[id number] [facility] Last Admin: 08/03/17 16:22 Dose: 75 mls/hr Insulin Human Lispro (Humalog Med) 0 units SC ACHS [facility] PRN Reason: Protocol Last Admin: 08/03/17 21:14 Dose: Not Given Pantoprazole Sodium (Protonix Inj) 40 mg IVP Q12 [facility] Last Admin: 08/03/17 21:14 Dose: 40 mg Tamsulosin HCl (Flomax) 0.4 mg PO DAILY [facility] Last Admin: 08/03/17 11:20 Dose: Not Given Tolterodine Tartrate (Detrol) 2 mg PO BID [facility] Last Admin: 08/03/17 17:03 Dose: Not Given - Labs Labs: 08/03/17 06:30 08/03/17 06:30 PT 13.6 Seconds (9.9-11.8) H 08/02/17 12:10 INR 1.26 (0.93-1.08) H 08/02/17 12:10 APTT 33.5 Seconds (23.7-30.8) H 08/02/17 12:10 Assessment and Plan - Assessment and Plan (Free Text) Assessment: ARF/ Hyperkalemia/ Sepsis/ UTI / Anemia/ Thrombocytopenia/ hypophosphatemia/ proteinuria plan: BEN DDX: sepsis induced atn/obstructive given severe thrombocytopenia & anemia TTP needs to be ruled out as well. recc check LDH, Haptoglobin - Tbili slowly trending up ? from hemolysis check direct/indirect and review smear Continue abx per ID. would recc reduction in elquis dose or stopping after discussion w/ hematology check repeat phos awaiting this mornings labs had discussion w/ Niece Renate ALVAREZ regarding dialysis at this point she is indicating that she wants to see him comfortable she is leaning towards not doing HD at this point but wants to discuss w/ her family members. please call if any qs @ office [phone]
[2017-08-04] MEDS: levETIRAcetam 500mg IVPB 500 MG/100 ML BAG IV SCH ×2 (09:25→21:30)
[2017-08-04] MEDS: Meropenem 500 MG in Sodium Chloride 0.9% 100 ML IVPB SCH (10:57)
--- NOTE | 2017-08-04 14:24 | CP.PCM.CON ---
History of Present Illness - History of Present Illness History of Present Illness: Palliative consult requested by Dr Jennifer Amaya Reason: Goals of care 81 year old male with history of CP,CVA, DM, BPH,UTI, sacral decubiti, anemia and HTN who was sent form [facility] with urinary retention. There was no fever, nausea, vomiting or diarrhea on presentation. There was also pus seen in the indwelling vale. Admitted with urosepsis, BEN, sepsis. PMHx:PMHX:CVA, CP, UTI, sacral decubiti, HTN, indwelling Vale, anemia,dysphagia , weight loss,BPH. Social History: Non smoker, no alcohol or drug use. Single,resident of [facility] Family History: Non contributory. Advance Care Planning:The patient has a valid POLST which I executed with his POA, Belen Marie( [phone]) He is DNR/DNI. Review of Systems: As per HPI, patient is demented/non verbal Past Patient History - Tetanus Immunizations Tetanus Immunization: Unknown - Past Medical History & Family History Past Medical History?: Yes - Past Social History Smoking Status: Never Smoked - CARDIAC Hx Cardiac Disorders: Yes Hx Hypertension: Yes - PULMONARY Hx Respiratory Disorders: No Other/Comment: insomnia - NEUROLOGICAL Hx Neurological Disorder: Yes Hx Seizures: Yes Other/Comment: cerebral palsy - HEENT Hx HEENT Problems: No - RENAL Hx Chronic Kidney Disease: No - ENDOCRINE/METABOLIC Hx Endocrine Disorders: Yes Hx Diabetes Mellitus Type 2: Yes - HEMATOLOGICAL/ONCOLOGICAL Hx Blood Disorders: Yes (GI BLEED) - INTEGUMENTARY Hx Dermatological Problems: No - MUSCULOSKELETAL/RHEUMATOLOGICAL Hx Musculoskeletal Disorders: Yes (LEFT SIDED WEAKNESS/CVA) Hx Falls: (UNKNOWN) - GASTROINTESTINAL Hx Gastrointestinal Disorders: Yes (GI BLEED,CONSTIPATION,DIARRHEA) - GENITOURINARY/GYNECOLOGICAL Hx Genitourinary Disorders: Yes (OVERACTIVE BLADDER) Hx Incontinence: Yes - PSYCHIATRIC Hx Psychophysiologic Disorder: No Hx Substance Use: No - SURGICAL HISTORY Hx Surgeries: (unable to obtain) Meds Allergies/Adverse Reactions: Allergies Allergy/AdvReac Type Severity Reaction Status Date / Time No Known Allergies Allergy Verified 05/06/17 19:00 - Medications Medications: Current Medications Apixaban (Eliquis) 5 mg PO BID [facility] PRN Reason: Protocol Last Admin: 08/04/17 10:01 Dose: Not Given Atorvastatin Calcium (Lipitor) 20 mg PO DIN [facility] Last Admin: 08/03/17 17:02 Dose: Not Given Baclofen (Lioresal) 5 mg PO TID [facility] Last Admin: 08/04/17 10:02 Dose: Not Given Carvedilol (Coreg) 3.125 mg PO 0800,1700 [facility] Last Admin: 08/04/17 08:24 Dose: Not Given Meropenem 500 mg/ Sodium (Chloride) 100 mls @ 100 mls/hr IVPB Q12 [facility] PRN Reason: Protocol Stop: 08/10/17 07:16 Last Admin: 08/04/17 10:57 Dose: 100 mls/hr Levetiracetam (Keppra 500mg Ivpb) 500 mg in 100 mls @ 400 mls/hr IV Q12 [facility] Last Admin: 08/04/17 09:25 Dose: 400 mls/hr Dextrose/Sodium Chloride (Dextrose 5%/0.9% Ns 1000 Ml) 1,000 mls @ 75 mls/hr IV .[id number] [facility] Last Admin: 08/03/17 16:22 Dose: 75 mls/hr Insulin Human Lispro (Humalog Med) 0 units SC ACHS [facility] PRN Reason: Protocol Last Admin: 08/04/17 12:41 Dose: Not Given Pantoprazole Sodium (Protonix Inj) 40 mg IVP Q12 [facility] Last Admin: 08/04/17 09:25 Dose: 40 mg Tamsulosin HCl (Flomax) 0.4 mg PO DAILY [facility] Last Admin: 08/04/17 10:01 Dose: Not Given Tolterodine Tartrate (Detrol) 2 mg PO BID [facility] Last Admin: 08/04/17 10:01 Dose: Not Given Physical Exam - Constitutional Appears: No Acute Distress, Chronically Ill - Head Exam Head Exam: NORMOCEPHALIC - Eye Exam Eye Exam: Normal appearance, PERRL - ENT Exam ENT Exam: Mucous Membranes Moist - Neck Exam Neck exam: Positive for: Normal Inspection - Respiratory Exam Respiratory Exam: Decreased Breath Sounds, NORMAL BREATHING PATTERN - Cardiovascular Exam Cardiovascular Exam: REGULAR RHYTHM, +S1, +S2 - GI/Abdominal Exam GI & Abdominal Exam: Diminished Bowel Sounds, Soft - Exam Additional comments: indwelling vale - Back Exam Additional comments: large sacral decubiti - Neurological Exam Neurological exam: Altered - Skin Skin Exam: Dry, Warm - Additional Findings Additional findings: Palliative performance scale rating 30% Results - Vital Signs Recent Vital Signs: Last Vital Signs Temp 98.8 F 08/03/17 16:44 Pulse 72 08/03/17 16:44 Resp 18 08/03/17 16:44 BP 136/82 08/03/17 16:44 Pulse Ox 98 08/03/17 16:44 - Labs Result Diagrams: 08/04/17 05:00 08/04/17 05:00 Labs: Laboratory Results - last 24 hr 08/03/17 08/03/17 08/03/17 16:07 17:28 20:53 WBC RBC Hgb Hct MCV MCH MCHC RDW Plt Count Sodium Potassium Chloride Carbon Dioxide Anion Gap BUN Creatinine Est GFR ( Amer) Est GFR (Non-Af Amer) POC Glucose (mg/dL) 65 166 H 169 H Random Glucose Calcium Phosphorus Total Bilirubin AST ALT Alkaline Phosphatase Lactate Dehydrogenase Total Protein Albumin Globulin Albumin/Globulin Ratio WB Flow Cytometry 08/04/17 08/04/17 08/04/17 05:00 05:00 05:00 WBC 18.2 H D RBC 2.95 L Hgb 9.0 L Hct 25.7 L MCV 87.1 MCH 30.5 MCHC 35.0 RDW 15.3 H Plt Count 29 L* Sodium 147 Potassium 4.2 Chloride 116 H Carbon Dioxide 16 L Anion Gap 19 BUN 136 H* Creatinine 6.8 H Est GFR ( Amer) 10 Est GFR (Non-Af Amer) 8 POC Glucose (mg/dL) Random Glucose 133 H Calcium 8.5 Phosphorus Total Bilirubin 2.0 H AST 23 ALT 33 Alkaline Phosphatase 115 Lactate Dehydrogenase 429 Total Protein 5.1 L Albumin 2.4 L Globulin 2.7 Albumin/Globulin Ratio 0.9 L WB Flow Cytometry 08/04/17 08/04/17 08/04/17 06:00 07:30 08:14 WBC RBC Hgb Hct MCV MCH MCHC RDW Plt Count Sodium Potassium Chloride Carbon Dioxide Anion Gap BUN Creatinine Est GFR ( Amer) Est GFR (Non-Af Amer) POC Glucose (mg/dL) 160 H Random Glucose Calcium Phosphorus 3.1 Total Bilirubin AST ALT Alkaline Phosphatase Lactate Dehydrogenase Total Protein Albumin Globulin Albumin/Globulin Ratio WB Flow Cytometry Reference test 08/04/17 12:09 WBC RBC Hgb Hct MCV MCH MCHC RDW Plt Count Sodium Potassium Chloride Carbon Dioxide Anion Gap BUN Creatinine Est GFR ( Amer) Est GFR (Non-Af Amer) POC Glucose (mg/dL) 144 H Random Glucose Calcium Phosphorus Total Bilirubin AST ALT Alkaline Phosphatase Lactate Dehydrogenase Total Protein Albumin Globulin Albumin/Globulin Ratio WB Flow Cytometry Assessment & Plan - Assessment and Plan (Free Text) Assessment: 81 year old male with history of CVA,CP, BPH, sepsis, sacral decubiti and dysphagia who was admitted with sepsis, BEN, urosepsis, anemia, dysphagia and altered mental status. The patient is known to me from previous admission(05/02) . At that time he was also admitted with urosepsis, infected sacral decubiti, dysphagia and weight loss. I had lengthy discussion with patients kenton/ANTONIO Belen. We discussed goals of care including benefits and burdens of PEG placement. POLST directive was completed for DNR/DNI status. After receiving antibiotics/IVF/wound care the patients mental status improved as well as his ability to swallow. A PEG was not placed and patient was discharged back to [place]. I left a VM for patient kenton today. Intent to have another discursion regarding gaols of care, specifically with regard to HD and PEG placement. Plan: Will assist family in establishing future goals of care and advance care planning
--- NOTE | 2017-08-04 15:03 | CP.PCM.PN ---
<Dewey De La Paz - Last Filed: 08/04/17 14:59> Subjective - Date & Time of Evaluation Date of Evaluation: 08/04/17 Time of Evaluation: 06:00 - Subjective Subjective: Patient was seen and examined bedside. Patient is still has AMS, unable to obtain ROS. Objective - Vital Signs/Intake and Output Vital Signs (last 24 hours): Temp Pulse Resp BP Pulse Ox 98.8 F 72 18 136/82 98 08/03/17 16:44 08/03/17 16:44 08/03/17 16:44 08/03/17 16:44 08/03/17 16:44 Intake and Output: 08/04/17 08/04/17 06:59 18:59 Intake Total 500 Output Total 75 Balance 425 - Medications Medications: Current Medications Apixaban (Eliquis) 5 mg PO BID [facility] PRN Reason: Protocol Last Admin: 08/04/17 10:01 Dose: Not Given Atorvastatin Calcium (Lipitor) 20 mg PO DIN [facility] Last Admin: 08/03/17 17:02 Dose: Not Given Baclofen (Lioresal) 5 mg PO TID [facility] Last Admin: 08/04/17 14:21 Dose: Not Given Carvedilol (Coreg) 3.125 mg PO 0800,1700 [facility] Last Admin: 08/04/17 08:24 Dose: Not Given Meropenem 500 mg/ Sodium (Chloride) 100 mls @ 100 mls/hr IVPB Q12 [facility] PRN Reason: Protocol Stop: 08/10/17 07:16 Last Admin: 08/04/17 10:57 Dose: 100 mls/hr Levetiracetam (Keppra 500mg Ivpb) 500 mg in 100 mls @ 400 mls/hr IV Q12 [facility] Last Admin: 08/04/17 09:25 Dose: 400 mls/hr Dextrose/Sodium Chloride (Dextrose 5%/0.9% Ns 1000 Ml) 1,000 mls @ 75 mls/hr IV .[id number] [facility] Last Admin: 08/03/17 16:22 Dose: 75 mls/hr Insulin Human Lispro (Humalog Med) 0 units SC ACHS [facility] PRN Reason: Protocol Last Admin: 08/04/17 12:41 Dose: Not Given Pantoprazole Sodium (Protonix Inj) 40 mg IVP Q12 [facility] Last Admin: 08/04/17 09:25 Dose: 40 mg Tamsulosin HCl (Flomax) 0.4 mg PO DAILY [facility] Last Admin: 08/04/17 10:01 Dose: Not Given Tolterodine Tartrate (Detrol) 2 mg PO BID [facility] Last Admin: 08/04/17 10:01 Dose: Not Given - Labs Labs: 08/04/17 05:00 08/04/17 05:00 PT 13.6 Seconds (9.9-11.8) H 08/02/17 12:10 INR 1.26 (0.93-1.08) H 08/02/17 12:10 APTT 33.5 Seconds (23.7-30.8) H 08/02/17 12:10 - Constitutional Appears: Toxic, No Acute Distress - Head Exam Head Exam: ATRAUMATIC, NORMAL INSPECTION, NORMOCEPHALIC - Eye Exam Eye Exam: Normal appearance, PERRL Pupil Exam: NORMAL ACCOMODATION, PERRL - ENT Exam ENT Exam: Mucous Membranes Moist - Neck Exam Neck Exam: Normal Inspection - Respiratory Exam Respiratory Exam: Clear to Ausculation Bilateral, NORMAL BREATHING PATTERN - Cardiovascular Exam Cardiovascular Exam: REGULAR RHYTHM, +S1, +S2 - GI/Abdominal Exam GI & Abdominal Exam: Soft - Exam Exam: absent: Scrotal Swelling - Extremities Exam Additional comments: Spasticity upper and lower extremeties bilaterally - Neurological Exam Neurological Exam: Alert, Awake Assessment and Plan - Assessment and Plan (Free Text) Assessment: 81 yo male with PMH of BPH, chronic indwelling Vale catheter, recurrent UTIs, GI bleed, hypertension, diabetes, cerebral palsy, CVA, seizures, and anemia [facility] admitted for evaluation and treatment for Sepsis 2/2 UTI 2/2 indwelling vale catheter, BEN, and thrombocytopenia. Plan: Sepsis- secondary to possible UTI/ possible urinary obstruction -IV NS150 -treatment for UTI as below - lactic acid 2.6 yesterday, reordered trend - BP currently 136/82 - Patient afebrile - Blood cultures = GN rods - Urine cultures = GN rods UTI 2/2 Indwelling vale catheter - Bladder scan in ED showed 716 cc of urine - Indwelling vale catheter removed and replaced in ED - Maintain and change vale catheter as needed - Bloody urine currently, output today 600ml - Urology consult- Dr. Osman - ID Consult, Dr. Lipscomb recs: continue Meropenem 500 mg IVPB q12 - IVF 150NS - Urine cultures = GN rods Altered Mental Status 2/2 UTI - Treatment plan as above for UTI - BUN 136 Acute Kidney Injury - BUN 136, Cr 6.8 - IV NS150 - Nephrology recs, Dr. Hurtado: Thrombocytopenia r/o DIC - Platelets 29 today - Thrombocytopenia could be 2/2 to obstructive process due to UTI/indwelling vale catheter - PT 13.6, aPTT 33.5, fibrinogen 524.8, fibrinogen split >10 <40, INR 1.26 - Peripheral smear pending - hemeoccult pending, ROSA ELENA was negative for blood - Heme/Onc recs, Dr. Shelton: issues likely 2/2 urosepsis, expected to resolve when underlying issues are treated; no iron or B12 def. HTN chronic - Cont home meds: Coreg 3.125 mg PO H/O Seizures, Cerebral palsy - Continue Keppra IV - Continue Baclofen 5mg PO BID H/O CVA - Cont home meds: Lipitor 20mg PO DIN, Eliquis 5mg PO BID H/O DM -Continue on ISS H/O BPH - Cont home meds: Flomax, Detrol GI/DVT PPx - Pantoprozole - DVT PPx covered by eliquis <Ashvin Huang B - Last Filed: 08/04/17 23:46> Objective - Vital Signs/Intake and Output Vital Signs (last 24 hours): Temp Pulse Resp BP Pulse Ox 98.6 F 96 H 20 114/63 99 08/04/17 16:00 08/04/17 16:00 08/04/17 16:00 08/04/17 16:00 08/04/17 16:00 Intake and Output: 08/04/17 08/05/17 18:59 06:59 Intake Total 0 Output Total 50 Balance -50 - Medications Medications: Current Medications Apixaban (Eliquis) 5 mg PO BID [facility] PRN Reason: Protocol Last Admin: 08/04/17 17:25 Dose: Not Given Atorvastatin Calcium (Lipitor) 20 mg PO DIN [facility] Last Admin: 08/04/17 17:25 Dose: Not Given Baclofen (Lioresal) 5 mg PO TID [facility] Last Admin: 08/04/17 17:25 Dose: Not Given Carvedilol (Coreg) 3.125 mg PO 0800,1700 [facility] Last Admin: 08/04/17 17:26 Dose: Not Given Levetiracetam (Keppra 500mg Ivpb) 500 mg in 100 mls @ 400 mls/hr IV Q12 [facility] Last Admin: 08/04/17 21:30 Dose: 400 mls/hr Dextrose/Sodium Chloride (Dextrose 5%/0.9% Ns 1000 Ml) 1,000 mls @ 75 mls/hr IV .[id number] [facility] Last Admin: 08/03/17 16:22 Dose: 75 mls/hr Ceftriaxone Sodium (Rocephin 2 Gm Ivpb) 2 gm in 100 mls @ 100 mls/hr IVPB DAILY [facility] PRN Reason: Protocol Last Admin: 08/04/17 21:30 Dose: 100 mls/hr Insulin Human Lispro (Humalog Med) 0 units SC ACHS [facility] PRN Reason: Protocol Last Admin: 08/04/17 23:00 Dose: Not Given Pantoprazole Sodium (Protonix Inj) 40 mg IVP Q12 [facility] Last Admin: 08/04/17 21:30 Dose: 40 mg Tamsulosin HCl (Flomax) 0.4 mg PO DAILY [facility] Last Admin: 08/04/17 10:01 Dose: Not Given Tolterodine Tartrate (Detrol) 2 mg PO BID [facility] Last Admin: 08/04/17 17:25 Dose: Not Given - Labs Labs: 08/04/17 05:00 08/04/17 05:00 PT 13.6 Seconds (9.9-11.8) H 08/02/17 12:10 INR 1.26 (0.93-1.08) H 08/02/17 12:10 APTT 33.5 Seconds (23.7-30.8) H 08/02/17 12:10 Assessment and Plan - Assessment and Plan (Free Text) Plan: Seen and examined at the bed side with the resident. Agrees with the assessment and plan as stated above.
--- NOTE | 2017-08-04 20:05 | CP.PCM.PN ---
Subjective - Date & Time of Evaluation Date of Evaluation: 08/04/17 Time of Evaluation: 09:15 - Subjective Subjective: Lethargic, arousable but does not respond appropriately, no fevers overnight. Objective - Vital Signs/Intake and Output Vital Signs (last 24 hours): Temp Pulse Resp BP Pulse Ox 98.8 F 72 18 136/82 98 08/03/17 16:44 08/03/17 16:44 08/03/17 16:44 08/03/17 16:44 08/03/17 16:44 Intake and Output: 08/04/17 08/04/17 06:59 18:59 Intake Total 500 Output Total 75 Balance 425 - Medications Medications: Current Medications Apixaban (Eliquis) 5 mg PO BID [facility] PRN Reason: Protocol Last Admin: 08/03/17 17:02 Dose: Not Given Atorvastatin Calcium (Lipitor) 20 mg PO DIN [facility] Last Admin: 08/03/17 17:02 Dose: Not Given Baclofen (Lioresal) 5 mg PO TID [facility] Last Admin: 08/03/17 17:02 Dose: Not Given Carvedilol (Coreg) 3.125 mg PO 0800,1700 [facility] Last Admin: 08/04/17 08:24 Dose: Not Given Meropenem 500 mg/ Sodium (Chloride) 100 mls @ 100 mls/hr IVPB Q12 [facility] PRN Reason: Protocol Stop: 08/10/17 07:16 Last Admin: 08/03/17 22:06 Dose: 100 mls/hr Levetiracetam (Keppra 500mg Ivpb) 500 mg in 100 mls @ 400 mls/hr IV Q12 [facility] Last Admin: 08/03/17 21:15 Dose: 400 mls/hr Dextrose/Sodium Chloride (Dextrose 5%/0.9% Ns 1000 Ml) 1,000 mls @ 75 mls/hr IV .[id number] [facility] Last Admin: 08/03/17 16:22 Dose: 75 mls/hr Insulin Human Lispro (Humalog Med) 0 units SC ACHS [facility] PRN Reason: Protocol Last Admin: 08/04/17 08:25 Dose: Not Given Pantoprazole Sodium (Protonix Inj) 40 mg IVP Q12 [facility] Last Admin: 08/03/17 21:14 Dose: 40 mg Tamsulosin HCl (Flomax) 0.4 mg PO DAILY [facility] Last Admin: 08/03/17 11:20 Dose: Not Given Tolterodine Tartrate (Detrol) 2 mg PO BID [facility] Last Admin: 08/03/17 17:03 Dose: Not Given - Labs Labs: 08/04/17 05:00 08/04/17 05:00 PT 13.6 Seconds (9.9-11.8) H 08/02/17 12:10 INR 1.26 (0.93-1.08) H 08/02/17 12:10 APTT 33.5 Seconds (23.7-30.8) H 08/02/17 12:10 - Constitutional Appears: Other (lethargic) - Head Exam Head Exam: NORMAL INSPECTION - Neck Exam Neck Exam: absent: Meningismus - Respiratory Exam Respiratory Exam: Decreased Breath Sounds - Cardiovascular Exam Cardiovascular Exam: +S1, +S2 - GI/Abdominal Exam GI & Abdominal Exam: Soft. absent: Tenderness Assessment and Plan - Assessment and Plan (Free Text) Plan: Assessment severe sepsis with acute on chronic renal failure, thrombocytopenia due to E. coli and Proteus bacteremia with UTI in a patient with an indwelling Saleem catheter history of complicated UTI with E. coli in this patient with chronic indwelling Saleem catheter Infected stage 3 sacral decubitus ulcer with Staph. aureus dementia cerebral palsy HTN seizure disorder Plan changed Merrem to Rocephin based on sensitivities; recommend to change Saleem catheter - follow up Urology recommendations removal of PICC line has been done overall prognosis is poor dialysis is being considered but Renal is still discussing with family for consent will continue to monitor clinically
[2017-08-04] MEDS: cefTRIAXone 2 GM IN NS 2 GM/100 ML BAG IVPB SCH (21:30)
[2017-08-05] MEDS: Dextrose 5%/0.9% NS 1,000 ML IV SCH ×2 (04:02→05:11)
[2017-08-05 05:40] LABS: BETA 1 GLOBULIN 0.2 g/dL (0.4-0.6); BETA 2 GLOBULIN 0.3 g/dL (0.2-0.5); GAMMA GLOBULIN 0.8 g/dL (0.8-1.7)
[2017-08-05 07:15] LABS: MEAN CELL VOLUME 87.2 fl (80.0-105.0); MEAN CORPUSCULAR HEMOGLOBIN 29.9 pg (25.0-35.0); MEAN CORPUSCULAR HGB CONC 34.2 g/dl (31.0-37.0); RED CELL DISTRIBUTION WIDTH 15.5 % (11.5-14.5); WHITE BLOOD COUNT 19.8 10^3/ul (4.5-11.0)
[2017-08-05 07:34] LABS: ALB/GLOB RATIO 0.8 (1.1-1.8); BILIRUBIN,TOTAL 1.4 mg/dL (0.2-1.3); CALCIUM 8.7 mg/dL (8.4-10.5); POTASSIUM 4.4 mmol/L (3.6-5.0)
[2017-08-05 07:41] LABS: PLATELET COUNT 27 10^3/uL (120.0-450.0)
[2017-08-05 09:14] LABS: PLATELET ESTIMATE LOW (NORMAL)
--- NOTE | 2017-08-05 10:06 | PN ---
DATE: 08/05/2017 SUBJECTIVE: The patient is seen earlier in room #360, bed 2. States that the patient had an uneventful night. No fevers and overall weak. OBJECTIVE: VITALS SIGNS: On exam; temperature is 98, blood pressure is 114/60, respiratory rate 22, and heart rate of 96. HEENT: Unremarkable. NECK: Supple. LUNGS: Decreased breath sounds. HEART: Normal S1 and S2. ABDOMEN: Soft and nontender. LABORATORY EXAMINATION: Reveals a white count of 18,000, hemoglobin of 9, platelets of 29. Coagulation is noted. The patient's creatinine is 6.8 and urinalysis is noted. Microbiology reveals a blood cultures are positive for E. coli and Proteus mirabilis, sensitive to E. coli and sensitive to Proteus mirabilis and urine culture is positive for E. coli and proteus mirabilis, same sensitivity. Review of orders reveals the patient to be on ceftriaxone. ASSESSMENT AND PLAN: A 81-year-old male with severe sepsis, acute and chronic renal failure, thrombocytopenia in the Escherichia coli and Proteus bacteremia with urinary tract infection and the patient with indwelling Saleem catheter and history of complicated urinary tract infection in the Escherichia coli and the patient with stage III sacral decubitus with Staphylococcus aureus, dementia, cerebral palsy, hypertension, and seizures. Currently, on ceftriaxone. We will follow closely with you. We will check on repeat cultures. His repeat cultures are negative. May be able to switch to p.o. ampicillin since both Escherichia coli and Proteus are sensitive to ampicillin. We will send the blood and the urine. To complete a total of 10 to 14 days. Jori Lynch MD
[2017-08-05] MEDS: Insulin Lispro (humaLOG) MEDIUM Coverage SC SCH ×4 (10:17→21:12)
[2017-08-05] MEDS: levETIRAcetam 500mg IVPB 500 MG/100 ML BAG IV SCH ×2 (10:19→21:12)
[2017-08-05] MEDS: cefTRIAXone 2 GM IN NS 2 GM/100 ML BAG IVPB SCH (10:20)
--- NOTE | 2017-08-05 10:44 | CP.PCM.PN ---
Subjective - Date & Time of Evaluation Date of Evaluation: 08/05/17 Time of Evaluation: 06:00 - Subjective Subjective: Patient was seen and examined bedside. Sternal rub was performed to awake patient. IT took a while for patient to open eyes. Patient is still has AMS, unable to obtain ROS and did not speak when spoken to. Objective - Vital Signs/Intake and Output Vital Signs (last 24 hours): Temp Pulse Resp BP Pulse Ox 97.7 F 89 22 150/85 100 08/05/17 06:00 08/05/17 10:16 08/05/17 06:00 08/05/17 10:16 08/05/17 06:00 Intake and Output: 08/05/17 08/05/17 06:59 18:59 Intake Total 0 0 Output Total 50 25 Balance -50 -25 - Medications Medications: Current Medications Apixaban (Eliquis) 5 mg PO BID [facility] PRN Reason: Protocol Last Admin: 08/05/17 10:16 Dose: Not Given Atorvastatin Calcium (Lipitor) 20 mg PO DIN [facility] Last Admin: 08/04/17 17:25 Dose: Not Given Baclofen (Lioresal) 5 mg PO TID [facility] Last Admin: 08/05/17 10:17 Dose: Not Given Carvedilol (Coreg) 3.125 mg PO 0800,1700 [facility] Last Admin: 08/05/17 10:16 Dose: Not Given Levetiracetam (Keppra 500mg Ivpb) 500 mg in 100 mls @ 400 mls/hr IV Q12 [facility] Last Admin: 08/05/17 10:19 Dose: 400 mls/hr Dextrose/Sodium Chloride (Dextrose 5%/0.9% Ns 1000 Ml) 1,000 mls @ 75 mls/hr IV .[id number] [facility] Last Admin: 08/05/17 05:11 Dose: 75 mls/hr Ceftriaxone Sodium (Rocephin 2 Gm Ivpb) 2 gm in 100 mls @ 100 mls/hr IVPB DAILY [facility] PRN Reason: Protocol Last Admin: 08/05/17 10:20 Dose: 100 mls/hr Insulin Human Lispro (Humalog Med) 0 units SC ACHS [facility] PRN Reason: Protocol Last Admin: 08/05/17 10:17 Dose: Not Given Pantoprazole Sodium (Protonix Inj) 40 mg IVP Q12 [facility] Last Admin: 08/05/17 10:19 Dose: 40 mg Tamsulosin HCl (Flomax) 0.4 mg PO DAILY [facility] Last Admin: 08/05/17 10:16 Dose: Not Given Tolterodine Tartrate (Detrol) 2 mg PO BID [facility] Last Admin: 08/05/17 10:16 Dose: Not Given - Labs Labs: 08/05/17 07:07 08/05/17 07:07 PT 13.6 Seconds (9.9-11.8) H 08/02/17 12:10 INR 1.26 (0.93-1.08) H 08/02/17 12:10 APTT 33.5 Seconds (23.7-30.8) H 08/02/17 12:10 - Constitutional Appears: Toxic - Head Exam Head Exam: ATRAUMATIC, NORMAL INSPECTION, NORMOCEPHALIC - Eye Exam Eye Exam: EOMI, Normal appearance, PERRL Pupil Exam: NORMAL ACCOMODATION, PERRL - ENT Exam ENT Exam: Normal Exam - Respiratory Exam Respiratory Exam: Accessory Muscle Use, Clear to Ausculation Bilateral - Cardiovascular Exam Cardiovascular Exam: REGULAR RHYTHM, +S1, +S2 - GI/Abdominal Exam GI & Abdominal Exam: Soft - Exam Exam: NORMAL INSPECTION. absent: Scrotal Swelling - Extremities Exam Additional comments: Spascticity upper and lower extremeties bilaterally - Neurological Exam Neurological Exam: Awake Assessment and Plan - Assessment and Plan (Free Text) Assessment: 81 yo male with PMH of BPH, chronic indwelling Vale catheter, recurrent UTIs, GI bleed, hypertension, diabetes, cerebral palsy, CVA, seizures, and anemia presents from senior living due to urinary retention admitted for evaluation and treatment for Sepsis 2/2 UTI 2/2 indwelling vale catheter, BEN, and thrombocytopenia. Plan: Sepsis- secondary to possible UTI/ possible urinary obstruction -IV NS150 -treatment for UTI as below - lactic acid 2.6 yesterday, reordered trend - BP currently 147/81 - Patient afebrile - Blood cultures = GN rods, REPEAT CULTURES NO GROWTH - Urine cultures = GN rods UTI 2/2 Indwelling vale catheter - Bladder scan in ED showed 716 cc of urine - Indwelling vale catheter removed and replaced in ED - Maintain and change vale catheter as needed - Bloody urine currently, output today 75 cc - Urology consult- Dr. Osman - ID Consult, Dr. Lipscomb recs: Started on Rocephin yesterday, continue, possible switch to ampicillin - IVF 150NS - Urine cultures = GN rods Altered Mental Status 2/2 UTI - Treatment plan as above for UTI - BUN 141 Acute Kidney Injury - BUN 141, Cr 7.6 - IV NS150 - Nephrology recs, Dr. Warren: TTP needs to be ruled out as well. Thrombocytopenia r/o DIC - Platelets 27 today - Thrombocytopenia could be 2/2 to obstructive process due to UTI/indwelling vale catheter - PT 13.6, aPTT 33.5, fibrinogen 524.8, fibrinogen split >10 <40, INR 1.26 - Peripheral smear pending - hemeoccult pending, ROSA ELENA was negative for blood - Heme/Onc recs, Dr. Shelton: issues likely 2/2 urosepsis, expected to resolve when underlying issues are treated; no iron or B12 def. HTN chronic - Cont home meds: Coreg 3.125 mg PO H/O Seizures, Cerebral palsy - Continue Keppra IV - Continue Baclofen 5mg PO BID H/O CVA - Cont home meds: Lipitor 20mg PO DIN, Eliquis 5mg PO BID H/O DM -Continue on ISS H/O BPH - Cont home meds: Flomax, Detrol GI/DVT PPx - Pantoprozole - DVT PPx covered by [facility] Palliative Care -Per Earlene Pepper : "Kenton, Belen Marie called, she and I discussed goals of care for her uncle. Kenton does not want PEG or HD. Hospice care explained in detail. Questions answered. Kenton requesting that patient return to [place] under hospice services. Beulah portrait painter to meet with kenton. "
--- NOTE | 2017-08-05 11:17 | CP.PCM.PN ---
Subjective - Date & Time of Evaluation Date of Evaluation: 08/05/17 Time of Evaluation: 10:00 - Subjective Subjective: More responsive today, opens eyes when stimulated, mumbles, not following command Objective - Vital Signs/Intake and Output Vital Signs (last 24 hours): Temp Pulse Resp BP Pulse Ox 97.7 F 89 22 150/85 100 08/05/17 06:00 08/05/17 10:16 08/05/17 06:00 08/05/17 10:16 08/05/17 06:00 Intake and Output: 08/05/17 08/05/17 06:59 18:59 Intake Total 0 0 Output Total 50 25 Balance -50 -25 - Medications Medications: Current Medications Apixaban (Eliquis) 5 mg PO BID [facility] PRN Reason: Protocol Last Admin: 08/05/17 10:16 Dose: Not Given Atorvastatin Calcium (Lipitor) 20 mg PO DIN [facility] Last Admin: 08/04/17 17:25 Dose: Not Given Baclofen (Lioresal) 5 mg PO TID [facility] Last Admin: 08/05/17 10:17 Dose: Not Given Carvedilol (Coreg) 3.125 mg PO 0800,1700 [facility] Last Admin: 08/05/17 10:16 Dose: Not Given Levetiracetam (Keppra 500mg Ivpb) 500 mg in 100 mls @ 400 mls/hr IV Q12 [facility] Last Admin: 08/05/17 10:19 Dose: 400 mls/hr Dextrose/Sodium Chloride (Dextrose 5%/0.9% Ns 1000 Ml) 1,000 mls @ 75 mls/hr IV .[id number] [facility] Last Admin: 08/05/17 05:11 Dose: 75 mls/hr Ceftriaxone Sodium (Rocephin 2 Gm Ivpb) 2 gm in 100 mls @ 100 mls/hr IVPB DAILY [facility] PRN Reason: Protocol Last Admin: 08/05/17 10:20 Dose: 100 mls/hr Insulin Human Lispro (Humalog Med) 0 units SC ACHS [facility] PRN Reason: Protocol Last Admin: 08/05/17 10:17 Dose: Not Given Pantoprazole Sodium (Protonix Inj) 40 mg IVP Q12 [facility] Last Admin: 08/05/17 10:19 Dose: 40 mg Tamsulosin HCl (Flomax) 0.4 mg PO DAILY [facility] Last Admin: 08/05/17 10:16 Dose: Not Given Tolterodine Tartrate (Detrol) 2 mg PO BID [facility] Last Admin: 08/05/17 10:16 Dose: Not Given - Labs Labs: 08/05/17 07:07 08/05/17 07:07 PT 13.6 Seconds (9.9-11.8) H 08/02/17 12:10 INR 1.26 (0.93-1.08) H 08/02/17 12:10 APTT 33.5 Seconds (23.7-30.8) H 08/02/17 12:10 - Constitutional Appears: Cachectic, Chronically Ill - Eye Exam Eye Exam: Normal appearance, PERRL - ENT Exam ENT Exam: Mucous Membranes Moist - Respiratory Exam Respiratory Exam: Decreased Breath Sounds, NORMAL BREATHING PATTERN - Cardiovascular Exam Cardiovascular Exam: REGULAR RHYTHM, +S1, +S2 - GI/Abdominal Exam GI & Abdominal Exam: Soft, Diminished Bowel Sounds - Extremities Exam Additional comments: tremulous movement of left arm - Skin Skin Exam: Dry, Warm Additional comments: sacral decubiti Assessment and Plan - Assessment and Plan (Free Text) Assessment: 81 year old male with history of CVA,CP, BPH, urinary retention, indwelling vale, UTI sacral decubiti who was admitted with sepsis, BEN, dsyphagia,anemia. left again today for patient's niece, Belen Marie. Intent is to discuss goals of care and possible transition to comfort care at [place] Plan: Establish future goals of care
--- NOTE | 2017-08-05 12:42 | PN ---
DATE: 08/05/2017 SUBJECTIVE: The patient's clinical status is unchanged. He is still very lethargic, but arousable to verbal commands. PHYSICAL EXAMINATION VITAL SIGNS: Reveal a temperature of 97.7, pulse of 89, respiratory rate of 22, and a blood pressure of 150/85. GENERAL: He is an elderly pleasant male lying in bed, in no acute distress. HEENT: Head is normocephalic, atraumatic. Eyes: Pupils equal, round, reactive to light and accommodation. Extraocular muscles are intact. LABORATORY DATA: His white count is 19.8, hemoglobin of 8.9, hematocrit of 26.0, and platelet count of 27,000. Chemistries reveal BUN and creatinine of 141 and 7.6. Microcultures are noted to be blood cultures as well as urine cultures are positive for E. coli and Proteus mirabilis. ASSESSMENT AND PLAN: An elderly male with sepsis secondary to urosepsis. At this point, his thrombocytopenia as well as anemia is secondary to the ongoing sepsis. Continue IV antibiotics as per Infectious Disease. No intervention for platelets unless he has active bleeding. Hold off on any further testing at this point. Await flow cytometry. Serum protein electrophoresis was consistent with acute phase reaction to the sepsis. No hematological intervention. Continue supportive care. Sameera Shelton MD
--- NOTE | 2017-08-05 14:39 | CON ---
DATE: 08/03/2017 GENITOURINARY CONSULTATION CHIEF COMPLAINT: Urinary retention. HISTORY OF PRESENT ILLNESS: This is a 81-year-old male who was seen in his room at [facility]. The patient comes [facility]. He has a history of a chronic indwelling Saleem catheter from likely BPH. He has had multiple recurrent urinary tract infections. He has cerebral palsy with CVA in the past. He is admitted with altered mental status. He is noncommunicative and unable to give any history. Reportedly, his Saleem catheter was not draining well at [facility]. The patient was transferred to the emergency room. Saleem catheter was changed and draining grossly bloody urine with some felix pus. The patient was then admitted for evaluation and treatment. Per nursing, they had been irrigated the Saleem catheter, it is now draining well; however, his urine output remains low. The urine is still slightly blood-tinged and a consultation was requested. PAST MEDICAL HISTORY: Significant for BPH, urinary retention, recurrent UTIs, GI bleed, hypertension, diabetes, cerebral palsy, CVA, seizures, and anemia, as well as altered mental status. MEDICATIONS: Currently include Coreg, Detrol, Eliquis, Flomax, Humalog, Keppra, baclofen, Lipitor, meropenem, and Protonix. ALLERGIES: NO KNOWN DRUG ALLERGIES. FAMILY HISTORY: Noncontributory. SOCIAL HISTORY: No history of smoking or EtOH use from the chart. REVIEW OF SYSTEMS: Could not be obtained from the patient, as he is noncommunicative. Positives as per the HPI. PHYSICAL EXAMINATION: GENERAL: The patient is awake, responsive to stimuli; however, he appears obtunded and not able to answer any questions. VITAL SIGNS: He has been afebrile, temperature of 98.8, pulse 72 improved from 104 on admission, blood pressure 136/82, and respirations 18. NECK: Supple. There is no obvious mass. CHEST: Reveals somewhat decreased inspiratory effort. CARDIAC: Positive S1 and S2. SKIN: There is some moderate edema of the lower extremities and of the penis and scrotum. ABDOMEN: The abdomen is soft, no apparent tenderness. No CVA tenderness. No obvious mass. GENITOURINARY: The bladder is not palpably distended. On exam, phallus appears that he had a dorsal slit at some point in the past. There is some preputial edema noted of the ventral foreskin. There is no phimosis. The glans is easily visible. There is a Saleem catheter in place, which is draining small amounts of slightly blood-tinged urine. There is no felix pus noted in the catheter or around the catheter. Scrotum has mild edema. Testes bilaterally descended. No obvious mass. Epididymis appears normal. EXTREMITIES: No cyanosis and positive for edema. LABORATORY EXAMINATION: WBC count of 13, platelet count of 29,000, and hemoglobin of 9.1. Creatinine is noted to be 6.1 with a GFR of 11 and BUN of 125. Urinalysis, too numerous to count wbc's, 2 to 5 rbc's, many bacteria, and nitrites are negative. Blood cultures positive for gram-negative rods. Urine culture positive for 2 types of gram-negative rods. On radiologic exam, the patient had a CT scan of the abdomen and pelvis done yesterday, which showed kidneys were unremarkable. No hydronephrosis or solid mass. There is a Saleem catheter in the bladder, which was collapsed. No acute intraabdominal findings noted. IMPRESSION AND PLAN: This is a 81-year-old male with what appears to be chronic urinary retention by history. Urologically, the a Saleem catheter was changed. He had some bleeding likely from Saleem trauma. He is also on Eliquis and has a markedly decreased platelet count. I would not worry about the hematuria at this point, as it appears to have cleared. We should consider holding blood thinners if medically prudent, if his bleeding continues. The patient also appears to be on Flomax and Detrol and it is unclear why he is on Flomax, if he has a history of chronic urinary retention. If he does not have a chronic indwelling Saleem, then we can consider a voiding trial, when his condition has improved. If he does have a chronic indwelling Saleem, then I would consider discontinuing the Flomax as it is not necessary for his BPH. As for the Detrol, this could be useful for bladder spasms. It is unclear if the patient has been having those; however, at this point, we can also consider the discontinuing Detrol unless the patient is leaking around the Saleem catheter. The patient is a DNR/DNI status. Therefore, I would not consider any invasive procedures such as a cystoscopy to assess the hematuria. The patient also has positive urine and blood cultures with gram-negative rods and should be continued on IV antibiotics. As for the scant urine output, this does appear to be from renal failure given the marked elevated BUN and creatinine and a low GFR. We will see if it responds to IV fluids and the patient should have a Nephrology consultation. Thank you for allowing me to participate the care of this patient. Telly Osman MD
--- NOTE | 2017-08-05 16:15 | CP.PCM.PN ---
Subjective - Date & Time of Evaluation Date of Evaluation: 08/05/17 Time of Evaluation: 16:14 - Subjective Subjective: renal follow up note no events overnight PE: VSS gen: nad sclera anicteric neck: supple cv: [id number] lungs: dec bs no edema vale + skin no rash psy flat affect neuro: minimally response ARF/ Hyperkalemia/ Sepsis/ UTI / Anemia/ Thrombocytopenia/ hypophosphatemia/ proteinuria plan: BEN DDX: sepsis induced atn/obstructive given severe thrombocytopenia & anemia TTP needs to be ruled out as well. eve l function is worse, family wishes no hd Objective - Vital Signs/Intake and Output Vital Signs (last 24 hours): Temp Pulse Resp BP Pulse Ox 97.7 F 89 22 150/85 100 08/05/17 06:00 08/05/17 10:16 08/05/17 06:00 08/05/17 10:16 08/05/17 06:00 Intake and Output: 08/05/17 08/05/17 06:59 18:59 Intake Total 0 0 Output Total 50 25 Balance -50 -25 - Medications Medications: Current Medications Apixaban (Eliquis) 5 mg PO BID [facility] PRN Reason: Protocol Last Admin: 08/05/17 10:16 Dose: Not Given Atorvastatin Calcium (Lipitor) 20 mg PO DIN [facility] Last Admin: 08/04/17 17:25 Dose: Not Given Baclofen (Lioresal) 5 mg PO TID [facility] Last Admin: 08/05/17 13:19 Dose: Not Given Carvedilol (Coreg) 3.125 mg PO 0800,1700 [facility] Last Admin: 08/05/17 10:16 Dose: Not Given Levetiracetam (Keppra 500mg Ivpb) 500 mg in 100 mls @ 400 mls/hr IV Q12 [facility] Last Admin: 08/05/17 10:19 Dose: 400 mls/hr Dextrose/Sodium Chloride (Dextrose 5%/0.9% Ns 1000 Ml) 1,000 mls @ 75 mls/hr IV .[id number] [facility] Last Admin: 08/05/17 05:11 Dose: 75 mls/hr Ceftriaxone Sodium (Rocephin 2 Gm Ivpb) 2 gm in 100 mls @ 100 mls/hr IVPB DAILY [facility] PRN Reason: Protocol Last Admin: 08/05/17 10:20 Dose: 100 mls/hr Insulin Human Lispro (Humalog Med) 0 units SC ACHS [facility] PRN Reason: Protocol Last Admin: 08/05/17 13:50 Dose: Not Given Pantoprazole Sodium (Protonix Inj) 40 mg IVP Q12 [facility] Last Admin: 08/05/17 10:19 Dose: 40 mg Tamsulosin HCl (Flomax) 0.4 mg PO DAILY [facility] Last Admin: 08/05/17 10:16 Dose: Not Given Tolterodine Tartrate (Detrol) 2 mg PO BID [facility] Last Admin: 08/05/17 10:16 Dose: Not Given - Labs Labs: 08/05/17 07:07 08/05/17 07:07 PT 13.6 Seconds (9.9-11.8) H 08/02/17 12:10 INR 1.26 (0.93-1.08) H 08/02/17 12:10 APTT 33.5 Seconds (23.7-30.8) H 08/02/17 12:10
[2017-08-06 07:55] VITALS: BP 151/93; PULSE 92; RESP 22; TEMP 98.7; O2SAT 100
[2017-08-06] MEDS: Insulin Lispro (humaLOG) MEDIUM Coverage SC SCH ×2 (08:44→11:52)
[2017-08-06] MEDS: levETIRAcetam 500mg IVPB 500 MG/100 ML BAG IV SCH (09:00)
--- NOTE | 2017-08-06 11:23 | CP.PCM.PN ---
Subjective - Date & Time of Evaluation Date of Evaluation: 08/06/17 Time of Evaluation: 11:21 - Subjective Subjective: Renal follow up note no events overnight PE: VSS gen: nad sclera anicteric neck: supple cv: +s1s2 present lungs: dec bs no edema vale + skin no rash psy flat affect neuro: minimally response ARF/ Hyperkalemia/ Sepsis/ UTI / Anemia/ Thrombocytopenia/ hypophosphatemia/ proteinuria plan: BEN DDX: sepsis induced atn/obstructive per family wishes no HD continue ivf as doing plan likely for hospice Objective - Vital Signs/Intake and Output Vital Signs (last 24 hours): Temp Pulse Resp BP Pulse Ox 98.7 F 92 H 22 151/93 H 100 08/06/17 07:54 08/06/17 07:54 08/06/17 07:54 08/06/17 07:54 08/06/17 07:54 Intake and Output: 08/06/17 08/06/17 06:59 18:59 Intake Total 1800 Output Total 175 Balance 1625 - Medications Medications: Current Medications Apixaban (Eliquis) 5 mg PO BID [facility] PRN Reason: Protocol Last Admin: 08/06/17 09:02 Dose: Not Given Atorvastatin Calcium (Lipitor) 20 mg PO DIN [facility] Last Admin: 08/05/17 16:31 Dose: Not Given Baclofen (Lioresal) 5 mg PO TID [facility] Last Admin: 08/06/17 09:02 Dose: Not Given Carvedilol (Coreg) 3.125 mg PO 0800,1700 [facility] Last Admin: 08/06/17 08:44 Dose: Not Given Levetiracetam (Keppra 500mg Ivpb) 500 mg in 100 mls @ 400 mls/hr IV Q12 [facility] Last Admin: 08/06/17 09:00 Dose: 400 mls/hr Dextrose/Sodium Chloride (Dextrose 5%/0.9% Ns 1000 Ml) 1,000 mls @ 75 mls/hr IV .[id number] [facility] Last Admin: 08/05/17 05:11 Dose: 75 mls/hr Ceftriaxone Sodium (Rocephin 2 Gm Ivpb) 2 gm in 100 mls @ 100 mls/hr IVPB DAILY [facility] PRN Reason: Protocol Last Admin: 08/05/17 10:20 Dose: 100 mls/hr Insulin Human Lispro (Humalog Med) 0 units SC ACHS [facility] PRN Reason: Protocol Last Admin: 08/06/17 08:44 Dose: Not Given Pantoprazole Sodium (Protonix Inj) 40 mg IVP Q12 [facility] Last Admin: 08/06/17 09:06 Dose: 40 mg Tamsulosin HCl (Flomax) 0.4 mg PO DAILY [facility] Last Admin: 08/06/17 09:02 Dose: Not Given Tolterodine Tartrate (Detrol) 2 mg PO BID [facility] Last Admin: 08/06/17 09:02 Dose: Not Given - Labs Labs: 08/05/17 07:07 08/05/17 07:07 PT 13.6 Seconds (9.9-11.8) H 08/02/17 12:10 INR 1.26 (0.93-1.08) H 08/02/17 12:10 APTT 33.5 Seconds (23.7-30.8) H 08/02/17 12:10
[2017-08-06] MEDS: cefTRIAXone 2 GM IN NS 2 GM/100 ML BAG IVPB SCH (11:44)
--- NOTE | 2017-08-06 12:13 | CP.PCM.DIS ---
Provider - Provider Date of Admission: 08/02/17 00:56 Attending physician: Gabriel Amaya MD Primary care physician: Gabriel Amaya MD Time Spent in preparation of Discharge (in minutes): 70 Hospital Course - Lab Results Lab Results: Micro Results 08/04/17 09:25 Blood-Venous Blood Culture - Preliminary NO GROWTH AFTER 48 HOURS 08/04/17 08:55 Blood-Venous Blood Culture - Preliminary NO GROWTH AFTER 48 HOURS 08/02/17 02:02 Urine,Vale Urine Culture - Final Escherichia Coli Proteus Mirabilis Most Recent Lab Values WBC 19.8 10^3/ul (4.5-11.0) H 08/05/17 07:07 RBC 2.98 10^6/uL (3.5-6.1) L 08/05/17 07:07 Hgb 8.9 g/dL (14.0-18.0) L 08/05/17 07:07 Hct 26.0 % (42.0-52.0) L 08/05/17 07:07 MCV 87.2 fl (80.0-105.0) 08/05/17 07:07 MCH 29.9 pg (25.0-35.0) 08/05/17 07:07 MCHC 34.2 g/dl (31.0-37.0) 08/05/17 07:07 RDW 15.5 % (11.5-14.5) H 08/05/17 07:07 Plt Count 27 10^3/uL (120.0-450.0) L* 08/05/17 07:07 Manual Plt Count 53 K/mm3 (120-450) L* 08/01/17 22:30 MPV 10.5 fl (7.0-11.0) 08/01/17 22:30 Gran % 86.5 % (50.0-68.0) H 08/01/17 22:30 Lymph % (Auto) 7.3 % (22.0-35.0) L 08/01/17 22:30 Iron % (Auto) 5.9 % (1.0-6.0) 08/01/17 22:30 Eos % (Auto) 0.2 % (1.5-5.0) L 08/01/17 22:30 Baso % (Auto) 0.1 % (0.0-3.0) 08/01/17 22:30 Gran # 10.74 (1.4-6.5) H 08/01/17 22:30 Lymph # 0.9 (1.2-3.4) L 08/01/17 22:30 Iron # 0.7 (0.1-0.6) H 08/01/17 22:30 Eos # 0.0 (0.0-0.7) 08/01/17 22:30 Baso # 0.01 K/mm3 (0.0-2.0) 08/01/17 22:30 Neutrophils % (Manual) 77 % (50.0-70.0) H 08/01/17 22:30 Band Neutrophils % 10 % (0-2) H 08/01/17 22:30 Lymphocytes % (Manual) 8 % (22.0-35.0) L 08/01/17 22:30 Monocytes % (Manual) 5 % (1.0-6.0) 08/01/17 22:30 Platelet Evaluation Low (NORMAL) 08/05/17 07:07 Acanthocytes (Spur) Slight 08/01/17 22:30 Haptoglobin 180 mg/dL (43-212) 08/04/17 16:15 PT 13.6 Seconds (9.9-11.8) H 08/02/17 12:10 INR 1.26 (0.93-1.08) H 08/02/17 12:10 APTT 33.5 Seconds (23.7-30.8) H 08/02/17 12:10 Fibrinogen 524.8 mg/dL (187-400) H 08/02/17 12:10 Fibrin Degrad Products >10 <40 ug/ml (< 10 ug/mL) 08/02/17 13:25 Sodium 150 mmol/L (132-148) H 08/05/17 07:07 Potassium 4.4 mmol/L (3.6-5.0) 08/05/17 07:07 Chloride 117 mmol/L (98-107) H 08/05/17 07:07 Carbon Dioxide 18 mmol/L (21-33) L 08/05/17 07:07 Anion Gap 19 (10-20) 08/05/17 07:07 BUN 141 mg/dL (7-21) H* 08/05/17 07:07 Creatinine 7.6 mg/dL (0.8-1.5) H* 08/05/17 07:07 Est GFR ( Amer) 8 08/05/17 07:07 Est GFR (Non-Af Amer) 7 08/05/17 07:07 POC Glucose (mg/dL) 152 mg/dL (65-110) H 08/06/17 11:18 Random Glucose 121 mg/dL (70-110) H 08/05/17 07:07 Serum Osmolality 338 mosm/kg (272-300) H 08/02/17 09:48 Lactic Acid 0.7 mmol/L (0.7-2.1) 08/05/17 08:30 Calcium 8.7 mg/dL (8.4-10.5) 08/05/17 07:07 Phosphorus 3.1 mg/dL (2.5-4.5) 08/04/17 07:30 Magnesium 2.4 mg/dL (1.7-2.2) H 08/01/17 22:30 Iron 16 ug/dL (45-180) L 08/02/17 08:04 TIBC 172 ug/dL (261-462) L 08/02/17 08:04 % Saturation 9 % (20-55) L 08/02/17 08:04 Ferritin 375.0 ng/mL 08/02/17 08:04 Total Bilirubin 1.4 mg/dL (0.2-1.3) H 08/05/17 07:07 AST 20 U/L (17-59) 08/05/17 07:07 ALT 35 U/L (7-56) 08/05/17 07:07 Alkaline Phosphatase 113 U/L (38-126) 08/05/17 07:07 Ammonia < 9 umol/L (9-33) L 08/02/17 12:10 Lactate Dehydrogenase 429 U/L (333-699) 08/04/17 05:00 Total Protein 5.0 g/dL (5.8-8.3) L 08/05/17 07:07 Total Protein (PEP) 4.4 g/dL (6.1-8.1) L 08/02/17 10:13 Albumin 2.2 g/dL (3.0-4.8) L 08/05/17 07:07 Albumin (PEP) 1.7 g/dL (3.8-4.8) L 08/02/17 10:13 Globulin 2.8 gm/dL 08/05/17 07:07 Albumin/Globulin Ratio 0.8 (1.1-1.8) L 08/05/17 07:07 Vrvrm-8-Cwmrmnobp 0.6 g/dL (0.2-0.3) H 08/02/17 10:13 Zvtwy-2-Oiqmvgekp 0.8 g/dL (0.5-0.9) 08/02/17 10:13 Svty-8-Jmfgnizh 0.2 g/dL (0.4-0.6) L 08/02/17 10:13 Zpqm-6-Lpxcycjk 0.3 g/dL (0.2-0.5) 08/02/17 10:13 Gamma Globulins 0.8 g/dL (0.8-1.7) 08/02/17 10:13 Abnorm Protein Band 1 TEST NOT PERFORMED 08/02/17 10:13 Abnorm Protein Band 2 TEST NOT PERFORMED 08/02/17 10:13 Abnorm Protein Band 3 TEST NOT PERFORMED 08/02/17 10:13 Vitamin B12 961 pg/mL (239-931) H 08/02/17 08:04 Folate > 20.0 ng/mL 08/02/17 08:04 TSH 3rd Generation 1.69 mIU/mL (0.46-4.68) 08/02/17 09:48 Urine Color Yellow (YELLOW) 08/02/17 02:02 Urine Appearance Cloudy (CLEAR) 08/02/17 02:02 Urine pH 7.5 (4.7-8.0) 08/02/17 02:02 Ur Specific [place] 1.025 (1.005-1.035) 08/02/17 02:02 Urine Protein >=300 mg/dL (<30 mg/dL) H 08/02/17 02:02 Urine Glucose (UA) Negative mg/dL (NEGATIVE) 08/02/17 02:02 Urine Ketones Negative mg/dL (NEGATIVE) 08/02/17 02:02 Urine Blood Large (NEGATIVE) H 08/02/17 02:02 Urine Nitrate Negative (NEGATIVE) 08/02/17 02:02 Urine Bilirubin Negative (NEGATIVE) 08/02/17 02:02 Urine Urobilinogen 0.2 E.U./dL (<1 E.U./dL) 08/02/17 02:02 Ur Leukocyte Esterase Large Erendira/uL (NEGATIVE) H 08/02/17 02:02 Urine RBC 2 - 5 /hpf (0-2) 08/02/17 02:02 Urine WBC Tntc /hpf (0-6) 08/02/17 02:02 Ur Epithelial Cells 0 - 2 /hpf (0-5) 08/02/17 02:02 Urine Bacteria Many (NEG) 08/02/17 02:02 Ur Random Sodium 139 meq/L 08/02/17 16:45 ENE & SPEP Interp See note 08/02/17 10:13 WB Flow Cytometry Reference test 08/04/17 06:00 - Hospital Course Hospital Course: 81 yo male with PMH of BPH, chronic indwelling Vale catheter, recurrent UTIs, GI bleed, hypertension, diabetes, cerebral palsy, CVA, seizures, and anemia presents from longterm due to urinary retention admitted for evaluation and treatment for Sepsis 2/2 UTI 2/2 indwelling vale catheter, BEN, and thrombocytopenia. Patients CBC and BMP was ordred and renal function was checked. Nephrology was consulted, urology was consulted. Nephrology recommended HD but family did not want to proceed so no intervention was done. CT abdomen and pelvis was done. Platelets were low and monitored, Heme was consulted. Intake and outputs were monitored. Patient was placed on fluids daily. Coags were ordered, peripheral smear was ordred, lactic acid was ordered and trended. Patient was placed on an air mattress with rotation every 2 hour. Serum iron studies were performed and electrolytes were repleted as needed. palliative care was also consulted and family agreed to palliative care plan to facility. Patients renal function improved slightly on last day and was transferred to [facility]. Discharge Exam - Head Exam Head Exam: ATRAUMATIC, NORMAL INSPECTION, NORMOCEPHALIC - Eye Exam Eye Exam: EOMI, PERRL Pupil Exam: PERRL - ENT Exam ENT Exam: Mucous Membranes Moist - Respiratory Exam Respiratory Exam: Clear to PA & Lateral, NORMAL BREATHING PATTERN - Cardiovascular Exam Cardiovascular Exam: REGULAR RHYTHM, +S1, +S2 - GI/Abdominal Exam GI & Abdominal Exam: Normal Bowel Sounds - Extremities Exam Extremities exam: pedal pulses present - Neurological Exam Neurological exam: Altered Discharge Plan - Follow Up Plan Condition: FAIR Disposition: TRANSF TO SNF Instructions: Gastrointestinal Bleeding (DC), Urinary Tract Infection in Men ( DC) Additional Instructions: Patient Transferred to [facility], will follow up at the facility. Referrals: Gabriel Amaya MD [Primary Care Provider] -
--- NOTE | 2017-08-06 13:29 | PN ---
DATE: 08/06/2017 SUBJECTIVE: The patient is in bed in no acute distress, and nontoxic. PHYSICAL EXAMINATION: VITAL SIGNS: On exam, temperature is 97, blood pressure is 150/70, respiratory rate of 22, and heart rate of 92. HEENT: Unremarkable. NECK: Supple. LUNGS: Have decreased breath sounds. HEART: Normal S1 and S2. ABDOMEN: Soft and nontender. LABORATORY EXAMINATION: Reveals a white count of 19,000 and hemoglobin of 8. Coagulation is noted. Chemistries reveals the patient has a creatinine of 7.6. Urinalysis is noted. ASSESSMENT AND PLAN: This is a 81-year-old male with severe sepsis, acute on chronic renal failure, thrombocytopenia, Escherichia coli and Proteus bacteremia, urinary tract infection, and indwelling catheter, complicated urinary tract infection and Escherichia coli in a patient with stage III sacral decubitus and Staphylococcus aureus, dementia, cerebral palsy, hypertension, seizures, and chills. The patient is currently on ceftriaxone, however, the Escherichia coli in the blood and Escherichia coli in the urine are both sensitive to ampicillin, may be able to switch to p.o. ampicillin upon discharge. Overall prognosis quite poor for this patient. Jori Lynch MD
--- NOTE | 2017-08-08 10:42 | CP.PCM.CON ---
History of Present Illness - History of Present Illness History of Present Illness: Consult requested by Dr Jennifer Amaya Reason: Goals of care/Hospice 81 year old male sent for [facility] with alerted mental status, BEN, sepis, urosepsis. PMHX: CVA,CP, sacral decubiti, BPH, indwelling vale, urosepsis, dysphagia, CKD, DM,anemia. Social History: Non smoker, no alcohol or drug use. Single, lives in [facility]. Family History: Non contributory Advance Care Planning: The patient has a POLST. He is DNR/DNI. His niece Belen Marie is POA. Review of System: As per PI, the patient is altered, is non verbal Past Patient History - Tetanus Immunizations Tetanus Immunization: Unknown - Past Medical History & Family History Past Medical History?: Yes - Past Social History Smoking Status: Never Smoked - CARDIAC Hx Cardiac Disorders: Yes Hx Hypertension: Yes - PULMONARY Hx Respiratory Disorders: No Other/Comment: insomnia - NEUROLOGICAL Hx Neurological Disorder: Yes Hx Seizures: Yes Other/Comment: cerebral palsy - HEENT Hx HEENT Problems: No - RENAL Hx Chronic Kidney Disease: No - ENDOCRINE/METABOLIC Hx Endocrine Disorders: Yes Hx Diabetes Mellitus Type 2: Yes - HEMATOLOGICAL/ONCOLOGICAL Hx Blood Disorders: Yes (GI BLEED) - INTEGUMENTARY Hx Dermatological Problems: No - MUSCULOSKELETAL/RHEUMATOLOGICAL Hx Musculoskeletal Disorders: Yes (LEFT SIDED WEAKNESS/CVA) Hx Falls: (UNKNOWN) - GASTROINTESTINAL Hx Gastrointestinal Disorders: Yes (GI BLEED,CONSTIPATION,DIARRHEA) - GENITOURINARY/GYNECOLOGICAL Hx Genitourinary Disorders: Yes (OVERACTIVE BLADDER) Hx Incontinence: Yes - PSYCHIATRIC Hx Psychophysiologic Disorder: No Hx Substance Use: No - SURGICAL HISTORY Hx Surgeries: (unable to obtain) Meds Home Medications: Home Medication List Medication Instructions Recorded Confirmed Type Apixaban [Eliquis] 5 mg PO BID tab 08/06/17 Rx Atorvastatin [Lipitor] 20 mg PO DIN tab 08/06/17 Rx Baclofen [Lioresal] 5 mg PO TID tab 08/06/17 Rx Carvedilol [Coreg] 3.125 mg PO 0800,1700 tab 08/06/17 Rx Tamsulosin [Flomax] 0.4 mg PO DAILY cap 08/06/17 Rx Tolterodine [Detrol] 2 mg PO BID tab 08/06/17 Rx Allergies/Adverse Reactions: Allergies Allergy/AdvReac Type Severity Reaction Status Date / Time No Known Allergies Allergy Verified 05/06/17 19:00 Physical Exam - Constitutional Appears: Cachectic, Chronically Ill - Head Exam Head Exam: NORMAL INSPECTION - Eye Exam Eye Exam: Normal appearance, PERRL - ENT Exam ENT Exam: Mucous Membranes Moist - Respiratory Exam Respiratory Exam: Decreased Breath Sounds, NORMAL BREATHING PATTERN - Cardiovascular Exam Cardiovascular Exam: REGULAR RHYTHM, +S1, +S2 - GI/Abdominal Exam GI & Abdominal Exam: Diminished Bowel Sounds, Soft - Exam Additional comments: anuric - Extremities Exam Extremities exam: Positive for: pedal edema Additional comments: right sided weakness - Back Exam Additional comments: large sacral decubiti Results - Vital Signs Recent Vital Signs: Last Vital Signs Temp 98.7 F 08/06/17 07:54 Pulse 92 H 08/06/17 07:54 Resp 22 08/06/17 07:54 BP 151/93 H 08/06/17 07:54 Pulse Ox 100 08/06/17 07:54 - Labs Result Diagrams: 08/05/17 07:07 08/05/17 07:07 Assessment & Plan - Assessment and Plan (Free Text) Assessment: 81 year old male with history of CVA, right sharlene paresis, CP, UTI, BPH, dysphagia and sacral decubiti who was admitted with altered mental status, urosepsis, dysphagia and sepsis. Patient's POA, Belen Marie and I had been in discussion regarding hospice care last week. [facility] does not want PEG or HD and agreed to transition patient back to [place] on Tuesday with hospice services. There was miscommunication between [place] and hospice, so the patient was sent back to hospital spoke with kenton again this morning. [facility] is meeting with [facility] today to sign onto hospice services. The patient will be discharged back to [facility] today under [facility] hospice services. Time spent in goals of care discussion and end of life counseling , 40 minutes Plan: Hospice evaluation End of life counseling Discharge to [place] under hospice care
== END 2017-08-06 16:10 | disposition hospice, home (50) | DRG 698 ==
LOC: ED 20:58 → ERH 08-02 00:56 → 3RNO 08-02 03:09
PROVIDERS: ADMIT Internal Medicine; ATTEND Internal Medicine
DX: T83.511A Infection and inflammatory reaction due to indwelling urethral catheter, initial encounter (principal); A41.50 Gram-negative sepsis, unspecified; N17.9 Acute kidney failure, unspecified; L89.153 Pressure ulcer of sacral region, stage 3; E11.22 Type 2 diabetes mellitus with diabetic chronic kidney disease; D69.59 Other secondary thrombocytopenia; E83.39 Other disorders of phosphorus metabolism; F03.90 Unspecified dementia, unspecified severity, without behavioral disturbance, psychotic disturbance, mood disturbance, and anxiety; K92.2 Gastrointestinal hemorrhage, unspecified; R65.20 Severe sepsis without septic shock; N39.0 Urinary tract infection, site not specified; E87.5 Hyperkalemia; D64.9 Anemia, unspecified; I12.9 Hypertensive chronic kidney disease with stage 1 through stage 4 chronic kidney disease, or unspecified chronic kidney disease; B96.20 Unspecified Escherichia coli [E. coli] as the cause of diseases classified elsewhere; B96.4 Proteus (mirabilis) (morganii) as the cause of diseases classified elsewhere; E78.00 Pure hypercholesterolemia, unspecified; G40.909 Epilepsy, unspecified, not intractable, without status epilepticus; G47.00 Insomnia, unspecified; G80.9 Cerebral palsy, unspecified; N18.9 Chronic kidney disease, unspecified; N32.81 Overactive bladder; N40.1 Benign prostatic hyperplasia with lower urinary tract symptoms; R31.0 Gross hematuria; Y73.8 Miscellaneous gastroenterology and urology devices associated with adverse incidents, not elsewhere classified; Y84.6 Urinary catheterization as the cause of abnormal reaction of the patient, or of later complication, without mention of misadventure at the time of the procedure; Z66 Do not resuscitate; Z79.01 Long term (current) use of anticoagulants; Z79.899 Other long term (current) drug therapy; Z86.73 Personal history of transient ischemic attack (TIA), and cerebral infarction without residual deficits; Z87.440 Personal history of urinary (tract) infections; K59.00 Constipation, unspecified; R32 Unspecified urinary incontinence; R40.2412 Glasgow coma scale score 13-15, at arrival to emergency department; E86.0 Dehydration

== ENCOUNTER 2017-08-06 23:04 | Observation (INO) | payer MEDICARE, MEDICAID ==
--- NOTE | 2017-08-06 23:28 | ED PDOC ---
Arrival/HPI - General Time Seen by Provider: 08/06/17 23:05 Historian: Fdc - History of Present Illness Narrative History of Present Illness (Text): 08/06/17 23:28 Fortino Loja is a 81 year old male, whose past medical history includes BPH, chronic indwelling Vale catheter, recurrent UTIs, GI bleed, hypertension, diabetes, cerebral palsy, CVA, seizures, and anemia, who presents to the Emergency department sent from retirement for lethargy/altered mental status. Patient was seen in the emergency department on 08/01/2017 and admitted to the hospital for urosepsis secondary to indwelling vale catheter, discharged back to the retirement earlier today. Limited HPI and ROS due to patient's altered mental status. PMD: Dr. Jacquelin Amaya Time/Duration: Other (today) Symptom Onset: Gradual Symptom Course: Unchanged Activities at Onset: Light Context: Home (assisted) Past Medical History - Provider Review Nursing Documentation Reviewed: Yes - Tetanus Immunization Tetanus Immunization: Unknown - Cardiac Hx Cardiac Disorders: Yes Hx Hypertension: Yes - Pulmonary Hx Respiratory Disorders: No Other/Comment: insomnia - Neurological Hx Neurological Disorder: Yes Hx Seizures: Yes Other/Comment: cerebral palsy - HEENT Hx HEENT Disorder: No - Renal Hx Renal Disorder: No - Endocrine/Metabolic Hx Endocrine Disorders: Yes Hx Diabetes Mellitus Type 2: Yes - Hematological/Oncological Hx Blood Disorders: Yes (GI BLEED) - Integumentary Hx Dermatological Disorder: No - Musculoskeletal/Rheumatological Hx Musculoskeletal Disorders: Yes (LEFT SIDED WEAKNESS/CVA) Hx Falls: (UNKNOWN) - Gastrointestinal Hx Gastrointestinal Disorders: Yes (GI BLEED,CONSTIPATION,DIARRHEA) - Genitourinary/Gynecological Hx Genitourinary Disorders: Yes (OVERACTIVE BLADDER) Hx Incontinence: Yes - Psychiatric Hx Psychophysiologic Disorder: No Hx Substance Use: No Family/Social History - Physician Review Nursing Documentation Reviewed: Yes Family/Social History: Unknown Family HX Smoking Status: Never Smoked Hx Alcohol Use: No Hx Substance Use: No Allergies/Home Meds Allergies/Adverse Reactions: Allergies No Known Allergies Allergy (Verified 05/06/17 19:00) Home Medications: Home Meds Medication Instructions Recorded Confirmed Pantoprazole [Protonix Inj] 40 mg IV Q12 08/06/17 08/06/17 Review of Systems - Review of Systems Systems not reviewed;Unavailable: Altered Mental Status Neurological: Other (+lethargic) Physical Exam Vital Signs Reviewed: Yes Vital Signs Temp Pulse Resp BP Pulse Ox 08/07/17 02:24 97.8 F 99 H 20 157/87 H 99 08/07/17 01:30 101 H 21 146/85 95 08/07/17 01:00 100 H 20 149/81 99 08/07/17 00:16 103 H 20 152/77 H 96 08/06/17 23:05 96.4 F L 95 H 20 169/97 H 99 Temperature: Afebrile Blood Pressure: Hypertensive Pulse: Regular Respiratory Rate: Normal Pain Distress: None Mental Status: Positive for: Lethargic - Systems Exam Head: Present: Atraumatic, Normocephalic Pupils: Present: PERRL Extroacular Muscles: Present: EOMI Conjunctiva: Present: Normal Mouth: Present: Moist Mucous Membranes Neck: Present: Normal Range of Motion Respiratory/Chest: Present: Clear to Auscultation, Good Air Exchange. No: Respiratory Distress, Accessory Muscle Use Cardiovascular: Present: Regular Rate and Rhythm, Normal S1, S2. No: Murmurs Abdomen: Present: Normal Bowel Sounds. No: Tenderness, Distention, Peritoneal Signs Genitourinary Male: Present: Other (Brown, thick urine draining from Vale catheter) Upper Extremity: Present: Other (Atrophy and contracture of extremities). No: Cyanosis, Edema Lower Extremity: Present: Normal Inspection. No: Edema Neurological: No: Speech Normal (Non-communicative) Skin: Present: Warm, Dry, Normal Color. No: Rashes Psychiatric: Present: Lethargic Medical Decision Making ED Course and Treatment: 08/06/17 23:28 Impression: 81 year old male sent from retirement for lethargy/AMS. Plan: -- EKG -- CXR -- Labs, VBG, blood cultures -- Urinalysis, urine cultures -- IV fluids -- Reassess and disposition Prior Visits: Notes and results from previous visits were reviewed. On08/01/2017, pt was seen in the emergency department for decreased urine output. Pt was admitted to the hospital for urosepsis secondary to chronic indwelling Vale catheter. Pt d/c today. Progress Notes: Reviewed EKG, NSR at [address]-segment elevations or depressions, no T-wave inversions, normal intervals. 08/07/17 00:49 Reviewed radiology, CXR shows no acute processes. 08/07/17 00:[address] Juarez, covering for Dr. Amaya, who is aware and agrees with plan. Pt will go to [facility] observation for dehydration and renal failure. 08/07/17 02:39 Case discussed with medical billing manager cloud solutions architect, who is aware and agrees with plan. - Lab Interpretations Lab Results: 08/06/17 23:50 08/06/17 23:50 Lab Results 08/07/17 00:52: POC Glucose (mg/dL) 92 08/07/17 00:05: Urine Color Dark brown, Urine Appearance Cloudy, Urine pH 6.5, Ur Specific [place] 1.020, Urine Protein >=300 H, Urine Glucose (UA) Negative, Urine Ketones Trace H, Urine Blood Large H, Urine Nitrate Positive H, Urine Bilirubin Large H, Urine Urobilinogen 1.0 H, Ur Leukocyte Esterase Large H, Urine RBC Tntc, Urine WBC Tntc, Urine Bacteria Many 08/06/17 23:50: Sodium 151 H, Chloride 120 H, Potassium 4.7, Carbon Dioxide 16 L , Anion Gap 20, BUN 147 H*, Creatinine 8.7 H*, Est GFR ( Amer) 7, Est GFR (Non-Af Amer) 6, Random Glucose 87, Calcium 8.8, Total Bilirubin 0.9, AST 23 , ALT 27, Alkaline Phosphatase 102, Total Protein 5.3 L, Albumin 2.2 L, Globulin 3.0, Albumin/Globulin Ratio 0.7 L 08/06/17 23:50: pO2 146 H, VBG pH 7.31 L, VBG pCO2 32.0 L, VBG HCO3 16.1 L, VBG Total CO2 17.1 L, VBG O2 Sat (Calc) 99.9 H, VBG Base Excess -9.0 L, VBG Potassium 3.8, Sodium 146.0, Chloride 121.0 H, Glucose 85, Lactate 1.0, FiO2 21.0, Venous Blood Potassium 3.8 08/06/17 23:50: PT 19.2 H, INR 1.74 H, APTT 38.3 H 08/06/17 23:50: WBC 24.4 H D, RBC 2.92 L, Hgb 8.7 L, Hct 25.8 L, MCV 88.4, MCH 29.8, MCHC 33.7, RDW 16.4 H, Plt Count 66 L, Gran % 81.8 H, Lymph % (Auto) 10.7 L, [place] % (Auto) 6.3 H, Eos % (Auto) 1.0 L, Baso % (Auto) 0.2, Gran # 19.95 H, Lymph # 2.6, [place] # 1.5 H, Eos # 0.3, Baso # 0.05 I have reviewed the lab results: Yes - RAD Interpretation Radiology Orders: 08/06/17 23:31 CHEST PORTABLE [RAD] Stat Carpet Cutter: ED Physician - EKG Interpretation Interpreted by ED Physician: Yes Type: 12 lead EKG - Medication Orders Current Medication Orders: Apixaban (Eliquis) 5 mg PO BID [facility] PRN Reason: Protocol Last Admin: 08/07/17 17:23 Dose: Not Given Non-Admin Reason: NPO Atorvastatin Calcium (Lipitor) 20 mg PO DIN [facility] Last Admin: 08/07/17 16:17 Dose: Not Given Non-Admin Reason: NPO Baclofen (Lioresal) 5 mg PO TID [facility] Last Admin: 08/07/17 17:23 Dose: Not Given Non-Admin Reason: NPO Carvedilol (Coreg) 3.125 mg PO 0800,1700 [facility] Last Admin: 08/07/17 16:49 Dose: Not Given Non-Admin Reason: NPO Famotidine (Pepcid) 20 mg IVP DAILY [facility] Last Admin: 08/07/17 09:55 Dose: 20 mg IVP Administration Document 08/07/17 09:55 [employer] MANAGER (Rec: 08/07/17 09:55 [id number]) Charges for Administration # of IVP Administrations 1 Levetiracetam (Keppra 500mg Ivpb) 500 mg in 100 mls @ 400 mls/hr IV Q12 [facility] Last Admin: 08/07/17 09:56 Dose: 400 mls/hr eMAR Start Stop Document 08/07/17 09:56 [employer]INO DUTY MANAGER (Rec: 08/07/17 09:57 [id number] Intravenous Solution Start Date 08/07/17 Start Time 10:00 End Date 08/07/17 Cefepime HCl (Maxipime 1gm) 1 gm in 100 mls @ 100 mls/hr IVPB Q24H [facility] PRN Reason: Protocol Stop: 08/16/17 09:16 Last Admin: 08/07/17 10:01 Dose: 100 mls/hr eMAR Start Stop Document 08/07/17 10:01 CASINO DUTY MANAGER (Rec: 08/07/17 10:02 [employer] MANAGER [place] [id number]) Intravenous Solution Start Date 08/07/17 Start Time 11:00 End Date 08/07/17 Sodium Chloride (Sodium Chloride 0.45%) 1,000 mls @ 60 mls/hr IV .[id number] [facility] Last Admin: 08/07/17 12:20 Dose: 60 mls/hr eMAR Start Stop Document 08/07/17 12:20 CASINO DUTY MANAGER (Rec: 08/07/17 12:20 [employer] MANAGER [place] [id number]) Intravenous Solution Start Date 08/07/17 Start Time 12:15 Insulin Human Lispro (Humalog Med) 0 units SC ACHS [facility] PRN Reason: Protocol Last Admin: 08/07/17 16:49 Dose: Not Given Non-Admin Reason: Blood Sugar Parameter MAR Blood Glucose Document 08/07/17 16:49 CASINO DUTY MANAGER (Rec: 08/07/17 16:49 [employer]INO [employer]Y MANAGER [id number]) Blood Glucose Finger Stick Blood Glucose (70-120) 78 Pantoprazole Sodium (Protonix Inj) 40 mg IV Q12 [facility] Last Admin: 08/07/17 09:57 Dose: 40 mg eMAR Start Stop Document 08/07/17 09:57 CASINO DUTY MANAGER (Rec: 08/07/17 09:57 [id number] Intravenous Solution Start Date 08/07/17 Start Time 10:00 Sodium Bicarbonate (Sodium Bicarbonate Tab) 650 mg PO Q6 [facility] Last Admin: 08/07/17 17:23 Dose: Not Given Non-Admin Reason: NPO Tamsulosin HCl (Flomax) 0.4 mg PO DAILY [facility] Last Admin: 08/07/17 09:51 Dose: Not Given Non-Admin Reason: Agitation Tolterodine Tartrate (Detrol) 2 mg PO BID [facility] Last Admin: 08/07/17 17:23 Dose: Not Given Non-Admin Reason: NPO Discontinued Medications Sodium Chloride 2,440 ml/ IV (SUPPLIES) 2,440 mls @ 4,872 mls/hr IV ONCE ONE PRN Reason: 60 ML/KG/HR Stop: 08/06/17 23:32 Last Admin: 08/07/17 00:14 Dose: 4,872 mls/hr eMAR Start Stop Document 08/07/17 00:14 OCS (Rec: 08/07/17 00:15 [facility] [id number]) Intravenous Solution Start Date 08/07/17 Start Time 00:14 Ceftriaxone Sodium (Rocephin 1 Gram Ivpb) 1 gm in 100 mls @ 200 mls/hr IV ONCE STA PRN Reason: Protocol Stop: 08/07/17 01:34 Last Admin: 08/07/17 01:36 Dose: 200 mls/hr eMAR Start Stop Document 08/07/17 01:36 OCS (Rec: 08/07/17 01:36 OCS [id number]) Intravenous Solution Start Date 08/07/17 Start Time 01:36 Sodium Chloride (Sodium Chloride 0.9%) 1,000 mls @ 100 mls/hr IV .Q10H STA Stop: 08/07/17 11:07 Last Admin: 08/07/17 09:52 Dose: 100 mls/hr eMAR Start Stop Document 08/07/17 09:52 CASINO DUTY MANAGER (Rec: 08/07/17 09:52 [employer]INO [employer]Y MANAGER [id number]) Intravenous Solution Start Date 08/07/17 Start Time 09:00 - Scribe Statement The provider has reviewed the documentation as recorded by the Scribrandee Sultana All medical record entries made by the Scribe were at my direction and personally dictated by me. I have reviewed the chart and agree that the record accurately reflects my personal performance of the history, physical exam, medical decision making, and the department course for this patient. I have also personally directed, reviewed, and agree with the discharge instructions and disposition. Disposition/Present on Arrival - Present on Arrival Any Indicators Present on Arrival: No History of DVT/PE: No History of Uncontrolled Diabetes: No Urinary Catheter: Yes History of Decub. Ulcer: No History Surgical Site Infection Following: None - Disposition Have Diagnosis and Disposition been Completed?: Yes Diagnosis: Urinary tract infection, Dehydration, Cerebral palsy, CRF (chronic renal failure) Disposition: HOSPITALIZED Disposition Time: 01:11 Patient Plan: Observation Patient Problems: Current Active Problems Problem Status Onset CRF (chronic renal failure) Acute Dehydration Acute Urinary tract infection Acute Cerebral palsy Chronic Condition: FAIR
[2017-08-07 00:15] LABS: BASO # 0.05 K/mm3 (0.0-2.0); BASO % 0.2 % (0.0-3.0); EOS # 0.3 (0.0-0.7); GRAN # 19.95 (1.4-6.5); GRAN % 81.8 % (50.0-68.0); HEMATOCRIT 25.8 % (42.0-52.0); LYMPH # 2.6 (1.2-3.4); LYMPH % 10.7 % (22.0-35.0); MEAN CELL VOLUME 88.4 fl (80.0-105.0); MEAN CORPUSCULAR HEMOGLOBIN 29.8 pg (25.0-35.0); MEAN CORPUSCULAR HGB CONC 33.7 g/dl (31.0-37.0); MONO # 1.5 (0.1-0.6); MONO % 6.3 % (1.0-6.0); PLATELET COUNT 66 10^3/uL (120.0-450.0); RED CELL DISTRIBUTION WIDTH 16.4 % (11.5-14.5); WHITE BLOOD COUNT 24.4 10^3/ul (4.5-11.0)
[2017-08-07 00:24] LABS: VENOUS BLOOD PH 7.31 (7.32-7.43)
[2017-08-07 00:27] LABS: PH,URINE 6.5 (4.7-8.0); URINE BILIRUBIN LARGE (NEGATIVE); URINE BLOOD LARGE (NEGATIVE); URINE GLUCOSE (UA) NEGATIVE (NEGATIVE); URINE KETONE TRACE mg/dL (NEGATIVE); URINE LEUKOCYTE ESTERASE LARGE Leu/uL (NEGATIVE); URINE PROTEIN >=300 mg/dL (<30 mg/dL)
[2017-08-07 00:31] LABS: URINE COLOR DARK BROWN (YELLOW)
[2017-08-07 00:32] LABS: URINE APPEARANCE CLOUDY (CLEAR)
[2017-08-07 00:46] LABS: ALB/GLOB RATIO 0.7 (1.1-1.8); BILIRUBIN,TOTAL 0.9 mg/dL (0.2-1.3); CALCIUM 8.8 mg/dL (8.4-10.5); POTASSIUM 4.7 mmol/L (3.6-5.0); TOTAL PROTEIN 5.3 g/dL (5.8-8.3)
[2017-08-07 00:49] LABS: URINE RBC TNTC /hpf (0-2); URINE WBC TNTC /hpf (0-6)
[2017-08-07 00:50] LABS: URINE BACTERIA MANY (NEG)
[2017-08-07 00:57] LABS: INR 1.74 (0.93-1.08); PARTIAL THROMBOPLASTIN TIME 38.3 Seconds (25.1-36.5)
[2017-08-07] MEDS ORDERED: cefTRIAXone 1 gm 1 GM/100 ML BAG IV STA (01:05)
[2017-08-07] MEDS ORDERED: Sodium Chloride 0.9% 1,000 ML IV STA (01:08)
--- NOTE | 2017-08-07 02:55 | CP.PCM.HP ---
History of Present Illness - History of Present Illness History of Present Illness: Subjective: CC: AMS HPI: Patient is a 81 yo male with PMHx of BPH, chronic indwelling Vale catheter, recurrent UTIs, GI bleed, hypertension, diabetes, cerebral palsy, CVA, seizures , and anemia who presents from correction for evaluation and treatment of altered mental status and lethargy. The patient was discharged from yesterday after being admitted to the hospital for treatment of urosepsis secondary to indwelling vale catheter. As per nursing records the patients urine output was 100cc in 8 hours with pus found in the vale bag. The vale was replaced in the ED. Further details of HPI and ROS could not be elicited at this time due to the patient's altered mental status. PMHx: BPH, chronic indwelling Vale catheter, recurrent UTIs, GI bleed, hypertension, diabetes, cerebral palsy, CVA, seizures, and anemia FHx: Non-contributory Allergies: NKDA Social History: according to discharge summary- rosenberg elisha DEISY, does not consume tobacco, alcohol, illicit drugs Meds: Reviewed as per [facility] PMD: Dr. Amaya Physical Examination: - Constitutional Appears: Toxic - Head Exam Head Exam: ATRAUMATIC, NORMOCEPHALIC - Eye Exam Eye Exam: nonicteric - ENT Exam ENT Exam: Mucous Membranes Moist - Neck Exam Neck exam: Positive for: Full Rom. Negative for: Lymphadenopathy, Thyromegaly - Respiratory Exam Respiratory Exam: bibasilar crackles. absent: Rales, Rhonchi, Wheezes - Cardiovascular Exam Cardiovascular Exam: Tachycardia, REGULAR RHYTHM, +S1, +S2. absent: Diastolic murmur, Gallop, Rubs, Systolic Murmur - GI/Abdominal Exam GI & Abdominal Exam: Soft. absent: Distended, Guarding, Rebound, Rigid, Tenderness - Extremities Exam Extremities exam: Positive for: normal inspection - Neurological Exam Additional comments: Pt awake but not alert or oriented, does not responding to verbal stimuli, and does not follow commands appropriately. - Skin Skin Exam: Dry, Intact, Normal Color, Warm Additional comments: Assessment and Plan: 81 yo male with PMH of BPH, chronic indwelling Vale catheter, recurrent UTIs, GI bleed, hypertension, diabetes, cerebral palsy, CVA, seizures, and anemia presents from correction due to urinary retention will be admitted for evaluation and treatment for UTI 2/2 indwelling vale catheter, BEN, and thrombocytopenia. Sepsis 2/2 UTI 2/2 Indwelling vale catheter - leukocytosis and tachycardia noted - Indwelling vale catheter removed and replaced in ED Sanju pus draining per vale catheter Maintain and change vale catheter as needed - rocephin IVPB daily - IVF NS @ 100 - F/u blood and urine cultures - ID reviewed from previous admission- Reconsulted - UA reviewed- positive nitrates, leukocyte esterase, WBCs, and bacteria Altered Mental Status 2/2 UTI Sepsis - Treatment plan as above for UTI Acute Kidney Injury - BUN 147 today from 141 yesterday, Cr 8.7 today from 7.6 yesterday - Likely 2/2 indwelling vale catheter - Nephrology reconsulted- as per previous notes the patient's family does not want HD- plan was likely for hospice Thrombocytopenia - Platelets 66 from 27 yesterday - Thrombocytopenia likely 2/2 to obstructive process due to UTI/indwelling vale catheter - Heme/Onc Recs reviewed from previous admission- Reconsulted HTN - Cont home meds: Coreg Hypernatremia - trend reviewed and appreciated - will monitor closely with CMP Anemia - Hgb trended and appreciated - at baseline H/O Seizures and Cerebral Palsy - day team follow up with patient's depakote - Cont home meds: baclofen H/O CVA - Cont home meds: Lipitor, Eliquis H/O DM -Continue on ISS H/O BPH - Cont home meds: Flomax, Detrol GI/DVT PPx - Pepcid, no PPI as patient has thrombocytopenia - DVT PPx covered by [employer] Palliative Care - Reconsult Earlene Paramonte - Call made to family. Spoke with Belen Marie who is the patient's medical POA. Belen confirmed the patient's dnr/dni status. Patient case discussed with and plan approved by attending physician, Dr. Mcrae. Present on Admission - Present on Admission Any Indicators Present on Admission: Yes Past Patient History - Tetanus Immunizations Tetanus Immunization: Unknown - Past Medical History & Family History Past Medical History?: Yes - Past Social History Smoking Status: Never Smoked - CARDIAC Hx Cardiac Disorders: Yes Hx Hypertension: Yes - PULMONARY Hx Respiratory Disorders: No Other/Comment: insomnia - NEUROLOGICAL Hx Neurological Disorder: Yes Hx Seizures: Yes Other/Comment: cerebral palsy - HEENT Hx HEENT Problems: No - RENAL Hx Chronic Kidney Disease: No - ENDOCRINE/METABOLIC Hx Endocrine Disorders: Yes Hx Diabetes Mellitus Type 2: Yes - HEMATOLOGICAL/ONCOLOGICAL Hx Blood Disorders: Yes (GI BLEED) - INTEGUMENTARY Hx Dermatological Problems: No - MUSCULOSKELETAL/RHEUMATOLOGICAL Hx Musculoskeletal Disorders: Yes (LEFT SIDED WEAKNESS/CVA) Hx Falls: (UNKNOWN) - GASTROINTESTINAL Hx Gastrointestinal Disorders: Yes (GI BLEED,CONSTIPATION,DIARRHEA) - GENITOURINARY/GYNECOLOGICAL Hx Genitourinary Disorders: Yes (OVERACTIVE BLADDER) Hx Incontinence: Yes - PSYCHIATRIC Hx Psychophysiologic Disorder: No Hx Substance Use: No - SURGICAL HISTORY Hx Surgeries: (unable to obtain) Meds Allergies/Adverse Reactions: Allergies Allergy/AdvReac Type Severity Reaction Status Date / Time No Known Allergies Allergy Verified 05/06/17 19:00 Results - Vital Signs Recent Vital Signs: Last Vital Signs Temp 97.8 F 08/07/17 02:24 Pulse 99 H 08/07/17 02:24 Resp 20 08/07/17 02:24 BP 157/87 H 08/07/17 02:24 Pulse Ox 99 08/07/17 02:24 - Labs Result Diagrams: 08/06/17 23:50 08/06/17 23:50
[2017-08-07 04:20] VITALS: BMI 33.8
[2017-08-07 07:01] LABS: WHITE BLOOD COUNT 22.2 10^3/ul (4.5-11.0)
[2017-08-07 07:02] LABS: HEMATOCRIT 24.1 % (42.0-52.0); MEAN CELL VOLUME 89.6 fl (80.0-105.0); MEAN CORPUSCULAR HEMOGLOBIN 30.1 pg (25.0-35.0); MEAN CORPUSCULAR HGB CONC 33.6 g/dl (31.0-37.0); PLATELET COUNT 33 10^3/uL (120.0-450.0); RED CELL DISTRIBUTION WIDTH 16.3 % (11.5-14.5)
[2017-08-07 07:03] LABS: BASO % 0.2 % (0.0-3.0); GRAN # 16.62 (1.4-6.5); GRAN % 74.9 % (50.0-68.0); LYMPH # 3.7 (1.2-3.4); LYMPH % 16.5 % (22.0-35.0); MONO # 1.6 (0.1-0.6); MONO % 7.4 % (1.0-6.0)
[2017-08-07 07:04] LABS: BASO # 0.05 K/mm3 (0.0-2.0); EOS # 0.2 (0.0-0.7)
[2017-08-07 07:28] LABS: ALB/GLOB RATIO 0.7 (1.1-1.8); CALCIUM 8.1 mg/dL (8.4-10.5); MAGNESIUM 2.2 mg/dL (1.7-2.2); PHOSPHOROUS 4.5 mg/dL (2.5-4.5)
[2017-08-07 07:53] VITALS: O2SAT 100
[2017-08-07] MEDS: Insulin Lispro (humaLOG) MEDIUM Coverage SC SCH ×4 (08:32→22:11)
[2017-08-07] MEDS: levETIRAcetam 500mg IVPB 500 MG/100 ML BAG IV SCH ×2 (09:56→22:15)
[2017-08-07] MEDS: Cefepime 1gm in NS 100ml 1 GM/100 ML BAG IVPB SCH (10:01)
--- NOTE | 2017-08-07 10:02 | RAD ---
HISTORY: Sepsis Patient COMPARISON: 08/01/2017 FINDINGS: LUNGS: Hazy bilateral lower lobe infiltrates are now seen. There is vascular congestion. Findings most consistent with CHF. Pneumonia cannot be excluded PLEURA: No significant pleural effusion identified, no pneumothorax apparent. CARDIOVASCULAR: Normal. OSSEOUS STRUCTURES: No significant abnormalities. VISUALIZED UPPER ABDOMEN: Normal. OTHER FINDINGS: None. IMPRESSION: Hazy bilateral lower lobe infiltrates are now seen. There is vascular congestion. Findings most consistent with CHF. Pneumonia cannot be excluded
--- NOTE | 2017-08-07 12:11 | CP.PCM.CON ---
History of Present Illness - History of Present Illness History of Present Illness: 81 yo male with PMH of chronic indwelling vale, GIB, UTI, HTN, DM that represented from [facility] w/ BEN. He was recently admitted and discharged yesterday for urosepsis & arf. After discussion w/ POA was decided to send to [place] on hospice. its not clear to me what happened after that point - but he was sent back here. The daughters goals of care remain the same. Pt is otherwise unable to give any further history. ROS: a full detailed ROS is limited given his mental status pmh: indwelling vale, bph, utis, GIB, htn, DM, CP, CVA famhx: unable to obtain sochx: [facility] resident, otherwise unable to obtain meds: see SHELLEY, reviewed all: NKDA Past Patient History - Tetanus Immunizations Tetanus Immunization: Unknown - Past Medical History & Family History Past Medical History?: Yes - Past Social History Smoking Status: Former Smoker - CARDIAC Hx Cardiac Disorders: Yes Hx Hypertension: Yes - PULMONARY Hx Respiratory Disorders: No Other/Comment: insomnia - NEUROLOGICAL Hx Neurological Disorder: Yes Hx Seizures: Yes Other/Comment: cerebral palsy - HEENT Hx HEENT Problems: No - RENAL Hx Chronic Kidney Disease: No - ENDOCRINE/METABOLIC Hx Endocrine Disorders: Yes Hx Diabetes Mellitus Type 2: Yes - HEMATOLOGICAL/ONCOLOGICAL Hx Blood Disorders: Yes (GI BLEED) - INTEGUMENTARY Hx Dermatological Problems: No - MUSCULOSKELETAL/RHEUMATOLOGICAL Hx Falls: No (UNKNOWN) - GASTROINTESTINAL Hx Gastrointestinal Disorders: Yes (GI BLEED,CONSTIPATION,DIARRHEA) - GENITOURINARY/GYNECOLOGICAL Hx Genitourinary Disorders: Yes (OVERACTIVE BLADDER) Hx Incontinence: Yes - PSYCHIATRIC Hx Psychophysiologic Disorder: No - SURGICAL HISTORY Hx Surgeries: (unable to obtain) Meds Allergies/Adverse Reactions: Allergies Allergy/AdvReac Type Severity Reaction Status Date / Time No Known Allergies Allergy Verified 05/06/17 19:00 - Medications Medications: Current Medications Apixaban (Eliquis) 5 mg PO BID JOHANNA PRN Reason: Protocol Last Admin: 08/07/17 09:51 Dose: Not Given Atorvastatin Calcium (Lipitor) 20 mg PO DIN JOHANNA Baclofen (Lioresal) 5 mg PO TID [facility] Last Admin: 08/07/17 09:51 Dose: Not Given Carvedilol (Coreg) 3.125 mg PO 0800,1700 [facility] Last Admin: 10/22/17 08:31 Dose: Not Given Famotidine (Pepcid) 20 mg IVP DAILY [facility] Last Admin: 08/07/17 09:55 Dose: 20 mg Levetiracetam (Keppra 500mg Ivpb) 500 mg in 100 mls @ 400 mls/hr IV Q12 [facility] Last Admin: 08/07/17 09:56 Dose: 400 mls/hr Cefepime HCl (Maxipime 1gm) 1 gm in 100 mls @ 100 mls/hr IVPB Q24H [facility] PRN Reason: Protocol Stop: 08/16/17 09:16 Last Admin: 08/07/17 10:01 Dose: 100 mls/hr Insulin Human Lispro (Humalog Med) 0 units SC ACHS [facility] PRN Reason: Protocol Last Admin: 08/07/17 12:02 Dose: Not Given Pantoprazole Sodium (Protonix Inj) 40 mg IV Q12 [facility] Last Admin: 08/07/17 09:57 Dose: 40 mg Tamsulosin HCl (Flomax) 0.4 mg PO DAILY [facility] Last Admin: 08/07/17 09:51 Dose: Not Given Tolterodine Tartrate (Detrol) 2 mg PO BID [facility] Last Admin: 08/07/17 09:51 Dose: Not Given Physical Exam - Constitutional Appears: Toxic - Head Exam Head Exam: ATRAUMATIC - Eye Exam Eye Exam: Normal appearance - ENT Exam Additional comments: poor dentition - Neck Exam Neck exam: Positive for: Normal Inspection - Respiratory Exam Additional comments: dec at bases - Cardiovascular Exam Cardiovascular Exam: +S1, +S2 - GI/Abdominal Exam Additional comments: soft + bs - Exam Additional comments: + VALE - Extremities Exam Additional comments: 1+ edema - Neurological Exam Additional comments: not alert and not oriented - Psychiatric Exam Additional comments: flat - Skin Skin Exam: Normal Color Results - Vital Signs Recent Vital Signs: Last Vital Signs Temp 97 F L 08/07/17 07:53 Pulse 88 08/07/17 07:53 Resp 21 08/07/17 07:53 BP 126/70 08/07/17 07:53 Pulse Ox 100 08/07/17 07:53 - Labs Result Diagrams: 08/07/17 06:00 08/07/17 06:00 Labs: Laboratory Results - last 24 hr 08/07/17 08/07/17 08/07/17 06:00 06:00 07:43 WBC 22.2 H RBC 2.69 L Hgb 8.1 L Hct 24.1 L MCV 89.6 MCH 30.1 MCHC 33.6 RDW 16.3 H Plt Count 33 L* Gran % 74.9 H Lymph % (Auto) 16.5 L Huntington % (Auto) 7.4 H Eos % (Auto) 1.0 L Baso % (Auto) 0.2 Gran # 16.62 H Lymph # 3.7 H Huntington # 1.6 H Eos # 0.2 Baso # 0.05 Sodium 151 H Potassium 5.0 Chloride 123 H Carbon Dioxide 13 L Anion Gap 20 BUN 143 H* Creatinine 8.0 H* Est GFR ( Amer) 8 Est GFR (Non-Af Amer) 7 POC Glucose (mg/dL) 77 Random Glucose 66 L Calcium 8.1 L Phosphorus 4.5 Magnesium 2.2 Total Bilirubin 1.0 AST 37 ALT 19 Alkaline Phosphatase 82 Total Protein 5.0 L Albumin 2.1 L Globulin 2.9 Albumin/Globulin Ratio 0.7 L Assessment & Plan - Assessment and Plan (Free Text) Assessment: [facility]F/ Hyperkalemia/ Hypernatremia/Metabolic Acidosis/ Sepsis/ UTI / Anemia/ Thrombocytopenia/ plan: BEN - goals of care have not changed, family does not wish for hd will start 1/2 ns for hypernatremia will start na hco3 for acidosis has vale transfusions per primary team plan for hospice
[2017-08-07] MEDS ORDERED: Sodium Chloride 0.45% 1,000 ML IV SCH (12:15)
--- NOTE | 2017-08-07 21:00 | CARD ---
APPROVED REPORT EKG Measurement Heart [id number] <Conclusion> Normal sinus rhythm Normal ECG
[2017-08-07] MEDS ORDERED: cefTRIAXone 1 gm 1 GM/100 ML BAG IVPB SCH (22:00)
[2017-08-08 06:10] VITALS: PULSE 96
[2017-08-08 06:53] LABS: BASO # 0.04 K/mm3 (0.0-2.0); BASO % 0.1 % (0.0-3.0); EOS # 0.3 (0.0-0.7); GRAN % 76.9 % (50.0-68.0); HEMATOCRIT 25.5 % (42.0-52.0); LYMPH # 4.3 (1.2-3.4); LYMPH % 15.1 % (22.0-35.0); MEAN CELL VOLUME 89.2 fl (80.0-105.0); MEAN CORPUSCULAR HEMOGLOBIN 29.7 pg (25.0-35.0); MEAN CORPUSCULAR HGB CONC 33.3 g/dl (31.0-37.0); MONO % 6.9 % (1.0-6.0); PLATELET COUNT 73 10^3/uL (120.0-450.0); RED CELL DISTRIBUTION WIDTH 16.2 % (11.5-14.5)
[2017-08-08 06:55] LABS: WHITE BLOOD COUNT 28.2 10^3/ul (4.5-11.0)
[2017-08-08 07:15] LABS: ALB/GLOB RATIO 0.8 (1.1-1.8); BILIRUBIN,TOTAL 0.8 mg/dL (0.2-1.3); CALCIUM 9.1 mg/dL (8.4-10.5); MAGNESIUM 2.4 mg/dL (1.7-2.2); PHOSPHOROUS 6.2 mg/dL (2.5-4.5); POTASSIUM 5.4 mmol/L (3.6-5.0); TOTAL PROTEIN 5.6 g/dL (5.8-8.3)
[2017-08-08 08:13] VITALS: BP 155/92; RESP 20; TEMP 97
[2017-08-08] MEDS: Cefepime 1gm in NS 100ml 1 GM/100 ML BAG IVPB SCH (09:15)
--- NOTE | 2017-08-08 09:17 | CON ---
DATE: 08/07/2017 LOCATION: The patient is seen in room #360, bed #2. CHIEF COMPLAINT: Weakness. HISTORY OF PRESENT ILLNESS: This is a 81-year-old male who was discharged yesterday and admitted last night again through the emergency room. Emergency room Dr. Kev Ibrahim's note is reviewed. The patient was discharged and the patient with a past medical history of cerebral palsy, history of urinary tract infections with a chronic Saleem catheter, chronic anemia, history of stage III decubitus ulcer, dementia, hypertension, seizure, was admitted with urinary retention. On this admission, the patient was discharged yesterday and re-admitted because of deteriorating condition. He was scheduled according to the nurse to be gone to hospice setting. The patient is unable to give any history. Information is gathered from the chart and past notes. REVIEW OF SYSTEMS: Reveals no fevers or chills are reported. The patient does have shortness of breath. It is unclear if there is any chest pain or abdominal pain or diarrhea. PAST MEDICAL HISTORY: Significant for cerebral palsy, chronic Saleem catheter with multiple urinary tract infections, chronic anemia, stage III decubitus ulcer, dementia, high cholesterol, diabetes and seizures, urinary retention. Past medical history is significant also for CVA with left-sided weakness, BPH and GI bleed. PAST SURGICAL HISTORY: Noncontributory. PHYSICAL EXAMINATION: GENERAL: The patient is in bed, poorly responsive and overall poor condition, lethargic. VITAL SIGNS: Temperature of 97, it was 96.4; pulse of 101; respiratory rate of 21; blood pressure is 140/80. EXAMINATION OF HEENT: Unremarkable. NECK: Supple. LUNGS: Have decreased breath sounds. HEART EXAM: Normal S1 and S2. ABDOMINAL EXAMINATION: Soft and nontender. No rebound or guarding. LABORATORY EXAMINATION: Reveals the patient's white count of 22,000; hemoglobin of 8; platelets are down to 33,000. The patient has 75% granulocytosis and coagulation is reviewed with INR of 1.74. BUN of 143 and creatinine of 8. Procalcitonin was 0.22 yesterday. Urinalysis is too numerous to count wbc's, many bacteria. Stool occult blood was positive from last year. The patient also had a valproic acid in May which was 45. Microbiology reveals the patient had E. coli in the blood and E. coli and Proteus in the urine and E. coli and Proteus in the blood and urine. The sensitivity of the E. coli in blood and E. coli in urine and Proteus mirabilis in the blood is very sensitive organism. ASSESSMENT AND PLAN: A 81-year-old male with severe sepsis and [id number] renal failure and thrombocytopenia with Escherichia coli and Proteus bacteremia secondary to the urine and a stage III decubitus ulcer with staph, was on ceftriaxone and now returns with essentially systemic inflammatory response syndrome and repeat blood and urine cultures have been ordered and we will start the patient on Maxipime pending repeat blood cultures, urine cultures. The patient's chest x-ray report is not available. The patient's creatinine has changed from 6.8 to 7.6. Overall prognosis is quite poor. The patient is a do not resuscitate and do not intubate. Should consider a hospice setting for this patient who is end stage with no quality of life, bedridden. Jori Lynch MD
--- NOTE | 2017-08-08 09:38 | PN ---
DATE:08/08/2017 He was admitted earlier that morning by the resident. I had seen him later this morning. He is comfortable in bed at this time. He came in with chronic indwelling Saleem with current UTI, GI bleeds. Discussed at length with resident, who suppose to be changed inpatient by the resident. Continue with aggressive treatment and care. Labs were reviewed. He has a very high white count. He has a consult with Hematology, Infectious Disease, Palliative Care. Continue with aggressive treatment and care as per resident. He is on IV antibiotic, cefepime. Narayan De La Garza DO
[2017-08-08] MEDS: levETIRAcetam 500mg IVPB 500 MG/100 ML BAG IV SCH (10:00)
--- NOTE | 2017-08-08 12:48 | CP.PCM.DIS ---
Provider - Provider Date of Admission: 08/07/17 01:07 Attending physician: Gabriel Amaya MD Primary care physician: Eran Cowart MD Time Spent in preparation of Discharge (in minutes): 45 Diagnosis - Discharge Diagnosis (1) CRF (chronic renal failure) Status: Acute Hospital Course - Lab Results Lab Results: Most Recent Lab Values WBC 28.2 10^3/ul (4.5-11.0) H* D 08/08/17 06:30 RBC 2.86 10^6/uL (3.5-6.1) L 08/08/17 06:30 Hgb 8.5 g/dL (14.0-18.0) L 08/08/17 06:30 Hct 25.5 % (42.0-52.0) L 08/08/17 06:30 MCV 89.2 fl (80.0-105.0) 08/08/17 06:30 MCH 29.7 pg (25.0-35.0) 08/08/17 06:30 MCHC 33.3 g/dl (31.0-37.0) 08/08/17 06:30 RDW 16.2 % (11.5-14.5) H 08/08/17 06:30 Plt Count 73 10^3/uL (120.0-450.0) L 08/08/17 06:30 Gran % 76.9 % (50.0-68.0) H 08/08/17 06:30 Lymph % (Auto) 15.1 % (22.0-35.0) L 08/08/17 06:30 [place] % (Auto) 6.9 % (1.0-6.0) H 08/08/17 06:30 Eos % (Auto) 1.0 % (1.5-5.0) L 08/08/17 06:30 Baso % (Auto) 0.1 % (0.0-3.0) 08/08/17 06:30 Gran # 21.70 (1.4-6.5) H 08/08/17 06:30 Lymph # 4.3 (1.2-3.4) H 08/08/17 06:30 [place] # 2.0 (0.1-0.6) H 08/08/17 06:30 Eos # 0.3 (0.0-0.7) 08/08/17 06:30 Baso # 0.04 K/mm3 (0.0-2.0) 08/08/17 06:30 PT 19.2 SECONDS (9.4-12.5) H 08/06/17 23:50 INR 1.74 (0.93-1.08) H 08/06/17 23:50 APTT 38.3 Seconds (25.1-36.5) H 08/06/17 23:50 pO2 146 mm/Hg (30-55) H 08/06/17 23:50 VBG pH 7.31 (7.32-7.43) L 08/06/17 23:50 VBG pCO2 32.0 (40-60) L 08/06/17 23:50 VBG HCO3 16.1 mmol/l (21-28) L 08/06/17 23:50 VBG Total CO2 17.1 mmol.L (22-28) L 08/06/17 23:50 VBG O2 Sat (Calc) 99.9 % (40-65) H 08/06/17 23:50 VBG Base Excess -9.0 mmol/L (0.0-2.0) L 08/06/17 23:50 VBG Potassium 3.8 mmol/L (3.6-5.2) 08/06/17 23:50 Sodium 146.0 mmol/L (132-148) 08/06/17 23:50 Chloride 121.0 mmol/L (98-107) H 08/06/17 23:50 Glucose 85 mg/dl (75-110) 08/06/17 23:50 Lactate 1.0 mmol/L (0.7-2.1) 08/06/17 23:50 FiO2 21.0 % 08/06/17 23:50 Sodium 153 mmol/L (132-148) H 08/08/17 06:30 Potassium 5.4 mmol/L (3.6-5.0) H 08/08/17 06:30 Chloride 121 mmol/L (98-107) H 08/08/17 06:30 Carbon Dioxide 12 mmol/L (21-33) L 08/08/17 06:30 Anion Gap 25 (10-20) H 08/08/17 06:30 BUN 150 mg/dL (7-21) H* 08/08/17 06:30 Creatinine 9.6 mg/dL (0.8-1.5) H* 08/08/17 06:30 Est GFR ( Amer) 6 08/08/17 06:30 Est GFR (Non-Af Amer) 5 08/08/17 06:30 POC Glucose (mg/dL) 63 mg/dL (65-110) L 08/08/17 07:10 Random Glucose 66 mg/dL (70-110) L 08/08/17 06:30 Calcium 9.1 mg/dL (8.4-10.5) 08/08/17 06:30 Phosphorus 6.2 mg/dL (2.5-4.5) H 08/08/17 06:30 Magnesium 2.4 mg/dL (1.7-2.2) H 08/08/17 06:30 Total Bilirubin 0.8 mg/dL (0.2-1.3) 08/08/17 06:30 AST 17 U/L (17-59) D 08/08/17 06:30 ALT 28 U/L (7-56) 08/08/17 06:30 Alkaline Phosphatase 102 U/L (38-126) 08/08/17 06:30 Total Protein 5.6 g/dL (5.8-8.3) L 08/08/17 06:30 Albumin 2.4 g/dL (3.0-4.8) L 08/08/17 06:30 Globulin 3.2 gm/dL 08/08/17 06:30 Albumin/Globulin Ratio 0.8 (1.1-1.8) L 08/08/17 06:30 Venous Blood Potassium 3.8 mmol/L (3.6-5.2) 08/06/17 23:50 Urine Color Dark brown (YELLOW) 08/07/17 00:05 Urine Appearance Cloudy (CLEAR) 08/07/17 00:05 Urine pH 6.5 (4.7-8.0) 08/07/17 00:05 Ur Specific [place] 1.020 (1.005-1.035) 08/07/17 00:05 Urine Protein >=300 mg/dL (<30 mg/dL) H 08/07/17 00:05 Urine Glucose (UA) Negative mg/dL (NEGATIVE) 08/07/17 00:05 Urine Ketones Trace mg/dL (NEGATIVE) H 08/07/17 00:05 Urine Blood Large (NEGATIVE) H 08/07/17 00:05 Urine Nitrate Positive (NEGATIVE) H 08/07/17 00:05 Urine Bilirubin Large (NEGATIVE) H 08/07/17 00:05 Urine Urobilinogen 1.0 E.U./dL (<1 E.U./dL) H 08/07/17 00:05 Ur Leukocyte Esterase Large [place]/uL (NEGATIVE) H 08/07/17 00:05 Urine RBC Tntc /hpf (0-2) 08/07/17 00:05 Urine WBC Tntc /hpf (0-6) 08/07/17 00:05 Urine Bacteria Many (NEG) 08/07/17 00:05 - Hospital Course Hospital Course: Fortino Loja is a 81 year old male, whose past medical history includes BPH, chronic indwelling [place] catheter, recurrent UTIs, GI bleed, hypertension, diabetes, cerebral palsy, CVA, seizures, and anemia, who presents to the Emergency department sent from [facility] for lethargy. Patient was previously admitted and discharged to [place] [facility] due to confusion with [facility], patient was sent [place] [facility] [place]ar[place]. As per family's wishes for patient to be on hospice, patient was discharged to [facility] for hospice with no further intervention being performed while at the hospital. Discharge Exam - Head Exam Head Exam: ATRAUMATIC, NORMAL INSPECTION - Eye Exam Eye Exam: EOMI - ENT Exam ENT Exam: Mucous Membranes Dry - Respiratory Exam Respiratory Exam: NORMAL BREATHING PATTERN - Cardiovascular Exam Cardiovascular Exam: REGULAR RHYTHM, +S1, +S2 - GI/Abdominal Exam GI & Abdominal Exam: absent: Soft, Tenderness - Neurological Exam Neurological exam: Altered - Skin Skin Exam: Dry, Normal Color, Warm Discharge Plan - Follow Up Plan Condition: FAIR Disposition: HOSPICE - MEDICAL FACILITY Instructions: Dehydration (DC), Dehydration (GEN), Hospice (DC) Additional Instructions: DISCHARGE BACK TO FACILITY FOR HOSPICE CARE. Referrals: Eran Cowart MD [Primary Care Provider] -
[2017-08-08] MEDS: Insulin Lispro (humaLOG) MEDIUM Coverage SC SCH (15:01)
== END 2017-08-08 15:21 | disposition hospice, inpatient (51) ==
LOC: ED 23:04 → ERH 08-07 01:07 → 3RNO 08-07 03:03
PROVIDERS: ADMIT Internal Medicine; ATTEND Internal Medicine
DX: T83.511A Infection and inflammatory reaction due to indwelling urethral catheter, initial encounter (principal); N39.0 Urinary tract infection, site not specified; N17.9 Acute kidney failure, unspecified; I12.9 Hypertensive chronic kidney disease with stage 1 through stage 4 chronic kidney disease, or unspecified chronic kidney disease; N18.9 Chronic kidney disease, unspecified; N32.81 Overactive bladder; N40.1 Benign prostatic hyperplasia with lower urinary tract symptoms; Y84.6 Urinary catheterization as the cause of abnormal reaction of the patient, or of later complication, without mention of misadventure at the time of the procedure; G47.00 Insomnia, unspecified; E87.5 Hyperkalemia; E87.2 Acidosis; E87.0 Hyperosmolality and hypernatremia; E86.0 Dehydration; D64.9 Anemia, unspecified; D69.6 Thrombocytopenia, unspecified; E11.22 Type 2 diabetes mellitus with diabetic chronic kidney disease; E78.00 Pure hypercholesterolemia, unspecified; F03.90 Unspecified dementia, unspecified severity, without behavioral disturbance, psychotic disturbance, mood disturbance, and anxiety; I69.354 Hemiplegia and hemiparesis following cerebral infarction affecting left non-dominant side; G80.9 Cerebral palsy, unspecified; Z66 Do not resuscitate; Z87.440 Personal history of urinary (tract) infections; Z87.891 Personal history of nicotine dependence
CPT/HCPCS: 36415; 71010; 80053; 81001; 82803; 82948; 83735; 84100; 85025; 85610; 85730; 87040; 87086; 93005; 99285; C9113; G0378; J0692; J0696; J1953; J7030; J7040